=== PATIENT | female | born 1970 | race Caucasian/White ===

== ENCOUNTER 2021-06-18 21:42 | Observation (INO) | payer BC ==
[2021-06-18] MEDS ORDERED: MORPHINE SULFATE 2 MG INJ IV ONE (22:23)
[2021-06-18] MEDS ORDERED: Sodium Chloride 0.9% 1000 ML 1,000 ML IV STA (22:23)
[2021-06-18] MEDS ORDERED: Zofran 4 MG/2 ML VIAL IV ONE (22:23)
[2021-06-18] MEDS ORDERED: MORPHINE SULFATE 2 MG INJ ONE (22:29)
[2021-06-18] MEDS ORDERED: Sodium Chloride 0.9% 1000 ML 1,000 ML ONE (22:29)
[2021-06-18] MEDS ORDERED: Zofran 4 MG/2 ML VIAL ONE (22:29)
[2021-06-18 22:33] LABS: Basophil (Absolute #) 0.06 (0-0.4); Eosinophil % 0.6 % (0.00-5.0); Eosinophil (Absolute #) 0.07 (0-0.5); Hemoglobin 14.6 gm/dl (12.0-16.0); Lymphocyte (Absolute #) 4.16 (1.0-4.6); Lymphocytes % 35.6 % (24.0-44.0); Mean Cell Volume 102.1 fl (78-100); Mean Corpuscular Hemoglobin 33.9 pg (26-32); Mean Corpuscular Hgb Concent. 33.2 g/dl (32-36); Monocyte (Absolute #) 0.79 (0.0-1.3); Monocytes % 6.8 % (0.0-12.0); Neutrophil % 56.5 % (36.0-66.0); Platelet Count 363 K/mm3 (150-450); Red Blood Count 4.31 M/mm3 (4.1-5.4); Red Cell Distribution Width 12.1 % (11.5-14.0); White Blood Count 11.7 K/mm3 (4.0-10.5)
[2021-06-18 22:39] LABS: ALBUMIN 4.8 g/dL (3.5-5.0); ALKALINE PHOSPHATASE 84 U/L (38-126); ANION GAP 16.2 MEQ/L (5-15); BLOOD UREA NITROGEN 13 mg/dL (7-17); CHLORIDE 104 mmol/L (98-107); Calcium 10.2 mg/dL (8.4-10.2); Carbon Dioxide 24 mmol/L (22-30); Creatinine 1 0.73 mg/dL (0.52-1.04); EST GLOMERULAR FILTRATION RATE > 60.0 ML/MIN; Glucose 109 mg/dL (74-106); LIPASE 104 U/L (23-300); Potassium 3.7 mmol/L (3.5-5.1); SGOT/AST 28 U/L (14-36); SGPT/ALT 37 U/L (0-35); SODIUM 140 mmol/L (137-145); Total Protein 7.6 g/dL (6.3-8.2)
[2021-06-18 22:44] LABS: Appearance CLEAR (CLEAR); Bilirubin NEGATIVE (NEGATIVE); Dipstick done @ ? MAIN LAB; Glucose NEGATIVE (NEGATIVE); Ketones NEGATIVE (NEGATIVE); Nitrite NEGATIVE (NEGATIVE); Protein,Urine Dip NEGATIVE (Negative); RBC NEGATIVE Ery/ul (0-5); Specific Gravity <=1.005 (1.005-1.025); Urobilinogen 0.2 mg/dL (0-1)
--- NOTE | 2021-06-18 23:08 | ERPHSYRPT ---
- History of Present Illness Time Seen by Provider: 06/18/21 22:00 Historian: patient Exam Limitations: no limitations Patient Subjective Stated Complaint: rt sided abd pain Triage Nursing Assessment: pt c/o rt sided abd pain since around midnight and has just gotten worse throughout the day. Pt has right sided flank pain. Pt took a laxative this morning for relief and it has just made the pain worse. Abd soft with active bs x4 quad, tender on palpation. Physician History: Patient is a 51-year-old female presents to emergency department for evaluation and treatment of right upper quadrant pain. Pain started approximately midnight approximately 12 hours ago. Patient took a laxative but states that pain progre ssively became worse. Patient has a history of kidney stones but feels the symptoms are somewhat different. No trauma. No fever. No nausea vomiting or diaphoresis. Symptoms are moderate in intensity. Eating worsens symptoms. Pain improved with rest. Patient voices no other complaints or concerns at this time. Timing/Duration: today Activities at Onset: none Quality: aching Abdominal Pain Onset Location: RUQ Pain Radiation: no radiation Severity of Pain-Max: moderate Severity of Pain-Current: mild Modifying Factors: Improves With: eating Associated Symptoms: denies symptoms Previous symptoms: no prior history Allergies/Adverse Reactions: No Known Drug Allergies Allergy (Unverified 06/18/21 22:04) Home Medications: Atorvastatin Calcium 10 mg PO DAILY 06/18/21 [History] Cetirizine HCl [Zyrtec] 10 mg PO DAILY 06/18/21 [History] Fluticasone Propionate [Flonase Allergy Relief] 2 puffs IH DAILY 06/18/21 [History] Levothyroxine Sodium 75 Mcg [Synthroid 75 Mcg] 1 tab PO DAILY 06/18/21 [History] Montelukast Sodium 10 mg [Singulair 10 MG] 1 tab PO HS 06/18/21 [History] PANTOPRAZOLE 40 mg Tablet [Protonix 40MG Tablet] 1 tab PO DAILY 06/18/21 [History] Valsartan/Hydrochlorothiazide [Valsartan-Hctz 80-12.5 mg Tab] 1 tab PO DAILY 06/18/21 [History] Hx Tetanus, Diphtheria Vaccination/Date Given: Yes Hx Influenza Vaccination/Date Given: No Hx Pneumococcal Vaccination/Date Given: No Immunizations Up to Date: Yes Travel Risk - International Travel Have you traveled outside of the country in past 3 weeks: No - Coronavirus Screening Are you exhibiting any of the following symptoms?: No Close contact with a COVID-19 positive Pt in past 14-21 Days: No - Vaccine Status Have you recieved a Covid-19 vaccination: Yes Academic Department Chair: Pfizer - Vaccination Dates Date of 2cond Vaccination (if applicable): 09/14/20 - Review of Systems Constitutional: No Symptoms, No Fever, No Chills Eyes: No Symptoms Ears, Nose, & Throat: No Symptoms Respiratory: No Symptoms, No Cough, No Dyspnea Cardiac: No Symptoms, No Chest Pain, No Edema, No Syncope Abdominal/Gastrointestinal: No Symptoms, No Abdominal Pain, No Nausea, No Vomiting, No Diarrhea Genitourinary Symptoms: No Symptoms, No Dysuria Musculoskeletal: No Symptoms, No Back Pain, No Neck Pain Skin: No Symptoms, No Rash Neurological: No Symptoms, No Dizziness, No Focal Weakness, No Sensory Changes Psychological: No Symptoms Endocrine: No Symptoms Hematologic/Lymphatic: No Symptoms Immunological/Allergic: No Symptoms All Other Systems: Reviewed and Negative - Past Medical History Pertinent Past Medical History: Yes Neurological History: No Pertinent History ENT History: No Pertinent History Cardiac History: High Cholesterol, Hypertension, Other Respiratory History: Bronchitis Endocrine Medical History: Hypothyroidism Musculoskeletal History: No Pertinent History GI Medical History: GERD History: No Pertinent History Psycho-Social History: Anxiety, Depression Female Reproductive Disorders: No Pertinent History Other Medical History: SVT - Past Surgical History Past Surgical History: Yes Neuro Surgical History: No Pertinent History Cardiac: Cardiac Catheterization, Other Respiratory: No Pertinent History Gastrointestinal: No Pertinent History Genitourinary: No Pertinent History Musculoskeletal: No Pertinent History Female Surgical History: Dilation & Curettage, Section, Other Other Surgical History: breast reduction. spinal cord stimulator put in and removed. cardiac ablation for SVT. endometrial ablation - Social History Smoking Status: Current every day smoker How long have you smoked: 30 yrs Exposure to second hand smoke: Yes Drug Use: none Patient Lives Alone: No Significant Family History: heart disease - Nursing Vital Signs Nursing Vital Signs: Initial Vital Signs Temperature 98.8 F 06/18/21 21:53 Pulse Rate 87 06/18/21 21:53 Respiratory Rate 20 06/18/21 21:53 Blood Pressure 152/102 06/18/21 21:53 O2 Sat by Pulse Oximetry 100 06/18/21 21:53 Pain Scale Pain Intensity 5 - Physical Exam General Appearance: no apparent distress, alert Eye Exam: PERRL/EOMI, eyes nml inspection Ears, Nose, Throat Exam: normal ENT inspection, TMs normal, pharynx normal, moist mucous membranes Neck Exam: normal inspection, non-tender, supple, full range of motion Respiratory Exam: normal breath sounds, lungs clear, airway intact, No chest tenderness, No respiratory distress Cardiovascular Exam: regular rate/rhythm, normal heart sounds, normal peripheral pulses Gastrointestinal/Abdomen Exam: soft, normal bowel sounds, tenderness, other (Tenderness to palpation right upper quadrant.), No mass Pelvic Exam: not done Back Exam: normal inspection, normal range of motion, No CVA tenderness, No vertebral tenderness Extremity Exam: normal inspection, normal range of motion, pelvis stable Neurologic Exam: alert, oriented x 3, cooperative, normal mood/affect, nml cerebellar function, sensation nml, No motor deficits Skin Exam: normal color, warm, dry Lymphatic Exam: No adenopathy SpO2 Interpretation: normal SpO2: 98 O2 Delivery: Room Air - Course Nursing assessment & vital signs reviewed: Yes EKG Interpreted by Me: RATE (66), Sinus Rhythm, NORMAL AXIS, NORMAL INTERVALS (PVC complex observed on EKG. Short OR interval) - CT Exams Abdomen/Pelvis CT Interpretation: Tele-radiologist Report (Diverticulosis. No diverticulitis. No evidence of acute intra-abdominal or pelvic pathology.) Ordered Tests: Active Orders 24 hr Category Date Time Status EKG-ER Only STAT Care 06/18/21 22:23 Active IV Insertion STAT Care 06/18/21 22:23 Active ABDOMEN AND PELVIS W CONTRAST [CT] Stat Exams 06/18/21 22:24 Taken CBC W DIFF Stat Lab 06/18/21 22:25 Completed CMP Stat Lab 06/18/21 22:25 Completed LIPASE Stat Lab 06/18/21 22:25 Completed TROPONIN Q3H Lab 06/18/21 22:25 Completed TROPONIN Q3H Lab 06/19/21 01:27 Completed Transfer Order Routine Transfer 06/19/21 Ordered Medication Summary Discontinued Medications Generic Name Dose Route Start Last Admin Trade Name Freq PRN Reason Stop Dose Admin Hydromorphone HCl 0.5 mg 06/19/21 02:14 06/19/21 02:18 Hydromorphone 1 Mg/1ml Inj 1 Mg/Ml Syringe IV 06/19/21 02:15 0.5 mg STAT ONE Administration Hydromorphone HCl Confirm 06/19/21 02:17 Hydromorphone 1 Mg/1ml Inj 1 Mg/Ml Syringe Administered 06/19/21 02:18 Dose 1 mg .ROUTE .STK-MED ONE Sodium Chloride 1,000 mls @ 999 mls/hr 06/18/21 22:23 06/19/21 01:13 Sodium Chloride 0.9% 1000 Ml IV 06/18/21 23:23 Infused .Q1H1M STA Infusion Sodium Chloride Confirm 06/18/21 22:29 Sodium Chloride 0.9% 1000 Ml Administered 06/18/21 22:30 Dose 1,000 mls @ ud .ROUTE .STK-MED ONE Morphine Sulfate 2 mg 06/18/21 22:23 06/18/21 22:32 Morphine Sulfate 2 Mg/Ml Inj IV 06/18/21 22:24 2 mg STAT ONE Administration Morphine Sulfate Confirm 06/18/21 22:29 Morphine Sulfate 2 Mg/Ml Inj Administered 06/18/21 22:30 Dose 2 mg .ROUTE .STK-MED ONE Morphine Sulfate 4 mg 06/18/21 23:32 06/18/21 23:38 Morphine Sulfate 4 Mg/Ml Injection IV 06/18/21 23:33 4 mg STAT ONE Administration Morphine Sulfate Confirm 06/18/21 23:36 Morphine Sulfate 4 Mg/Ml Injection Administered 06/18/21 23:37 Dose 4 mg .ROUTE .STK-MED ONE Morphine Sulfate 4 mg 06/19/21 00:52 06/19/21 01:15 Morphine Sulfate 4 Mg/Ml Injection IV 06/19/21 00:53 4 mg STAT ONE Administration Morphine Sulfate Confirm 06/19/21 01:14 Morphine Sulfate 4 Mg/Ml Injection Administered 06/19/21 01:15 Dose 4 mg .ROUTE .STK-MED ONE Ondansetron HCl 4 mg 06/18/21 22:23 06/18/21 22:32 Ondansetron Hcl 4 Mg/2 Ml Vial IV 06/18/21 22:24 4 mg STAT ONE Administration Ondansetron HCl Confirm 06/18/21 22:29 Ondansetron Hcl 4 Mg/2 Ml Vial Administered 06/18/21 22:30 Dose 4 mg .ROUTE .STK-MED ONE Lab/Rad Data: Laboratory Result Diagrams 06/18/21 22:25 06/18/21 22:25 Laboratory Results 06/19/21 06/19/21 06/18/21 Range/Units 01:27 01:27 22:28 WBC (4.0-10.5) K/mm3 RBC (4.1-5.4) M/mm3 Hgb (12.0-16.0) gm/dl Hct (35-47) % MCV (78-100) fl MCH (26-32) pg MCHC (32-36) g/dl RDW (11.5-14.0) % Plt Count (150-450) K/mm3 MPV (7.5-11.0) fl Gran % (36.0-66.0) % Eos # (Auto) (0-0.5) Absolute Lymphs (auto) (1.0-4.6) Absolute Monos (auto) (0.0-1.3) Lymphocytes % (24.0-44.0) % Monocytes % (0.0-12.0) % Eosinophils % (0.00-5.0) % Basophils % (0.0-0.4) % Absolute Granulocytes (1.4-6.9) Basophils # (0-0.4) Sodium (137-145) mmol/L Potassium (3.5-5.1) mmol/L Chloride (98-107) mmol/L Carbon Dioxide (22-30) mmol/L Anion Gap (5-15) MEQ/L BUN (7-17) mg/dL Creatinine (0.52-1.04) mg/dL Estimated GFR ML/MIN Glucose (74-106) mg/dL Calcium (8.4-10.2) mg/dL Total Bilirubin (0.2-1.3) mg/dL AST (14-36) U/L ALT (0-35) U/L Alkaline Phosphatase (38-126) U/L Troponin I < 0.012 (0.000-0.034) ng/mL Serum Total Protein (6.3-8.2) g/dL Albumin (3.5-5.0) g/dL Lipase (23-300) U/L Urinalys Dipstick Clnc MAIN LAB Urine Color YELLOW (YELLOW) Urine Appearance CLEAR (CLEAR) Urine pH 6.0 (5-6) Ur Specific [place] <=1.005 (1.005-1.025) POC Urine Protein Conf NEGATIVE (Negative) Urine Ketones NEGATIVE (NEGATIVE) Urine Nitrite NEGATIVE (NEGATIVE) Urine Bilirubin NEGATIVE (NEGATIVE) Urine Urobilinogen 0.2 (0-1) mg/dL Urine Leukocytes NEGATIVE (NEGATIVE) Urine WBC (Auto) NONE (0-5) /HPF Urine RBC (Auto) NONE (0-2) /HPF U Epithel Cells (Auto) NONE (FEW) /HPF Urine Bacteria (Auto) NONE (NEGATIVE) /HPF Urine RBC NEGATIVE (0-5) Santiago/ul Ur Culture Indicated? NO Urine Glucose NEGATIVE (NEGATIVE) mg/dL Influenza Type A Ag NEGATIVE (NEGATIVE) Influenza Type B Ag NEGATIVE (NEGATIVE) RSV (PCR) NEGATIVE (Negative) SARS-CoV-2 (PCR) NEGATIVE (NEGATIVE) 06/18/21 06/18/21 06/18/21 Range/Units 22:25 22:25 22:25 WBC 11.7 H (4.0-10.5) K/mm3 RBC 4.31 (4.1-5.4) M/mm3 Hgb 14.6 (12.0-16.0) gm/dl Hct 44.0 (35-47) % MCV 102.1 H (78-100) fl MCH 33.9 H (26-32) pg MCHC 33.2 (32-36) g/dl RDW 12.1 (11.5-14.0) % Plt Count 363 (150-450) K/mm3 MPV 10.0 (7.5-11.0) fl Gran % 56.5 (36.0-66.0) % Eos # (Auto) 0.07 (0-0.5) Absolute Lymphs (auto) 4.16 (1.0-4.6) Absolute Monos (auto) 0.79 (0.0-1.3) Lymphocytes % 35.6 (24.0-44.0) % Monocytes % 6.8 (0.0-12.0) % Eosinophils % 0.6 (0.00-5.0) % Basophils % 0.5 (0.0-0.4) % Absolute Granulocytes 6.60 (1.4-6.9) Basophils # 0.06 (0-0.4) Sodium 140 (137-145) mmol/L Potassium 3.7 (3.5-5.1) mmol/L Chloride 104 (98-107) mmol/L Carbon Dioxide 24 (22-30) mmol/L Anion Gap 16.2 H (5-15) MEQ/L BUN 13 (7-17) mg/dL Creatinine 0.73 (0.52-1.04) mg/dL Estimated GFR > 60.0 ML/MIN Glucose 109 H (74-106) mg/dL Calcium 10.2 (8.4-10.2) mg/dL Total Bilirubin 0.50 (0.2-1.3) mg/dL AST 28 (14-36) U/L ALT 37 H (0-35) U/L Alkaline Phosphatase 84 (38-126) U/L Troponin I < 0.012 (0.000-0.034) ng/mL Serum Total Protein 7.6 (6.3-8.2) g/dL Albumin 4.8 (3.5-5.0) g/dL Lipase 104 (23-300) U/L Urinalys Dipstick Clnc Urine Color (YELLOW) Urine Appearance (CLEAR) Urine pH (5-6) Ur Specific [place] (1.005-1.025) POC Urine Protein Conf (Negative) Urine Ketones (NEGATIVE) Urine Nitrite (NEGATIVE) Urine Bilirubin (NEGATIVE) Urine Urobilinogen (0-1) mg/dL Urine Leukocytes (NEGATIVE) Urine WBC (Auto) (0-5) /HPF Urine RBC (Auto) (0-2) /HPF U Epithel Cells (Auto) (FEW) /HPF Urine Bacteria (Auto) (NEGATIVE) /HPF Urine RBC (0-5) Santiago/ul Ur Culture Indicated? Urine Glucose (NEGATIVE) mg/dL Influenza Type A Ag (NEGATIVE) Influenza Type B Ag (NEGATIVE) RSV (PCR) (Negative) SARS-CoV-2 (PCR) (NEGATIVE) - Progress Progress: improved Progress Note: Patient reassessed. She continues to have right upper quadrant pain in spite of multiple doses of morphine. Patient has a leukocytosis. CAT scan essentially nonremarkable. We are concerned with possible cholecystitis. Due to policy we cannot perform a right upper quadrant ultrasound after hours from our ED. Patient cannot be discharged home due to the level of pain she is experiencing. Case discussed with Dr. Jorgensen who accepts admission to observation. We will admit patient for pain control and right upper quadrant ultrasound in the morning. Plan of care discussed with patient. She agrees to admission [facility] for further evaluation and treatment. Covid test pending 06/19/21 01:16 Covid test negative. Admit orders entered. Patient will be admitted to Dr. Jorgensen service. Right upper quadrant ultrasound will be performed in the morning. Portions of this note were created with voice recognition technology. There may be grammatical, spelling, punctuation or sound alike errors 06/19/21 02:[address] Sergey Will see patient in: hospital (observation) Counseled pt/family regarding: lab results, diagnosis, rad results - Departure Departure Disposition: Home Clinical Impression: Leukocytosis, Right upper quadrant pain, Intractable abdominal pain Condition: Stable Critical Care Time: No Referrals: DOCTOR,NO FAMILY [Primary Care Provider] - Follow up/PCP as directed Additional Instructions: Discharge/Care Plan SHRUTICHLOÉ CALVO was seen on 06/19/21 in the Emergency Room. The patient was counseled regarding Diagnosis,Lab results, Imaging studies, need for follow up and when to return to the Emergency Room. Prescriptions given: Discharge Note I have spoken with the patient and/or caregivers. I have explained the patient's condition, diagnosis and treatment plan based on the information available to me at this time. I have answered the patient's and/or caregiver's questions and addressed any concerns. The patient and/or caregivers have as good understanding of the patient's diagnosis, condition and treatment plan as can be expected at this point. The vital signs have been stable. The patient's condition is stable and appropriate for discharge from the emergency department. The patient will pursue further outpatient evaluation with the primary care physician or other designated or consulting physician as outlined in the discharge instructions. The patient and/or caregivers are agreeable to this plan of care and follow-up instructions have been explained in detail. The patient and/or caregivers have received these instruction. The patient/and or caregivers are aware that any significant change in condition or worsening of symptoms should prompt an immediate return to this or the closest emergency department or call 911.
[2021-06-18] MEDS ORDERED: MORPHINE SULFATE 4 MG INJ IV ONE (23:32)
[2021-06-18] MEDS ORDERED: MORPHINE SULFATE 4 MG INJ ONE (23:36)
[2021-06-19] MEDS ORDERED: MORPHINE SULFATE 4 MG INJ IV ONE (00:52)
[2021-06-19] MEDS ORDERED: MORPHINE SULFATE 4 MG INJ ONE (01:14)
[2021-06-19 02:08] LABS: INFLUENZA A NEGATIVE (NEGATIVE); INFLUENZA B NEGATIVE (NEGATIVE); RESPIRATORY SYNCTIAL VIRUS NEGATIVE (Negative); SARS-CoV-2 Xpert Express NEGATIVE (NEGATIVE)
[2021-06-19] MEDS ORDERED: Hydromorphone 1 mg/ml Injection IV ONE (02:14)
[2021-06-19] MEDS ORDERED: Hydromorphone 1 mg/ml Injection ONE (02:17)
[2021-06-19] MEDS: Zofran 4 MG/2 ML VIAL IV PRN ×2 (03:47→17:22)
[2021-06-19] MEDS: Sodium Chloride 0.9% 1000 ML 1,000 ML IV SCH ×3 (04:34→23:54)
[2021-06-19] MEDS ORDERED: PIPERACILLIN/TAZOBACTAM IV ONE (05:54)
[2021-06-19] MEDS ORDERED: Sodium Chloride 100ML MINI-BAG PLUS 100 ML IV ONE (05:55)
[2021-06-19] MEDS: PIPERACILLIN/TAZOBACTAM 3.375 GM in Sodium Chloride 100ML MINI-BAG PLUS 100 ML IV SCH ×4 (06:07→23:54)
[2021-06-19 06:08] LABS: Absolute Neutrophil Ct (ANC) 5.19 (1.4-6.9); Basophil (Absolute #) 0.03 (0-0.4); Eosinophil % 0.5 % (0.00-5.0); Eosinophil (Absolute #) 0.04 (0-0.5); Hematocrit 38.9 % (35-47); Hemoglobin 12.5 gm/dl (12.0-16.0); Lymphocyte (Absolute #) 2.88 (1.0-4.6); Mean Cell Volume 104.6 fl (78-100); Mean Corpuscular Hemoglobin 33.6 pg (26-32); Mean Corpuscular Hgb Concent. 32.1 g/dl (32-36); Monocyte (Absolute #) 0.59 (0.0-1.3); Monocytes % 6.8 % (0.0-12.0); Neutrophil % 59.4 % (36.0-66.0); Platelet Count 316 K/mm3 (150-450); Red Blood Count 3.72 M/mm3 (4.1-5.4); Red Cell Distribution Width 12.3 % (11.5-14.0); White Blood Count 8.7 K/mm3 (4.0-10.5)
[2021-06-19] MEDS: Hydromorphone 1 mg/ml Injection IV PRN ×5 (06:22→23:59)
[2021-06-19] MEDS: BENADRYL 50 MG/ML IV PRN ×3 (08:49→21:48)
--- NOTE | 2021-06-19 09:21 | XRAY ---
Indication: Right abdomen/flank pain. Nausea. Elevated WBC. Multiple contiguous axial images obtained through the abdomen and pelvis using 80 cc Isovue 370 contrast. Comparison: None Lung bases demonstrates minimal dependent atelectasis. Heart not enlarged. Noncontrasted stomach and bowel loops appear nonobstructed. Normal appendix. Minimal descending and sigmoid diverticulosis without diverticulitis. Gallbladder mildly distended without gallstones or biliary distention. No free fluid/air. Remaining liver, gallbladder, pancreas, spleen, adrenal glands, kidneys, ureters, bladder, and uterus appear unremarkable. Mild scattered aortoiliac calcifications. No AAA or pathologic retroperitoneal lymphadenopathy. Osseous structures intact with mild levorotoscoliosis centered at L3 and 1 cm left femur head bone island. No ventral or inguinal hernias. Impression: 1. Mild distended gallbladder better evaluated with sonogram if clinically warranted. 2. Minimal colonic diverticulosis and chronic bony findings. 3. Remaining CT abdomen/pelvis with contrast exam is negative. Comment: Preliminary interpretation made by C. No critical discrepancy.
--- NOTE | 2021-06-19 09:46 | XRAY ---
Indication: Right upper quadrant pain. Nausea. Two-dimensional gallbladder sonogram performed. Comparison: None Gallbladder mildly distended without gallstones, wall thickening, or pericholecystic fluid. Common bile duct measures 5.5 mm. No intrahepatic biliary distention. Remaining visualized liver, pancreas, and right kidney are sonographically unremarkable. Right kidney measures 9.5 cm in length. Impression: Continued negative gallbladder sonogram.
[2021-06-19] MEDS ORDERED: NON-FORMULARY ITEM (Atorvastatin Calcium [Atorvastatin Calcium] 10 MG Tablet) PO SCH (10:00)
[2021-06-19] MEDS ORDERED: PROTONIX 40 MG IV IV SCH (10:00)
[2021-06-19] MEDS ORDERED: HYDROCHLOROTHIAZIDE PO SCH (10:00)
[2021-06-19] MEDS ORDERED: VALSARTAN PO SCH (10:00)
[2021-06-19] MEDS ORDERED: NON-FORMULARY ITEM (Fluticasone Propionate [Flonase Allergy Relief] 9.9 ML Spray.Susp) IH SCH (10:00)
[2021-06-19] MEDS ORDERED: NON-FORMULARY ITEM (Cetirizine Hcl [Zyrtec] 10 MG Tablet) PO SCH (10:00)
[2021-06-19] MEDS ORDERED: [UNRECOGNIZED DRUG - OTHER] PO SCH (10:00)
[2021-06-19] MEDS: Protonix 40MG Tablet PO SCH (10:17)
[2021-06-19] MEDS: Flonase NASAL NS SCH (10:21)
[2021-06-19] MEDS: SYNTHROID 75 MCG PO SCH (10:21)
[2021-06-19] MEDS: Zocor 10MG PO SCH (10:21)
[2021-06-19] MEDS: CLARITIN 10 MG PO SCH (10:21)
[2021-06-19] MEDS: hydroDIURIL 25 MG PO SCH (10:22)
[2021-06-19] MEDS: DIOVAN 80 MG PO SCH (10:23)
[2021-06-19 10:26] LABS: ALBUMIN 3.6 g/dL (3.5-5.0); ALKALINE PHOSPHATASE 55 U/L (38-126); ANION GAP 8.6 MEQ/L (5-15); BLOOD UREA NITROGEN 12 mg/dL (7-17); CHLORIDE 109 mmol/L (98-107); Calcium 8.7 mg/dL (8.4-10.2); Carbon Dioxide 26 mmol/L (22-30); Creatinine 1 0.65 mg/dL (0.52-1.04); EST GLOMERULAR FILTRATION RATE > 60.0 ML/MIN; Glucose 92 mg/dL (74-106); Potassium 3.7 mmol/L (3.5-5.1); SGOT/AST 24 U/L (14-36); SGPT/ALT 28 U/L (0-35); SODIUM 140 mmol/L (137-145); Total Protein 6.3 g/dL (6.3-8.2)
[2021-06-19] MEDS ORDERED: Nicoderm CQ 21 MG TOP SCH (11:15)
[2021-06-19] MEDS: Nicoderm CQ 21 MG TOP SCH (11:22)
[2021-06-19] MEDS: NEURONTIN 300 MG PO SCH (21:36)
[2021-06-19] MEDS: Zanaflex 4 MG PO SCH (21:36)
[2021-06-19] MEDS: Singulair 10 MG PO SCH (21:36)
[2021-06-20] MEDS: BENADRYL 50 MG/ML IV PRN ×4 (02:27→21:48)
[2021-06-20] MEDS: PIPERACILLIN/TAZOBACTAM 3.375 GM in Sodium Chloride 100ML MINI-BAG PLUS 100 ML IV SCH ×4 (05:55→23:40)
--- NOTE | 2021-06-20 12:46 | XRAY ---
Indication: Extreme right upper quadrant pain. Negative gallbladder sonogram. Comparison: None Patient received 5.4 mCi technetium 99 Choletec. Immediate anterior planar imaging was performed for 60 minutes. Normal hepatic activity on the first image. Normal biliary and gallbladder activity within 20 minutes. Normal biliary to bowel activity within 40 minutes. Patient then received 1.3 g IV CCK slowly. Patient complained of right upper quadrant pain, graded 6 out of 10. Ejection fraction calculated 10%, low. Impression: 1. HIDA scan portion of the exam is normal. 2. Low ejection fraction 10%. Rule out chronic cholecystitis.
[2021-06-20] MEDS: Hydromorphone 1 mg/ml Injection IV PRN ×2 (13:21→19:26)
[2021-06-20] MEDS ORDERED: Lactated Ringers 1,000 ML IV ONE ×2 (13:27→13:37)
[2021-06-20] MEDS ORDERED: Decadron 4 MG INJ ONE (13:32)
[2021-06-20] MEDS ORDERED: SUBLIMAZE 100 MCG/2 ML ONE ×2 (13:32→15:09)
[2021-06-20] MEDS ORDERED: Xylocaine-Mpf 2% 5 Ml Vial ONE (13:32)
[2021-06-20] MEDS ORDERED: Versed 2 MG/2 ML Injection ONE (13:32)
[2021-06-20] MEDS ORDERED: Zofran 4 MG/2 ML VIAL ONE ×2 (13:32→15:07)
[2021-06-20] MEDS ORDERED: DIPRIVAN 200 MG/20 ML IV ONE (13:32)
[2021-06-20] MEDS ORDERED: Zemuron 100 MG/10 ML ONE (13:32)
[2021-06-20] MEDS ORDERED: BRIDION 200MG/2ML IV ONE (13:32)
[2021-06-20] MEDS ORDERED: TORAdol 30 mg Injection ONE ×2 (13:32→14:12)
[2021-06-20] MEDS ORDERED: Sensorcaine 0.25% 10 ML ONE (13:37)
--- NOTE | 2021-06-20 13:55 | PCM.NOTE ---
Date and Time: 06/20/21 1352 Subjective Assessment: S: no acute issues overnight. similar pain. comes and goes in waves. crampy/tightness. can be severe. is getting narcotics. to [facility] didn't initially have sx but then had sx "when they flushed the saline". does endorse taking intermittent nsaid. thought she had an ulcer a few weeks ago due to pain and had a little blood in some regurgitation. O vss nad nonlabroed resps nd, soft, mild ttp ruq no r/g no gary. hida 10% ef a/p: 51yo female with ruq abd pain. ? gastritis/pud, HIDA 10% clearly abnormal. discussed with pt options of egd, cholecystectomy, nonop and she wants to proceed with egd cholecystectomy -egd cholecystectomy. OBJECTIVE DATA Vital Signs: Vital Signs - 24 hr Temp Pulse Resp BP Pulse Ox 06/20/21 13:34 97.8 F 67 20 135/65 100 06/20/21 12:00 97.8 F 67 20 135/65 100 06/20/21 08:00 97.7 F 56 L 18 96/54 99 06/20/21 07:29 95 06/20/21 04:40 97.7 F 56 L 18 98/55 99 06/20/21 00:00 97.7 F 54 L 20 102/59 99 06/19/21 20:00 98 F 53 L 22 126/78 98 06/19/21 18:55 96 06/19/21 16:00 97.8 F 53 L 16 111/59 98 Pain Assessment - Last Documented Pain Intensity 8 Pain Scale Used 0-10 Pain Scale Intake and Output: Intake & Output 06/18/21 06/19/21 06/20/21 06/21/21 11:59 11:59 11:59 11:59 Intake Total 0 2830 0 Balance 0 2830 0 Weight 66.678 kg 66.678 kg Radiology Exams: Radiology Procedures Category Date Time Status ABDOMEN AND PELVIS W CONTRAST [CT] Stat Exams 06/18/21 22:24 Completed GALLBLADDER [US] Routine Exams 06/19/21 09:00 Completed HEPATOBILIARY W/CCK [NUCMED] Routine Exams 06/20/21 10:33 Completed Multi-Disciplinary Progress Notes: Multi-Disciplinary Progress Notes 06/20/21 12:30 Case Management Note by Rosa Linda/Elvia PATIENT- SHE CONTINUES TO DENY ANY NEW NEEDS REGARDING DC. SHE PLANS TO RETURN HOME TO HER PRIOR LEVEL OF FUNCTIONING AT TIME OF DC, SHE REPORTS HER FAMILY WILL BE ABLE TO ASSIST IF NEEDED Initialized on 06/20/21 12:30 - END OF NOTE
--- NOTE | 2021-06-20 13:58 | PCM.CONS ---
History of Present Illness - Reason for Consult Chief Complaint: Intractable right upper quadrant pain Requesting Provider: KENDY JIMENES Consulting Provider: HELEN ROWLEY MD History of Present Illness: hx per chart review and d/w pt few weeks ago had some epigastric/ruq pain. thought she was having an ulcer. however worsened acute pain to ED. US CT negative. continued pain. to hida today. comes and goes in waves. crampy severe pain. "- History of Present Illness Time Seen by Provider: 06/18/21 22:00 Historian: patient Exam Limitations: no limitations Patient Subjective Stated Complaint: rt sided abd pain Triage Nursing Assessment: pt c/o rt sided abd pain since around midnight and has just gotten worse throughout the day. Pt has right sided flank pain. Pt took a laxative this morning for relief and it has just made the pain worse. Abd soft with active bs x4 quad, tender on palpation. Physician History: Patient is a 51-year-old female presents to emergency department for evaluation and treatment of right upper quadrant pain. Pain started approximately midnight approximately 12 hours ago. Patient took a laxative but states that pain progressively became worse. Patient has a history of kidney stones but feels the symptoms are somewhat different. No trauma. No fever. No nausea vomiting or diaphoresis. Symptoms are moderate in intensity. Eating worsens symptoms. Pain improved with rest. Patient voices no other complaints or concerns at this time. Timing/Duration: today Activities at Onset: none Quality: aching Abdominal Pain Onset Location: RUQ Pain Radiation: no radiation Severity of Pain-Max: moderate Severity of Pain-Current: mild Modifying Factors: Improves With: eating Associated Symptoms: denies symptoms Previous symptoms: no prior history Allergies/Adverse Reactions: No Known Drug Allergies Allergy (Unverified 06/18/21 22:04) Medications & Allergies Home Medications: Home Medication List Atorvastatin Calcium 10 mg PO DAILY 06/18/21 [History Confirmed 06/18/21] Cetirizine HCl [Zyrtec] 10 mg PO DAILY 06/18/21 [History Confirmed 06/18/21] Fluticasone Propionate [Flonase Allergy Relief] 2 puffs IH DAILY 06/18/21 [History Confirmed 06/18/21] Levothyroxine Sodium 75 Mcg [Synthroid 75 Mcg] 1 tab PO DAILY 06/18/21 [History Confirmed 06/18/21] Montelukast Sodium 10 mg [Singulair 10 MG] 1 tab PO HS 06/18/21 [History Confirmed 06/18/21] PANTOPRAZOLE 40 mg Tablet [Protonix 40MG Tablet] 1 tab PO DAILY 06/18/21 [History Confirmed 06/18/21] Valsartan/Hydrochlorothiazide [Valsartan-Hctz 80-12.5 mg Tab] 1 tab PO DAILY 06/18/21 [History Confirmed 06/18/21] Gabapentin 300 mg [Neurontin 300 mg] 300 mg PO QHS 06/19/21 [History Confirmed 06/19/21] Tizanidine HCl 4 mg [Zanaflex 4 MG] 4 mg PO QHS 06/19/21 [History Confirmed 06/19/21] Hydrocodone/Acetaminophen [Hydrocodone-Acetamin 5-325 mg] 1 tab PO Q6HPRN PRN 7 Days #20 tablet MDD 4 06/20/21 [Rx] Allergies/Adverse Reactions: Allergies Allergy/AdvReac Type Severity Reaction Status Date / Time No Known Drug Allergies Allergy Unverified 06/18/21 22:04 - Past Medical History Past Medical History: Yes Neurological History: No Pertinent History ENT History: No Pertinent History Cardiac History: High Cholesterol, Hypertension, Other Respiratory History: Bronchitis Endocrine Medical History: Hypothyroidism Musculoskelatal History: No Pertinent History GI Medical History: GERD History: No Pertinent History Pyscho-Social History: Anxiety, Depression Reproductive Disorders: No Pertinent History Comment: SVT - Female History Are you now?: No - Past Surgical History Past Surgical History: Yes Neuro Surgical History: No Pertinent History Cardiac History: Cardiac Catheterization, Other Respiratory Surgery: No Pertinent History GI Surgical History: No Pertinent History Genitourinary Surgical Hx: No Pertinent History Musculskeletal Surgical Hx: No Pertinent History Female Surgical History: Dilation & Curettage, Section, Other Other Surgical History: breast reduction. spinal cord stimulator put in and removed. cardiac ablation for SVT. endometrial ablation - Social History Smoking Status: Current every day smoker How long have you smoked: 30 years Exposure to second hand smoke: Yes Alcohol: Occasionally Drug Use: none Significant Family History: heart disease - Physical Exam Vital Signs: Vital Signs - 24 hr Temp Pulse Resp BP Pulse Ox 06/20/21 13:34 97.8 F 67 20 135/65 100 06/20/21 12:00 97.8 F 67 20 135/65 100 06/20/21 08:00 97.7 F 56 L 18 96/54 99 06/20/21 07:29 95 06/20/21 04:40 97.7 F 56 L 18 98/55 99 06/20/21 00:00 97.7 F 54 L 20 102/59 99 06/19/21 20:00 98 F 53 L 22 126/78 98 06/19/21 18:55 96 06/19/21 16:00 97.8 F 53 L 16 111/59 98 General Appearance: no apparent distress Neurologic Exam: alert, oriented x 3 Eye Exam: eyes nml inspection, No scleral icterus Neck Exam: normal inspection Respiratory Exam: No respiratory distress Cardiovascular Exam: regular rate/rhythm Gastrointestinal/Abdomen Exam: soft, tenderness, No mass, No guarding, No rebound (ttp ruq no r/g. no gary) Pelvic Exam: not done Rectal Exam: not done Skin Exam: normal color, warm, dry Results - Radiology Impressions Radiology Exams & Impressions: Radiology Procedures Category Date Time Status ABDOMEN AND PELVIS W CONTRAST [CT] Stat Exams 06/18/21 22:24 Completed GALLBLADDER [US] Routine Exams 06/19/21 09:00 Completed HEPATOBILIARY W/CCK [NUCMED] Routine Exams 06/20/21 10:33 Completed Assessment/Plan (1) Right upper quadrant pain Current Visit: Yes Status: Acute Assessment & Plan: RUQ pain. mild ttp on exam. CT US negative. labs ok. abnormal hida ef 10%. does take nsaids. did say she had a blood tinge in some regurigtation weeks ago. -egd cholecystectomy. Code(s): R10.11 - RIGHT UPPER QUADRANT PAIN
[2021-06-20] MEDS ORDERED: MEFOXIN 2 GM PREMIX** 2 GM/50 ML ML IV ONE (14:01)
[2021-06-20] MEDS ORDERED: Hydromorphone 1 mg/ml Injection ONE (15:10)
[2021-06-20] MEDS: CLARITIN 10 MG PO SCH ×2 (15:27→16:50)
[2021-06-20] MEDS: DIOVAN 80 MG PO SCH (15:27)
[2021-06-20] MEDS: hydroDIURIL 25 MG PO SCH (15:29)
[2021-06-20] MEDS: SYNTHROID 75 MCG PO SCH (15:29)
[2021-06-20] MEDS: Protonix 40MG Tablet PO SCH (15:29)
[2021-06-20] MEDS: Nicoderm CQ 21 MG TOP SCH ×2 (15:30→16:43)
[2021-06-20] MEDS: Zocor 10MG PO SCH (15:30)
--- NOTE | 2021-06-20 15:32 | OP ---
SURGERY DATE/TIME: 06/20/2021 4923 PREOPERATIVE DIAGNOSIS: Cholecystitis and right upper quadrant abdominal pain. POSTOPERATIVE DIAGNOSES: 1) Acute cholecystitis. 2) Normal EGD. PROCEDURES: 1) Laparoscopic cholecystectomy. 2) EGD. SURGEON: Rodney Hidalgo M.D. ANESTHESIA: General. ESTIMATED BLOOD LOSS: Minimal. CONDITION: Patient condition stable. COMPLICATIONS: None. SPECIMEN: Gallbladder. HISTORY: The patient is a 51-year-old female who presented to the emergency department with acute right upper quadrant abdominal pain. Ultrasound was negative. CT scan was negative. Labs are unremarkable. She had continued pain. HIDA scan obtained that showed ejection fraction of 10%. On exam, she has focal tenderness in the right upper quadrant. She does endorse that a few weeks prior she might have regurgitated some contents with blood with concern that she had an ulcer. She does take NSAID's intermittently. Discussion with patient the risks of infection, bleeding, injury to nearby structure, hernia, perforation, failure to resolve symptoms. Offered EGD and cholecystectomy and she wanted to proceed with both. FINDINGS: Acutely edematous, inflamed gallbladder, mildly distended. Critical view obtained. EGD is normal. DESCRIPTION OF PROCEDURE: The patient was brought to the operating room. General anesthesia induced. She is routinely positioned, prepped and draped. Time out performed. She received preoperative antibiotic. A Veress needle was inserted in left upper quadrant. Opening pressure was 4. Pneumoperitoneum established. A 5 mm Optiview trocar placed in left upper quadrant. A 5 mm infraumbilical trocar placed. Two additional 5 mm trocars placed in the right upper quadrant. The gallbladder is moderately distended, did not require decompression. The cystic duct and cystic artery were dissected out with a combination of L-hook cautery, [place] and blunt dissection. There were also some omental adhesions on the gallbladder taken down. The critical view was clearly obtained. The cystic duct taken with 5 mm metal clip press pipe inspector, three down. Cystic artery was taken with 5 mm metal clip press pipe inspector, three down. The cystic artery taken with 5 mm Hem-O-Henrique clip press pipe inspector, both divided. Gallbladder taken off the liver bed. Hole made in the gallbladder and suctioned out. There was no sunny stone. The gallbladder is then brought out through the 5 mm infraumbilical trocar site. No dilation was required. Trocar reinserted. Right upper quadrant re-inspected, irrigated and suctioned until clear. There was excellent hemostasis. Clips are in good position. The ports were removed under direct visualization except for the left upper quadrant port used for desufflation and then removed. Skin closed with 4-0 Vicryl suture. The wound had been irrigated out. Marcaine had been injected at all the port sites. 4-0 Vicryl used to close the skin. Steri-Strips and sterile dressings applied. All counts were correct. The patient tolerated the procedure well. The gastroscope was then inserted through the mouth and advanced to the third portion of the duodenum. The duodenum is normal. Stomach is normal. Retroflexion normal. Esophagus normal. This is a normal EGD. The patient tolerated this portion of the procedure well. She was extubated and taken to recovery in stable condition.
[2021-06-20] MEDS: Sodium Chloride 0.9% 1000 ML 1,000 ML IV SCH (15:56)
[2021-06-20] MEDS: Flonase NASAL NS SCH (16:41)
[2021-06-20] MEDS: NORCO 5/325 MG PO PRN ×2 (17:46→21:48)
[2021-06-20] MEDS: Singulair 10 MG PO SCH (21:41)
[2021-06-20] MEDS: NEURONTIN 300 MG PO SCH (21:41)
[2021-06-20] MEDS: Zanaflex 4 MG PO SCH (21:41)
[2021-06-20] MEDS ORDERED: Diflucan 100 MG PO SCH (22:00)
[2021-06-20] MEDS ORDERED: Protonix 40MG Tablet PO ONE (22:00)
[2021-06-21] MEDS: NORCO 5/325 MG PO PRN ×2 (02:07→07:26)
[2021-06-21] MEDS: BENADRYL 50 MG/ML IV PRN ×2 (02:10→07:38)
[2021-06-21] MEDS: Sodium Chloride 0.9% 1000 ML 1,000 ML IV SCH (02:52)
[2021-06-21 05:01] LABS: Hematocrit 35.7 % (35-47); Hemoglobin 11.7 gm/dl (12.0-16.0); Mean Cell Volume 103.8 fl (78-100); Mean Corpuscular Hgb Concent. 32.8 g/dl (32-36); Platelet Count 280 K/mm3 (150-450); Red Blood Count 3.44 M/mm3 (4.1-5.4); Red Cell Distribution Width 11.9 % (11.5-14.0); White Blood Count 9.7 K/mm3 (4.0-10.5)
[2021-06-21] MEDS: Hydromorphone 1 mg/ml Injection IV PRN ×2 (05:01→08:50)
[2021-06-21 05:35] LABS: ALBUMIN 3.4 g/dL (3.5-5.0); ALKALINE PHOSPHATASE 61 U/L (38-126); BLOOD UREA NITROGEN 10 mg/dL (7-17); CHLORIDE 110 mmol/L (98-107); Calcium 8.4 mg/dL (8.4-10.2); Carbon Dioxide 19 mmol/L (22-30); Creatinine 1 0.61 mg/dL (0.52-1.04); EST GLOMERULAR FILTRATION RATE > 60.0 ML/MIN; Glucose 179 mg/dL (74-106); Potassium 3.6 mmol/L (3.5-5.1); SGOT/AST 44 U/L (14-36); SGPT/ALT 37 U/L (0-35); SODIUM 137 mmol/L (137-145)
[2021-06-21] MEDS: PIPERACILLIN/TAZOBACTAM 3.375 GM in Sodium Chloride 100ML MINI-BAG PLUS 100 ML IV SCH (06:39)
[2021-06-21 07:22] VITALS: BP 130/63; PULSE 55; O2SAT 99
[2021-06-21] MEDS: DIOVAN 80 MG PO SCH (08:44)
[2021-06-21] MEDS: hydroDIURIL 25 MG PO SCH (08:45)
[2021-06-21] MEDS: CLARITIN 10 MG PO SCH (08:45)
[2021-06-21] MEDS: SYNTHROID 75 MCG PO SCH (08:46)
[2021-06-21] MEDS: Zocor 10MG PO SCH (08:46)
[2021-06-21] MEDS: Flonase NASAL NS SCH (08:47)
[2021-06-21] MEDS ORDERED: Protonix 40MG Tablet PO SCH (10:00)
[2021-06-21] MEDS ORDERED: Diflucan 100 MG PO SCH (22:00)
== END 2021-06-21 10:10 | disposition home or self-care (01) ==
LOC: ED 21:42 → MED SURG 06-19 02:42
PROVIDERS: ADMIT Family Medicine; ATTEND Family Medicine
DX: K81.0 Acute cholecystitis (principal); R10.11 Right upper quadrant pain; I10 Essential (primary) hypertension; E78.00 Pure hypercholesterolemia, unspecified; Z72.0 Tobacco use; Z79.899 Other long term (current) drug therapy; Z20.828 Contact with and (suspected) exposure to other viral communicable diseases
CPT/HCPCS: 0241U; 36000; 36415; 43235; 47562; 74177; 76705; 78227; 80053; 81015; 83690; 84484; 85025; 85027; 93005; 94762; 96360; 96374; 96375; 96376; 99285; A9537; G0378; J0694; J1100; J1170; J1200; J1885; J2250; J2270; J2405; J2704; J2805; J3010; A9270-GY

== ENCOUNTER 2021-12-14 16:34 | Emergency (ER) | payer OTHER ==
[2021-12-14] MEDS ORDERED: MORPHINE SULFATE 4 MG INJ IV ONE ×2 (16:46→17:30)
[2021-12-14] MEDS ORDERED: Sodium Chloride 0.9% 1000 ML 1,000 ML IV STA (16:46)
[2021-12-14] MEDS ORDERED: Zofran 4 MG/2 ML VIAL IV ONE (16:46)
[2021-12-14] MEDS ORDERED: TORAdol 30 mg Injection IV ONE (16:46)
--- NOTE | 2021-12-14 16:53 | ERPHSYRPT ---
- History of Present Illness Time Seen by Provider: 12/14/21 16:37 Historian: patient Exam Limitations: no limitations Physician History: 51 years old female with history of kidney stones, hypertension hyperlipidemia, hypothyroidism presented in the ER with chief complaint of sudden onset right back/right flank pain with radiation to the right lower quadrant/groin area, severe sharp shooting, aggravated with palpation/movement and unable to find a comfortable spot. Reports associated nausea but no vomiting. Denies any urinary complaints. Timing/Duration: today, constant, sudden, worse Quality: sharpness Abdominal Pain Onset Location: flank Pain Radiation: RLQ Severity of Pain-Max: severe Severity of Pain-Current: severe Modifying Factors: Worsens With: movement, palpation Associated Symptoms: back, nausea Previous symptoms: same symptoms as today Allergies/Adverse Reactions: No Known Drug Allergies Allergy (Unverified 06/18/21 22:04) Home Medications: Atorvastatin Calcium 10 mg PO DAILY 06/18/21 [History] Cetirizine HCl [Zyrtec] 10 mg PO DAILY 06/18/21 [History] Fluticasone Propionate [Flonase Allergy Relief] 2 puffs IH DAILY 06/18/21 [History] Levothyroxine Sodium 75 Mcg [Synthroid 75 Mcg] 1 tab PO DAILY 06/18/21 [History] Montelukast Sodium 10 mg [Singulair 10 MG] 1 tab PO HS 06/18/21 [History] PANTOPRAZOLE 40 mg Tablet [Protonix 40MG Tablet] 1 tab PO DAILY 06/18/21 [History] Valsartan/Hydrochlorothiazide [Valsartan-Hctz 80-12.5 mg Tab] 1 tab PO DAILY 06/18/21 [History] Gabapentin [Neurontin 300 mg] 300 mg PO QHS 06/19/21 [History] Tizanidine HCl 4 mg [Zanaflex 4 MG] 4 mg PO QHS 06/19/21 [History] Hx Tetanus, Diphtheria Vaccination/Date Given: Yes Hx Influenza Vaccination/Date Given: No Hx Pneumococcal Vaccination/Date Given: No Travel Risk - Vaccine Status Have you recieved a Covid-19 vaccination: Yes 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[employer] - Vaccination Dates Date of 2cond Vaccination (if applicable): 09/14/20 - Review of Systems Constitutional: No Symptoms Eyes: No Symptoms Ears, Nose, & Throat: No Symptoms Respiratory: No Symptoms Cardiac: No Symptoms Abdominal/Gastrointestinal: Abdominal Pain, Nausea Genitourinary Symptoms: No Symptoms Musculoskeletal: No Symptoms Skin: No Symptoms Neurological: No Symptoms Psychological: No Symptoms Endocrine: No Symptoms Hematologic/Lymphatic: No Symptoms Immunological/Allergic: No Symptoms - Past Medical History Pertinent Past Medical History: Yes Neurological History: No Pertinent History ENT History: No Pertinent History Cardiac History: High Cholesterol, Hypertension, Other Respiratory History: Bronchitis Endocrine Medical History: Hypothyroidism Musculoskeletal History: No Pertinent History GI Medical History: GERD History: No Pertinent History Psycho-Social History: Anxiety, Depression Female Reproductive Disorders: No Pertinent History Other Medical History: SVT - Past Surgical History Past Surgical History: Yes Neuro Surgical History: No Pertinent History Cardiac: Cardiac Catheterization, Other Respiratory: No Pertinent History Gastrointestinal: No Pertinent History Genitourinary: No Pertinent History Musculoskeletal: No Pertinent History Female Surgical History: Dilation & Curettage, Section, Other Other Surgical History: breast reduction. spinal cord stimulator put in and removed. cardiac ablation for SVT. endometrial ablation - Social History Smoking Status: Current every day smoker How long have you smoked: 30 years Exposure to second hand smoke: Yes Drug Use: none Patient Lives Alone: No Significant Family History: heart disease - Nursing Vital Signs Nursing Vital Signs: Initial Vital Signs Temperature 98.7 F 12/14/21 16:41 Pulse Rate 98 H 12/14/21 16:41 Respiratory Rate 20 12/14/21 16:41 Blood Pressure 155/85 12/14/21 16:41 O2 Sat by Pulse Oximetry 100 12/14/21 16:41 Pain Scale Pain Intensity [Right Lower 10 Back] Pain Intensity 3 - Physical Exam General Appearance: no apparent distress, alert Eye Exam: PERRL/EOMI Ears, Nose, Throat Exam: normal ENT inspection, pharynx normal Neck Exam: normal inspection, non-tender, supple, full range of motion Respiratory Exam: normal breath sounds, lungs clear Cardiovascular Exam: regular rate/rhythm, normal heart sounds Gastrointestinal/Abdomen Exam: soft, normal bowel sounds, tenderness (Right flank/right lower quadrant) Back Exam: normal inspection, normal range of motion, CVA tenderness (Right) Extremity Exam: normal inspection, normal range of motion Neurologic Exam: alert, oriented x 3, cooperative Skin Exam: normal color SpO2 Interpretation: normal SpO2: 97 O2 Delivery: Room Air - Course EKG Interpreted by Me: RATE (79), Sinus Rhythm, NORMAL AXIS, NORMAL INTERVALS, Other (PVCs) Ordered Tests: Active Orders 24 hr Category Date Time Status IV Insertion STAT Care 12/14/21 16:46 Active NPO (ED) STAT Care 12/14/21 16:46 Active ABDOMEN AND PELVIS W/0 CONTRAS [CT] Stat Exams 12/14/21 17:12 Taken CTA ABD/PEL W AND/OR W/O CONTR [CT] Stat Exams 12/14/21 18:28 Taken CTA CHEST W AND/OR WO [CT] Stat Exams 12/14/21 17:46 Taken CBC W DIFF Stat Lab 12/14/21 16:57 Completed CMP Stat Lab 12/14/21 16:57 Completed LIPASE Stat Lab 12/14/21 16:57 Completed TROPONIN Stat Lab 12/14/21 17:45 Completed TROPONIN Stat Lab 12/14/21 21:16 Completed UA W/RFX CULTURE Stat Lab 12/14/21 16:57 Completed Medication Summary Discontinued Medications Generic Name Dose Route Start Last Admin Trade Name Freq PRN Reason Stop Dose Admin Hydromorphone HCl Confirm 12/14/21 17:56 Hydromorphone 1 Mg/1ml Inj 1 Mg/Ml Syringe Administered 12/14/21 17:57 Dose 1 mg .ROUTE .STK-MED ONE Hydromorphone HCl 1 mg 12/14/21 18:08 12/14/21 18:20 Hydromorphone 1 Mg/1ml Inj 1 Mg/Ml Syringe IV 12/14/21 18:09 1 mg STAT ONE Administration Sodium Chloride 1,000 mls @ 999 mls/hr 12/14/21 16:46 12/14/21 18:06 Sodium Chloride 0.9% 1000 Ml IV 12/14/21 17:46 Infused .Q1H1M STA Infusion Sodium Chloride Confirm 12/14/21 16:58 Sodium Chloride 0.9% 1000 Ml Administered 12/14/21 16:59 Dose 1,000 mls @ ud .ROUTE .STK-MED ONE Ketorolac Tromethamine 30 mg 12/14/21 16:46 12/14/21 16:59 Ketorolac Tromethamine 30 Mg/Ml Inj IV 12/14/21 16:47 30 mg STAT ONE Administration Ketorolac Tromethamine Confirm 12/14/21 16:58 Ketorolac Tromethamine 30 Mg/Ml Inj Administered 12/14/21 16:59 Dose 30 mg .ROUTE .STK-MED ONE Morphine Sulfate 4 mg 12/14/21 16:46 12/14/21 16:59 Morphine Sulfate 4 Mg/Ml Injection IV 12/14/21 16:47 4 mg STAT ONE Administration Morphine Sulfate Confirm 12/14/21 16:58 Morphine Sulfate 4 Mg/Ml Injection Administered 12/14/21 16:59 Dose 4 mg .ROUTE .STK-MED ONE Morphine Sulfate Confirm 12/14/21 17:27 Morphine Sulfate 4 Mg/Ml Injection Administered 12/14/21 17:28 Dose 4 mg .ROUTE .STK-MED ONE Morphine Sulfate 4 mg 12/14/21 17:30 12/14/21 18:21 Morphine Sulfate 4 Mg/Ml Injection IV 12/14/21 17:31 4 mg STAT ONE Administration Ondansetron HCl 4 mg 12/14/21 16:46 12/14/21 16:59 Ondansetron Hcl 4 Mg/2 Ml Vial IV 12/14/21 16:47 4 mg STAT ONE Administration Ondansetron HCl Confirm 12/14/21 16:58 Ondansetron Hcl 4 Mg/2 Ml Vial Administered 12/14/21 16:59 Dose 4 mg .ROUTE .STK-MED ONE Pantoprazole Sodium Confirm 12/14/21 17:41 Pantoprazole 40 Mg Vial Administered 12/14/21 17:42 Dose 40 mg IV .STK-MED ONE Lab/Rad Data: Laboratory Result Diagrams 12/14/21 16:57 12/14/21 16:57 Laboratory Results 12/14/21 12/14/21 12/14/21 Range/Units 21:16 17:45 16:57 WBC (4.0-10.5) x10^3/uL RBC (4.1-5.4) x10^6/uL Hgb (12.0-16.0) g/dL Hct (35-47) % MCV (78-100) fL MCH (26-32) pg MCHC (32-36) g/dL RDW (11.5-14.0) % Plt Count (150-450) x10^3/uL MPV (7.5-11.0) fL Gran % (36.0-66.0) % Immature Gran % (Auto) (0.00-0.4) % Nucleat RBC Rel Count (0.00-0.1) % Eos # (Auto) (0-0.5) x10^3/uL Immature Gran # (Auto) (0.00-0.03) x10^3u/L Absolute Lymphs (auto) (1.0-4.6) x10^3/uL Absolute Monos (auto) (0.0-1.3) x10^3/uL Absolute Nucleated RBC (0.00-0.01) x10^3u/L Lymphocytes % (24.0-44.0) % Monocytes % (0.0-12.0) % Eosinophils % (0.00-5.0) % Basophils % (0.0-0.4) % Absolute Granulocytes (1.4-6.9) x10^3/uL Basophils # (0-0.4) x10^3/uL Sodium (137-145) mmol/L Potassium (3.5-5.1) mmol/L Chloride (98-107) mmol/L Carbon Dioxide (22-30) mmol/L Anion Gap (5-15) MEQ/L BUN (7-17) mg/dL Creatinine (0.52-1.04) mg/dL Estimated GFR ML/MIN Glucose (74-106) mg/dL Calcium (8.4-10.2) mg/dL Total Bilirubin (0.2-1.3) mg/dL AST (14-36) U/L ALT (0-35) U/L Alkaline Phosphatase (38-126) U/L Troponin I < 0.012 < 0.012 (0.000-0.034) ng/mL Serum Total Protein (6.3-8.2) g/dL Albumin (3.5-5.0) g/dL Lipase (23-300) U/L Urinalys Dipstick Clnc MAIN LAB Urine Color YELLOW (YELLOW) Urine Appearance CLEAR (CLEAR) Urine pH 7.0 (5-6) Ur Specific [place] 1.020 (1.005-1.025) POC Urine Protein Conf NEGATIVE (Negative) Urine Ketones NEGATIVE (NEGATIVE) Urine Nitrite NEGATIVE (NEGATIVE) Urine Bilirubin NEGATIVE (NEGATIVE) Urine Urobilinogen 0.2 (0-1) mg/dL Urine Leukocytes NEGATIVE (NEGATIVE) Urine WBC (Auto) 0-2 (0-5) /HPF Urine RBC (Auto) NONE (0-2) /HPF U Epithel Cells (Auto) RARE (FEW) /HPF Urine Bacteria (Auto) NONE SEEN (NEGATIVE) /HPF Urine RBC NEGATIVE (0-5) Santiago/ul Urine Mucus (Auto) SLIGHT (NEGATIVE) /HPF Ur Culture Indicated? NO Urine Glucose NEGATIVE (NEGATIVE) mg/dL 12/14/21 12/14/21 Range/Units 16:57 16:57 WBC 7.8 (4.0-10.5) x10^3/uL RBC 4.07 L (4.1-5.4) x10^6/uL Hgb 13.5 (12.0-16.0) g/dL Hct 39.9 (35-47) % MCV 98.0 (78-100) fL MCH 33.2 H (26-32) pg MCHC 33.8 (32-36) g/dL RDW 12.6 (11.5-14.0) % Plt Count 303 (150-450) x10^3/uL MPV 9.4 (7.5-11.0) fL Gran % 55.1 (36.0-66.0) % Immature Gran % (Auto) 0.3 (0.00-0.4) % Nucleat RBC Rel Count 0.0 (0.00-0.1) % Eos # (Auto) 0.37 (0-0.5) x10^3/uL Immature Gran # (Auto) 0.02 (0.00-0.03) x10^3u/L Absolute Lymphs (auto) 2.40 (1.0-4.6) x10^3/uL Absolute Monos (auto) 0.64 (0.0-1.3) x10^3/uL Absolute Nucleated RBC 0.00 (0.00-0.01) x10^3u/L Lymphocytes % 30.7 (24.0-44.0) % Monocytes % 8.2 (0.0-12.0) % Eosinophils % 4.7 (0.00-5.0) % Basophils % 1.0 (0.0-0.4) % Absolute Granulocytes 4.30 (1.4-6.9) x10^3/uL Basophils # 0.08 (0-0.4) x10^3/uL Sodium 139 (137-145) mmol/L Potassium 3.8 (3.5-5.1) mmol/L Chloride 107 (98-107) mmol/L Carbon Dioxide 22 (22-30) mmol/L Anion Gap 12.8 (5-15) MEQ/L BUN 14 (7-17) mg/dL Creatinine 0.81 (0.52-1.04) mg/dL Estimated GFR > 60.0 ML/MIN Glucose 142 H (74-106) mg/dL Calcium 9.2 (8.4-10.2) mg/dL Total Bilirubin 0.50 (0.2-1.3) mg/dL AST 36 (14-36) U/L ALT 32 (0-35) U/L Alkaline Phosphatase 104 (38-126) U/L Troponin I (0.000-0.034) ng/mL Serum Total Protein 7.2 (6.3-8.2) g/dL Albumin 4.5 (3.5-5.0) g/dL Lipase 87 (23-300) U/L Urinalys Dipstick Clnc Urine Color (YELLOW) Urine Appearance (CLEAR) Urine pH (5-6) Ur Specific [place] (1.005-1.025) POC Urine Protein Conf (Negative) Urine Ketones (NEGATIVE) Urine Nitrite (NEGATIVE) Urine Bilirubin (NEGATIVE) Urine Urobilinogen (0-1) mg/dL Urine Leukocytes (NEGATIVE) Urine WBC (Auto) (0-5) /HPF Urine RBC (Auto) (0-2) /HPF U Epithel Cells (Auto) (FEW) /HPF Urine Bacteria (Auto) (NEGATIVE) /HPF Urine RBC (0-5) Santiago/ul Urine Mucus (Auto) (NEGATIVE) /HPF Ur Culture Indicated? Urine Glucose (NEGATIVE) mg/dL - Progress Progress: improved, re-examined Progress Note: 12/14/21 20:39 51 years old is evaluated for right flank pain. Given fluids and symptomatic treatment with Toradol/morphine and acute abdomen work-up was done. Baseline work-up is unremarkable, no hematuria. CT abdomen pelvis without contrast is negative for stone or any other acute pathology. After receiving first dose of morphine patient started to have worsening of pain and more in the upper abdomen/lower chest. Patient described this as a severe shooting/crushing pain with some radiation to the back. She is given more pain medication including morphine and Dilaudid and I have done bedside ultrasound with no pulsatile mass. Obtain CTA chest abdomen pelvis which is essentially unremarkable for any acute findings. EKG is also obtained which showed sinus rhythm with no ST elevation and negative troponins x2. Patient is feeling better on reevaluation. Patient does report having history of back pain, this could be causing her symptoms. I have ruled out all the major emergencies and do not think patient needs any further work-up and is feeling better, stable for discharge with outpatient follow-up. Discussed signs symptoms of worsening needing return to ER which she seems understanding. Counseled pt/family regarding: lab results, diagnosis, rad results - Departure Departure Disposition: Home Clinical Impression: Flank pain, Intractable abdominal pain, Atypical chest pain Condition: Stable Critical Care Time: No Referrals: KENDY JIMENES MD [Primary Care Provider] - Follow up/PCP as directed (1-2 days for reevaluation) FARHAN MENDOZA [CONSULTING PHYSICIAN] - Follow up/PCP as directed (Call tomorrow for appointment for reevaluation) Instructions: Severe Abdominal Pain Additional Instructions: Take pain medications as needed. Follow-up with your primary care/cardiology f or reevaluation. Return to ER for worsening pain.
[2021-12-14] MEDS ORDERED: TORAdol 30 mg Injection ONE (16:58)
[2021-12-14] MEDS ORDERED: MORPHINE SULFATE 4 MG INJ ONE ×2 (16:58→17:27)
[2021-12-14] MEDS ORDERED: Zofran 4 MG/2 ML VIAL ONE (16:58)
[2021-12-14] MEDS ORDERED: Sodium Chloride 0.9% 1000 ML 1,000 ML ONE (16:58)
[2021-12-14 17:00] LABS: Basophil (Absolute #) 0.08 x10^3/uL (0-0.4); Eosinophil % 4.7 % (0.00-5.0); Eosinophil (Absolute #) 0.37 x10^3/uL (0-0.5); Hematocrit 39.9 % (35-47); Hemoglobin 13.5 g/dL (12.0-16.0); Lymphocytes % 30.7 % (24.0-44.0); Mean Corpuscular Hemoglobin 33.2 pg (26-32); Mean Corpuscular Hgb Concent. 33.8 g/dL (32-36); Mean Platelet Volume 9.4 fL (7.5-11.0); Monocyte (Absolute #) 0.64 x10^3/uL (0.0-1.3); Monocytes % 8.2 % (0.0-12.0); Neutrophil % 55.1 % (36.0-66.0); Platelet Count 303 x10^3/uL (150-450); Red Blood Count 4.07 x10^6/uL (4.1-5.4); Red Cell Distribution Width 12.6 % (11.5-14.0); White Blood Count 7.8 x10^3/uL (4.0-10.5)
[2021-12-14 17:04] LABS: Appearance CLEAR (CLEAR); Bilirubin NEGATIVE (NEGATIVE); Glucose NEGATIVE (NEGATIVE); Ketones NEGATIVE (NEGATIVE)
[2021-12-14 17:05] LABS: Dipstick done @ ? MAIN LAB; Nitrite NEGATIVE (NEGATIVE); Protein,Urine Dip NEGATIVE (Negative); RBC NEGATIVE Ery/ul (0-5); Urobilinogen 0.2 mg/dL (0-1)
[2021-12-14 17:07] LABS: Bacteria NONE SEEN /HPF (NEGATIVE); Epithelial Cells RARE /HPF (FEW); Mucus SLIGHT /HPF (NEGATIVE); Urine Cultured Indicated? NO; WBC 0-2 /HPF (0-5)
[2021-12-14 17:13] LABS: ALBUMIN 4.5 g/dL (3.5-5.0); ALKALINE PHOSPHATASE 104 U/L (38-126); ANION GAP 12.8 MEQ/L (5-15); BLOOD UREA NITROGEN 14 mg/dL (7-17); CHLORIDE 107 mmol/L (98-107); Calcium 9.2 mg/dL (8.4-10.2); Carbon Dioxide 22 mmol/L (22-30); Creatinine 1 0.81 mg/dL (0.52-1.04); EST GLOMERULAR FILTRATION RATE > 60.0 ML/MIN; Glucose 142 mg/dL (74-106); LIPASE 87 U/L (23-300); Potassium 3.8 mmol/L (3.5-5.1); SGOT/AST 36 U/L (14-36); SGPT/ALT 32 U/L (0-35); SODIUM 139 mmol/L (137-145); Total Protein 7.2 g/dL (6.3-8.2)
[2021-12-14] MEDS ORDERED: PROTONIX 40 MG IV IV ONE (17:41)
[2021-12-14] MEDS ORDERED: Hydromorphone 1 mg/ml Injection ONE (17:56)
[2021-12-14] MEDS ORDERED: Hydromorphone 1 mg/ml Injection IV ONE (18:08)
[2021-12-14 22:14] VITALS: BP 111/63; PULSE 80; O2SAT 98
--- NOTE | 2021-12-15 08:45 | XRAY ---
Indication: Right flank pain and nausea. History stones. Multiple contiguous axial images obtained through the abdomen and pelvis without contrast. Comparison: June 18, 2021 Lung bases demonstrates again demonstrates pulmonary emphysema. No infiltrate or effusion. Heart not enlarged. Noncontrasted stomach and bowel loops nonobstructed again with normal appendix and scattered colonic diverticulosis. Again cholecystectomy. No free fluid/air. Right upper kidney demonstrates punctate cortical calcification not seen on previous contrasted exam. Remaining liver, pancreas, spleen, adrenal glands, kidneys, ureters, bladder, and uterus appear unremarkable for noncontrast exam. Stable mild scattered aortoiliac calcifications without AAA. Osseous structures intact again with mild levoscoliosis and small benign left femur head bone island. Impression: 1. Indeterminant right renal punctate calcification, pulmonary emphysema, colonic diverticulosis, and chronic bony findings. 2. Remaining CT abdomen/pelvis with contrast exam is negative. Comment: Preliminary interpretation made by C. No critical discrepancy.
--- NOTE | 2021-12-15 08:56 | XRAY ---
Indication: Chest and abdomen pain. Aortic aneurysm. Conventional contrast enhanced CTA chest performed using 100 cc Isovue 370 contrast. Two-dimensional sagittal and coronal reformatted images obtained. Additional 3-dimensional reformatted images obtained using a separate workstation. Comparison: None Good opacification of the pulmonary arteries to include the lobar and segmental branches. No pulmonary embolus. Aorta is normal in course and caliber without aneurysm, dissection, or arteriosclerotic disease. Heart not enlarged. No pathologic mediastinal/hilar lymphadenopathy. Lungs inflated with mild diffuse pulmonary emphysema and 4 mm indeterminant left lower lobe subpleural noncalcified nodularity. Bony thorax intact. CTA abdomen/pelvis reported separately. Impression: Pulmonary emphysema and 4 mm indeterminant left lower lobe noncalcified nodularity. Otherwise normal CTA chest with contrast exam. Comment: Preliminary interpretation made by [facility]. No critical discrepancy.
--- NOTE | 2021-12-15 08:58 | XRAY ---
Indication: Chest and abdomen pain. Aortic aneurysm. Conventional contrast enhanced CTA abdomen/pelvis performed using 100 cc Isovue 370 contrast. Two-dimensional sagittal and coronal reformatted images obtained. Additional 3-dimensional reformatted images obtained using a separate workstation. Comparison: None. There is same-day CT abdomen/pelvis without contrast exam. CTA chest reported separately. Aorta is normal in course and caliber with mild distal aortoiliac calcifications. No aneurysm/AAA. Widely patent branching celiac, superior mesenteric, and inferior mesenteric arteries appear normal in CTA appearance. A single widely patent renal artery supplies each kidney. Noncontrasted stomach and bowel loops nonobstructed with again colonic diverticulosis. Again cholecystectomy. No free fluid/air. Stable right upper renal punctate cortical calcification. Remaining liver, pancreas, spleen, adrenal glands, kidneys, ureters, and bladder are unremarkable. No pathologic retroperitoneal lymphadenopathy. Impression: 1. Again mild aortoiliac calcifications. Otherwise negative CTA abdomen/pelvis with contrast exam. 2. Again indeterminate right renal punctate calcification and colonic diverticulosis. 3. No new/acute findings. Comment: Preliminary interpretation made by [facility]. No critical discrepancy.
== END 2021-12-14 22:14 | disposition home or self-care (01) ==
LOC: ED 16:34
DX: R10.9 Unspecified abdominal pain (principal); R07.89 Other chest pain; R11.0 Nausea; E78.5 Hyperlipidemia, unspecified; I10 Essential (primary) hypertension; Z72.0 Tobacco use; Z79.899 Other long term (current) drug therapy
CPT/HCPCS: 36000; 36415; 71275; 74174; 74176; 80053; 81015; 83690; 84484; 85025; 96360; 96374; 96375; 96376; 99284; J1170; J1885; J2270; J2405

== ENCOUNTER 2021-12-24 14:01 | Day surgery (SDC) | payer OTHER ==
[2021-12-24] MEDS ORDERED: Depo-Medrol 40 MG/ML IM ONE (14:02)
[2021-12-24] MEDS ORDERED: Marcaine Mpf 0.5% Vial 30 Ml IJ ONE (14:02)
[2021-12-24] MEDS ORDERED: Versed 2 MG/2 ML Injection ONE (14:19)
[2021-12-24] MEDS ORDERED: DIPRIVAN 200 MG/20 ML IV ONE (15:41)
[2021-12-24] MEDS ORDERED: Lactated Ringers 1,000 ML IV ONE (15:51)
--- NOTE | 2021-12-24 19:30 | XRAY ---
Indication: Right hip injection. Intraoperative fluoroscopy provided for 23 seconds. Single digital spot image submitted for interpretation demonstrates needle tip lateral to the right femur neck. Small amount of contrast injected for needle tip placement. Correlate with intraoperative findings/report.
--- NOTE | 2021-12-24 19:35 | XRAY ---
23 seconds of fluoroscopy was used in surgery for a right intra-articular hip injection.
== END 2021-12-24 16:08 | disposition home or self-care (01) ==
LOC: SDC-PAIN 14:01
PROVIDERS: ATTEND Psychiatry & Neurology Pain Medicine
DX: M16.11 Unilateral primary osteoarthritis, right hip (principal); Z79.899 Other long term (current) drug therapy
CPT/HCPCS: 20610; 73501; 76942; 77002; 81025; J1030; J2250; J2704; Q9966

== ENCOUNTER 2022-01-27 08:14 | Emergency (ER) | payer OTHER ==
--- NOTE | 2022-01-27 08:40 | ERPHSYRPT ---
- History of Present Illness Time Seen by Provider: 01/27/22 08:35 Source: patient Exam Limitations: no limitations Patient Subjective Stated Complaint: Pt woke up shaking, nauseaous and dizzy, tired and feeling like she was drugged, pt took a CBD gummy last night to sleep, has taken in the past but not this brand Triage Nursing Assessment: Pt drove self to the ER, vitals wnl, denies any new pain, lethargic, pulses normal, skin n/w/d, states that she has "cotton mouth", doesn't appear to be in any distress Physician History: Patient is a 51-year-old female who presents with a complaint of awakening this morning with weakness dizziness nausea. She denies any fever chills or sweats she denies any diarrhea or vomiting. She does complain of a dry mouth headache. She also took a CBD gummy of a type she had never taken before last night and wonders if that could be the cause. She is a chronic pain patient and denies any new pain. Timing/Duration: today Severity: moderate Modifying Factors: Improves With: rest Associated Symptoms: nausea, headaches, loss of appetite, malaise, weakness Allergies/Adverse Reactions: No Known Drug Allergies Allergy (Verified 01/27/22 08:29) Home Medications: Atorvastatin Calcium 10 mg PO DAILY 06/18/21 [History] Cetirizine HCl [Zyrtec] 10 mg PO DAILY 06/18/21 [History] Fluticasone Propionate [Flonase Allergy Relief] 2 puffs IH DAILY 06/18/21 [History] Levothyroxine Sodium 75 Mcg [Synthroid 75 Mcg] 1 tab PO DAILY 06/18/21 [History] Montelukast Sodium 10 mg [Singulair 10 MG] 1 tab PO HS 06/18/21 [History] PANTOPRAZOLE 40 mg Tablet [Protonix 40MG Tablet] 1 tab PO DAILY 06/18/21 [History] Valsartan/Hydrochlorothiazide [Valsartan-Hctz 80-12.5 mg Tab] 1 tab PO DAILY 06/18/21 [History] Gabapentin [Neurontin 300 mg] 300 mg PO QHS 06/19/21 [History] Tizanidine HCl 4 mg [Zanaflex 4 MG] 4 mg PO QHS 06/19/21 [History] Hydrocodone/Acetaminophen [Hydrocodone-Acetamin 5-325 mg] 1 tab PO BID MDD 4 01/27/22 [History] Hx Tetanus, Diphtheria Vaccination/Date Given: Yes Hx Influenza Vaccination/Date Given: No Hx Pneumococcal Vaccination/Date Given: No Travel Risk - International Travel Have you traveled outside of the country in past 3 weeks: No - Coronavirus Screening Are you exhibiting any of the following symptoms?: No Close contact with a COVID-19 positive Pt in past 14-21 Days: No - Vaccine Status Have you recieved a Covid-19 vaccination: Yes 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: [employer] - Vaccination Dates Date of 2cond Vaccination (if applicable): 09/14/20 - Review of Systems Constitutional: No Fever, No Chills Eyes: No Symptoms Ears, Nose, & Throat: No Symptoms Respiratory: No Cough, No Dyspnea Cardiac: No Chest Pain, No Edema, No Syncope Abdominal/Gastrointestinal: No Abdominal Pain, No Nausea, No Vomiting, No Diarrhea Genitourinary Symptoms: No Dysuria Musculoskeletal: No Back Pain, No Neck Pain Skin: No Rash Neurological: No Dizziness, No Focal Weakness, No Sensory Changes Psychological: No Symptoms Endocrine: No Symptoms All Other Systems: Reviewed and Negative - Past Medical History Pertinent Past Medical History: Yes Neurological History: No Pertinent History ENT History: No Pertinent History Cardiac History: High Cholesterol, Hypertension, Other Respiratory History: Bronchitis Endocrine Medical History: Hypothyroidism Musculoskeletal History: No Pertinent History GI Medical History: GERD History: No Pertinent History Psycho-Social History: Anxiety, Depression Female Reproductive Disorders: No Pertinent History Other Medical History: SVT - Past Surgical History Past Surgical History: Yes Neuro Surgical History: No Pertinent History Cardiac: Cardiac Catheterization, Other Respiratory: No Pertinent History Gastrointestinal: No Pertinent History Genitourinary: No Pertinent History Musculoskeletal: No Pertinent History Female Surgical History: Dilation & Curettage, Section, Other Other Surgical History: breast reduction. spinal cord stimulator put in and removed. cardiac ablation for SVT. endometrial ablation - Social History Smoking Status: Current every day smoker How long have you smoked: 30 years Exposure to second hand smoke: Yes Drug Use: none Patient Lives Alone: No Significant Family History: heart disease - Nursing Vital Signs Nursing Vital Signs: Initial Vital Signs Temperature 96.9 F 01/27/22 08:19 Pulse Rate 86 11/01/22 08:19 Blood Pressure 135/85 01/27/22 08:19 O2 Sat by Pulse Oximetry 95 01/27/22 08:19 Pain Scale Pain Intensity 8 - Physical Exam General Appearance: mild distress Eye Exam: PERRL/EOMI, eyes nml inspection Ears, Nose, Throat Exam: dry mucous membranes Neck Exam: normal inspection, non-tender, supple, full range of motion Respiratory Exam: normal breath sounds, lungs clear, No respiratory distress Cardiovascular Exam: regular rate/rhythm, normal heart sounds, normal peripheral pulses Gastrointestinal/Abdomen Exam: soft, normal bowel sounds, No tenderness, No mass Back Exam: normal inspection, normal range of motion, No CVA tenderness, No vertebral tenderness Extremity Exam: normal inspection, normal range of motion, pelvis stable Neurologic Exam: alert, oriented x 3, cooperative, normal mood/affect, nml cerebellar function, nml station & gait, sensation nml, No motor deficits Skin Exam: normal color, warm, dry, No rash SpO2 Interpretation: normal SpO2: 95 O2 Delivery: Room Air - Course Nursing assessment & vital signs reviewed: Yes - Radiology Exams Chest X-ray Interpretation: Negative - CT Exams Head CT Interpretation: Negative Ordered Tests: Active Orders 24 hr Category Date Time Status EKG-ER Only STAT Care 01/27/22 09:09 Active IV Insertion STAT Care 01/27/22 09:09 Active Orthostatic Vital Signs STAT Care 01/27/22 09:09 Active CHEST 1 VIEW (PORTABLE) Stat Exams 01/27/22 09:24 Completed HEAD WITHOUT CONTRAST [CT] Stat Exams 01/27/22 10:58 Completed CBC W DIFF Stat Lab 01/27/22 09:21 Completed CK (IN-HOUSE) [CK-Creatinine Phosphokinase] Stat Lab 01/27/22 09:21 Completed CMP Stat Lab 01/27/22 09:21 Completed Lactic Acid Stat Lab 01/27/22 09:21 Completed MAGNESIUM Stat Lab 01/27/22 09:21 Completed TROPONIN Q4H Lab 01/27/22 09:21 Completed TROPONIN Q4H Lab 01/27/22 13:15 Ordered TROPONIN Q4H Lab 01/27/22 17:15 Ordered UA W/RFX CULTURE Stat Lab 01/27/22 Completed Urine Triage Profile Stat Lab 01/27/22 09:37 Completed Medication Summary Discontinued Medications Generic Name Dose Route Start Last Admin Trade Name Yesika PRN Reason Stop Dose Admin Acetaminophen 975 mg 01/27/22 10:31 01/27/22 10:33 Acetaminophen 325 Mg Tablet PO 01/27/22 10:32 975 mg STAT STA Administration Acetaminophen Confirm 01/27/22 10:31 Acetaminophen 325 Mg Tablet Administered 01/27/22 10:32 Dose 975 mg .ROUTE .STK-MED ONE Diphenhydramine HCl 25 mg 01/27/22 11:39 Diphenhydramine Hcl 50 Mg/Ml Vial IV 01/27/22 11:40 STAT ONE Diphenhydramine HCl Confirm 01/27/22 11:39 Diphenhydramine Hcl 50 Mg/Ml Vial Administered 01/27/22 11:40 Dose 50 mg .ROUTE .STK-MED ONE Sodium Chloride 1,000 mls @ 999 mls/hr 01/27/22 09:09 01/27/22 10:38 Sodium Chloride 0.9% 1000 Ml IV 01/27/22 10:09 Infused .Q1H1M STA Infusion Sodium Chloride 1,000 mls @ 999 mls/hr 01/27/22 09:13 01/27/22 10:38 Sodium Chloride 0.9% 1000 Ml IV 01/27/22 10:13 Infused .Q1H1M STA Infusion Sodium Chloride Confirm 01/27/22 09:24 Sodium Chloride 0.9% 1000 Ml Administered 01/27/22 09:25 Dose 2,000 mls @ ud .ROUTE .STK-MED ONE Ketorolac Tromethamine 30 mg 01/27/22 11:39 Ketorolac Tromethamine 30 Mg/Ml Inj IV 01/27/22 11:40 STAT ONE Ketorolac Tromethamine Confirm 01/27/22 11:39 Ketorolac Tromethamine 30 Mg/Ml Inj Administered 01/27/22 11:40 Dose 30 mg .ROUTE .STK-MED ONE Metoclopramide HCl 10 mg 01/27/22 11:40 Metoclopramide Hcl 10 Mg/2 Ml Vial IV 01/27/22 11:41 STAT ONE Metoclopramide HCl Confirm 01/27/22 11:39 Metoclopramide Hcl 10 Mg/2 Ml Vial Administered 01/27/22 11:40 Dose 10 mg .ROUTE .STK-MED ONE Ondansetron HCl 4 mg 01/27/22 09:09 01/27/22 09:25 Ondansetron Hcl 4 Mg/2 Ml Vial IV 01/27/22 09:10 4 mg STAT ONE Administration Ondansetron HCl Confirm 01/27/22 09:23 Ondansetron Hcl 4 Mg/2 Ml Vial Administered 01/27/22 09:24 Dose 4 mg .ROUTE .STK-MED ONE Lab/Rad Data: Laboratory Result Diagrams 01/27/22 09:21 01/27/22 09:21 Laboratory Results 01/27/22 01/27/22 01/27/22 Range/Units Unknown 09:37 09:21 WBC (4.0-10.5) x10^3/uL RBC (4.1-5.4) x10^6/uL Hgb (12.0-16.0) g/dL Hct (35-47) % MCV (78-100) fL MCH (26-32) pg MCHC (32-36) g/dL RDW (11.5-14.0) % Plt Count (150-450) x10^3/uL MPV (7.5-11.0) fL Gran % (36.0-66.0) % Immature Gran % (Auto) (0.00-0.4) % Nucleat RBC Rel Count (0.00-0.1) % Eos # (Auto) (0-0.5) x10^3/uL Immature Gran # (Auto) (0.00-0.03) x10^3u/L Absolute Lymphs (auto) (1.0-4.6) x10^3/uL Absolute Monos (auto) (0.0-1.3) x10^3/uL Absolute Nucleated RBC (0.00-0.01) x10^3u/L Lymphocytes % (24.0-44.0) % Monocytes % (0.0-12.0) % Eosinophils % (0.00-5.0) % Basophils % (0.0-0.4) % Absolute Granulocytes (1.4-6.9) x10^3/uL Basophils # (0-0.4) x10^3/uL Sodium (137-145) mmol/L Potassium (3.5-5.1) mmol/L Chloride (98-107) mmol/L Carbon Dioxide (22-30) mmol/L Anion Gap (5-15) MEQ/L BUN (7-17) mg/dL Creatinine (0.52-1.04) mg/dL Estimated GFR ML/MIN Glucose (74-106) mg/dL Lactic Acid (0.4-2.0) Calcium (8.4-10.2) mg/dL Magnesium (1.6-2.3) mg/dL Total Bilirubin (0.2-1.3) mg/dL AST (14-36) U/L ALT (0-35) U/L Alkaline Phosphatase (38-126) U/L Creatine Kinase (30-135) U/L Troponin I < 0.012 (0.000-0.034) ng/mL Serum Total Protein (6.3-8.2) g/dL Albumin (3.5-5.0) g/dL Urinalys Dipstick Clnc MAIN LAB Urine Color YELLOW (YELLOW) Urine Appearance CLEAR (CLEAR) Urine pH 6.0 (5-6) Ur Specific [place] 1.025 (1.005-1.025) POC Urine Protein Conf NEGATIVE (Negative) Urine Ketones NEGATIVE (NEGATIVE) Urine Nitrite NEGATIVE (NEGATIVE) Urine Bilirubin NEGATIVE (NEGATIVE) Urine Urobilinogen 0.2 (0-1) mg/dL Urine Leukocytes NEGATIVE (NEGATIVE) Urine WBC (Auto) 0-2 (0-5) /HPF Urine RBC (Auto) 0-2 (0-2) /HPF U Epithel Cells (Auto) RARE (FEW) /HPF Urine Bacteria (Auto) FEW A (NEGATIVE) /HPF Urine RBC NEGATIVE (0-5) Santiago/ul Urine Mucus (Auto) SLIGHT A (NEGATIVE) /HPF Ur Culture Indicated? NO Urine Glucose NEGATIVE (NEGATIVE) mg/dL Urine Opiates Level POSITIVE (NEGATIVE) Ur Methadone NEGATIVE (NEGATIVE) Urine Barbiturates NEGATIVE (NEGATIVE) Ur Phencyclidine (PCP) NEGATIVE (NEGATIVE) Urine Amphetamine NEGATIVE (NEGATIVE) U Benzodiazepine Level NEGATIVE (NEGATIVE) Urine Cocaine NEGATIVE (NEGATIVE) Urine Marijuana (THC) POSITIVE (NEGATIVE) 01/27/22 01/27/22 01/27/22 Range/Units 09:21 09:21 09:21 WBC (4.0-10.5) x10^3/uL RBC (4.1-5.4) x10^6/uL Hgb (12.0-16.0) g/dL Hct (35-47) % MCV (78-100) fL MCH (26-32) pg MCHC (32-36) g/dL RDW (11.5-14.0) % Plt Count (150-450) x10^3/uL MPV (7.5-11.0) fL Gran % (36.0-66.0) % Immature Gran % (Auto) (0.00-0.4) % Nucleat RBC Rel Count (0.00-0.1) % Eos # (Auto) (0-0.5) x10^3/uL Immature Gran # (Auto) (0.00-0.03) x10^3u/L Absolute Lymphs (auto) (1.0-4.6) x10^3/uL Absolute Monos (auto) (0.0-1.3) x10^3/uL Absolute Nucleated RBC (0.00-0.01) x10^3u/L Lymphocytes % (24.0-44.0) % Monocytes % (0.0-12.0) % Eosinophils % (0.00-5.0) % Basophils % (0.0-0.4) % Absolute Granulocytes (1.4-6.9) x10^3/uL Basophils # (0-0.4) x10^3/uL Sodium 139 (137-145) mmol/L Potassium 3.8 (3.5-5.1) mmol/L Chloride 106 (98-107) mmol/L Carbon Dioxide 30 (22-30) mmol/L Anion Gap 7.3 (5-15) MEQ/L BUN 14 (7-17) mg/dL Creatinine 0.71 (0.52-1.04) mg/dL Estimated GFR > 60.0 ML/MIN Glucose 111 H (74-106) mg/dL Lactic Acid 1.1 (0.4-2.0) Calcium 8.7 (8.4-10.2) mg/dL Magnesium 1.8 (1.6-2.3) mg/dL Total Bilirubin 0.30 (0.2-1.3) mg/dL AST 30 (14-36) U/L ALT 41 H (0-35) U/L Alkaline Phosphatase 88 (38-126) U/L Creatine Kinase 64 (30-135) U/L Troponin I (0.000-0.034) ng/mL Serum Total Protein 6.3 (6.3-8.2) g/dL Albumin 3.8 (3.5-5.0) g/dL Urinalys Dipstick Clnc Urine Color (YELLOW) Urine Appearance (CLEAR) Urine pH (5-6) Ur Specific [place] (1.005-1.025) POC Urine Protein Conf (Negative) Urine Ketones (NEGATIVE) Urine Nitrite (NEGATIVE) Urine Bilirubin (NEGATIVE) Urine Urobilinogen (0-1) mg/dL Urine Leukocytes (NEGATIVE) Urine WBC (Auto) (0-5) /HPF Urine RBC (Auto) (0-2) /HPF U Epithel Cells (Auto) (FEW) /HPF Urine Bacteria (Auto) (NEGATIVE) /HPF Urine RBC (0-5) Santiago/ul Urine Mucus (Auto) (NEGATIVE) /HPF Ur Culture Indicated? Urine Glucose (NEGATIVE) mg/dL Urine Opiates Level (NEGATIVE) Ur Methadone (NEGATIVE) Urine Barbiturates (NEGATIVE) Ur Phencyclidine (PCP) (NEGATIVE) Urine Amphetamine (NEGATIVE) U Benzodiazepine Level (NEGATIVE) Urine Cocaine (NEGATIVE) Urine Marijuana (THC) (NEGATIVE) 01/27/22 Range/Units 09:21 WBC 7.1 (4.0-10.5) x10^3/uL RBC 3.67 L (4.1-5.4) x10^6/uL Hgb 12.0 (12.0-16.0) g/dL Hct 36.5 (35-47) % MCV 99.5 (78-100) fL MCH 32.7 H (26-32) pg MCHC 32.9 (32-36) g/dL RDW 12.5 (11.5-14.0) % Plt Count 282 (150-450) x10^3/uL MPV 9.4 (7.5-11.0) fL Gran % 45.4 (36.0-66.0) % Immature Gran % (Auto) 0.1 (0.00-0.4) % Nucleat RBC Rel Count 0.0 (0.00-0.1) % Eos # (Auto) 0.33 (0-0.5) x10^3/uL Immature Gran # (Auto) 0.01 (0.00-0.03) x10^3u/L Absolute Lymphs (auto) 2.87 (1.0-4.6) x10^3/uL Absolute Monos (auto) 0.59 (0.0-1.3) x10^3/uL Absolute Nucleated RBC 0.00 (0.00-0.01) x10^3u/L Lymphocytes % 40.3 (24.0-44.0) % Monocytes % 8.3 (0.0-12.0) % Eosinophils % 4.6 (0.00-5.0) % Basophils % 1.3 (0.0-0.4) % Absolute Granulocytes 3.24 (1.4-6.9) x10^3/uL Basophils # 0.09 (0-0.4) x10^3/uL Sodium (137-145) mmol/L Potassium (3.5-5.1) mmol/L Chloride (98-107) mmol/L Carbon Dioxide (22-30) mmol/L Anion Gap (5-15) MEQ/L BUN (7-17) mg/dL Creatinine (0.52-1.04) mg/dL Estimated GFR ML/MIN Glucose (74-106) mg/dL Lactic Acid (0.4-2.0) Calcium (8.4-10.2) mg/dL Magnesium (1.6-2.3) mg/dL Total Bilirubin (0.2-1.3) mg/dL AST (14-36) U/L ALT (0-35) U/L Alkaline Phosphatase (38-126) U/L Creatine Kinase (30-135) U/L Troponin I (0.000-0.034) ng/mL Serum Total Protein (6.3-8.2) g/dL Albumin (3.5-5.0) g/dL Urinalys Dipstick Clnc Urine Color (YELLOW) Urine Appearance (CLEAR) Urine pH (5-6) Ur Specific [place] (1.005-1.025) POC Urine Protein Conf (Negative) Urine Ketones (NEGATIVE) Urine Nitrite (NEGATIVE) Urine Bilirubin (NEGATIVE) Urine Urobilinogen (0-1) mg/dL Urine Leukocytes (NEGATIVE) Urine WBC (Auto) (0-5) /HPF Urine RBC (Auto) (0-2) /HPF U Epithel Cells (Auto) (FEW) /HPF Urine Bacteria (Auto) (NEGATIVE) /HPF Urine RBC (0-5) Santiago/ul Urine Mucus (Auto) (NEGATIVE) /HPF Ur Culture Indicated? Urine Glucose (NEGATIVE) mg/dL Urine Opiates Level (NEGATIVE) Ur Methadone (NEGATIVE) Urine Barbiturates (NEGATIVE) Ur Phencyclidine (PCP) (NEGATIVE) Urine Amphetamine (NEGATIVE) U Benzodiazepine Level (NEGATIVE) Urine Cocaine (NEGATIVE) Urine Marijuana (THC) (NEGATIVE) - Progress Progress: unchanged Progress Note: 01/27/22 11:41 Patient complaining of headache at the end of her work-up she will be given Benadryl Toradol and Reglan IV and be discharged. - Departure Departure Disposition: Home Clinical Impression: Headache, Dehydration Condition: Stable Critical Care Time: No Referrals: SUSIE GRAJEDA NP [Primary Care Provider] - Follow up/PCP as directed
[2022-01-27 09:21] LABS: Absolute Neutrophil Ct (ANC) 3.24 x10^3/uL (1.4-6.9); Basophil (Absolute #) 0.09 x10^3/uL (0-0.4); Eosinophil % 4.6 % (0.00-5.0); Eosinophil (Absolute #) 0.33 x10^3/uL (0-0.5); Hematocrit 36.5 % (35-47); Lymphocyte (Absolute #) 2.87 x10^3/uL (1.0-4.6); Lymphocytes % 40.3 % (24.0-44.0); Mean Cell Volume 99.5 fL (78-100); Mean Corpuscular Hemoglobin 32.7 pg (26-32); Mean Corpuscular Hgb Concent. 32.9 g/dL (32-36); Mean Platelet Volume 9.4 fL (7.5-11.0); Monocyte (Absolute #) 0.59 x10^3/uL (0.0-1.3); Monocytes % 8.3 % (0.0-12.0); Neutrophil % 45.4 % (36.0-66.0); Platelet Count 282 x10^3/uL (150-450); Red Blood Count 3.67 x10^6/uL (4.1-5.4); Red Cell Distribution Width 12.5 % (11.5-14.0); White Blood Count 7.1 x10^3/uL (4.0-10.5)
[2022-01-27] MEDS ORDERED: Zofran 4 MG/2 ML VIAL ONE (09:23)
[2022-01-27] MEDS ORDERED: Sodium Chloride 0.9% 1000 ML 2,000 ML ONE (09:24)
[2022-01-27] MEDS: Sodium Chloride 0.9% 1000 ML 1,000 ML IV STA ×2 (09:24)
[2022-01-27] MEDS: Zofran 4 MG/2 ML VIAL IV ONE (09:25)
--- NOTE | 2022-01-27 09:31 | XRAY ---
Indication: Headache, weakness, dizziness. Comparison: None Portable chest demonstrates normal heart and lungs with a few incidental tiny calcified granulomas. Bony thorax intact with minimal degenerative changes and minimal dextroscoliosis.
[2022-01-27 09:36] LABS: ALBUMIN 3.8 g/dL (3.5-5.0); ALKALINE PHOSPHATASE 88 U/L (38-126); ANION GAP 7.3 MEQ/L (5-15); BLOOD UREA NITROGEN 14 mg/dL (7-17); CHLORIDE 106 mmol/L (98-107); Calcium 8.7 mg/dL (8.4-10.2); Carbon Dioxide 30 mmol/L (22-30); Creatinine 1 0.71 mg/dL (0.52-1.04); EST GLOMERULAR FILTRATION RATE > 60.0 ML/MIN; Glucose 111 mg/dL (74-106); MAGNESIUM 1.8 mg/dL (1.6-2.3); Potassium 3.8 mmol/L (3.5-5.1); SGOT/AST 30 U/L (14-36); SGPT/ALT 41 U/L (0-35); SODIUM 139 mmol/L (137-145); Total Protein 6.3 g/dL (6.3-8.2)
[2022-01-27 09:46] LABS: Appearance CLEAR (CLEAR); Bilirubin NEGATIVE (NEGATIVE); Dipstick done @ ? MAIN LAB; Glucose NEGATIVE (NEGATIVE); Ketones NEGATIVE (NEGATIVE); Nitrite NEGATIVE (NEGATIVE); Protein,Urine Dip NEGATIVE (Negative); RBC NEGATIVE Ery/ul (0-5); Specific Gravity 1.025 (1.005-1.025); Urobilinogen 0.2 mg/dL (0-1)
[2022-01-27 09:51] LABS: Bacteria FEW /HPF (NEGATIVE); Epithelial Cells RARE /HPF (FEW); Mucus SLIGHT /HPF (NEGATIVE); RBC 0-2 /HPF (0-2); Urine Cultured Indicated? NO; WBC 0-2 /HPF (0-5)
[2022-01-27 09:57] LABS: Amphetamine,Urine NEGATIVE (NEGATIVE); Barbiturate,Urine NEGATIVE (NEGATIVE); Benzodiazepine,Urine NEGATIVE (NEGATIVE); Cocaine,Urine NEGATIVE (NEGATIVE); Methadone,Urine NEGATIVE (NEGATIVE); Opiate,Urine POSITIVE (NEGATIVE); PCP,Urine NEGATIVE (NEGATIVE); THC,Urine POSITIVE (NEGATIVE)
[2022-01-27] MEDS ORDERED: TYLENOL 325 MG ONE (10:31)
[2022-01-27] MEDS: TYLENOL 325 MG PO STA (10:33)
--- NOTE | 2022-01-27 11:12 | XRAY ---
Indication: Headache and dizziness. Multiple contiguous axial images obtained through the head without contrast. Comparison: None Normal appearing brain parenchyma, ventricles, and bony calvarium. Visualized paranasal sinuses and mastoid air cells are clear. Impression: Normal CT head without contrast exam.
[2022-01-27 11:13] VITALS: BP 128/81; PULSE 65
[2022-01-27] MEDS ORDERED: BENADRYL 50 MG/ML ONE (11:39)
[2022-01-27] MEDS ORDERED: TORAdol 30 mg Injection ONE (11:39)
[2022-01-27] MEDS ORDERED: Reglan 10 MG/2 ML ONE (11:39)
[2022-01-27] MEDS: TORAdol 30 mg Injection IV ONE (11:42)
[2022-01-27] MEDS: Reglan 10 MG/2 ML IV ONE (11:42)
[2022-01-27] MEDS: BENADRYL 50 MG/ML IV ONE (11:43)
[2022-01-27 11:44] VITALS: O2SAT 95
== END 2022-01-27 12:11 | disposition home or self-care (01) ==
LOC: ED 08:14
DX: R51.9 Headache, unspecified (principal); E86.0 Dehydration; R53.1 Weakness; R42 Dizziness and giddiness; R11.0 Nausea; E78.5 Hyperlipidemia, unspecified; I10 Essential (primary) hypertension; Z72.0 Tobacco use; Z79.891 Long term (current) use of opiate analgesic; Z79.899 Other long term (current) drug therapy
CPT/HCPCS: 36000; 36415; 70450; 71045; 80053; 80307; 81015; 82550; 83605; 83735; 84484; 85025; 93005; 96360; 96374; 96375; 99284; J1200; J1885; J2405; A9270-GY

== ENCOUNTER 2022-01-28 12:53 | Day surgery (SDC) | payer OTHER ==
[2022-01-28] MEDS ORDERED: BUPIVACAINE 0.5% VIAL IJ ONE (12:54)
[2022-01-28] MEDS ORDERED: Depo-Medrol 40 MG/ML IM ONE (12:54)
[2022-01-28] MEDS ORDERED: Versed 2 MG/2 ML Injection ONE (13:12)
[2022-01-28] MEDS ORDERED: DIPRIVAN 200 MG/20 ML IV ONE (13:55)
--- NOTE | 2022-01-28 14:59 | XRAY ---
Indication: Right SI joint injection. Intraoperative fluoroscopy provided for 11 seconds. 2 digital spot images submitted for interpretation demonstrates posterior needle tip projecting over the right SI joint. Correlate with intraoperative findings/report.
[2022-01-28] MEDS ORDERED: Lactated Ringers 1,000 ML IV ONE (15:03)
--- NOTE | 2022-01-28 15:13 | XRAY ---
11 seconds fluoroscopy time in surgery for injection of the right SI joint.
== END 2022-01-28 14:45 | disposition home or self-care (01) ==
LOC: SDC-PAIN 12:53
PROVIDERS: ATTEND Psychiatry & Neurology Pain Medicine
DX: M46.1 Sacroiliitis, not elsewhere classified (principal); Z79.899 Other long term (current) drug therapy
CPT/HCPCS: 01992; 27096; 72170; 77002; 81025; G0260; J1030; J2250; J2704

== ENCOUNTER 2022-03-12 12:26 | Observation (INO) | payer OTHER ==
[2022-03-12] MEDS ORDERED: Zofran 4 MG/2 ML VIAL IV ONE (12:50)
[2022-03-12] MEDS ORDERED: GI COCKTAIL 45 ML (Maalox/Lidocaine) PO ONE (12:50)
[2022-03-12] MEDS ORDERED: MORPHINE SULFATE 4 MG INJ IV ONE ×2 (12:50→14:32)
[2022-03-12] MEDS ORDERED: PROTONIX 40 MG IV IV ONE ×2 (12:50→13:02)
[2022-03-12] MEDS ORDERED: Zofran 4 MG/2 ML VIAL ONE (13:02)
[2022-03-12] MEDS ORDERED: MORPHINE SULFATE 4 MG INJ ONE ×2 (13:02→14:35)
[2022-03-12] MEDS ORDERED: MAALOX ES 30 ML UNIT DOSE ONE (13:03)
[2022-03-12] MEDS ORDERED: XYLOCAINE VISCOUS 2% 15 ML CUP ONE (13:03)
[2022-03-12 13:06] LABS: Absolute Neutrophil Ct (ANC) 3.55 x10^3/uL (1.4-6.9); Basophil (Absolute #) 0.05 x10^3/uL (0-0.4); Eosinophil (Absolute #) 0.07 x10^3/uL (0-0.5); Hemoglobin 12.5 g/dL (12.0-16.0); Lymphocyte (Absolute #) 2.59 x10^3/uL (1.0-4.6); Mean Cell Volume 98.4 fL (78-100); Mean Corpuscular Hemoglobin 32.4 pg (26-32); Mean Corpuscular Hgb Concent. 32.9 g/dL (32-36); Mean Platelet Volume 9.6 fL (7.5-11.0); Monocyte (Absolute #) 0.54 x10^3/uL (0.0-1.3); Monocytes % 7.9 % (0.0-12.0); Neutrophil % 52.3 % (36.0-66.0); Platelet Count 254 x10^3/uL (150-450); Red Blood Count 3.86 x10^6/uL (4.1-5.4); Red Cell Distribution Width 11.5 % (11.5-14.0); White Blood Count 6.8 x10^3/uL (4.0-10.5)
[2022-03-12 13:28] LABS: ALKALINE PHOSPHATASE 77 U/L (38-126); BLOOD UREA NITROGEN 12 mg/dL (7-17); CHLORIDE 106 mmol/L (98-107); Calcium 8.2 mg/dL (8.4-10.2); Carbon Dioxide 26 mmol/L (22-30); Creatinine 1 0.62 mg/dL (0.52-1.04); EST GLOMERULAR FILTRATION RATE > 60.0 ML/MIN; Glucose 81 mg/dL (74-106); SGOT/AST 81 U/L (14-36); SGPT/ALT 39 U/L (0-35); Total Protein 6.6 g/dL (6.3-8.2)
[2022-03-12 13:29] LABS: SODIUM 137 mmol/L (137-145)
[2022-03-12 13:30] LABS: Bacteria RARE /HPF (NEGATIVE); Epithelial Cells RARE /HPF (FEW)
[2022-03-12 13:32] LABS: Appearance CLEAR (CLEAR); Bilirubin NEGATIVE (NEGATIVE); Glucose NEGATIVE (NEGATIVE); Ketones NEGATIVE (NEGATIVE)
[2022-03-12 13:33] LABS: ANION GAP 7.8 MEQ/L (5-15); Potassium 2.8 mmol/L (3.5-5.1)
[2022-03-12 13:33] LABS: Dipstick done @ ? MAIN LAB; Nitrite NEGATIVE (NEGATIVE); Protein,Urine Dip NEGATIVE (Negative); RBC NEGATIVE Ery/ul (0-5); Specific Gravity <=1.005 (1.005-1.025); Urobilinogen 0.2 mg/dL (0-1)
--- NOTE | 2022-03-12 13:34 | ERPHSYRPT ---
- History of Present Illness Time Seen by Provider: 03/12/22 12:29 Patient Subjective Stated Complaint: Pt reports "all of a sudden I started having stomach pains, they come and go but when they are there they are really bad. I was at work so I didn't have anything to take. I have had this pain before and am scheduled in March to have a scope but it has been more frequent and this time it won't let up. I had my gallbladder removed approx 7 months ago." Triage Nursing Assessment: Patient lifted from ambulance cot to ED cot by EMS. Alert and oriented x3. No apparent respiratory distress. Patient reports epigastric pain that radiates to right upper quad of abdomen. No tenderness with palpitation. Pain is intermittent, described as sharp and tightening, and rated 10/10 by patient. Patient was sitting at work when the pain occured. Physician History: 52 years old female with history of mild pain, acid reflux presented in the ER with chief complaint of epigastric pain sudden onset almost an hour ago while she was working, moderate to severe sharp, radiating across upper abdomen with associated nausea but no vomiting. Patient reports having similar pains off and on for quite some time, usually it goes away on its own but today it was not improving. Patient received fentanyl by EMS and feeling some improvement in pain. No fever chills cough or chest pain reported. No difficulty breathing. Timing/Duration: hour(s) (1), constant, sudden, worse Activities at Onset: rest Quality: sharpness Pain Radiation: epigastric Severity of Pain-Max: severe Severity of Pain-Current: moderate Modifying Factors: Improves With: nothing Associated Symptoms: nausea Previous symptoms: same symptoms as today Allergies/Adverse Reactions: No Known Drug Allergies Allergy (Verified 01/27/22 08:29) Home Medications: Atorvastatin Calcium 10 mg PO DAILY 06/18/21 [History] Cetirizine HCl [Zyrtec] 10 mg PO DAILY 06/18/21 [History] Fluticasone Propionate [Flonase Allergy Relief] 2 puffs IH DAILY 06/18/21 [History] Levothyroxine Sodium 75 Mcg [Synthroid 75 Mcg] 1 tab PO DAILY 06/18/21 [History] Montelukast Sodium 10 mg [Singulair 10 MG] 1 tab PO HS 06/18/21 [History] PANTOPRAZOLE 40 mg Tablet [Protonix 40MG Tablet] 1 tab PO DAILY 06/18/21 [History] Valsartan/Hydrochlorothiazide [Valsartan-Hctz 80-12.5 mg Tab] 1 tab PO DAILY 06/18/21 [History] Gabapentin [Neurontin 300 mg] 300 mg PO QHS 06/19/21 [History] Tizanidine HCl 4 mg [Zanaflex 4 MG] 4 mg PO QHS 06/19/21 [History] Hydrocodone/Acetaminophen [Hydrocodone-Acetamin 5-325 mg] 1 tab PO BID MDD 4 01/27/22 [History] Hx Tetanus, Diphtheria Vaccination/Date Given: Yes Hx Influenza Vaccination/Date Given: No Hx Pneumococcal Vaccination/Date Given: No Travel Risk - International Travel Have you traveled outside of the country in past 3 weeks: No - Coronavirus Screening Are you exhibiting any of the following symptoms?: No Close contact with a COVID-19 positive Pt in past 14-21 Days: No - Vaccine Status Have you recieved a Covid-19 vaccination: Yes [employer]: [employer] - Vaccination Dates Date of 2cond Vaccination (if applicable): 09/14/2020 - Review of Systems Constitutional: No Symptoms Eyes: No Symptoms Ears, Nose, & Throat: No Symptoms Respiratory: No Symptoms Cardiac: No Symptoms Abdominal/Gastrointestinal: Abdominal Pain, Nausea Genitourinary Symptoms: No Symptoms Musculoskeletal: No Symptoms Skin: No Symptoms Neurological: No Symptoms Psychological: No Symptoms Endocrine: No Symptoms Hematologic/Lymphatic: No Symptoms Immunological/Allergic: No Symptoms - Past Medical History Pertinent Past Medical History: Yes Neurological History: No Pertinent History ENT History: No Pertinent History Cardiac History: High Cholesterol, Hypertension, Other Respiratory History: Bronchitis Endocrine Medical History: Hypothyroidism Musculoskeletal History: No Pertinent History GI Medical History: GERD History: No Pertinent History Psycho-Social History: Anxiety, Depression Female Reproductive Disorders: No Pertinent History Other Medical History: SVT - Past Surgical History Past Surgical History: Yes Neuro Surgical History: No Pertinent History Cardiac: Cardiac Catheterization, Other Respiratory: No Pertinent History Gastrointestinal: Cholecystectomy Genitourinary: No Pertinent History Musculoskeletal: No Pertinent History Female Surgical History: Dilation & Curettage, Section, Other Other Surgical History: breast reduction. spinal cord stimulator put in and removed. cardiac ablation for SVT. endometrial ablation - Social History Smoking Status: Current every day smoker How long have you smoked: 30 years Exposure to second hand smoke: Yes Drug Use: marijuana Patient Lives Alone: No Significant Family History: heart disease - Nursing Vital Signs Nursing Vital Signs: Initial Vital Signs Temperature 97.3 F 03/12/22 12:27 Pulse Rate 67 03/12/22 12:27 Respiratory Rate 18 03/12/22 12:27 Blood Pressure 138/89 03/12/22 12:27 O2 Sat by Pulse Oximetry 98 03/12/22 12:27 Pain Scale Pain Intensity 4 - Physical Exam General Appearance: no apparent distress, alert Eye Exam: PERRL/EOMI Ears, Nose, Throat Exam: normal ENT inspection, TMs normal, pharynx normal Neck Exam: normal inspection, non-tender, supple, full range of motion Respiratory Exam: normal breath sounds, lungs clear Cardiovascular Exam: regular rate/rhythm, normal heart sounds Gastrointestinal/Abdomen Exam: soft, normal bowel sounds, tenderness (Upper abdomen with some guarding), guarding Back Exam: normal inspection, normal range of motion Extremity Exam: normal inspection, normal range of motion Neurologic Exam: alert, oriented x 3, cooperative Skin Exam: normal color SpO2 Interpretation: normal SpO2: 98 O2 Delivery: Room Air Ordered Tests: Active Orders 24 hr Category Date Time Status Telemetry q4h Care 03/12/22 13:45 Active ABDOMEN AND PELVIS W/0 CONTRAS [CT] Stat Exams 03/12/22 12:50 Completed CBC W DIFF Stat Lab 03/12/22 13:05 Completed CMP Stat Lab 03/12/22 13:05 Completed LIPASE Stat Lab 03/12/22 13:05 Completed MAG [MAGNESIUM] Stat Lab 03/12/22 13:45 Completed TROPONIN Q4H Lab 03/12/22 13:05 Completed TROPONIN Q4H Lab 03/12/22 17:00 Ordered TROPONIN Q4H Lab 03/12/22 21:00 Ordered UA W/RFX CULTURE Stat Lab 03/12/22 13:02 Completed Medication Summary Generic Name Dose Route Start Last Admin Trade Name Freq PRN Reason Stop Dose Admin Potassium Chloride 20 meq in 100 mls @ 50 mls/hr 03/12/22 13:45 03/12/22 14:01 Potassium Chloride 20 Meq In Water 100ml IV 03/12/22 17:44 50 mls/hr Q2H LEANNE Administration Magnesium Sulfate/Dextrose 100 mls @ 100 mls/hr 03/12/22 13:45 03/12/22 13:51 Magnesium 1 Gm / 100 Ml D5w IV 03/12/22 15:44 100 mls/hr Q1H LEANNE Administration Discontinued Medications Generic Name Dose Route Start Last Admin Trade Name Everettq PRN Reason Stop Dose Admin Al Hydrox/Mg Hydrox/Simethicone Confirm 03/12/22 13:03 Mag Hydrox/Al Hydrox/Simeth 30 Ml Udcup Administered 03/12/22 13:04 Dose 30 ml .ROUTE .STK-MED ONE Lidocaine HCl Confirm 03/12/22 13:03 Lidocaine Hcl 2% Viscous 15 Ml Udcup Administered 03/12/22 13:04 Dose 15 ml .ROUTE .STK-MED ONE Magnesium Hydroxide 45 ml 03/12/22 12:50 03/12/22 13:06 Mag Hydrx/Alum Hyd/Simeth/Lido 45 Ml Bottle PO 03/12/22 12:51 45 ml STAT ONE Administration Morphine Sulfate 4 mg 03/12/22 12:50 03/12/22 13:06 Morphine Sulfate 4 Mg/Ml Injection IV 03/12/22 12:51 4 mg STAT ONE Administration Morphine Sulfate Confirm 03/12/22 13:02 Morphine Sulfate 4 Mg/Ml Injection Administered 03/12/22 13:03 Dose 4 mg .ROUTE .STK-MED ONE Ondansetron HCl 4 mg 03/12/22 12:50 03/12/22 13:05 Ondansetron Hcl 4 Mg/2 Ml Vial IV 03/12/22 12:51 4 mg STAT ONE Administration Ondansetron HCl Confirm 03/12/22 13:02 Ondansetron Hcl 4 Mg/2 Ml Vial Administered 03/12/22 13:03 Dose 4 mg .ROUTE .STK-MED ONE Pantoprazole Sodium 40 mg 03/12/22 12:50 03/12/22 13:06 Pantoprazole 40 Mg Vial IV 03/12/22 12:51 40 mg STAT ONE Administration Pantoprazole Sodium Confirm 03/12/22 13:02 Pantoprazole 40 Mg Vial Administered 03/12/22 13:03 Dose 40 mg IV .STK-MED ONE Potassium Chloride 40 meq 03/12/22 13:45 03/12/22 13:51 Potassium Chloride Tab 10 Meq Tab PO 03/12/22 13:46 40 meq STAT ONE Administration Potassium Chloride Confirm 03/12/22 13:50 Potassium Chloride Tab 10 Meq Tab Administered 03/12/22 13:51 Dose 40 meq PO .STK-MED ONE Lab/Rad Data: Laboratory Result Diagrams 03/12/22 13:05 03/12/22 13:05 Laboratory Results 03/12/22 03/12/22 03/12/22 Range/Units 13:45 13:05 13:05 WBC (4.0-10.5) x10^3/uL RBC (4.1-5.4) x10^6/uL Hgb (12.0-16.0) g/dL Hct (35-47) % MCV (78-100) fL MCH (26-32) pg MCHC (32-36) g/dL RDW (11.5-14.0) % Plt Count (150-450) x10^3/uL MPV (7.5-11.0) fL Gran % (36.0-66.0) % Immature Gran % (Auto) (0.00-0.4) % Nucleat RBC Rel Count (0.00-0.1) % Eos # (Auto) (0-0.5) x10^3/uL Immature Gran # (Auto) (0.00-0.03) x10^3u/L Absolute Lymphs (auto) (1.0-4.6) x10^3/uL Absolute Monos (auto) (0.0-1.3) x10^3/uL Absolute Nucleated RBC (0.00-0.01) x10^3u/L Lymphocytes % (24.0-44.0) % Monocytes % (0.0-12.0) % Eosinophils % (0.00-5.0) % Basophils % (0.0-0.4) % Absolute Granulocytes (1.4-6.9) x10^3/uL Basophils # (0-0.4) x10^3/uL Sodium 137 (137-145) mmol/L Potassium 2.8 L* (3.5-5.1) mmol/L Chloride 106 (98-107) mmol/L Carbon Dioxide 26 (22-30) mmol/L Anion Gap 7.8 (5-15) MEQ/L BUN 12 (7-17) mg/dL Creatinine 0.62 (0.52-1.04) mg/dL Estimated GFR > 60.0 ML/MIN Glucose 81 (74-106) mg/dL Calcium 8.2 L (8.4-10.2) mg/dL Magnesium 1.6 (1.6-2.3) mg/dL Total Bilirubin 0.40 (0.2-1.3) mg/dL AST 81 H (14-36) U/L ALT 39 H (0-35) U/L Alkaline Phosphatase 77 (38-126) U/L Troponin I < 0.012 (0.000-0.034) ng/mL Serum Total Protein 6.6 (6.3-8.2) g/dL Albumin 4.0 (3.5-5.0) g/dL Lipase 3906 H (23-300) U/L Urinalys Dipstick Clnc Urine Color (YELLOW) Urine Appearance (CLEAR) Urine pH (5-6) Ur Specific [place] (1.005-1.025) POC Urine Protein Conf (Negative) Urine Ketones (NEGATIVE) Urine Nitrite (NEGATIVE) Urine Bilirubin (NEGATIVE) Urine Urobilinogen (0-1) mg/dL Urine Leukocytes (NEGATIVE) Urine WBC (Auto) Urine RBC (Auto) U Epithel Cells (Auto) (FEW) /HPF Urine Bacteria (Auto) (NEGATIVE) /HPF Urine RBC (0-5) Santiago/ul Ur Culture Indicated? Urine Glucose (NEGATIVE) mg/dL 03/12/22 03/12/22 Range/Units 13:05 13:02 WBC 6.8 (4.0-10.5) x10^3/uL RBC 3.86 L (4.1-5.4) x10^6/uL Hgb 12.5 (12.0-16.0) g/dL Hct 38.0 (35-47) % MCV 98.4 (78-100) fL MCH 32.4 H (26-32) pg MCHC 32.9 (32-36) g/dL RDW 11.5 (11.5-14.0) % Plt Count 254 (150-450) x10^3/uL MPV 9.6 (7.5-11.0) fL Gran % 52.3 (36.0-66.0) % Immature Gran % (Auto) 0.1 (0.00-0.4) % Nucleat RBC Rel Count 0.0 (0.00-0.1) % Eos # (Auto) 0.07 (0-0.5) x10^3/uL Immature Gran # (Auto) 0.01 (0.00-0.03) x10^3u/L Absolute Lymphs (auto) 2.59 (1.0-4.6) x10^3/uL Absolute Monos (auto) 0.54 (0.0-1.3) x10^3/uL Absolute Nucleated RBC 0.00 (0.00-0.01) x10^3u/L Lymphocytes % 38.0 (24.0-44.0) % Monocytes % 7.9 (0.0-12.0) % Eosinophils % 1.0 (0.00-5.0) % Basophils % 0.7 (0.0-0.4) % Absolute Granulocytes 3.55 (1.4-6.9) x10^3/uL Basophils # 0.05 (0-0.4) x10^3/uL Sodium (137-145) mmol/L Potassium (3.5-5.1) mmol/L Chloride (98-107) mmol/L Carbon Dioxide (22-30) mmol/L Anion Gap (5-15) MEQ/L BUN (7-17) mg/dL Creatinine (0.52-1.04) mg/dL Estimated GFR ML/MIN Glucose (74-106) mg/dL Calcium (8.4-10.2) mg/dL Magnesium (1.6-2.3) mg/dL Total Bilirubin (0.2-1.3) mg/dL AST (14-36) U/L ALT (0-35) U/L Alkaline Phosphatase (38-126) U/L Troponin I (0.000-0.034) ng/mL Serum Total Protein (6.3-8.2) g/dL Albumin (3.5-5.0) g/dL Lipase (23-300) U/L Urinalys Dipstick Clnc MAIN LAB Urine Color YELLOW (YELLOW) Urine Appearance CLEAR (CLEAR) Urine pH 6.0 (5-6) Ur Specific [place] <=1.005 A (1.005-1.025) POC Urine Protein Conf NEGATIVE (Negative) Urine Ketones NEGATIVE (NEGATIVE) Urine Nitrite NEGATIVE (NEGATIVE) Urine Bilirubin NEGATIVE (NEGATIVE) Urine Urobilinogen 0.2 (0-1) mg/dL Urine Leukocytes NEGATIVE (NEGATIVE) Urine WBC (Auto) Not Reportable Urine RBC (Auto) Not Reportable U Epithel Cells (Auto) RARE (FEW) /HPF Urine Bacteria (Auto) RARE (NEGATIVE) /HPF Urine RBC NEGATIVE (0-5) Santiago/ul Ur Culture Indicated? NO Urine Glucose NEGATIVE (NEGATIVE) mg/dL - Progress Progress: improved, pain not gone completely Progress Note: 03/12/22 14:33 52 years old is evaluated for epigastric pain. EKG showed sinus rhythm with no acute ischemic changes. Given GI cocktail along with Protonix and morphine, on reevaluation feeling better. She is also given fluid bolus. Work-up showed normal white count, hypokalemia of 2.8 and is getting potassium and magnesium replacement. Does have lipase of [address] abdomen pelvis negative for acute pancreatitis, does have hiatal hernia. Discussed with Dr. Jorgensen and patient is being admitted for conservative management of pancreatitis. Plan discussed with patient who understand and agrees with it. Will see patient in: hospital (observation) Counseled pt/family regarding: lab results, diagnosis, need for follow-up, smoking cessation - Departure Departure Disposition: Observation Clinical Impression: Acute pancreatitis, Hypokalemia, GERD with esophagitis, Hiatal hernia Condition: Stable Critical Care Time: No Referrals: SUSIE GRAJEDA NP [Primary Care Provider] - Follow up/PCP as directed
[2022-03-12 13:35] LABS: Urine Cultured Indicated? NO
--- NOTE | 2022-03-12 13:38 | XRAY ---
Indication: Epigastric pain, nausea, diarrhea. Multiple contiguous axial images obtained through the abdomen and pelvis without contrast. Comparison: December 14, 2021 Lung bases again demonstrate pulmonary emphysema. Heart not enlarged. New small hiatal hernia with partial intrathoracic stomach. Noncontrasted stomach and bowel loops remain nonobstructed. Colon is now mildly fluid distended throughout with fluid leveling favoring clinically reported diarrhea. Again mild scattered colonic diverticulosis without diverticulitis. No free fluid/air. Right kidney demonstrates stable upper pole cortical punctate calcification and nonobstructing inferior punctate calculus. Again cholecystectomy. Remaining liver, pancreas, spleen, adrenal glands, kidneys, ureters, bladder, and uterus are unremarkable for noncontrast exam. Again mild aortoiliac calcifications without AAA. Osseous structures intact again with mild levoscoliosis and small benign left femur head bone island. Impression: 1. New diffuse colonic diarrhea. 2. New small hiatal hernia. 3. Again chronic findings including colonic diverticulosis, right renal punctate calcifications, pulmonary emphysema, and arteriosclerotic disease, and chronic bony findings.
[2022-03-12] MEDS ORDERED: Klor Con PO ONE ×2 (13:45→13:50)
[2022-03-12] MEDS ORDERED: Magnesium 1 Gm / 100 Ml D5W*** 100 ML IV ONE ×2 (13:50→14:35)
[2022-03-12] MEDS: Magnesium 1 Gm / 100 Ml D5W*** 100 ML IV SCH ×2 (13:51→14:36)
[2022-03-12 13:52] LABS: LIPASE 3906 U/L (23-300)
[2022-03-12] MEDS: POTASSIUM CHLORIDE 20 mEq IN WATER 100ML 20 MEQ/100 ML BAG IV SCH ×2 (14:01→16:57)
[2022-03-12 14:51] LABS: INFLUENZA A NEGATIVE (NEGATIVE); INFLUENZA B NEGATIVE (NEGATIVE); RESPIRATORY SYNCTIAL VIRUS NEGATIVE (Negative); SARS-CoV-2 Xpert Express NEGATIVE (NEGATIVE)
[2022-03-12] MEDS ORDERED: Zofran 4 MG/2 ML VIAL IV PRN (15:16)
[2022-03-12] MEDS ORDERED: MORPHINE SULFATE 4 MG INJ IV PRN (15:16)
[2022-03-12] MEDS ORDERED: SODIUM CHLORIDE 0.45% W/ 20 mEq KCL 0 ML IV ONE (15:27)
[2022-03-12] MEDS: MORPHINE SULFATE 4 MG INJ IV PRN ×4 (16:26→22:36)
[2022-03-12] MEDS: NEURONTIN PO SCH (20:37)
[2022-03-12] MEDS: Singulair 10 MG PO SCH (20:37)
[2022-03-12] MEDS: Zanaflex 4 MG PO SCH (20:37)
[2022-03-12] MEDS: Protonix 40MG Tablet PO SCH (20:38)
[2022-03-12] MEDS: REMERON 30 MG PO SCH (20:38)
[2022-03-12] MEDS: NICODERM CQ 14 MG TOP SCH (20:43)
[2022-03-12] MEDS: Sodium Chloride 0.9% W/ 20 mEq KCl/LITER 1,000 ML IV SCH (22:37)
[2022-03-13 04:53] LABS: Absolute Neutrophil Ct (ANC) 2.12 x10^3/uL (1.4-6.9); Basophil (Absolute #) 0.04 x10^3/uL (0-0.4); Eosinophil % 3.7 % (0.00-5.0); Eosinophil (Absolute #) 0.16 x10^3/uL (0-0.5); Hematocrit 36.3 % (35-47); Hemoglobin 11.9 g/dL (12.0-16.0); Lymphocyte (Absolute #) 1.59 x10^3/uL (1.0-4.6); Lymphocytes % 36.7 % (24.0-44.0); Mean Cell Volume 98.4 fL (78-100); Mean Corpuscular Hemoglobin 32.2 pg (26-32); Mean Corpuscular Hgb Concent. 32.8 g/dL (32-36); Mean Platelet Volume 9.7 fL (7.5-11.0); Monocyte (Absolute #) 0.41 x10^3/uL (0.0-1.3); Monocytes % 9.5 % (0.0-12.0); Platelet Count 244 x10^3/uL (150-450); Red Blood Count 3.69 x10^6/uL (4.1-5.4); White Blood Count 4.3 x10^3/uL (4.0-10.5)
[2022-03-13 05:23] LABS: ALBUMIN 3.3 g/dL (3.5-5.0); ALKALINE PHOSPHATASE 91 U/L (38-126); ANION GAP 4.9 MEQ/L (5-15); BLOOD UREA NITROGEN 9 mg/dL (7-17); CHLORIDE 114 mmol/L (98-107); Calcium 8.3 mg/dL (8.4-10.2); Carbon Dioxide 26 mmol/L (22-30); Creatinine 1 0.73 mg/dL (0.52-1.04); EST GLOMERULAR FILTRATION RATE > 60.0 ML/MIN; Glucose 85 mg/dL (74-106); Potassium 4.7 mmol/L (3.5-5.1); SGOT/AST 254 U/L (14-36); SGPT/ALT 228 U/L (0-35); SODIUM 140 mmol/L (137-145); Total Protein 5.8 g/dL (6.3-8.2)
[2022-03-13] MEDS: Sodium Chloride 0.9% W/ 20 mEq KCl/LITER 1,000 ML IV SCH ×3 (06:02→21:56)
[2022-03-13] MEDS: Zofran 4 MG/2 ML VIAL IV PRN ×2 (06:24→18:55)
[2022-03-13] MEDS: MORPHINE SULFATE 4 MG INJ IV PRN (06:24)
[2022-03-13] MEDS: TYLENOL EXTRA STRENGTH 500 MG PO PRN ×2 (09:49→16:16)
[2022-03-13] MEDS: Zocor 10MG PO SCH (09:50)
[2022-03-13] MEDS: CLARITIN 10 MG PO SCH (09:50)
[2022-03-13] MEDS: DIOVAN 80 MG PO SCH (09:50)
[2022-03-13] MEDS: Neurontin PO SCH (09:50)
[2022-03-13] MEDS: SYNTHROID 75 MCG PO SCH (09:50)
[2022-03-13] MEDS: hydroDIURIL 25 MG PO SCH (09:52)
[2022-03-13] MEDS: Flonase NASAL NS SCH (09:52)
[2022-03-13] MEDS: Protonix 40MG Tablet PO SCH ×2 (09:52→21:05)
[2022-03-13] MEDS ORDERED: NON-FORMULARY ITEM (Fluticasone Propionate [Flonase Allergy Relief] 9.9 ML Spray.Susp) IH SCH (10:00)
[2022-03-13] MEDS ORDERED: PROTONIX 40 MG IV IV SCH (10:00)
[2022-03-13] MEDS ORDERED: HYDROCHLOROTHIAZIDE PO SCH (10:00)
[2022-03-13] MEDS ORDERED: NON-FORMULARY ITEM (Atorvastatin Calcium [Atorvastatin Calcium] 10 MG Tablet) PO SCH (10:00)
[2022-03-13] MEDS ORDERED: [UNRECOGNIZED DRUG - OTHER] PO SCH (10:00)
[2022-03-13] MEDS ORDERED: NON-FORMULARY ITEM (Cetirizine Hcl [Zyrtec] 10 MG Tablet) PO SCH (10:00)
[2022-03-13] MEDS ORDERED: VALSARTAN PO SCH (10:00)
[2022-03-13] MEDS: NORCO 5/325 MG PO PRN (12:07)
[2022-03-13] MEDS: Hydromorphone 1 mg/ml Injection IV PRN (19:50)
[2022-03-13] MEDS: NICODERM CQ 14 MG TOP SCH (21:05)
[2022-03-13] MEDS: REMERON 30 MG PO SCH (21:05)
[2022-03-13] MEDS: NEURONTIN PO SCH (21:05)
[2022-03-13] MEDS: Zanaflex 4 MG PO SCH (21:06)
[2022-03-13] MEDS: Singulair 10 MG PO SCH (21:06)
[2022-03-14] MEDS: Sodium Chloride 0.9% W/ 20 mEq KCl/LITER 1,000 ML IV SCH ×2 (05:38→14:25)
[2022-03-14 06:21] LABS: Absolute Neutrophil Ct (ANC) 5.86 x10^3/uL (1.4-6.9); Basophil (Absolute #) 0.03 x10^3/uL (0-0.4); Eosinophil % 1.6 % (0.00-5.0); Eosinophil (Absolute #) 0.13 x10^3/uL (0-0.5); Hematocrit 39.1 % (35-47); Lymphocyte (Absolute #) 1.79 x10^3/uL (1.0-4.6); Lymphocytes % 21.8 % (24.0-44.0); Mean Corpuscular Hemoglobin 32.6 pg (26-32); Mean Corpuscular Hgb Concent. 33.2 g/dL (32-36); Monocytes % 4.9 % (0.0-12.0); Neutrophil % 71.2 % (36.0-66.0); Platelet Count 243 x10^3/uL (150-450); Red Blood Count 3.99 x10^6/uL (4.1-5.4); Red Cell Distribution Width 11.7 % (11.5-14.0); White Blood Count 8.2 x10^3/uL (4.0-10.5)
[2022-03-14] MEDS: NORCO 5/325 MG PO PRN (06:48)
[2022-03-14 07:00] LABS: ALBUMIN 3.2 g/dL (3.5-5.0); ALKALINE PHOSPHATASE 98 U/L (38-126); AMYLASE 53 U/L (30-110); ANION GAP 6.1 MEQ/L (5-15); BLOOD UREA NITROGEN 4 mg/dL (7-17); CHLORIDE 112 mmol/L (98-107); Calcium 8.4 mg/dL (8.4-10.2); Carbon Dioxide 24 mmol/L (22-30); Creatinine 1 0.65 mg/dL (0.52-1.04); EST GLOMERULAR FILTRATION RATE > 60.0 ML/MIN; Glucose 93 mg/dL (74-106); LIPASE 37 U/L (23-300); Potassium 4.3 mmol/L (3.5-5.1); SGOT/AST 91 U/L (14-36); SGPT/ALT 145 U/L (0-35); SODIUM 137 mmol/L (137-145); Total Protein 5.8 g/dL (6.3-8.2)
[2022-03-14] MEDS: DIOVAN 80 MG PO SCH (09:40)
[2022-03-14] MEDS: CLARITIN 10 MG PO SCH (09:40)
[2022-03-14] MEDS: SYNTHROID 75 MCG PO SCH (09:40)
[2022-03-14] MEDS: hydroDIURIL 25 MG PO SCH (09:40)
[2022-03-14] MEDS: Flonase NASAL NS SCH (09:41)
[2022-03-14] MEDS: Protonix 40MG Tablet PO SCH (09:42)
[2022-03-14] MEDS: Neurontin PO SCH (09:42)
[2022-03-14] MEDS: Zocor 10MG PO SCH (09:42)
[2022-03-14] MEDS: Hydromorphone 1 mg/ml Injection IV PRN ×2 (11:32→14:41)
[2022-03-14] MEDS ORDERED: Hydromorphone 1 mg/ml Injection IV PRN (16:15)
[2022-03-14] MEDS ORDERED: Mylicon 80MG PO PRN (16:16)
--- NOTE | 2022-03-14 16:22 | PCM.HP ---
History of Present Illness - Chief Complaint Chief Complaint: Acute pancreatitis History of Present Illness: is a 52 year old female patient who developed sudden onset upper abdominal pain and nausea. She is S/P cholecystectomy JULY 2021.Pain was severe and she called ambulance. ER eval revealed Lipase 3900 . elevated liver enzymes with normal bilirubin. . Medications & Allergies Home Medications: Home Medication List Atorvastatin Calcium 10 mg PO DAILY 06/18/21 [History Confirmed 03/12/22] Cetirizine HCl [Zyrtec] 10 mg PO DAILY 06/18/21 [History Confirmed 03/12/22] Fluticasone Propionate [Flonase Allergy Relief] 2 puffs IH DAILY 06/18/21 [History Confirmed 03/12/22] Levothyroxine Sodium 75 Mcg [Synthroid 75 Mcg] 75 mcg PO DAILY 06/18/21 [History Confirmed 03/12/22] Montelukast Sodium 10 mg [Singulair 10 MG] 10 mg PO HS 06/18/21 [History Confirmed 03/12/22] PANTOPRAZOLE 40 mg Tablet [Protonix 40MG Tablet] 1 tab PO BID 06/18/21 [History Confirmed 03/12/22] Valsartan/Hydrochlorothiazide [Valsartan-Hctz 80-12.5 mg Tab] 1 tab PO DAILY 06/18/21 [History Confirmed 03/12/22] Gabapentin [Neurontin 300 mg] 900 mg PO QHS 06/19/21 [History Confirmed 03/12/22] Tizanidine HCl 4 mg [Zanaflex 4 MG] 8 mg PO QHS 06/19/21 [History Confirmed 03/12/22] Hydrocodone/Acetaminophen [Hydrocodone-Acetamin 5-325 mg] 1 tab PO BIDPRN PRN MDD 4 01/27/22 [History Confirmed 03/12/22] Gabapentin [Neurontin ] 100 mg PO DAILY 03/12/22 [History Confirmed 03/12/22] Mirtazapine 30 mg [Remeron 30 mg] 30 mg PO HS 03/12/22 [History Confirmed 03/12/22] Allergies/Adverse Reactions: Allergies Allergy/AdvReac Type Severity Reaction Status Date / Time No Known Drug Allergies Allergy Verified 03/12/22 15:25 - Past Medical History Past Medical History: Yes Neurological History: No Pertinent History ENT History: No Pertinent History Cardiac History: High Cholesterol, Hypertension, Other Respiratory History: Bronchitis Endocrine Medical History: Hypothyroidism Musculoskelatal History: No Pertinent History GI Medical History: GERD History: No Pertinent History Pyscho-Social History: Anxiety, Depression Reproductive Disorders: No Pertinent History Comment: SVT - Female History Are you now?: No - Past Surgical History Past Surgical History: Yes Neuro Surgical History: No Pertinent History Cardiac History: Cardiac Catheterization, Other Respiratory Surgery: No Pertinent History GI Surgical History: Cholecystectomy Genitourinary Surgical Hx: No Pertinent History Musculskeletal Surgical Hx: No Pertinent History Female Surgical History: Dilation & Curettage, Section, Other Other Surgical History: breast reduction. spinal cord stimulator put in and removed. cardiac ablation for SVT. endometrial ablation - Social History Smoking Status: Current every day smoker How long have you smoked: 30 Exposure to second hand smoke: Yes Alcohol: Occasionally Drug Use: none Significant Family History: heart disease - Physical Exam Vital Signs: Vital Signs - 24 hr Temp Pulse Resp BP BP Pulse Ox 03/14/22 11:58 97.8 F 65 17 107/55 03/14/22 08:00 18 03/14/22 07:15 97.7 F 66 18 120/63 95 03/14/22 04:00 97.8 F 69 17 121/55 96 03/14/22 00:00 97.5 F 56 L 17 96/53 94 L 03/13/22 20:00 98.2 F 57 L 17 110/53 95 03/13/22 16:00 98.2 F 60 17 120/58 96 Results - Labs Lab/Micro Results: Lab Results-Last 24 Hours 03/14/22 03/14/22 Range/Units 06:07 06:07 WBC 8.2 (4.0-10.5) x10^3/uL RBC 3.99 L (4.1-5.4) x10^6/uL Hgb 13.0 (12.0-16.0) g/dL Hct 39.1 (35-47) % MCV 98.0 (78-100) fL MCH 32.6 H (26-32) pg MCHC 33.2 (32-36) g/dL RDW 11.7 (11.5-14.0) % Plt Count 243 (150-450) x10^3/uL MPV 10.0 (7.5-11.0) fL Gran % 71.2 H (36.0-66.0) % Immature Gran % (Auto) 0.1 (0.00-0.4) % Nucleat RBC Rel Count 0.0 (0.00-0.1) % Eos # (Auto) 0.13 (0-0.5) x10^3/uL Immature Gran # (Auto) 0.01 (0.00-0.03) x10^3u/L Absolute Lymphs (auto) 1.79 (1.0-4.6) x10^3/uL Absolute Monos (auto) 0.40 (0.0-1.3) x10^3/uL Absolute Nucleated RBC 0.00 (0.00-0.01) x10^3u/L Lymphocytes % 21.8 L (24.0-44.0) % Monocytes % 4.9 (0.0-12.0) % Eosinophils % 1.6 (0.00-5.0) % Basophils % 0.4 (0.0-0.4) % Absolute Granulocytes 5.86 (1.4-6.9) x10^3/uL Basophils # 0.03 (0-0.4) x10^3/uL Sodium 137 (137-145) mmol/L Potassium 4.3 (3.5-5.1) mmol/L Chloride 112 H (98-107) mmol/L Carbon Dioxide 24 (22-30) mmol/L Anion Gap 6.1 (5-15) MEQ/L BUN 4 L (7-17) mg/dL Creatinine 0.65 (0.52-1.04) mg/dL Estimated GFR > 60.0 ML/MIN Glucose 93 (74-106) mg/dL Calcium 8.4 (8.4-10.2) mg/dL Total Bilirubin 0.50 (0.2-1.3) mg/dL AST 91 H (14-36) U/L ALT 145 H (0-35) U/L Alkaline Phosphatase 98 (38-126) U/L Serum Total Protein 5.8 L (6.3-8.2) g/dL Albumin 3.2 L (3.5-5.0) g/dL Amylase 53 (30-110) U/L Lipase 37 (23-300) U/L
--- NOTE | 2022-03-14 16:27 | PCM.NOTE ---
Date and Time: 03/14/221622 Subjective Assessment: Patient Has improved ,kept down toast and cream of wheat this morning but no appetite for lunch just sipping on sprite. Abdominal pain is RUQ and epigastrium now. Lipase on admission was 3,000 and now in normal range. GB removed June 2021 Dr Dubois but states for low function,not stones(?).Does not drink ETOH . BM green . C/O aching "deep in my bones ".States PCP did TAYLOR that was negative but feels like there is a cause not yet uncovered. Family Hx Lupus. Has Hypothyroid - will check TSH and TPO . Will call results to patient since she may discharge this evening if able to eat supper. Objective Exam General Appearance: mild distress, anxiety Neurologic Exam: alert, oriented x 3, cooperative Skin Exam: warm, dry, pale Cardiovascular Exam: regular rate/rhythm Gastrointestinal/Abdomen Exam: soft, normal bowel sounds, tenderness ( epigastrum and RUQ), No guarding Extremity Exam: normal inspection (RUQ and epigastrium tenderness ,1+/4) OBJECTIVE DATA Vital Signs: Vital Signs - 24 hr Temp Pulse Resp BP BP Pulse Ox 03/14/22 11:58 97.8 F 65 17 107/55 03/14/22 08:00 18 03/14/22 07:15 97.7 F 66 18 120/63 95 03/14/22 04:00 97.8 F 69 17 121/55 96 03/14/22 00:00 97.5 F 56 L 17 96/53 94 L 03/13/22 20:00 98.2 F 57 L 17 110/53 95 Pain Assessment - Last Documented Pain Intensity 7 Pain Scale Used 0-10 Pain Scale Intake and Output: Intake & Output 03/12/22 03/13/22 03/14/22 03/15/22 11:59 11:59 11:59 11:59 Intake Total 380 3280 180 Balance 380 3280 180 Weight 69.7 kg 70.6 kg Lab Results: Lab Results-Last 24 Hours 03/14/22 03/14/22 Range/Units 06:07 06:07 WBC 8.2 (4.0-10.5) x10^3/uL RBC 3.99 L (4.1-5.4) x10^6/uL Hgb 13.0 (12.0-16.0) g/dL Hct 39.1 (35-47) % MCV 98.0 (78-100) fL MCH 32.6 H (26-32) pg MCHC 33.2 (32-36) g/dL RDW 11.7 (11.5-14.0) % Plt Count 243 (150-450) x10^3/uL MPV 10.0 (7.5-11.0) fL Gran % 71.2 H (36.0-66.0) % Immature Gran % (Auto) 0.1 (0.00-0.4) % Nucleat RBC Rel Count 0.0 (0.00-0.1) % Eos # (Auto) 0.13 (0-0.5) x10^3/uL Immature Gran # (Auto) 0.01 (0.00-0.03) x10^3u/L Absolute Lymphs (auto) 1.79 (1.0-4.6) x10^3/uL Absolute Monos (auto) 0.40 (0.0-1.3) x10^3/uL Absolute Nucleated RBC 0.00 (0.00-0.01) x10^3u/L Lymphocytes % 21.8 L (24.0-44.0) % Monocytes % 4.9 (0.0-12.0) % Eosinophils % 1.6 (0.00-5.0) % Basophils % 0.4 (0.0-0.4) % Absolute Granulocytes 5.86 (1.4-6.9) x10^3/uL Basophils # 0.03 (0-0.4) x10^3/uL Sodium 137 (137-145) mmol/L Potassium 4.3 (3.5-5.1) mmol/L Chloride 112 H (98-107) mmol/L Carbon Dioxide 24 (22-30) mmol/L Anion Gap 6.1 (5-15) MEQ/L BUN 4 L (7-17) mg/dL Creatinine 0.65 (0.52-1.04) mg/dL Estimated GFR > 60.0 ML/MIN Glucose 93 (74-106) mg/dL Calcium 8.4 (8.4-10.2) mg/dL Total Bilirubin 0.50 (0.2-1.3) mg/dL AST 91 H (14-36) U/L ALT 145 H (0-35) U/L Alkaline Phosphatase 98 (38-126) U/L Serum Total Protein 5.8 L (6.3-8.2) g/dL Albumin 3.2 L (3.5-5.0) g/dL Amylase 53 (30-110) U/L Lipase 37 (23-300) U/L Assessment/Plan (1) Acute pancreatitis Current Visit: Yes Status: Resolved Qualifiers: Pancreatitis type: unspecified pancreatitis type Assessment & Plan: Lipase now normal -see discussion in HPI re Hx Gb dz Discharge home with Gen Surgery to eval as outpatient. Code(s): K85.90 - ACUTE PANCREATITIS WITHOUT NECROSIS OR INFECTION, UNSP (2) Dehydration Current Visit: No Status: Resolved Code(s): E86.0 - DEHYDRATION (3) Hx of cholecystectomy Current Visit: Yes Status: Resolved Assessment & Plan: JUNE 2021,Dr Dubois Code(s): Z90.49 - ACQUIRED ABSENCE OF OTHER SPECIFIED PARTS OF DIGESTIVE TRACT (4) Hypothyroid Current Visit: Yes Status: Acute Assessment & Plan: pending labs Code(s): E03.9 - HYPOTHYROIDISM, UNSPECIFIED (5) Generalized pain Current Visit: Yes Status: Chronic Assessment & Plan: describes as deep bone pain Code(s): R52 - PAIN, UNSPECIFIED
[2022-03-14 17:07] VITALS: BP 101/58; PULSE 61; O2SAT 96
[2022-03-14] MEDS ORDERED: BENADRYL 25 MG CAPSULE PO ONE (17:51)
[2022-03-14] MEDS ORDERED: BENADRYL 25 MG CAPSULE ONE (17:54)
== END 2022-03-14 18:39 | disposition home or self-care (01) ==
LOC: ED 12:26 → MED SURG 15:15
PROVIDERS: ADMIT Family Medicine; ATTEND Family Medicine
DX: K85.90 Acute pancreatitis without necrosis or infection, unspecified (principal); E86.0 Dehydration; Z90.49 Acquired absence of other specified parts of digestive tract; E03.9 Hypothyroidism, unspecified; R52 Pain, unspecified; Z79.899 Other long term (current) drug therapy; Z20.828 Contact with and (suspected) exposure to other viral communicable diseases; Z82.69 Family history of other diseases of the musculoskeletal system and connective tissue; Z72.0 Tobacco use
CPT/HCPCS: 0241U; 36000; 36415; 74176; 80053; 81015; 82150; 82306; 82607; 83690; 83735; 84132; 84439; 84443; 84484; 85025; 86376; 93005; 96365; 96367; 96374; 96375; 96376; 99285; 93268; J1170; J2270; J2405; J3475; J3480; A9270-GY; G0378

== ENCOUNTER 2022-03-25 17:42 | Emergency (ER) | payer OTHER ==
[2022-03-25 19:43] LABS: Appearance CLEAR (CLEAR); Bilirubin NEGATIVE (NEGATIVE); Dipstick done @ ? MAIN LAB; Glucose NEGATIVE (NEGATIVE); Ketones NEGATIVE (NEGATIVE); Nitrite NEGATIVE (NEGATIVE); Ph 5.5 (5-6); Protein,Urine Dip NEGATIVE (Negative); RBC SMALL Ery/ul (0-5); Specific Gravity <=1.005 (1.005-1.025); Urobilinogen 0.2 mg/dL (0-1)
[2022-03-25] MEDS ORDERED: Sodium Chloride 0.9% 1000 ML 1,000 ML IV STA (19:49)
[2022-03-25] MEDS ORDERED: PROTONIX 40 MG IV IV ONE ×2 (19:49→19:56)
[2022-03-25] MEDS ORDERED: Hydromorphone 1 mg/ml Injection IV ONE ×2 (19:49→20:31)
[2022-03-25] MEDS ORDERED: Zofran 4 MG/2 ML VIAL IV ONE (19:49)
[2022-03-25 19:54] LABS: Bacteria RARE /HPF (NEGATIVE)
[2022-03-25] MEDS ORDERED: Sodium Chloride 0.9% 1000 ML 1,000 ML ONE (19:56)
[2022-03-25] MEDS ORDERED: Hydromorphone 1 mg/ml Injection ONE ×2 (19:56→20:37)
[2022-03-25] MEDS ORDERED: Zofran 4 MG/2 ML VIAL ONE (19:56)
[2022-03-25 20:13] LABS: Amphetamine,Urine NEGATIVE (NEGATIVE); Barbiturate,Urine NEGATIVE (NEGATIVE); Benzodiazepine,Urine NEGATIVE (NEGATIVE); Cocaine,Urine NEGATIVE (NEGATIVE); Methadone,Urine NEGATIVE (NEGATIVE); Opiate,Urine POSITIVE (NEGATIVE); PCP,Urine NEGATIVE (NEGATIVE); THC,Urine POSITIVE (NEGATIVE)
[2022-03-25 20:30] LABS: Urine Cultured Indicated? NO
[2022-03-25 20:40] LABS: Absolute Neutrophil Ct (ANC) 4.55 x10^3/uL (1.4-6.9); Basophil (Absolute #) 0.06 x10^3/uL (0-0.4); Eosinophil % 1.4 % (0.00-5.0); Eosinophil (Absolute #) 0.14 x10^3/uL (0-0.5); Hematocrit 38.6 % (35-47); Hemoglobin 12.9 g/dL (12.0-16.0); Lymphocyte (Absolute #) 4.51 x10^3/uL (1.0-4.6); Lymphocytes % 45.2 % (24.0-44.0); Mean Cell Volume 95.8 fL (78-100); Mean Corpuscular Hgb Concent. 33.4 g/dL (32-36); Mean Platelet Volume 10.2 fL (7.5-11.0); Monocyte (Absolute #) 0.69 x10^3/uL (0.0-1.3); Monocytes % 6.9 % (0.0-12.0); Neutrophil % 45.7 % (36.0-66.0); Platelet Count 320 x10^3/uL (150-450); Red Blood Count 4.03 x10^6/uL (4.1-5.4); Red Cell Distribution Width 11.7 % (11.5-14.0)
[2022-03-25 20:58] LABS: ALBUMIN 4.5 g/dL (3.5-5.0); ALKALINE PHOSPHATASE 91 U/L (38-126); AMYLASE 95 U/L (30-110); ANION GAP 10.4 MEQ/L (5-15); BLOOD UREA NITROGEN 10 mg/dL (7-17); CHLORIDE 102 mmol/L (98-107); Calcium 9.3 mg/dL (8.4-10.2); Carbon Dioxide 28 mmol/L (22-30); Creatinine 1 0.68 mg/dL (0.52-1.04); EST GLOMERULAR FILTRATION RATE > 60.0 ML/MIN; Glucose 94 mg/dL (74-106); LIPASE 141 U/L (23-300); Potassium 3.1 mmol/L (3.5-5.1); SGOT/AST 29 U/L (14-36); SGPT/ALT 26 U/L (0-35); SODIUM 138 mmol/L (137-145); Total Protein 7.3 g/dL (6.3-8.2)
[2022-03-25 21:54] VITALS: BP 122/58; PULSE 60; O2SAT 99
--- NOTE | 2022-03-25 22:11 | ERPHSYRPT ---
- History of Present Illness Time Seen by Provider: 03/25/22 19:25 Historian: patient Exam Limitations: no limitations Patient Subjective Stated Complaint: " I was admitted a couple days weeks ago for pancreatitis and I have started having pains again yesterday and got worse today. Pain is in my mid upper abdomen and goes into my back." Triage Nursing Assessment: Pt presents to ER with complaints of mid upper abdominal pains that radiate to right upper flank area. Rates pain 9/10 scale. Pt complains of nausea denies vomiting. Abdomen is tender upon exam. Bowel sounds present. Last BM yesterday. Pt is alert and oriented x 3. Skin is pink, warm, and dry. Respirations unlabored and lung sounds clear. Physician History: Patient is a 52-year-old white female apparently has chronic abdominal pain. Patient had a history of being admitted 2 weeks ago for pancreatitis and says her pain returned yesterday its in the epigastrium goes through the back she had her gallbladder [facility] in [facility] at [facility]. She denies any alcohol use she says she has had no fever chills or sweats she has been nauseated but has not vomited. She normally is followed at the [facility]. Timing/Duration: day(s) (2) Activities at Onset: none Quality: cramping, stabbing Abdominal Pain Onset Location: epigastric Pain Radiation: back Severity of Pain-Max: moderate Severity of Pain-Current: moderate Modifying Factors: Improves With: nothing Associated Symptoms: nausea, No diarrhea, No vomiting Previous symptoms: same symptoms as today Allergies/Adverse Reactions: No Known Drug Allergies Allergy (Verified 03/25/22 19:26) Home Medications: Atorvastatin Calcium 20 mg PO DAILY 06/18/21 [History] Cetirizine HCl [Zyrtec] 10 mg PO DAILY 06/18/21 [History] Fluticasone Propionate [Flonase Allergy Relief] 2 puffs IH DAILY 06/18/21 [History] Levothyroxine Sodium 75 Mcg [Synthroid 75 Mcg] 75 mcg PO DAILY 06/18/21 [History] Montelukast Sodium 10 mg [Singulair 10 MG] 10 mg PO HS 06/18/21 [History] PANTOPRAZOLE 40 mg Tablet [Protonix 40MG Tablet] 1 tab PO BID 06/18/21 [History] Valsartan/Hydrochlorothiazide [Valsartan-Hctz 80-12.5 mg Tab] 1 tab PO DAILY 06/18/21 [History] Gabapentin [Neurontin ] 900 mg PO QHS 06/19/21 [History] Tizanidine HCl 4 mg [Zanaflex 4 MG] 8 mg PO QHS 06/19/21 [History] Hydrocodone/Acetaminophen [Hydrocodone-Acetamin 5-325 mg] 1 tab PO BIDPRN PRN MDD 4 01/27/22 [History] Gabapentin [Neurontin ] 300 mg PO DAILY 03/12/22 [History] Mirtazapine 30 mg [Remeron 30 mg] 30 mg PO HS 03/12/22 [History] Hx Tetanus, Diphtheria Vaccination/Date Given: Yes Hx Influenza Vaccination/Date Given: No Hx Pneumococcal Vaccination/Date Given: No Travel Risk - International Travel Have you traveled outside of the country in past 3 weeks: No - Coronavirus Screening Are you exhibiting any of the following symptoms?: No Close contact with a COVID-19 positive Pt in past 14-21 Days: No - Vaccine Status Have you recieved a Covid-19 vaccination: Yes 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 - Vaccination Dates Date of 2cond Vaccination (if applicable): 09/14/2020 - Review of Systems Constitutional: No Fever, No Chills Eyes: No Symptoms Ears, Nose, & Throat: No Symptoms Respiratory: No Cough, No Dyspnea Cardiac: No Chest Pain, No Edema, No Syncope Abdominal/Gastrointestinal: Abdominal Pain, Nausea, No Vomiting, No Diarrhea Genitourinary Symptoms: No Dysuria Musculoskeletal: No Back Pain, No Neck Pain Skin: No Rash Neurological: No Dizziness, No Focal Weakness, No Sensory Changes Psychological: No Symptoms Endocrine: No Symptoms All Other Systems: Reviewed and Negative - Past Medical History Pertinent Past Medical History: Yes Neurological History: No Pertinent History ENT History: No Pertinent History Cardiac History: High Cholesterol, Hypertension, Other Respiratory History: Bronchitis Endocrine Medical History: Hypothyroidism Musculoskeletal History: No Pertinent History GI Medical History: GERD History: No Pertinent History Psycho-Social History: Anxiety, Depression Female Reproductive Disorders: No Pertinent History Other Medical History: SVT - Past Surgical History Past Surgical History: Yes Neuro Surgical History: No Pertinent History Cardiac: Cardiac Catheterization, Other Respiratory: No Pertinent History Gastrointestinal: Cholecystectomy Genitourinary: No Pertinent History Musculoskeletal: No Pertinent History Female Surgical History: Dilation & Curettage, Section, Other Other Surgical History: breast reduction. spinal cord stimulator put in and removed. cardiac ablation for SVT. endometrial ablation - Social History Smoking Status: Current every day smoker How long have you smoked: 30 years Exposure to second hand smoke: Yes Drug Use: none Patient Lives Alone: No Significant Family History: heart disease - Nursing Vital Signs Nursing Vital Signs: Initial Vital Signs Temperature 97.5 F 03/25/22 19:19 Pulse Rate 64 03/25/22 19:19 Respiratory Rate 18 03/25/22 19:19 Blood Pressure 135/75 03/25/22 19:19 O2 Sat by Pulse Oximetry 100 03/25/22 19:19 Pain Scale Pain Intensity 2 - Physical Exam General Appearance: mild distress, alert Eye Exam: PERRL/EOMI, eyes nml inspection Ears, Nose, Throat Exam: normal ENT inspection, pharynx normal, moist mucous membranes Neck Exam: normal inspection, non-tender, supple, full range of motion Respiratory Exam: normal breath sounds, lungs clear, No respiratory distress Cardiovascular Exam: regular rate/rhythm, normal heart sounds Gastrointestinal/Abdomen Exam: soft, tenderness (Epigastrium), No mass Back Exam: normal inspection, normal range of motion, No CVA tenderness, No vertebral tenderness Extremity Exam: normal inspection, normal range of motion, pelvis stable Neurologic Exam: alert, oriented x 3, cooperative, normal mood/affect, nml cerebellar function, sensation nml, No motor deficits Skin Exam: normal color, warm, dry SpO2: 99 - Course Nursing assessment & vital signs reviewed: Yes - CT Exams Abdomen/Pelvis CT Interpretation: Other (CT shows no acute findings compared to numerous other CT scans.) Ordered Tests: Active Orders 24 hr Category Date Time Status IV Insertion STAT Care 03/25/22 19:49 Active ABDOMEN AND PELVIS W/0 CONTRAS [CT] Stat Exams 03/25/22 19:49 Taken AMYLASE Stat Lab 03/25/22 20:30 Completed CBC W DIFF Stat Lab 03/25/22 20:30 Completed CMP Stat Lab 03/25/22 20:30 Completed LIPASE Stat Lab 03/25/22 20:30 Completed Lactic Acid Stat Lab 03/25/22 19:56 Completed UA W/RFX CULTURE Stat Lab 03/25/22 19:30 Completed Urine Triage Profile Stat Lab 03/25/22 19:55 Completed Medication Summary Discontinued Medications Generic Name Dose Route Start Last Admin Trade Name Yesika PRN Reason Stop Dose Admin Hydromorphone HCl 1 mg 03/25/22 19:49 03/25/22 20:00 Hydromorphone 1 Mg/1ml Inj 1 Mg/Ml Syringe IV 03/25/22 19:50 1 mg STAT ONE Administration Hydromorphone HCl Confirm 03/25/22 19:56 Hydromorphone 1 Mg/1ml Inj 1 Mg/Ml Syringe Administered 03/25/22 19:57 Dose 1 mg .ROUTE .STK-MED ONE Hydromorphone HCl 1 mg 03/25/22 20:31 03/25/22 20:38 Hydromorphone 1 Mg/1ml Inj 1 Mg/Ml Syringe IV 03/25/22 20:32 1 mg STAT ONE Administration Hydromorphone HCl Confirm 03/25/22 20:37 Hydromorphone 1 Mg/1ml Inj 1 Mg/Ml Syringe Administered 03/25/22 20:38 Dose 1 mg .ROUTE .STK-MED ONE Sodium Chloride 1,000 mls @ 999 mls/hr 03/25/22 19:49 03/25/22 21:01 Sodium Chloride 0.9% 1000 Ml IV 03/25/22 20:49 Infused .Q1H1M STA Infusion Sodium Chloride Confirm 03/25/22 19:56 Sodium Chloride 0.9% 1000 Ml Administered 03/25/22 19:57 Dose 1,000 mls @ ud .ROUTE .STK-MED ONE Ondansetron HCl 4 mg 03/25/22 19:49 03/25/22 20:00 Ondansetron Hcl 4 Mg/2 Ml Vial IV 03/25/22 19:50 4 mg STAT ONE Administration Ondansetron HCl Confirm 03/25/22 19:56 Ondansetron Hcl 4 Mg/2 Ml Vial Administered 03/25/22 19:57 Dose 4 mg .ROUTE .STK-MED ONE Pantoprazole Sodium 40 mg 03/25/22 19:49 03/25/22 20:00 Pantoprazole 40 Mg Vial IV 03/25/22 19:50 40 mg STAT ONE Administration Pantoprazole Sodium Confirm 03/25/22 19:56 Pantoprazole 40 Mg Vial Administered 03/25/22 19:57 Dose 40 mg IV .[facility]-MED ONE Lab/Rad Data: Laboratory Result Diagrams 03/25/22 20:30 03/25/22 20:30 Laboratory Results 03/25/22 03/25/22 03/25/22 Range/Units 20:30 20:30 19:56 WBC 10.0 (4.0-10.5) x10^3/uL RBC 4.03 L (4.1-5.4) x10^6/uL Hgb 12.9 (12.0-16.0) g/dL Hct 38.6 (35-47) % MCV 95.8 (78-100) fL MCH 32.0 (26-32) pg MCHC 33.4 (32-36) g/dL RDW 11.7 (11.5-14.0) % Plt Count 320 (150-450) x10^3/uL MPV 10.2 (7.5-11.0) fL Gran % 45.7 (36.0-66.0) % Immature Gran % (Auto) 0.2 (0.00-0.4) % Nucleat RBC Rel Count 0.0 (0.00-0.1) % Eos # (Auto) 0.14 (0-0.5) x10^3/uL Immature Gran # (Auto) 0.02 (0.00-0.03) x10^3u/L Absolute Lymphs (auto) 4.51 (1.0-4.6) x10^3/uL Absolute Monos (auto) 0.69 (0.0-1.3) x10^3/uL Absolute Nucleated RBC 0.00 (0.00-0.01) x10^3u/L Lymphocytes % 45.2 H (24.0-44.0) % Monocytes % 6.9 (0.0-12.0) % Eosinophils % 1.4 (0.00-5.0) % Basophils % 0.6 (0.0-0.4) % Absolute Granulocytes 4.55 (1.4-6.9) x10^3/uL Basophils # 0.06 (0-0.4) x10^3/uL Sodium 138 (137-145) mmol/L Potassium 3.1 L (3.5-5.1) mmol/L Chloride 102 (98-107) mmol/L Carbon Dioxide 28 (22-30) mmol/L Anion Gap 10.4 (5-15) MEQ/L BUN 10 (7-17) mg/dL Creatinine 0.68 (0.52-1.04) mg/dL Estimated GFR > 60.0 ML/MIN Glucose 94 (74-106) mg/dL Lactic Acid 0.7 (0.4-2.0) Calcium 9.3 (8.4-10.2) mg/dL Total Bilirubin 0.30 (0.2-1.3) mg/dL AST 29 (14-36) U/L ALT 26 (0-35) U/L Alkaline Phosphatase 91 (38-126) U/L Serum Total Protein 7.3 (6.3-8.2) g/dL Albumin 4.5 (3.5-5.0) g/dL Amylase 95 (30-110) U/L Lipase 141 (23-300) U/L Urinalys Dipstick Clnc Urine Color (YELLOW) Urine Appearance (CLEAR) Urine pH (5-6) Ur Specific [place] (1.005-1.025) POC Urine Protein Conf (Negative) Urine Ketones (NEGATIVE) Urine Nitrite (NEGATIVE) Urine Bilirubin (NEGATIVE) Urine Urobilinogen (0-1) mg/dL Urine Leukocytes (NEGATIVE) Urine WBC (Auto) (0-5) /HPF Urine RBC (Auto) (0-2) /HPF U Epithel Cells (Auto) (FEW) /HPF Urine Bacteria (Auto) (NEGATIVE) /HPF Urine RBC (0-5) Santiago/ul Ur Culture Indicated? Urine Glucose (NEGATIVE) mg/dL Urine Opiates Level (NEGATIVE) Ur Methadone (NEGATIVE) Urine Barbiturates (NEGATIVE) Ur Phencyclidine (PCP) (NEGATIVE) Urine Amphetamine (NEGATIVE) U Benzodiazepine Level (NEGATIVE) Urine Cocaine (NEGATIVE) Urine Marijuana (THC) (NEGATIVE) 03/25/22 03/25/22 Range/Units 19:55 19:30 WBC (4.0-10.5) x10^3/uL RBC (4.1-5.4) x10^6/uL Hgb (12.0-16.0) g/dL Hct (35-47) % MCV (78-100) fL MCH (26-32) pg MCHC (32-36) g/dL RDW (11.5-14.0) % Plt Count (150-450) x10^3/uL MPV (7.5-11.0) fL Gran % (36.0-66.0) % Immature Gran % (Auto) (0.00-0.4) % Nucleat RBC Rel Count (0.00-0.1) % Eos # (Auto) (0-0.5) x10^3/uL Immature Gran # (Auto) (0.00-0.03) x10^3u/L Absolute Lymphs (auto) (1.0-4.6) x10^3/uL Absolute Monos (auto) (0.0-1.3) x10^3/uL Absolute Nucleated RBC (0.00-0.01) x10^3u/L Lymphocytes % (24.0-44.0) % Monocytes % (0.0-12.0) % Eosinophils % (0.00-5.0) % Basophils % (0.0-0.4) % Absolute Granulocytes (1.4-6.9) x10^3/uL Basophils # (0-0.4) x10^3/uL Sodium (137-145) mmol/L Potassium (3.5-5.1) mmol/L Chloride (98-107) mmol/L Carbon Dioxide (22-30) mmol/L Anion Gap (5-15) MEQ/L BUN (7-17) mg/dL Creatinine (0.52-1.04) mg/dL Estimated GFR ML/MIN Glucose (74-106) mg/dL Lactic Acid (0.4-2.0) Calcium (8.4-10.2) mg/dL Total Bilirubin (0.2-1.3) mg/dL AST (14-36) U/L ALT (0-35) U/L Alkaline Phosphatase (38-126) U/L Serum Total Protein (6.3-8.2) g/dL Albumin (3.5-5.0) g/dL Amylase (30-110) U/L Lipase (23-300) U/L Urinalys Dipstick Clnc MAIN LAB Urine Color YELLOW (YELLOW) Urine Appearance CLEAR (CLEAR) Urine pH 5.5 (5-6) Ur Specific [place] <=1.005 A (1.005-1.025) POC Urine Protein Conf NEGATIVE (Negative) Urine Ketones NEGATIVE (NEGATIVE) Urine Nitrite NEGATIVE (NEGATIVE) Urine Bilirubin NEGATIVE (NEGATIVE) Urine Urobilinogen 0.2 (0-1) mg/dL Urine Leukocytes SMALL A (NEGATIVE) Urine WBC (Auto) 3-5 A (0-5) /HPF Urine RBC (Auto) NONE (0-2) /HPF U Epithel Cells (Auto) NONE (FEW) /HPF Urine Bacteria (Auto) RARE (NEGATIVE) /HPF Urine RBC SMALL A (0-5) Santiago/ul Ur Culture Indicated? NO Urine Glucose NEGATIVE (NEGATIVE) mg/dL Urine Opiates Level POSITIVE (NEGATIVE) Ur Methadone NEGATIVE (NEGATIVE) Urine Barbiturates NEGATIVE (NEGATIVE) Ur Phencyclidine (PCP) NEGATIVE (NEGATIVE) Urine Amphetamine NEGATIVE (NEGATIVE) U Benzodiazepine Level NEGATIVE (NEGATIVE) Urine Cocaine NEGATIVE (NEGATIVE) Urine Marijuana (THC) POSITIVE (NEGATIVE) - Progress Progress: unchanged Progress Note: 03/25/22 22:14 Discussed the fact that the work-up was essentially negative patient was upset that we cannot give her a definitive diagnosis it turns out she has appointments with gastroenterology for endoscopy in March 30. She also has narcotic pain medicine at home - Departure Departure Disposition: Home Clinical Impression: Intractable abdominal pain Condition: Stable Critical Care Time: No Referrals: SUSIE GRAJEDA NP [Primary Care Provider] - Follow up/PCP as directed Instructions: Severe Abdominal Pain
--- NOTE | 2022-03-26 08:45 | XRAY ---
Indication: Epigastric pain. Nausea. Multiple contiguous axial images obtained through the abdomen and pelvis without contrast. Comparison: March 12, 2022. Lung bases remain clear again with pulmonary emphysema. Heart not enlarged. Previous small hiatal hernia not seen presumed sliding-type. Noncontrasted stomach and bowel loops appear nonobstructed. There remains mild scattered colonic diverticulosis without diverticulitis. Again incidental nonobstructing right renal punctate calcification and previous cholecystectomy. No free fluid/air. Remaining liver, pancreas, spleen, adrenal glands, kidneys, ureters, bladder, and uterus are unremarkable for noncontrast exam. Again mild scattered aortoiliac calcifications without AAA. Osseous structures intact again with minimal levoscoliosis and small benign left femur head bone island. Impression: 1. Again pulmonary emphysema, small sliding hiatal hernia, nonobstructing right renal microcalcification, colonic diverticulosis, arteriosclerotic disease, and chronic bony findings. 2. Remaining CT abdomen/pelvis without contrast exam is negative.
== END 2022-03-25 22:12 | disposition home or self-care (01) ==
LOC: ED 17:42
DX: R10.13 Epigastric pain (principal); R11.0 Nausea; E78.5 Hyperlipidemia, unspecified; I10 Essential (primary) hypertension; Z79.891 Long term (current) use of opiate analgesic; Z79.899 Other long term (current) drug therapy; Z72.0 Tobacco use
CPT/HCPCS: 36000; 36415; 74176; 80053; 80307; 81015; 82150; 83605; 83690; 85025; 96374; 96375; 96376; 99284; J1170; J2405

== ENCOUNTER 2022-04-27 08:47 | Day surgery (SDC) | payer OTHER ==
--- NOTE | 2022-04-27 08:18 | HP ---
DATE OF SURGERY: 04/27/2022 HISTORY OF PRESENT ILLNESS: The patient is a 52-year-old female with nausea and pain comes and goes. A month ago had pancreatitis. A couple weeks after that had some nausea and reflux. Family history negative for colon or stomach cancer. Negative for inflammatory bowel disease. PAST MEDICAL HISTORY: Hypertension, gastroesophageal reflux disease, heartburn, hypothyroidism. History of hiatal hernia in the past. Hyperlipidemia, bronchitis, migraines in the past. Supraventricular tachycardia. PAST SURGICAL HISTORY: section. Cholecystectomy. Cardiac ablation in the past. Endometrial ablation. Breast augmentation. MEDICATIONS: Valsartan-hydrochlorothiazide, pantoprazole, gabapentin, Flonase, cetirizine, tizanidine, montelukast, levothyroxine, atorvastatin. ALLERGIES: NKDA. FAMILY HISTORY: Stroke, chronic obstructive pulmonary disease, heart disease. SOCIAL HISTORY: Smoker. No alcohol abuse. REVIEW OF SYSTEMS: Fourteen systems reviewed. No chest pain or palpitations. Other systems negative or noncontributory as above and per preadmission questionnaire. PHYSICAL EXAMINATION: BMI 27. GENERAL: No acute distress. HEENT: Sclerae nonicteric. NECK: No JVD. CHEST: Equal excursion, nonlabored breathing. CVS: Regular rate and rhythm. ABDOMEN: Soft, mild epigastric tenderness, mild abdominal tenderness. EXTREMITIES: No cyanosis or edema. NEURO: Alert, oriented, moving extremities symmetrically. PSYCH: Appropriate mood and affect. SKIN: Dry. IMPRESSION: Abdominal aches and pains, reflux, needs upper endoscopy as well as colonoscopy to rule out peptic ulcer disease, gastritis, esophagitis, colitis or inflammatory bowel disease. I feel she is a candidate. Risks and benefits explained in detail including but not limited to bleeding or infection, risk of bowel injury or perforation, risk of missed or nondiagnosis or incomplete exam possibly requiring barium swallow or barium enema, other studies or procedures. General risk of anesthesia or sedation, risk of bowel prep but not limited to, possibility of inability to diagnose the etiology of her symptoms possibly requiring other studies or referrals. She understands and agrees to planned procedure. She has been shown the risk sheet, will proceed with EGD and colonoscopy as an outpatient.
[2022-04-27] MEDS ORDERED: Lactated Ringers 1,000 ML IV ONE (09:13)
[2022-04-27 09:28] VITALS: O2SAT 97
[2022-04-27] MEDS ORDERED: Lactated Ringers 1,000 ML IV SCH (09:30)
[2022-04-27] MEDS ORDERED: Versed 2 MG/2 ML Injection ONE (10:06)
[2022-04-27] MEDS ORDERED: Versed 2 MG/2 ML Injection IV ONE (10:07)
[2022-04-27] MEDS ORDERED: Xylocaine-Mpf 2% 5 Ml Vial ONE (10:35)
[2022-04-27] MEDS ORDERED: DIPRIVAN 200 MG/20 ML IV ONE ×3 (10:35→11:13)
[2022-04-27 12:24] VITALS: BP 145/81; PULSE 59
--- NOTE | 2022-04-28 08:16 | OP ---
SURGERY DATE/TIME: 04/27/2022 1057 PREOPERATIVE DIAGNOSIS: Persistent generalized abdominal pain as well as some reflux, need for upper and lower endoscopy for further evaluation. POSTOPERATIVE DIAGNOSES: 1) Gastric erythema or gastritis. 2) Polyps ascending colon and rectum. 3) Fair bowel prep. 4) Fair to normal appearing ileum. PROCEDURES: 1) EGD with cold biopsy of small bowel to evaluate for celiac sprue. 2) Cold biopsy of antrum to evaluate for Helicobacter pylori. 3) Cold biopsy mid esophagus to evaluate for eosinophilic esophagitis. 4) Colonoscopy to terminal ileum. 5) Retrograde ileoscopy. 6) Random cold biopsies of ileum. 7) Random cold biopsy of colon to evaluate for microscopic ileitis or microscopic colitis. 8) Hot biopsy polypectomy small rectal polyp. 9) Hot snare polypectomy ascending colon polyp x2. SURGEON: Dr. Franklin Patiño. ANESTHESIA: MAC. ESTIMATED BLOOD LOSS: Minimal. INDICATIONS: As noted above. Risks and benefits explained in detail and not limited to and consent obtained. DESCRIPTION OF PROCEDURE AND FINDINGS: The patient is taken to the operating room. MAC anesthesia introduced. After official time out and no disagreement with planned procedure, bite block positioned. Video gastroscope easily passed down the esophagus to the patent pylorus to the third portion of the duodenum. Third, second and first portions of duodenum grossly unremarkable. No signs of any ulcers or masses. Cold biopsy taken to evaluate for celiac sprue or other etiology to account for her symptoms. Back in the stomach, she had some gastric erythema. Cold biopsy taken to evaluate for early gastritis versus normal variation and to evaluate for Helicobacter pylori. On retroflex, there are no signs of any large hiatal hernia. Scope straightened. Gastroesophageal junction about 40 cm. Z-line fairly crisp. Random cold biopsy done in the mid esophagus to evaluate for eosinophilic esophagitis and to rule out other causes of her symptoms. The scope is withdrawn. The patient tolerated this part of the procedure well. Attention is then turned to colonoscopy. Digital rectal exam did not reveal any rectal masses. Video colonoscope carefully passed up through the tortuous sigmoid, descending, transverse, ascending colon around to the cecum. At the terminal ileum retrograde ileoscopy performed and was grossly unremarkable. Given her symptom complaints again with the abdominal pain, cold biopsy taken to evaluate for microscopic ileitis. Good hemostasis noted. Scope then pulled back into the colon. Prep overall was fair. A little bit of liquidy semi-solid stool throughout the colon slightly limiting the exam for small lesions. ASA Class III. The scope is carefully withdrawn over the next 11 minutes suctioning and irrigating the liquidy stool out as well as possible. Some random cold biopsies taken in the colon to evaluate for microscopic colitis. There were two polyps ranging from 3 mm to approximately 4 mm removed with hot snare polypectomy in the ascending colon. These were removed and specimen retrieved. The scope is carefully pulled back to the rectum. Small early polyp versus hyperplastic lesion removed with hot biopsy forceps. Good hemostasis noted. No signs of any large polyps, masses or obstructing lesions. Again, random cold biopsies were then taken to rule out other cause for her symptoms. The scope is withdrawn. The patient tolerated the procedure well. Findings discussed with the family in the waiting area.
== END 2022-04-27 12:25 | disposition home or self-care (01) ==
LOC: SDC 08:47
PROVIDERS: ATTEND Surgery
DX: K63.5 Polyp of colon (principal); R10.84 Generalized abdominal pain; K21.9 Gastro-esophageal reflux disease without esophagitis; K29.70 Gastritis, unspecified, without bleeding; K62.1 Rectal polyp
CPT/HCPCS: 88305; J2250; J2704

== ENCOUNTER 2022-05-26 12:02 | Emergency (ER) | payer OTHER ==
--- NOTE | 2022-05-26 12:09 | ERPHSYRPT ---
- History of Present Illness Time Seen by Provider: 05/26/22 12:09 Historian: patient Exam Limitations: no limitations Physician History: This is a 52-year-old white female patient who has a history of chronic recurrent abdominal pain and chronic recurring pancreatitis and presents with right lower quadrant localized pain that she describes "like a hot poker". The pain began 2 days ago and this morning was excruciating. Patient has had a cholecystectomy in the past. She has had several C-sections in the past. She has a history of SVT status postcardiac ablation, hypothyroidism, hyperlipidemia and gastroesophageal reflux disease. Patient underwent an upper endoscopy and colonoscopy on 04/27/2022 and she was diagnosed with gastritis and had polyps in her colon and rectum which were removed. Biopsy report are pending per her report. Patient denies vomiting. She denies diarrhea. She has not had any bloody bowel movements. Patient sees pain management. Her last appointment was on 05/07/2022 and had spinal injections for her chronic back pain. Timing/Duration: day(s) (2) Abdominal Pain Onset Location: RLQ Pain Radiation: no radiation Severity of Pain-Max: moderate Severity of Pain-Current: moderate Modifying Factors: Improves With: nothing Associated Symptoms: denies symptoms Previous symptoms: no prior history, different symptoms, no recent treatment Allergies/Adverse Reactions: No Known Drug Allergies Allergy (Verified 05/26/22 12:26) Home Medications: Atorvastatin Calcium 20 mg PO DAILY 06/18/21 [History] Cetirizine HCl [Zyrtec] 10 mg PO DAILY 06/18/21 [History] Fluticasone Propionate [Flonase Allergy Relief] 2 puffs IH DAILY 06/18/21 [History] Levothyroxine Sodium 75 Mcg [Synthroid 75 Mcg] 75 mcg PO DAILY 06/18/21 [History] Montelukast Sodium 10 mg [Singulair 10 MG] 10 mg PO HS 06/18/21 [History] PANTOPRAZOLE 40 mg Tablet [Protonix 40MG Tablet] 1 tab PO BID 06/18/21 [History] Gabapentin [Neurontin ] 900 mg PO QHS 06/19/21 [History] Tizanidine HCl 4 mg [Zanaflex 4 MG] 8 mg PO QHS 06/19/21 [History] Hydrocodone/Acetaminophen [Hydrocodone-Acetamin 5-325 mg] 1 tab PO BIDPRN PRN MDD 4 01/27/22 [History] Gabapentin [Neurontin ] 300 mg PO DAILY 03/12/22 [History] Mirtazapine 30 mg [Remeron 30 mg] 30 mg PO HS 03/12/22 [History] Losartan/Hydrochlorothiazide [Losartan-Hctz 50-12.5 mg Tab] 1 each PO DAILY 04/01/22 [History] Sertraline HCl 50 mg [Zoloft 50 mg Tablet] 100 mg PO DAILY 04/01/22 [History] Tizanidine HCl 4 mg [Zanaflex 4 MG] 4 mg PO DAILY 04/27/22 [History] Hx Tetanus, Diphtheria Vaccination/Date Given: Yes Hx Influenza Vaccination/Date Given: No Hx Pneumococcal Vaccination/Date Given: No Travel Risk - International Travel Have you traveled outside of the country in past 3 weeks: No - Coronavirus Screening Are you exhibiting any of the following symptoms?: No Close contact with a COVID-19 positive Pt in past 14-21 Days: No - Vaccine Status Have you recieved a Covid-19 vaccination: Yes 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[employer] - Vaccination Dates Date of 2cond Vaccination (if applicable): 09/14/2020 - Review of Systems Constitutional: No Symptoms Eyes: No Symptoms Ears, Nose, & Throat: No Symptoms Respiratory: No Symptoms Cardiac: No Symptoms Abdominal/Gastrointestinal: Abdominal Pain (Localized right lower quadrant), No Nausea, No Vomiting, No Diarrhea, No Constipation Genitourinary Symptoms: No Symptoms Musculoskeletal: No Symptoms Skin: No Symptoms Neurological: No Symptoms Psychological: No Symptoms Endocrine: No Symptoms Hematologic/Lymphatic: No Symptoms Immunological/Allergic: No Symptoms All Other Systems: Reviewed and Negative - Past Medical History Pertinent Past Medical History: Yes Neurological History: No Pertinent History ENT History: No Pertinent History Cardiac History: High Cholesterol, Hypertension, Other Respiratory History: Bronchitis Endocrine Medical History: Hypothyroidism Musculoskeletal History: No Pertinent History GI Medical History: GERD, Pancreatitis History: Other Psycho-Social History: Anxiety, Depression Female Reproductive Disorders: No Pertinent History Other Medical History: SVT, multiple UTIs - Past Surgical History Past Surgical History: Yes Neuro Surgical History: No Pertinent History Cardiac: Cardiac Catheterization, Other Respiratory: No Pertinent History Gastrointestinal: Cholecystectomy Genitourinary: No Pertinent History Musculoskeletal: Other Female Surgical History: Dilation & Curettage, Section, Other Other Surgical History: breast reduction. spinal cord stimulator put in and removed. cardiac ablation for SVT. endometrial ablation. x3. 4 back surgeries - Social History Smoking Status: Current every day smoker How long have you smoked: 30 years Exposure to second hand smoke: Yes Drug Use: none Patient Lives Alone: No Significant Family History: heart disease - Nursing Vital Signs Nursing Vital Signs: Initial Vital Signs Temperature 98.8 F 05/26/22 12:28 Pulse Rate 69 05/26/22 12:28 Respiratory Rate 20 05/26/22 12:28 Blood Pressure 147/87 05/26/22 12:28 O2 Sat by Pulse Oximetry 98 05/26/22 12:28 Pain Scale Pain Intensity 8 - Physical Exam General Appearance: no apparent distress, alert, anxiety Eye Exam: PERRL/EOMI, eyes nml inspection Ears, Nose, Throat Exam: normal ENT inspection, moist mucous membranes Neck Exam: normal inspection, non-tender, supple, full range of motion Respiratory Exam: normal breath sounds, lungs clear, airway intact, No chest tenderness, No respiratory distress Cardiovascular Exam: regular rate/rhythm, normal heart sounds, normal peripheral pulses Gastrointestinal/Abdomen Exam: soft, normal bowel sounds, tenderness (Localized right lower quadrant to palpation), guarding (Localized right lower quadrant to palpation), No rebound Pelvic Exam: not done Rectal Exam: not done Back Exam: normal inspection, normal range of motion, No CVA tenderness, No vertebral tenderness Extremity Exam: normal inspection, normal range of motion, pelvis stable Neurologic Exam: alert, oriented x 3, cooperative, glazier structural glass II-XII nml as tested, normal mood/affect, nml cerebellar function, nml station & gait, sensation nml Skin Exam: normal color, warm, dry Lymphatic Exam: No adenopathy SpO2 Interpretation: normal O2 Delivery: Room Air - Course Nursing assessment & vital signs reviewed: Yes Ordered Tests: Active Orders 24 hr Category Date Time Status IV Insertion STAT Care 05/26/22 12:41 Active ABDOMEN AND PELVIS W/0 CONTRAS [CT] Stat Exams 05/26/22 12:41 Completed AMYLASE Stat Lab 05/26/22 13:25 Completed CBC W DIFF Stat Lab 05/26/22 13:25 Completed CMP Stat Lab 05/26/22 13:25 Completed LIPASE Stat Lab 05/26/22 13:25 Completed UA W/RFX UR CULTURE Stat Lab 05/26/22 12:43 Completed Medication Summary Discontinued Medications Generic Name Dose Route Start Last Admin Trade Name Freq PRN Reason Stop Dose Admin Hydromorphone HCl 1 mg 05/26/22 12:41 05/26/22 13:01 Hydromorphone 1 Mg/1ml Inj 1 Mg/Ml Syringe IV 05/26/22 12:42 1 mg STAT ONE Administration Hydromorphone HCl Confirm 05/26/22 13:01 Hydromorphone 1 Mg/1ml Inj 1 Mg/Ml Syringe Administered 05/26/22 13:02 Dose 1 mg .ROUTE .STK-MED ONE Sodium Chloride 1,000 mls @ 999 mls/hr 05/26/22 12:41 05/26/22 14:05 Sodium Chloride 0.9% 1000 Ml IV 05/26/22 13:41 Infused .Q1H1M STA Infusion Sodium Chloride Confirm 05/26/22 13:01 Sodium Chloride 0.9% 1000 Ml Administered 05/26/22 13:02 Dose 1,000 mls @ ud .ROUTE .STK-MED ONE Ondansetron HCl 4 mg 05/26/22 12:41 05/26/22 13:01 Ondansetron Hcl 4 Mg/2 Ml Vial IV 05/26/22 12:42 4 mg STAT ONE Administration Ondansetron HCl Confirm 05/26/22 13:00 Ondansetron Hcl 4 Mg/2 Ml Vial Administered 05/26/22 13:01 Dose 4 mg .ROUTE .STK-MED ONE Lab/Rad Data: Laboratory Result Diagrams 05/26/22 13:25 05/26/22 13:25 Laboratory Results 05/26/22 05/26/22 05/26/22 Range/Units 13:25 13:25 12:43 WBC 6.5 (4.0-10.5) x10^3/uL RBC 4.18 (4.1-5.4) x10^6/uL Hgb 13.5 (12.0-16.0) g/dL Hct 40.1 (35-47) % MCV 95.9 (78-100) fL MCH 32.3 H (26-32) pg MCHC 33.7 (32-36) g/dL RDW 11.9 (11.5-14.0) % Plt Count 285 (150-450) x10^3/uL MPV 9.8 (7.5-11.0) fL Gran % 41.7 (36.0-66.0) % Immature Gran % (Auto) 0.2 (0.00-0.4) % Nucleat RBC Rel Count 0.0 (0.00-0.1) % Eos # (Auto) 0.11 (0-0.5) x10^3/uL Immature Gran # (Auto) 0.01 (0.00-0.03) x10^3u/L Absolute Lymphs (auto) 3.19 (1.0-4.6) x10^3/uL Absolute Monos (auto) 0.43 (0.0-1.3) x10^3/uL Absolute Nucleated RBC 0.00 (0.00-0.01) x10^3u/L Lymphocytes % 48.9 H (24.0-44.0) % Monocytes % 6.6 (0.0-12.0) % Eosinophils % 1.7 (0.00-5.0) % Basophils % 0.9 (0.0-0.4) % Absolute Granulocytes 2.73 (1.4-6.9) x10^3/uL Basophils # 0.06 (0-0.4) x10^3/uL Sodium 143 (137-145) mmol/L Potassium 3.6 (3.5-5.1) mmol/L Chloride 106 (98-107) mmol/L Carbon Dioxide 30 (22-30) mmol/L Anion Gap 11.0 (5-15) MEQ/L BUN 9 (7-17) mg/dL Creatinine 0.69 (0.52-1.04) mg/dL Estimated GFR > 60.0 ML/MIN Glucose 95 (74-106) mg/dL Calcium 9.2 (8.4-10.2) mg/dL Total Bilirubin 0.50 (0.2-1.3) mg/dL AST 27 (14-36) U/L ALT 20 (0-35) U/L Alkaline Phosphatase 92 (38-126) U/L Serum Total Protein 7.0 (6.3-8.2) g/dL Albumin 4.1 (3.5-5.0) g/dL Amylase 74 (30-110) U/L Lipase 70 (23-300) U/L Urine Color Yellow (Yellow) Urine Appearance Clear (Clear) Urine pH 6.0 (4.6-8.0) Ur Specific [place] 1.020 (1.005-1.030) Urine Protein Negative (Negative) Urine Glucose (UA) Negative (Negative) mg/dL Urine Ketones Trace A (Negative) Urine Blood Negative (Negative) Urine Nitrite Negative (Negative) Urine Bilirubin Negative (Negative) Urine Urobilinogen 0.2 (0.2) mg/dL Ur Leukocyte Esterase Negative (Negative) U Hyaline Cast (Auto) NONE SEEN (0-2) /LPF Urine Microscopic RBC 3-5 (0-5) /HPF Urine Microscopic WBC 0-2 (0-5) /HPF Ur Epithelial Cells None Seen (None Seen) /HPF Urine Bacteria None Seen (None Seen) /HPF Urine Culture Reflexed NO (NO) - Progress Progress: improved, pain not gone completely, re-examined Progress Note: 05/26/22 14:15 CAT scan of the abdomen pelvis without contrast shows no acute intra-abdominal or intrapelvic abnormality. I spoke with Dr. Bryan, our radiologist, and he stated specifically to me that there is a normal appendix. The body of the report also shows no abdominal aortic aneurysm and no evidence of ureterolithiasis. 05/26/22 14:17 This patient has a medical issue that is of moderate complexity. She has a history of chronic recurrent abdominal pain. She also has a history of chronic recurrent pancreatitis. She does not have that today. There is no evidence of any acute intra-abdominal or intrapelvic pathology on CAT scan of the abdomen pelvis. The work-up performed was based on review of the patient's medication list, history of present illness and physical findings on examination. I reviewed the patient's laboratory results as well as the radiologist report/impression. Just prior to plan is for the patient to follow-up with her pain specialist and primary care provider for further evaluation management including management of any pain issues. Counseled pt/family regarding: lab results, diagnosis, need for follow-up, rad results Medical Desision Making - External Record(s) Reviewed Records reviewed as a part of evaluation & management: Inpatient - Discussion of managment Reviewed:: Test results Agreed on:: Treatment plan, need for follow-up - Diagnostic Testing Diagnostic test were ordered, analyzed, and reviewed by me: Yes Radiological Interpretation: Reviewed by me, Discussed w/ radiologist, Teleradiologist Report - Risk of complications Low Risk: Low risk of morbidity from additional dx testing or treatment - Departure Departure Disposition: Home Clinical Impression: Chronic abdominal pain Condition: Stable Critical Care Time: No Referrals: SUSIE GRAJEDA NP [Primary Care Provider] - Follow up/PCP as directed Additional Instructions: Take your medication as prescribed. Call your pain specialist today and your primary care provider today to make arrange for follow-up appointment for further management including management of your pain as an outpatient.
[2022-05-26] MEDS ORDERED: Sodium Chloride 0.9% 1000 ML 1,000 ML IV STA (12:41)
[2022-05-26] MEDS ORDERED: Hydromorphone 1 mg/ml Injection IV ONE ×2 (12:41→14:20)
[2022-05-26] MEDS ORDERED: Zofran 4 MG/2 ML VIAL IV ONE (12:41)
[2022-05-26] MEDS ORDERED: Zofran 4 MG/2 ML VIAL ONE (13:00)
[2022-05-26] MEDS ORDERED: Sodium Chloride 0.9% 1000 ML 1,000 ML ONE (13:01)
[2022-05-26] MEDS ORDERED: Hydromorphone 1 mg/ml Injection ONE ×2 (13:01→14:22)
[2022-05-26 13:29] LABS: Absolute Neutrophil Ct (ANC) 2.73 x10^3/uL (1.4-6.9); BASOPHIL % 0.9 % (0.0-0.4); Basophil (Absolute #) 0.06 x10^3/uL (0-0.4); Eosinophil % 1.7 % (0.00-5.0); Eosinophil (Absolute #) 0.11 x10^3/uL (0-0.5); Hematocrit 40.1 % (35-47); Hemoglobin 13.5 g/dL (12.0-16.0); IMMATURE GRAN # 0.01 x10^3u/L (0.00-0.03); IMMATURE GRAN % 0.2 % (0.00-0.4); Lymphocyte (Absolute #) 3.19 x10^3/uL (1.0-4.6); Lymphocytes % 48.9 % (24.0-44.0); Mean Cell Volume 95.9 fL (78-100); Mean Corpuscular Hemoglobin 32.3 pg (26-32); Mean Corpuscular Hgb Concent. 33.7 g/dL (32-36); Mean Platelet Volume 9.8 fL (7.5-11.0); Monocyte (Absolute #) 0.43 x10^3/uL (0.0-1.3); Monocytes % 6.6 % (0.0-12.0); Neutrophil % 41.7 % (36.0-66.0); Platelet Count 285 x10^3/uL (150-450); Red Blood Count 4.18 x10^6/uL (4.1-5.4); Red Cell Distribution Width 11.9 % (11.5-14.0); White Blood Count 6.5 x10^3/uL (4.0-10.5)
[2022-05-26 13:32] LABS: Appearance Clear (Clear); Bilirubin Negative (Negative); Blood Negative (Negative); Glucose, Urine Negative (Negative); Ketones Trace (Negative); Leukocyte Esterase Negative (Negative); Nitrite Negative (Negative); Protein,Urine Dip Negative (Negative); Urobilinogen 0.2 mg/dL (0.2)
[2022-05-26 13:41] LABS: Bacteria None Seen /HPF (None Seen); Epithelial Cells None Seen /HPF (None Seen); Hyaline Casts NONE SEEN /LPF (0-2); WBC 0-2 /HPF (0-5)
[2022-05-26 13:42] LABS: ADD URINE CULTURE? NO (NO)
[2022-05-26 13:48] LABS: ALBUMIN 4.1 g/dL (3.5-5.0); ALKALINE PHOSPHATASE 92 U/L (38-126); AMYLASE 74 U/L (30-110); BLOOD UREA NITROGEN 9 mg/dL (7-17); CHLORIDE 106 mmol/L (98-107); Calcium 9.2 mg/dL (8.4-10.2); Carbon Dioxide 30 mmol/L (22-30); Creatinine 1 0.69 mg/dL (0.52-1.04); EST GLOMERULAR FILTRATION RATE > 60.0 ML/MIN; Glucose 95 mg/dL (74-106); LIPASE 70 U/L (23-300); Potassium 3.6 mmol/L (3.5-5.1); SGOT/AST 27 U/L (14-36); SGPT/ALT 20 U/L (0-35); SODIUM 143 mmol/L (137-145)
--- NOTE | 2022-05-26 13:54 | XRAY ---
Indication: Abdomen pain and nausea. Multiple contiguous axial images obtained through the abdomen and pelvis without contrast. Comparison: March 12 and March 17, 2022. Lung bases again demonstrates pulmonary emphysema. Minimal bilateral dependent atelectasis. No infiltrate or effusion. Heart not enlarged. Noncontrasted stomach and bowel loops nonobstructed again with scattered colonic diverticulosis without diverticulitis. Again nonobstructing right renal punctate calcification and cholecystectomy. No free fluid/air. Remaining liver, pancreas, spleen, adrenal glands, kidneys, ureters, bladder, and uterus are unremarkable for noncontrast exam. Again mild scattered aortoiliac calcifications without AAA. Osseous structures intact again with minimal levoscoliosis and benign left femur head bone island. Impression: No change CT abdomen/pelvis without contrast exam. Again pulmonary emphysema, nonobstructing right renal micro-calcification, colonic diverticulosis, arteriosclerotic disease, and chronic bony findings. No new/acute findings.
[2022-05-26 14:45] VITALS: BP 133/70; PULSE 77; O2SAT 97
== END 2022-05-26 14:52 | disposition home or self-care (01) ==
LOC: ED 12:02
DX: G89.29 Other chronic pain (principal); R10.31 Right lower quadrant pain; E78.5 Hyperlipidemia, unspecified; I10 Essential (primary) hypertension; Z79.891 Long term (current) use of opiate analgesic; Z79.899 Other long term (current) drug therapy; Z72.0 Tobacco use
CPT/HCPCS: 36000; 36415; 74176; 80053; 81001; 82150; 83690; 85025; 96360; 96374; 96375; 99284; J1170; J2405

== ENCOUNTER 2022-06-03 09:48 | Day surgery (SDC) | payer OTHER ==
[2022-06-03] MEDS ORDERED: BUPIVACAINE 0.5% VIAL IJ ONE (09:49)
[2022-06-03] MEDS ORDERED: Depo-Medrol 40 MG/ML IM ONE (09:49)
[2022-06-03] MEDS ORDERED: DIPRIVAN 200 MG/20 ML IV ONE (11:51)
--- NOTE | 2022-06-03 12:46 | XRAY ---
Indication: Right SI joint and right hip injection. Intraoperative fluoroscopy provided for 28 seconds. 3 digital spot image obtained prone submitted for interpretation demonstrates posterior needle tip projecting over the right SI joint. Second needle tip lateral to the right femur neck with small amount of contrast injected for needle tip placement. Correlate with intraoperative findings/report.
--- NOTE | 2022-06-03 12:58 | XRAY ---
28 seconds of fluoroscopy was used in surgery for a right sacroiliac joint and right intra-articular hip injection.
[2022-06-03] MEDS ORDERED: Lactated Ringers 1,000 ML IV ONE (13:55)
== END 2022-06-03 12:20 | disposition home or self-care (01) ==
LOC: SDC-PAIN 09:48
PROVIDERS: ATTEND Psychiatry & Neurology Pain Medicine
DX: M16.11 Unilateral primary osteoarthritis, right hip (principal); M46.1 Sacroiliitis, not elsewhere classified; Z79.899 Other long term (current) drug therapy
CPT/HCPCS: 01992; 20610; 27096; 73501; 77002; 81025; G0260; J1030; J2704; Q9966

== ENCOUNTER 2022-10-09 11:05 | Emergency (ER) | payer OTHER ==
[2022-10-09] MEDS ORDERED: Hydromorphone 1 mg/ml Injection IV ONE ×2 (11:11→12:19)
[2022-10-09] MEDS ORDERED: Zofran 4 MG/2 ML VIAL IV ONE (11:11)
[2022-10-09] MEDS ORDERED: Zofran 4 MG/2 ML VIAL ONE (11:13)
[2022-10-09] MEDS ORDERED: Hydromorphone 1 mg/ml Injection ONE ×2 (11:13→12:26)
[2022-10-09 11:21] VITALS: O2SAT 99
[2022-10-09 11:43] LABS: Absolute Neutrophil Ct (ANC) 7.16 x10^3/uL (1.4-6.9); BASOPHIL % 0.6 % (0.0-0.4); Basophil (Absolute #) 0.06 x10^3/uL (0-0.4); Eosinophil % 0.2 % (0.00-5.0); Eosinophil (Absolute #) 0.02 x10^3/uL (0-0.5); Hematocrit 40.6 % (35-47); Hemoglobin 13.5 g/dL (12.0-16.0); IMMATURE GRAN # 0.05 x10^3u/L (0.00-0.03); IMMATURE GRAN % 0.5 % (0.00-0.4); Lymphocyte (Absolute #) 2.49 x10^3/uL (1.0-4.6); Mean Cell Volume 98.3 fL (78-100); Mean Corpuscular Hemoglobin 32.7 pg (26-32); Mean Corpuscular Hgb Concent. 33.3 g/dL (32-36); Mean Platelet Volume 9.9 fL (7.5-11.0); Monocytes % 5.8 % (0.0-12.0); Neutrophil % 68.9 % (36.0-66.0); Platelet Count 351 x10^3/uL (150-450); Red Blood Count 4.13 x10^6/uL (4.1-5.4); Red Cell Distribution Width 12.2 % (11.5-14.0); White Blood Count 10.4 x10^3/uL (4.0-10.5)
[2022-10-09 11:54] LABS: Bacteria None Seen /HPF (None Seen); Bilirubin Negative (Negative); Blood Negative (Negative); Epithelial Cells Rare /HPF (None Seen); Glucose, Urine Negative (Negative); Hyaline Casts NONE SEEN /LPF (0-2); Ketones Negative (Negative); Leukocyte Esterase Trace (Negative); Nitrite Negative (Negative); Protein,Urine Dip Negative (Negative); RBC 0-2 /HPF (0-5); Specific Gravity <=1.005 (1.005-1.030); Urobilinogen 0.2 mg/dL (0.2); WBC 0-2 /HPF (0-5)
[2022-10-09 11:55] LABS: ADD URINE CULTURE? NO (NO); Appearance Clear (Clear)
[2022-10-09 11:55] LABS: ALBUMIN 4.7 g/dL (3.5-5.0); ALKALINE PHOSPHATASE 108 U/L (38-126); AMYLASE 86 U/L (30-110); ANION GAP 13.5 MEQ/L (5-15); BLOOD UREA NITROGEN 11 mg/dL (7-17); CHLORIDE 104 mmol/L (98-107); Calcium 9.4 mg/dL (8.4-10.2); Carbon Dioxide 27 mmol/L (22-30); Creatinine 1 0.73 mg/dL (0.52-1.04); EST GLOMERULAR FILTRATION RATE > 60.0 ML/MIN; Glucose 92 mg/dL (74-106); LIPASE 92 U/L (23-300); Potassium 3.2 mmol/L (3.5-5.1); SGOT/AST 25 U/L (14-36); SGPT/ALT 20 U/L (0-35); SODIUM 142 mmol/L (137-145); Total Protein 8.4 g/dL (6.3-8.2)
[2022-10-09 12:06] LABS: Amphetamine,Urine NEGATIVE (NEGATIVE); Barbiturate,Urine NEGATIVE (NEGATIVE); Benzodiazepine,Urine NEGATIVE (NEGATIVE); Cocaine,Urine NEGATIVE (NEGATIVE); Methadone,Urine NEGATIVE (NEGATIVE); Opiate,Urine NEGATIVE (NEGATIVE); PCP,Urine NEGATIVE (NEGATIVE); THC,Urine POSITIVE (NEGATIVE)
[2022-10-09 12:09] VITALS: BP 123/71; PULSE 71
--- NOTE | 2022-10-09 12:49 | XRAY ---
Indication: Right lower quadrant pain. Nausea and loose stools. Multiple contiguous axial images obtained through the abdomen and pelvis without contrast. Comparison: February 23, 2023 Lung bases again demonstrate pulmonary emphysema without infiltrate or effusion pain heart is not enlarged. New moderate size hiatal hernia with partial intrathoracic stomach. Noncontrasted stomach and bowel loops are nonobstructed. Continued normal appendix. Again scattered colonic diverticulosis greatest sigmoid. Stable nonobstructing right renal punctate calculus and cholecystectomy clips. No free fluid/air. Remaining liver, pancreas, spleen, adrenal glands, kidneys, ureters, bladder, and uterus are unremarkable for noncontrast exam. Again mild aortoiliac calcifications without AAA. Osseous structures intact again with minimal levoscoliosis and benign left femur head bone island. Impression: New moderate hiatal hernia. Again chronic findings including pulmonary emphysema, nonobstructing right renal micro-calculus, colonic diverticulosis, arteriosclerotic disease, and chronic bony findings. No acute findings on this noncontrast exam.
[2022-10-09] MEDS ORDERED: Sodium Chloride 0.9% 1000 ML 1,000 ML ONE (13:41)
[2022-10-09] MEDS: Sodium Chloride 0.9% 1000 ML 1,000 ML IV STA ×2 (13:43→13:56)
--- NOTE | 2022-10-09 14:35 | XRAY ---
Indication: Right lower quadrant pain. Two-dimensional transvaginal pelvic sonogram performed. Comparison: None Uterus anteverted measuring 5.7 x 2.1 x 3.7 cm. 2 mm cervical nabothian cyst. Endometrial stripe measures 2.2 mm. No endometrial cavity mass or fluid collection. Right ovary measures 1.6 x 0.9 x 2.3 cm and the left measures 1.8 x 1.7 x 2.1 cm. Normal perfusion bilaterally. No suspicious adnexal mass or free fluid. Impression: Tiny nabothian cyst. Remaining transvaginal pelvic sonogram is negative.
--- NOTE | 2022-10-09 14:46 | ERPHSYRPT ---
- History of Present Illness Time Seen by Provider: 10/09/22 11:10 Historian: patient, family Exam Limitations: no limitations Patient Subjective Stated Complaint: C/O right sided abdominal pain that started approx 30 mintues prior to coming to the ER; sudden and severe Triage Nursing Assessment: Patient is alert and oriented. Patient SOB related to pain; patient displaying s/s of pain. KVNG PAZ. Physician History: Patient is a 52-year-old white female who started 2 days ago with a slight ache in the right lower quadrant right flank area then approximately an hour prior to arrival the pain became much more severe and started coming in waves. She says she got dizzy with the pain she was nauseated did not vomit she has noted no change in urination no fever chills but some sweats. Timing/Duration: day(s) (3) Activities at Onset: none Quality: stabbing Abdominal Pain Onset Location: RLQ Pain Radiation: flank Severity of Pain-Max: severe Severity of Pain-Current: mild Associated Symptoms: diaphoresis Previous symptoms: no prior history Allergies/Adverse Reactions: No Known Drug Allergies Allergy (Verified 10/09/22 11:07) Home Medications: Atorvastatin Calcium 20 mg PO DAILY 06/18/21 [History] Cetirizine HCl [Zyrtec] 10 mg PO DAILY 06/18/21 [History] Fluticasone Propionate [Flonase Allergy Relief] 2 puffs IH DAILY 06/18/21 [History] Levothyroxine Sodium 75 Mcg [Synthroid 75 Mcg] 75 mcg PO DAILY 06/18/21 [History] Montelukast Sodium 10 mg [Singulair 10 MG] 10 mg PO HS 06/18/21 [History] PANTOPRAZOLE 40 mg Tablet [Protonix 40MG Tablet] 1 tab PO BID 06/18/21 [History] Gabapentin [Neurontin ] 900 mg PO QHS 06/19/21 [History] Tizanidine HCl 4 mg [Zanaflex 4 MG] 8 mg PO QHS 06/19/21 [History] Hydrocodone/Acetaminophen [Hydrocodone-Acetamin 5-325 mg] 1 tab PO BIDPRN PRN MDD 4 01/27/22 [History] Gabapentin [Neurontin ] 300 mg PO DAILY 03/12/22 [History] Mirtazapine 30 mg [Remeron 30 mg] 30 mg PO HS 03/12/22 [History] Losartan/Hydrochlorothiazide [Losartan-Hctz 50-12.5 mg Tab] 1 each PO DAILY 04/01/22 [History] Sertraline HCl 50 mg [Zoloft 50 mg Tablet] 100 mg PO DAILY 04/01/22 [History] Tizanidine HCl 4 mg [Zanaflex 4 MG] 4 mg PO DAILY 04/27/22 [History] Hx Tetanus, Diphtheria Vaccination/Date Given: Yes Hx Influenza Vaccination/Date Given: No Hx Pneumococcal Vaccination/Date Given: No Immunizations Up to Date: Yes Travel Risk - International Travel Have you traveled outside of the country in past 3 weeks: No - Coronavirus Screening Are you exhibiting any of the following symptoms?: No Close contact with a COVID-19 positive Pt in past 14-21 Days: No - Vaccine Status Have you recieved a Covid-19 vaccination: Yes Doffer: [employer] - Vaccination Dates Date of 2cond Vaccination (if applicable): 09/14/2020 - Review of Systems Constitutional: No Fever, No Chills Eyes: No Symptoms Ears, Nose, & Throat: No Symptoms Respiratory: No Cough, No Dyspnea Cardiac: No Chest Pain, No Edema, No Syncope Abdominal/Gastrointestinal: No Abdominal Pain, No Nausea, No Vomiting, No Diarrhea Genitourinary Symptoms: No Dysuria Musculoskeletal: No Back Pain, No Neck Pain Skin: No Rash Neurological: No Dizziness, No Focal Weakness, No Sensory Changes Psychological: No Symptoms Endocrine: No Symptoms All Other Systems: Reviewed and Negative - Past Medical History Pertinent Past Medical History: Yes Neurological History: No Pertinent History ENT History: No Pertinent History Cardiac History: High Cholesterol, Hypertension, Other Respiratory History: Bronchitis Endocrine Medical History: Hypothyroidism Musculoskeletal History: No Pertinent History GI Medical History: GERD, Pancreatitis History: Other Psycho-Social History: Anxiety, Depression Female Reproductive Disorders: No Pertinent History Other Medical History: SVT, multiple UTIs - Past Surgical History Past Surgical History: Yes Neuro Surgical History: No Pertinent History Cardiac: Cardiac Catheterization, Other Respiratory: No Pertinent History Gastrointestinal: Cholecystectomy Genitourinary: No Pertinent History Musculoskeletal: Other Female Surgical History: Dilation & Curettage, Section, Other Other Surgical History: breast reduction, spinal cord stimulator put in and removed, cardiac ablation for SVT, endometrial ablation, 4 back surgeries - Social History Smoking Status: Former smoker How long have you smoked: 30 years Exposure to second hand smoke: Yes Drug Use: other Patient Lives Alone: No Significant Family History: heart disease - Nursing Vital Signs Nursing Vital Signs: Initial Vital Signs Pulse Rate 90 10/09/22 11:01 Respiratory Rate 19 10/09/22 11:01 Blood Pressure 160/113 10/09/22 11:01 O2 Sat by Pulse Oximetry 99 10/09/22 11:01 Pain Scale Pain Intensity 10 - Physical Exam General Appearance: mild distress, alert Eye Exam: PERRL/EOMI, eyes nml inspection Ears, Nose, Throat Exam: normal ENT inspection, pharynx normal, moist mucous membranes Neck Exam: normal inspection, non-tender, supple, full range of motion Respiratory Exam: normal breath sounds, lungs clear, No respiratory distress Cardiovascular Exam: regular rate/rhythm, normal heart sounds Gastrointestinal/Abdomen Exam: soft, No tenderness, No mass Back Exam: normal inspection, normal range of motion, No CVA tenderness, No vertebral tenderness Extremity Exam: normal inspection, normal range of motion, pelvis stable Neurologic Exam: alert, oriented x 3, cooperative, normal mood/affect, nml cerebellar function, sensation nml, No motor deficits Skin Exam: normal color, warm, dry SpO2 Interpretation: normal SpO2: 99 O2 Delivery: Room Air - Course Nursing assessment & vital signs reviewed: Yes - CT Exams Abdomen/Pelvis CT Interpretation: Tele-radiologist Report - Radiology Ultrasound Exam Pelvis Ultrasound: tele radiology report, negative Ordered Tests: Active Orders 24 hr Category Date Time Status IV Insertion STAT Care 10/09/22 11:12 Active ABDOMEN AND PELVIS W/0 CONTRAS [CT] Stat Exams 10/09/22 11:10 Completed PELVIS TRANS VAGINAL [US] Stat Exams 10/09/22 13:09 Completed AMYLASE Stat Lab 10/09/22 11:00 Completed CBC W DIFF Stat Lab 10/09/22 11:00 Completed CMP Stat Lab 10/09/22 11:00 Completed LIPASE Stat Lab 10/09/22 11:00 Completed Lactic Acid Stat Lab 10/09/22 11:26 Completed Lactic Acid Stat Lab 10/09/22 13:29 Received UA W/RFX UR CULTURE Stat Lab 10/09/22 11:19 Completed Urine Triage Profile Stat Lab 10/09/22 11:19 Completed Medication Summary Discontinued Medications Generic Name Dose Route Start Last Admin Trade Name Yesika PRN Reason Stop Dose Admin Hydromorphone HCl 1 mg 10/09/22 11:11 10/09/22 11:14 Hydromorphone 1 Mg/1ml Inj IV 10/09/22 11:12 1 mg STAT ONE Administration Hydromorphone HCl Confirm 10/09/22 11:13 Hydromorphone 1 Mg/1ml Inj Administered 10/09/22 11:14 Dose 1 mg .ROUTE .STK-MED ONE Hydromorphone HCl 1 mg 10/09/22 12:19 10/09/22 12:27 Hydromorphone 1 Mg/1ml Inj IV 10/09/22 12:20 1 mg STAT ONE Administration Hydromorphone HCl Confirm 10/09/22 12:26 Hydromorphone 1 Mg/1ml Inj Administered 10/09/22 12:27 Dose 1 mg .ROUTE .STK-MED ONE Sodium Chloride 1,000 mls @ 999 mls/hr 10/09/22 13:36 10/09/22 13:56 Sodium Chloride 0.9% 1000 Ml IV 10/09/22 14:36 999 mls/hr .Q1H1M STA Administration Sodium Chloride Confirm 10/09/22 13:41 Sodium Chloride 0.9% 1000 Ml Administered 10/09/22 13:42 Dose 1,000 mls @ ud .ROUTE .STK-MED ONE Ondansetron HCl 4 mg 10/09/22 11:11 10/09/22 11:14 Ondansetron Hcl 4 Mg/2 Ml Vial IV 10/09/22 11:12 4 mg STAT ONE Administration Ondansetron HCl Confirm 10/09/22 11:13 Ondansetron Hcl 4 Mg/2 Ml Vial Administered 10/09/22 11:14 Dose 4 mg .ROUTE .STK-MED ONE Lab/Rad Data: Laboratory Result Diagrams 10/09/22 11:00 10/09/22 11:00 Laboratory Results 10/09/22 10/09/22 10/09/22 Range/Units 11:26 11:19 11:19 WBC (4.0-10.5) x10^3/uL RBC (4.1-5.4) x10^6/uL Hgb (12.0-16.0) g/dL Hct (35-47) % MCV (78-100) fL MCH (26-32) pg MCHC (32-36) g/dL RDW (11.5-14.0) % Plt Count (150-450) x10^3/uL MPV (7.5-11.0) fL Gran % (36.0-66.0) % Immature Gran % (Auto) (0.00-0.4) % Nucleat RBC Rel Count (0.00-0.1) % Eos # (Auto) (0-0.5) x10^3/uL Immature Gran # (Auto) (0.00-0.03) x10^3u/L Absolute Lymphs (auto) (1.0-4.6) x10^3/uL Absolute Monos (auto) (0.0-1.3) x10^3/uL Absolute Nucleated RBC (0.00-0.01) x10^3u/L Lymphocytes % (24.0-44.0) % Monocytes % (0.0-12.0) % Eosinophils % (0.00-5.0) % Basophils % (0.0-0.4) % Absolute Granulocytes (1.4-6.9) x10^3/uL Basophils # (0-0.4) x10^3/uL Sodium (137-145) mmol/L Potassium (3.5-5.1) mmol/L Chloride (98-107) mmol/L Carbon Dioxide (22-30) mmol/L Anion Gap (5-15) MEQ/L BUN (7-17) mg/dL Creatinine (0.52-1.04) mg/dL Estimated GFR ML/MIN Glucose (74-106) mg/dL Lactic Acid 2.2 H (0.4-2.0) Calcium (8.4-10.2) mg/dL Total Bilirubin (0.2-1.3) mg/dL AST (14-36) U/L ALT (0-35) U/L Alkaline Phosphatase (38-126) U/L Serum Total Protein (6.3-8.2) g/dL Albumin (3.5-5.0) g/dL Amylase (30-110) U/L Lipase (23-300) U/L Urine Color Yellow (Yellow) Urine Appearance Clear (Clear) Urine pH 7.0 (4.6-8.0) Ur Specific [place] <=1.005 (1.005-1.030) Urine Protein Negative (Negative) Urine Glucose (UA) Negative (Negative) mg/dL Urine Ketones Negative (Negative) Urine Blood Negative (Negative) Urine Nitrite Negative (Negative) Urine Bilirubin Negative (Negative) Urine Urobilinogen 0.2 (0.2) mg/dL Ur Leukocyte Esterase Trace A (Negative) U Hyaline Cast (Auto) NONE SEEN (0-2) /LPF Urine Microscopic RBC 0-2 (0-5) /HPF Urine Microscopic WBC 0-2 (0-5) /HPF Ur Epithelial Cells Rare (None Seen) /HPF Urine Bacteria None Seen (None Seen) /HPF Urine Culture Reflexed NO (NO) Urine Opiates Level NEGATIVE (NEGATIVE) Ur Methadone NEGATIVE (NEGATIVE) Urine Barbiturates NEGATIVE (NEGATIVE) Ur Phencyclidine (PCP) NEGATIVE (NEGATIVE) Urine Amphetamine NEGATIVE (NEGATIVE) U Benzodiazepine Level NEGATIVE (NEGATIVE) Urine Cocaine NEGATIVE (NEGATIVE) Urine Marijuana (THC) POSITIVE (NEGATIVE) 10/09/22 10/09/22 Range/Units 11:00 11:00 WBC 10.4 (4.0-10.5) x10^3/uL RBC 4.13 (4.1-5.4) x10^6/uL Hgb 13.5 (12.0-16.0) g/dL Hct 40.6 (35-47) % MCV 98.3 (78-100) fL MCH 32.7 H (26-32) pg MCHC 33.3 (32-36) g/dL RDW 12.2 (11.5-14.0) % Plt Count 351 (150-450) x10^3/uL MPV 9.9 (7.5-11.0) fL Gran % 68.9 H (36.0-66.0) % Immature Gran % (Auto) 0.5 H (0.00-0.4) % Nucleat RBC Rel Count 0.0 (0.00-0.1) % Eos # (Auto) 0.02 (0-0.5) x10^3/uL Immature Gran # (Auto) 0.05 H (0.00-0.03) x10^3u/L Absolute Lymphs (auto) 2.49 (1.0-4.6) x10^3/uL Absolute Monos (auto) 0.60 (0.0-1.3) x10^3/uL Absolute Nucleated RBC 0.00 (0.00-0.01) x10^3u/L Lymphocytes % 24.0 (24.0-44.0) % Monocytes % 5.8 (0.0-12.0) % Eosinophils % 0.2 (0.00-5.0) % Basophils % 0.6 (0.0-0.4) % Absolute Granulocytes 7.16 H (1.4-6.9) x10^3/uL Basophils # 0.06 (0-0.4) x10^3/uL Sodium 142 (137-145) mmol/L Potassium 3.2 L (3.5-5.1) mmol/L Chloride 104 (98-107) mmol/L Carbon Dioxide 27 (22-30) mmol/L Anion Gap 13.5 (5-15) MEQ/L BUN 11 (7-17) mg/dL Creatinine 0.73 (0.52-1.04) mg/dL Estimated GFR > 60.0 ML/MIN Glucose 92 (74-106) mg/dL Lactic Acid (0.4-2.0) Calcium 9.4 (8.4-10.2) mg/dL Total Bilirubin 0.40 (0.2-1.3) mg/dL AST 25 (14-36) U/L ALT 20 (0-35) U/L Alkaline Phosphatase 108 (38-126) U/L Serum Total Protein 8.4 H (6.3-8.2) g/dL Albumin 4.7 (3.5-5.0) g/dL Amylase 86 (30-110) U/L Lipase 92 (23-300) U/L Urine Color (Yellow) Urine Appearance (Clear) Urine pH (4.6-8.0) Ur Specific [place] (1.005-1.030) Urine Protein (Negative) Urine Glucose (UA) (Negative) mg/dL Urine Ketones (Negative) Urine Blood (Negative) Urine Nitrite (Negative) Urine Bilirubin (Negative) Urine Urobilinogen (0.2) mg/dL Ur Leukocyte Esterase (Negative) U Hyaline Cast (Auto) (0-2) /LPF Urine Microscopic RBC (0-5) /HPF Urine Microscopic WBC (0-5) /HPF Ur Epithelial Cells (None Seen) /HPF Urine Bacteria (None Seen) /HPF Urine Culture Reflexed (NO) Urine Opiates Level (NEGATIVE) Ur Methadone (NEGATIVE) Urine Barbiturates (NEGATIVE) Ur Phencyclidine (PCP) (NEGATIVE) Urine Amphetamine (NEGATIVE) U Benzodiazepine Level (NEGATIVE) Urine Cocaine (NEGATIVE) Urine Marijuana (THC) (NEGATIVE) - Progress Progress: improved Medical Desision Making - Independent Historian Additional History obtained from: Mother - Diagnostic Testing Diagnostic test were ordered, analyzed, and reviewed by me: Yes Radiological Interpretation: Reviewed by me - Risk of complications Low Risk: Low risk of morbidity from additional dx testing or treatment - Departure Departure Disposition: Home Clinical Impression: Chronic abdominal pain Condition: Stable Critical Care Time: No Referrals: SUSIE GRAJEDA NP [Primary Care Provider] - Follow up/PCP as directed Instructions: Abdominal pain Prescriptions: Hydrocodone/Acetaminophen [Hydrocodone-Acetamin 5-325 mg] 1 tab PO Q6HPRN PRN 3 Days #12 tablet MDD 4 PRN Reason: Pain
== END 2022-10-09 14:57 | disposition home or self-care (01) ==
LOC: ED 11:05
DX: G89.29 Other chronic pain (principal); R10.31 Right lower quadrant pain; R42 Dizziness and giddiness; R11.0 Nausea; E78.5 Hyperlipidemia, unspecified; I10 Essential (primary) hypertension; Z79.891 Long term (current) use of opiate analgesic; Z79.899 Other long term (current) drug therapy
CPT/HCPCS: 36000; 36415; 74176; 76830; 80053; 80307; 81001; 82150; 83605; 83690; 85025; 96374; 96375; 96376; 99284; J1170; J2405

== ENCOUNTER 2022-10-21 13:43 | Day surgery (SDC) | payer OTHER ==
[2022-10-21] MEDS ORDERED: BUPIVACAINE 0.5% VIAL IJ ONE (13:44)
[2022-10-21] MEDS ORDERED: Depo-Medrol 40 MG/ML IM ONE (13:44)
[2022-10-21 14:31] LABS: HCG URINE TEST NEGATIVE (NEGATIVE)
[2022-10-21] MEDS ORDERED: Versed 2 MG/2 ML Injection ONE (15:13)
[2022-10-21] MEDS ORDERED: DIPRIVAN 200 MG/20 ML IV ONE (16:10)
--- NOTE | 2022-10-21 17:05 | XRAY ---
Indication: Right SI joint, right hip, right greater trochanter bursa injections. Intraoperative fluoroscopy provided for 1 minute 1 second. 4 digital spot images obtained prone submitted for interpretation demonstrates needle tip projecting over the right SI joint. Second and third needle tip lateral to right greater trochanter and right femur neck with small amount of contrast injected for both needle tip placement. Correlate with intraoperative findings/report.
[2022-10-21] MEDS ORDERED: Lactated Ringers 1,000 ML IV ONE (17:41)
--- NOTE | 2022-10-22 08:48 | XRAY ---
One minute and 1 seconds of fluoroscopy was used in surgery for a right intra-articular hip, right greater trochanteric bursa, and right sacroiliac joint injection.
== END 2022-10-21 16:42 | disposition home or self-care (01) ==
LOC: SDC-PAIN 13:43
PROVIDERS: ATTEND Psychiatry & Neurology Pain Medicine
DX: M16.11 Unilateral primary osteoarthritis, right hip (principal); M70.61 Trochanteric bursitis, right hip; M46.1 Sacroiliitis, not elsewhere classified; Z79.899 Other long term (current) drug therapy
CPT/HCPCS: 01992; 20610; 27096; 73502; 77002; 81025; G0260; J1030; J2250; J2704

== ENCOUNTER 2022-11-30 14:13 | Observation (INO) | payer OTHER ==
[2022-11-30] MEDS ORDERED: TORAdol 30 mg Injection IV ONE (15:01)
--- NOTE | 2022-11-30 15:03 | ERPHSYRPT ---
- History of Present Illness Historian: patient Exam Limitations: no limitations Patient Subjective Stated Complaint: Right lower abdominal pain Triage Nursing Assessment: Patient ambulated back to ED and transferred self to bed. Patient A+O X3. Patient's skin pink, warm and dry. Patient complains of right lower abdominal pain intermittent pain 9/10 for 2 days with N/V and diarrhea. Abdomen soft and round with BS X 4. Physician History: 52 nyo Wf w R sided abdominal pain x 2 days. Pain is 8/10,burning-aching, and nothing makes better or worse. She has had similar pain in the past due to pancreatitis. Pt has had nausea/diarrhea wo vomiting /hematochezia/melena/dysuria/hematuria/fever/cough/coryza/chest pain. She has had a jerardo in the past. Timing/Duration: other (2 days) Activities at Onset: rest Quality: aching, burning Abdominal Pain Onset Location: other (R sided) Pain Radiation: no radiation Severity of Pain-Max: severe Severity of Pain-Current: severe Modifying Factors: Improves With: nothing Associated Symptoms: diarrhea, nausea Previous symptoms: same symptoms as today Allergies/Adverse Reactions: No Known Drug Allergies Allergy (Verified 11/30/22 14:21) Home Medications: Atorvastatin Calcium 20 mg PO DAILY 06/18/21 [History] Cetirizine HCl [Zyrtec] 10 mg PO DAILY 06/18/21 [History] Fluticasone Propionate [Flonase Allergy Relief] 2 puffs IH DAILY 06/18/21 [History] Levothyroxine Sodium 75 Mcg [Synthroid 75 Mcg] 75 mcg PO DAILY 06/18/21 [History] Montelukast Sodium 10 mg [Singulair 10 MG] 10 mg PO HS 06/18/21 [History] PANTOPRAZOLE 40 mg Tablet [Protonix 40MG Tablet] 1 tab PO BID 06/18/21 [History] Gabapentin [Neurontin ] 900 mg PO QHS 06/19/21 [History] Tizanidine HCl 4 mg [Zanaflex 4 MG] 8 mg PO QHS 06/19/21 [History] Gabapentin [Neurontin ] 300 mg PO DAILY 03/12/22 [History] Mirtazapine 30 mg [Remeron 30 mg] 30 mg PO HS 03/12/22 [History] Losartan/Hydrochlorothiazide [Losartan-Hctz 50-12.5 mg Tab] 1 each PO DAILY 04/01/22 [History] Sertraline HCl 50 mg [Zoloft 50 mg Tablet] 100 mg PO DAILY 04/01/22 [History] Tizanidine HCl 4 mg [Zanaflex 4 MG] 4 mg PO DAILY 04/27/22 [History] Hx Tetanus, Diphtheria Vaccination/Date Given: Yes Hx Influenza Vaccination/Date Given: No Hx Pneumococcal Vaccination/Date Given: No Immunizations Up to Date: Yes Travel Risk - International Travel Have you traveled outside of the country in past 3 weeks: No - Coronavirus Screening Are you exhibiting any of the following symptoms?: No Close contact with a COVID-19 positive Pt in past 14-21 Days: No - Vaccine Status Have you recieved a Covid-19 vaccination: Yes 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: [employer] - Vaccination Dates Date of 2cond Vaccination (if applicable): 09/14/2020 - Review of Systems Constitutional: No Symptoms, Malaise Eyes: No Symptoms Ears, Nose, & Throat: No Symptoms Respiratory: No Symptoms Cardiac: No Symptoms Abdominal/Gastrointestinal: No Symptoms, Abdominal Pain, Nausea, Diarrhea, No Vomiting Genitourinary Symptoms: No Symptoms Musculoskeletal: No Symptoms Skin: No Symptoms Neurological: No Symptoms Psychological: No Symptoms Endocrine: No Symptoms Hematologic/Lymphatic: No Symptoms Immunological/Allergic: No Symptoms - Past Medical History Pertinent Past Medical History: Yes Neurological History: No Pertinent History ENT History: No Pertinent History Cardiac History: High Cholesterol, Hypertension, Other Respiratory History: Bronchitis Endocrine Medical History: Hypothyroidism Musculoskeletal History: No Pertinent History GI Medical History: GERD, Pancreatitis History: Other Psycho-Social History: Anxiety, Depression Female Reproductive Disorders: No Pertinent History Other Medical History: SVT, multiple UTIs - Past Surgical History Past Surgical History: Yes Neuro Surgical History: No Pertinent History Cardiac: Cardiac Catheterization, Other Respiratory: No Pertinent History Gastrointestinal: Cholecystectomy Genitourinary: No Pertinent History Musculoskeletal: Other Female Surgical History: Dilation & Curettage, Section, Other Other Surgical History: breast reduction, spinal cord stimulator put in and removed, cardiac ablation for SVT, endometrial ablation, 4 back surgeries - Social History Smoking Status: Former smoker How long have you smoked: 30 years Exposure to second hand smoke: Yes Drug Use: other Patient Lives Alone: No Significant Family History: heart disease - Nursing Vital Signs Nursing Vital Signs: Initial Vital Signs Temperature 98.5 F 11/30/22 14:22 Pulse Rate 78 11/30/22 14:22 Respiratory Rate 18 11/30/22 14:22 Blood Pressure 158/90 11/30/22 14:22 O2 Sat by Pulse Oximetry 99 11/30/22 14:22 Pain Scale Pain Intensity 3 Hypertensive - Physical Exam General Appearance: no apparent distress Eye Exam: PERRL/EOMI, eyes nml inspection Ears, Nose, Throat Exam: normal ENT inspection, TMs normal, pharynx normal, moist mucous membranes Neck Exam: normal inspection, non-tender, supple, full range of motion, No meningismus, No mass, No Brudzinski, No Kernig's Respiratory Exam: normal breath sounds, lungs clear, airway intact Cardiovascular Exam: regular rate/rhythm, normal heart sounds, normal peripheral pulses, capillary refill <2 sec, No murmur Gastrointestinal/Abdomen Exam: soft, normal bowel sounds, tenderness (R middle quadrant moderate TTP wo guarding or rebound), No distention Back Exam: normal inspection, normal range of motion, No CVA tenderness, No vertebral tenderness Extremity Exam: normal inspection, normal range of motion Neurologic Exam: alert, oriented x 3, cooperative, zigzag appliquer II-XII nml as tested, normal mood/affect, nml cerebellar function, nml station & gait, sensation nml, No motor deficits, No sensory deficit Skin Exam: normal color, warm, dry, No rash Lymphatic Exam: No adenopathy SpO2 Interpretation: normal SpO2: 99 O2 Delivery: Room Air - Course Nursing assessment & vital signs reviewed: Yes - CT Exams Abdomen/Pelvis CT Interpretation: Tele-radiologist Report (Isolated loop of bowel w air/fluid level/Rec CT ab-pelvis w contrast) Ordered Tests: Active Orders 24 hr Category Date Time Status Bedrest with BRP/BSC ROUTINE Activity 11/30/22 20:28 Active Call Admit Doctor for Orders ON ADMISSION Care 11/30/22 20:26 Active Code Status Order ROUTINE Care 11/30/22 20:[address] in Observation ROUTINE Care 11/30/22 20:26 Active NPO Diet 11/30/22 20:27 Active ABDOMEN AND PELVIS W/0 CONTRAS [CT] Stat Exams 11/30/22 16:00 Completed AMYLASE Stat Lab 11/30/22 14:30 Completed CBC W DIFF Stat Lab 11/30/22 14:30 Completed CMP Stat Lab 11/30/22 14:30 Completed CULTURE,URINE Stat Lab 11/30/22 14:34 Received LIPASE Stat Lab 11/30/22 14:30 Completed Lactic Acid Stat Lab 11/30/22 15:10 Completed POCT GLUCOSE Stat Lab 11/30/22 18:05 Completed TROPONIN Q4H Lab 11/30/22 14:30 Completed TROPONIN Q4H Lab 11/30/22 18:55 Completed TROPONIN Q4H Lab 11/30/22 23:00 Ordered UA W/RFX UR CULTURE Stat Lab 11/30/22 14:34 Completed Transfer Order Routine Transfer 11/30/22 Ordered Medication Summary Generic Name Dose Route Start Last Admin Trade Name Freq PRN Reason Stop Dose Admin Dextrose/Sodium Chloride 1,000 mls @ 100 mls/hr 11/30/22 16:45 11/30/22 16:44 Dextrose 5% -0.45 Nacl 1000 Ml IV 12/30/22 16:44 100 mls/hr .Q10H LEANNE Administration Discontinued Medications Generic Name Dose Route Start Last Admin Trade Name Freq PRN Reason Stop Dose Admin Fentanyl Citrate 25 mcg 11/30/22 16:37 11/30/22 16:43 Fentanyl Citrate 100 Mcg/2 Ml* Vial IV 11/30/22 16:38 25 mcg STAT ONE Administration Fentanyl Citrate Confirm 11/30/22 16:41 Fentanyl Citrate 100 Mcg/2 Ml* Vial Administered 11/30/22 16:42 Dose 100 mcg .ROUTE .STK-MED ONE Fentanyl Citrate 50 mcg 11/30/22 19:01 11/30/22 19:20 Fentanyl Citrate 100 Mcg/2 Ml* Vial IV 11/30/22 19:02 50 mcg STAT ONE Administration Fentanyl Citrate Confirm 11/30/22 19:18 Fentanyl Citrate 100 Mcg/2 Ml* Vial Administered 11/30/22 19:19 Dose 100 mcg .ROUTE .STK-MED ONE Ketorolac Tromethamine 15 mg 11/30/22 15:01 11/30/22 15:14 Ketorolac Tromethamine 30 Mg/Ml Inj IV 11/30/22 15:02 15 mg STAT ONE Administration Ketorolac Tromethamine Confirm 11/30/22 15:13 Ketorolac Tromethamine 30 Mg/Ml Inj Administered 11/30/22 15:14 Dose 30 mg .ROUTE .STK-MED ONE Ondansetron HCl 4 mg 11/30/22 16:38 11/30/22 16:43 Ondansetron Hcl 4 Mg/2 Ml Vial IV 11/30/22 16:39 4 mg STAT ONE Administration Ondansetron HCl Confirm 11/30/22 16:40 Ondansetron Hcl 4 Mg/2 Ml Vial Administered 11/30/22 16:41 Dose 4 mg .ROUTE .STK-MED ONE Lab/Rad Data: Laboratory Result Diagrams 11/30/22 14:30 11/30/22 14:30 Laboratory Results 11/30/22 11/30/22 11/30/22 Range/Units 18:55 18:05 15:10 WBC (4.0-10.5) x10^3/uL RBC (4.1-5.4) x10^6/uL Hgb (12.0-16.0) g/dL Hct (35-47) % MCV (78-100) fL MCH (26-32) pg MCHC (32-36) g/dL RDW (11.5-14.0) % Plt Count (150-450) x10^3/uL MPV (7.5-11.0) fL Gran % (36.0-66.0) % Immature Gran % (Auto) (0.00-0.4) % Nucleat RBC Rel Count (0.00-0.1) % Eos # (Auto) (0-0.5) x10^3/uL Immature Gran # (Auto) (0.00-0.03) x10^3u/L Absolute Lymphs (auto) (1.0-4.6) x10^3/uL Absolute Monos (auto) (0.0-1.3) x10^3/uL Absolute Nucleated RBC (0.00-0.01) x10^3u/L Lymphocytes % (24.0-44.0) % Monocytes % (0.0-12.0) % Eosinophils % (0.00-5.0) % Basophils % (0.0-0.4) % Absolute Granulocytes (1.4-6.9) x10^3/uL Basophils # (0-0.4) x10^3/uL Sodium (137-145) mmol/L Potassium (3.5-5.1) mmol/L Chloride (98-107) mmol/L Carbon Dioxide (22-30) mmol/L Anion Gap (5-15) MEQ/L BUN (7-17) mg/dL Creatinine (0.52-1.04) mg/dL Estimated GFR ML/MIN Glucose (74-106) mg/dL POC Glucometer 100 (74 to 106) mg/dL Lactic Acid 1.1 (0.4-2.0) Calcium (8.4-10.2) mg/dL Total Bilirubin (0.2-1.3) mg/dL AST (14-36) U/L ALT (0-35) U/L Alkaline Phosphatase (38-126) U/L Troponin I < 0.012 (0.000-0.034) ng/mL Serum Total Protein (6.3-8.2) g/dL Albumin (3.5-5.0) g/dL Amylase (30-110) U/L Lipase (23-300) U/L Urine Color (Yellow) Urine Appearance (Clear) Urine pH (4.6-8.0) Ur Specific [place] (1.005-1.030) Urine Protein (Negative) Urine Glucose (UA) (Negative) mg/dL Urine Ketones (Negative) Urine Blood (Negative) Urine Nitrite (Negative) Urine Bilirubin (Negative) Urine Urobilinogen (0.2) mg/dL Ur Leukocyte Esterase (Negative) U Hyaline Cast (Auto) (0-2) /LPF Urine Microscopic RBC (0-5) /HPF Urine Microscopic WBC (0-5) /HPF Ur Epithelial Cells (None Seen) /HPF Urine Bacteria (None Seen) /HPF Urine Culture Reflexed (NO) Influenza Type A Ag (NEGATIVE) Influenza Type B Ag (NEGATIVE) RSV (PCR) (NEGATIVE) SARS-CoV-2 (PCR) (NEGATIVE) 11/30/22 11/30/22 11/30/22 Range/Units 15:00 14:34 14:30 WBC (4.0-10.5) x10^3/uL RBC (4.1-5.4) x10^6/uL Hgb (12.0-16.0) g/dL Hct (35-47) % MCV (78-100) fL MCH (26-32) pg MCHC (32-36) g/dL RDW (11.5-14.0) % Plt Count (150-450) x10^3/uL MPV (7.5-11.0) fL Gran % (36.0-66.0) % Immature Gran % (Auto) (0.00-0.4) % Nucleat RBC Rel Count (0.00-0.1) % Eos # (Auto) (0-0.5) x10^3/uL Immature Gran # (Auto) (0.00-0.03) x10^3u/L Absolute Lymphs (auto) (1.0-4.6) x10^3/uL Absolute Monos (auto) (0.0-1.3) x10^3/uL Absolute Nucleated RBC (0.00-0.01) x10^3u/L Lymphocytes % (24.0-44.0) % Monocytes % (0.0-12.0) % Eosinophils % (0.00-5.0) % Basophils % (0.0-0.4) % Absolute Granulocytes (1.4-6.9) x10^3/uL Basophils # (0-0.4) x10^3/uL Sodium 142 (137-145) mmol/L Potassium 3.5 (3.5-5.1) mmol/L Chloride 110 H (98-107) mmol/L Carbon Dioxide 25 (22-30) mmol/L Anion Gap 10.5 (5-15) MEQ/L BUN 8 (7-17) mg/dL Creatinine 0.76 (0.52-1.04) mg/dL Estimated GFR > 60.0 ML/MIN Glucose 66 L (74-106) mg/dL POC Glucometer (74 to 106) mg/dL Lactic Acid (0.4-2.0) Calcium 8.9 (8.4-10.2) mg/dL Total Bilirubin 0.30 (0.2-1.3) mg/dL AST 25 (14-36) U/L ALT 18 (0-35) U/L Alkaline Phosphatase 95 (38-126) U/L Troponin I < 0.012 (0.000-0.034) ng/mL Serum Total Protein 6.9 (6.3-8.2) g/dL Albumin 4.1 (3.5-5.0) g/dL Amylase 95 (30-110) U/L Lipase 43 (23-300) U/L Urine Color Yellow (Yellow) Urine Appearance Cloudy A (Clear) Urine pH 7.0 (4.6-8.0) Ur Specific [place] 1.010 (1.005-1.030) Urine Protein Negative (Negative) Urine Glucose (UA) Negative (Negative) mg/dL Urine Ketones Negative (Negative) Urine Blood Negative (Negative) Urine Nitrite Negative (Negative) Urine Bilirubin Negative (Negative) Urine Urobilinogen 0.2 (0.2) mg/dL Ur Leukocyte Esterase Trace A (Negative) U Hyaline Cast (Auto) NONE SEEN (0-2) /LPF Urine Microscopic RBC 0-2 (0-5) /HPF Urine Microscopic WBC 3-5 (0-5) /HPF Ur Epithelial Cells Many A (None Seen) /HPF Urine Bacteria Rare A (None Seen) /HPF Urine Culture Reflexed YES (NO) Influenza Type A Ag NEGATIVE (NEGATIVE) Influenza Type B Ag NEGATIVE (NEGATIVE) RSV (PCR) NEGATIVE (NEGATIVE) SARS-CoV-2 (PCR) NEGATIVE (NEGATIVE) 11/30/22 Range/Units 14:30 WBC 7.9 (4.0-10.5) x10^3/uL RBC 4.19 (4.1-5.4) x10^6/uL Hgb 13.7 (12.0-16.0) g/dL Hct 41.3 (35-47) % MCV 98.6 (78-100) fL MCH 32.7 H (26-32) pg MCHC 33.2 (32-36) g/dL RDW 12.1 (11.5-14.0) % Plt Count 348 (150-450) x10^3/uL MPV 9.7 (7.5-11.0) fL Gran % 42.4 (36.0-66.0) % Immature Gran % (Auto) 0.1 (0.00-0.4) % Nucleat RBC Rel Count 0.0 (0.00-0.1) % Eos # (Auto) 0.15 (0-0.5) x10^3/uL Immature Gran # (Auto) 0.01 (0.00-0.03) x10^3u/L Absolute Lymphs (auto) 3.82 (1.0-4.6) x10^3/uL Absolute Monos (auto) 0.50 (0.0-1.3) x10^3/uL Absolute Nucleated RBC 0.00 (0.00-0.01) x10^3u/L Lymphocytes % 48.4 H (24.0-44.0) % Monocytes % 6.3 (0.0-12.0) % Eosinophils % 1.9 (0.00-5.0) % Basophils % 0.9 (0.0-0.4) % Absolute Granulocytes 3.35 (1.4-6.9) x10^3/uL Basophils # 0.07 (0-0.4) x10^3/uL Sodium (137-145) mmol/L Potassium (3.5-5.1) mmol/L Chloride (98-107) mmol/L Carbon Dioxide (22-30) mmol/L Anion Gap (5-15) MEQ/L BUN (7-17) mg/dL Creatinine (0.52-1.04) mg/dL Estimated GFR ML/MIN Glucose (74-106) mg/dL POC Glucometer (74 to 106) mg/dL Lactic Acid (0.4-2.0) Calcium (8.4-10.2) mg/dL Total Bilirubin (0.2-1.3) mg/dL AST (14-36) U/L ALT (0-35) U/L Alkaline Phosphatase (38-126) U/L Troponin I (0.000-0.034) ng/mL Serum Total Protein (6.3-8.2) g/dL Albumin (3.5-5.0) g/dL Amylase (30-110) U/L Lipase (23-300) U/L Urine Color (Yellow) Urine Appearance (Clear) Urine pH (4.6-8.0) Ur Specific [place] (1.005-1.030) Urine Protein (Negative) Urine Glucose (UA) (Negative) mg/dL Urine Ketones (Negative) Urine Blood (Negative) Urine Nitrite (Negative) Urine Bilirubin (Negative) Urine Urobilinogen (0.2) mg/dL Ur Leukocyte Esterase (Negative) U Hyaline Cast (Auto) (0-2) /LPF Urine Microscopic RBC (0-5) /HPF Urine Microscopic WBC (0-5) /HPF Ur Epithelial Cells (None Seen) /HPF Urine Bacteria (None Seen) /HPF Urine Culture Reflexed (NO) Influenza Type A Ag (NEGATIVE) Influenza Type B Ag (NEGATIVE) RSV (PCR) (NEGATIVE) SARS-CoV-2 (PCR) (NEGATIVE) - Progress Progress Note: 11/30/22 20:45 Nursing note and vital signs reviewed No food or housing insecurities noted 11/30/22 20:46 Toradol 15mg IV w mild improvement in pain Fentanyl 25mcg IV/4mg IV Zofran w improvement in pain Fentanyl 50mcg IV/4mg IV Zofran w continued improvement in pain All lab results reviewed and shared w pt Ct results reviewed and shared w pt Obs per Dr. Garcia to r/o SBO Pt is a full code Counseled pt/family regarding: lab results, diagnosis, rad results Medical Desision Making - Discussion of managment Care discussed with:: hospitalist Reviewed:: Test results, Need for additional workup Agreed on:: Treatment plan, place in obs Will see patient: in hospital - Diagnostic Testing Radiological Interpretation: Reviewed by me, Teleradiologist Report - Risk of complications The pt has a high risk of morbidity or mortality based on: Decision regarding hospitilization or escalation of hosp level of care - Departure Departure Disposition: Observation Clinical Impression: Abdominal pain Condition: Stable Critical Care Time: No Referrals: SUSIE GRAJEDA NP [Primary Care Provider] - Follow up/PCP as directed Instructions: Severe Abdominal Pain, Adult (DC)
[2022-11-30 15:06] LABS: Absolute Neutrophil Ct (ANC) 3.35 x10^3/uL (1.4-6.9); BASOPHIL % 0.9 % (0.0-0.4); Basophil (Absolute #) 0.07 x10^3/uL (0-0.4); Eosinophil % 1.9 % (0.00-5.0); Eosinophil (Absolute #) 0.15 x10^3/uL (0-0.5); Hematocrit 41.3 % (35-47); Hemoglobin 13.7 g/dL (12.0-16.0); IMMATURE GRAN # 0.01 x10^3u/L (0.00-0.03); IMMATURE GRAN % 0.1 % (0.00-0.4); Lymphocyte (Absolute #) 3.82 x10^3/uL (1.0-4.6); Lymphocytes % 48.4 % (24.0-44.0); Mean Cell Volume 98.6 fL (78-100); Mean Corpuscular Hemoglobin 32.7 pg (26-32); Mean Corpuscular Hgb Concent. 33.2 g/dL (32-36); Mean Platelet Volume 9.7 fL (7.5-11.0); Monocytes % 6.3 % (0.0-12.0); Neutrophil % 42.4 % (36.0-66.0); Platelet Count 348 x10^3/uL (150-450); Red Blood Count 4.19 x10^6/uL (4.1-5.4); Red Cell Distribution Width 12.1 % (11.5-14.0); White Blood Count 7.9 x10^3/uL (4.0-10.5)
[2022-11-30] MEDS ORDERED: TORAdol 30 mg Injection ONE (15:13)
[2022-11-30 15:18] LABS: Appearance Cloudy (Clear); Bacteria Rare /HPF (None Seen); Bilirubin Negative (Negative); Blood Negative (Negative); Epithelial Cells Many /HPF (None Seen); Glucose, Urine Negative (Negative); Hyaline Casts NONE SEEN /LPF (0-2); Ketones Negative (Negative); Leukocyte Esterase Trace (Negative); Nitrite Negative (Negative); Protein,Urine Dip Negative (Negative); RBC 0-2 /HPF (0-5); Urobilinogen 0.2 mg/dL (0.2)
[2022-11-30 15:20] LABS: ADD URINE CULTURE? YES (NO)
[2022-11-30 15:24] LABS: ALBUMIN 4.1 g/dL (3.5-5.0); ALKALINE PHOSPHATASE 95 U/L (38-126); AMYLASE 95 U/L (30-110); ANION GAP 10.5 MEQ/L (5-15); BLOOD UREA NITROGEN 8 mg/dL (7-17); CHLORIDE 110 mmol/L (98-107); Calcium 8.9 mg/dL (8.4-10.2); Carbon Dioxide 25 mmol/L (22-30); Creatinine 1 0.76 mg/dL (0.52-1.04); EST GLOMERULAR FILTRATION RATE > 60.0 ML/MIN; Glucose 66 mg/dL (74-106); LIPASE 43 U/L (23-300); Potassium 3.5 mmol/L (3.5-5.1); SGOT/AST 25 U/L (14-36); SGPT/ALT 18 U/L (0-35); SODIUM 142 mmol/L (137-145); TROPONIN < 0.012 ng/mL (0.000-0.034); Total Protein 6.9 g/dL (6.3-8.2)
[2022-11-30 15:48] LABS: INFLUENZA A NEGATIVE (NEGATIVE); INFLUENZA B NEGATIVE (NEGATIVE); RESPIRATORY SYNCTIAL VIRUS NEGATIVE (NEGATIVE); SARS-CoV-2 Xpert Express NEGATIVE (NEGATIVE)
[2022-11-30] MEDS ORDERED: SUBLIMAZE 100 MCG/2 ML IV ONE ×2 (16:37→19:01)
[2022-11-30] MEDS ORDERED: Zofran 4 MG/2 ML VIAL IV ONE (16:38)
[2022-11-30] MEDS ORDERED: Zofran 4 MG/2 ML VIAL ONE (16:40)
[2022-11-30] MEDS ORDERED: SUBLIMAZE 100 MCG/2 ML ONE ×2 (16:41→19:18)
[2022-11-30] MEDS: Dextrose 5% -0.45 NaCl 1000 ML 1,000 ML IV SCH (16:44)
--- NOTE | 2022-11-30 19:40 | XRAY ---
CLINICAL HISTORY:Abdominal pain COMPARISON:None. TECHNIQUE:A CT scan of the abdomen and pelvis was performed without IV contrast. No oral contrast. Coronal and sagittal reconstructive images were also obtained. FINDINGS: Basal thoracic cuts: Left basal subpleural lines, atelectatic bands, and pleural thickening likely sequel of the previous infection. Otherwise, clear lung bases. Small to moderate hiatal hernia noted. Liver and biliary tree: Normal-sized liver. No liver lesion is seen. GB is surgically removed. Spleen: Unremarkable. Adrenal glands: Unremarkable. Pancreas: Unremarkable. Kidneys and ureters: of preserved size and shape. There is a tiny non-obstructive calculus measuring 1.5 mm in the right lower pole. Right renal upper pole parenchymal calcified nodule is seen measuring 2.4 mm. No cysts or hydronephrosis were detected. Stomach and bowel: No abnormality detected apart from descending and rectosigmoid colonic diverticulosis. No diverticulitis is seen. There is an air-distended non-dilated mid-abdominal bowel loop, with an air-fluid level (S2 Im60, S601 Im46). Further evaluation is advised. Retroperitoneum: Unremarkable. Lymph nodes: No evidence of lymphadenopathy. Skeletal system: No suspicious bony lesion detected. Degenerative changes are seen in the spine. Bladder: No definite focal lesion detected. The uterus and both adnexa are normal on non non-contrast basis. IMPRESSION: 1. Mid-abdominal air distended bowel loop, with air-fluid level (S2 Im60, S601 Im46). Further evaluation with contrast-enhanced CT is advised. 2. Descending and rectosigmoid colonic diverticulosis with no evident diverticulitis. 3. Right renal non-obstructive calculus and calcified nodule in the upper pole. Electronically Signed by: Sonny Nathan MD. (11/30/2022 18:40:21 [employer])
--- NOTE | 2022-11-30 21:16 | PCM.HP ---
History of Present Illness - Chief Complaint Chief Complaint: abdominal pain History of Present Illness: is a 52 year old female who presents with acute abdominal pain for the past 3 days. The pain in the mid abdomen, without diarrhea, fevers, chills, vomiting. Associated symptoms include nausea. No other sick contacts. CT without contrast of the abdomen in the ED did not identify a acute process, though noted some air-fluid levels that is difficult to discern without a c ontrasted study, which now has been ordered. - Review of Systems Constitutional: No Fever, No Chills Eyes: No Symptoms Ears, Nose, & Throat: No Symptoms Respiratory: No Cough, No Short Of Breath Cardiac: No Chest Pain, No Edema, No Syncope Abdominal/Gastrointestinal: No Abdominal Pain, No Nausea, No Vomiting, No Diarrhea Genitourinary Symptoms: No Dysuria Musculoskeletal: No Back Pain, No Neck Pain Skin: No Rash Neurological: No Dizziness, No Focal Weakness, No Sensory Changes Psychological: No Symptoms Endocrine: No Symptoms Hematologic/Lymphatic: No Symptoms Immunological/Allergic: No Symptoms Medications & Allergies Home Medications: Home Medication List Atorvastatin Calcium 40 mg PO HS 06/18/21 [History Confirmed 11/30/22] Cetirizine HCl [Zyrtec] 10 mg PO DAILY 06/18/21 [History Confirmed 11/30/22] Fluticasone Propionate [Flonase Allergy Relief] 2 puffs IH DAILY 06/18/21 [History Confirmed 11/30/22] Levothyroxine Sodium 75 Mcg [Synthroid 75 Mcg] 75 mcg PO DAILY 06/18/21 [History Confirmed 11/30/22] Montelukast Sodium 10 mg [Singulair 10 MG] 10 mg PO HS 06/18/21 [History Confirmed 11/30/22] PANTOPRAZOLE 40 mg Tablet [Protonix 40MG Tablet] 40 mg PO BID 06/18/21 [History Confirmed 11/30/22] Gabapentin [Neurontin ] 900 mg PO QHS 06/19/21 [History Confirmed 11/30/22] Tizanidine HCl 4 mg [Zanaflex 4 MG] 8 mg PO QHS 06/19/21 [History Confirmed 11/30/22] Gabapentin [Neurontin ] 300 mg PO DAILY 03/12/22 [History Confirmed 11/30/22] Mirtazapine 30 mg [Remeron 30 mg] 45 mg PO HS 03/12/22 [History Confirmed 11/30/22] Losartan/Hydrochlorothiazide [Losartan-Hctz 50-12.5 mg Tab] 1 each PO DAILY 04/01/22 [History Confirmed 11/30/22] Sertraline HCl 50 mg [Zoloft 50 mg Tablet] 100 mg PO DAILY 04/01/22 [History Confirmed 11/30/22] Tizanidine HCl 4 mg [Zanaflex 4 MG] 4 mg PO DAILY 04/27/22 [History Confirmed 11/30/22] Allergies/Adverse Reactions: Allergies Allergy/AdvReac Type Severity Reaction Status Date / Time No Known Drug Allergies Allergy Verified 11/30/22 14:21 - Past Medical History Past Medical History: Yes Neurological History: No Pertinent History ENT History: No Pertinent History Cardiac History: High Cholesterol, Hypertension, Other Respiratory History: Bronchitis Endocrine Medical History: Hypothyroidism Musculoskelatal History: No Pertinent History GI Medical History: GERD, Pancreatitis History: Other Pyscho-Social History: Anxiety, Depression Reproductive Disorders: No Pertinent History Comment: SVT, multiple UTIs - Past Surgical History Past Surgical History: Yes Neuro Surgical History: No Pertinent History Cardiac History: Cardiac Catheterization, Other Respiratory Surgery: No Pertinent History GI Surgical History: Cholecystectomy Genitourinary Surgical Hx: No Pertinent History Musculskeletal Surgical Hx: Other Female Surgical History: Dilation & Curettage, Section, Other Other Surgical History: breast reduction, spinal cord stimulator put in and removed, cardiac ablation for SVT, endometrial ablation, 4 back surgeries - Social History Smoking Status: Former smoker How long have you smoked: 30 years Exposure to second hand smoke: Yes Alcohol: None Drug Use: other Significant Family History: heart disease - Physical Exam Vital Signs: Vital Signs - 24 hr Temp Pulse Resp BP BP Pulse Ox 11/30/22 20:49 99 11/30/22 20:01 52 L 9 L 162/93 96 11/30/22 19:30 51 L 13 139/74 96 11/30/22 19:00 60 17 139/88 95 11/30/22 18:30 58 L 15 138/82 98 11/30/22 18:00 61 14 130/96 99 11/30/22 17:31 56 L 17 134/76 98 11/30/22 17:00 159/91 11/30/22 16:30 62 23 148/84 99 11/30/22 16:01 57 L 17 134/68 11/30/22 15:32 56 L 15 135/75 96 11/30/22 15:01 63 23 125/80 96 11/30/22 14:31 59 L 18 108/66 97 11/30/22 14:22 98.5 F 78 18 158/90 99 General Appearance: no apparent distress, alert Neurologic Exam: alert, oriented x 3, cooperative, normal mood/affect, nml cerebellar function, nml station & gait, sensation nml, No motor deficits Eye Exam: PERRL/EOMI, eyes nml inspection Ears, Nose, Throat Exam: normal ENT inspection, TMs normal, pharynx normal, moist mucous membranes Neck Exam: normal inspection, non-tender, supple, full range of motion Respiratory Exam: normal breath sounds, lungs clear, No respiratory distress Cardiovascular Exam: regular rate/rhythm, normal heart sounds, normal peripheral pulses Gastrointestinal/Abdomen Exam: soft, normal bowel sounds, No tenderness, No mass Back Exam: normal inspection, normal range of motion, No CVA tenderness, No vertebral tenderness Extremity Exam: normal inspection, normal range of motion, pelvis stable Skin Exam: normal color, warm, dry, No rash Lymphatic Exam: No adenopathy Results - Labs Lab/Micro Results: Lab Results-Last 24 Hours 11/30/22 11/30/22 11/30/22 Range/Units 14:30 14:30 14:34 WBC 7.9 (4.0-10.5) x10^3/uL RBC 4.19 (4.1-5.4) x10^6/uL Hgb 13.7 (12.0-16.0) g/dL Hct 41.3 (35-47) % MCV 98.6 (78-100) fL MCH 32.7 H (26-32) pg MCHC 33.2 (32-36) g/dL RDW 12.1 (11.5-14.0) % Plt Count 348 (150-450) x10^3/uL MPV 9.7 (7.5-11.0) fL Gran % 42.4 (36.0-66.0) % Immature Gran % (Auto) 0.1 (0.00-0.4) % Nucleat RBC Rel Count 0.0 (0.00-0.1) % Eos # (Auto) 0.15 (0-0.5) x10^3/uL Immature Gran # (Auto) 0.01 (0.00-0.03) x10^3u/L Absolute Lymphs (auto) 3.82 (1.0-4.6) x10^3/uL Absolute Monos (auto) 0.50 (0.0-1.3) x10^3/uL Absolute Nucleated RBC 0.00 (0.00-0.01) x10^3u/L Lymphocytes % 48.4 H (24.0-44.0) % Monocytes % 6.3 (0.0-12.0) % Eosinophils % 1.9 (0.00-5.0) % Basophils % 0.9 (0.0-0.4) % Absolute Granulocytes 3.35 (1.4-6.9) x10^3/uL Basophils # 0.07 (0-0.4) x10^3/uL Sodium 142 (137-145) mmol/L Potassium 3.5 (3.5-5.1) mmol/L Chloride 110 H (98-107) mmol/L Carbon Dioxide 25 (22-30) mmol/L Anion Gap 10.5 (5-15) MEQ/L BUN 8 (7-17) mg/dL Creatinine 0.76 (0.52-1.04) mg/dL Estimated GFR > 60.0 ML/MIN Glucose 66 L (74-106) mg/dL POC Glucometer (74 to 106) mg/dL Lactic Acid (0.4-2.0) Calcium 8.9 (8.4-10.2) mg/dL Total Bilirubin 0.30 (0.2-1.3) mg/dL AST 25 (14-36) U/L ALT 18 (0-35) U/L Alkaline Phosphatase 95 (38-126) U/L Troponin I < 0.012 (0.000-0.034) ng/mL Serum Total Protein 6.9 (6.3-8.2) g/dL Albumin 4.1 (3.5-5.0) g/dL Amylase 95 (30-110) U/L Lipase 43 (23-300) U/L Urine Color Yellow (Yellow) Urine Appearance Cloudy A (Clear) Urine pH 7.0 (4.6-8.0) Ur Specific [place] 1.010 (1.005-1.030) Urine Protein Negative (Negative) Urine Glucose (UA) Negative (Negative) mg/dL Urine Ketones Negative (Negative) Urine Blood Negative (Negative) Urine Nitrite Negative (Negative) Urine Bilirubin Negative (Negative) Urine Urobilinogen 0.2 (0.2) mg/dL Ur Leukocyte Esterase Trace A (Negative) U Hyaline Cast (Auto) NONE SEEN (0-2) /LPF Urine Microscopic RBC 0-2 (0-5) /HPF Urine Microscopic WBC 3-5 (0-5) /HPF Ur Epithelial Cells Many A (None Seen) /HPF Urine Bacteria Rare A (None Seen) /HPF Urine Culture Reflexed YES (NO) Influenza Type A Ag (NEGATIVE) Influenza Type B Ag (NEGATIVE) RSV (PCR) (NEGATIVE) SARS-CoV-2 (PCR) (NEGATIVE) 11/30/22 11/30/22 11/30/22 Range/Units 15:00 15:10 18:05 WBC (4.0-10.5) x10^3/uL RBC (4.1-5.4) x10^6/uL Hgb (12.0-16.0) g/dL Hct (35-47) % MCV (78-100) fL MCH (26-32) pg MCHC (32-36) g/dL RDW (11.5-14.0) % Plt Count (150-450) x10^3/uL MPV (7.5-11.0) fL Gran % (36.0-66.0) % Immature Gran % (Auto) (0.00-0.4) % Nucleat RBC Rel Count (0.00-0.1) % Eos # (Auto) (0-0.5) x10^3/uL Immature Gran # (Auto) (0.00-0.03) x10^3u/L Absolute Lymphs (auto) (1.0-4.6) x10^3/uL Absolute Monos (auto) (0.0-1.3) x10^3/uL Absolute Nucleated RBC (0.00-0.01) x10^3u/L Lymphocytes % (24.0-44.0) % Monocytes % (0.0-12.0) % Eosinophils % (0.00-5.0) % Basophils % (0.0-0.4) % Absolute Granulocytes (1.4-6.9) x10^3/uL Basophils # (0-0.4) x10^3/uL Sodium (137-145) mmol/L Potassium (3.5-5.1) mmol/L Chloride (98-107) mmol/L Carbon Dioxide (22-30) mmol/L Anion Gap (5-15) MEQ/L BUN (7-17) mg/dL Creatinine (0.52-1.04) mg/dL Estimated GFR ML/MIN Glucose (74-106) mg/dL POC Glucometer 100 (74 to 106) mg/dL Lactic Acid 1.1 (0.4-2.0) Calcium (8.4-10.2) mg/dL Total Bilirubin (0.2-1.3) mg/dL AST (14-36) U/L ALT (0-35) U/L Alkaline Phosphatase (38-126) U/L Troponin I (0.000-0.034) ng/mL Serum Total Protein (6.3-8.2) g/dL Albumin (3.5-5.0) g/dL Amylase (30-110) U/L Lipase (23-300) U/L Urine Color (Yellow) Urine Appearance (Clear) Urine pH (4.6-8.0) Ur Specific [place] (1.005-1.030) Urine Protein (Negative) Urine Glucose (UA) (Negative) mg/dL Urine Ketones (Negative) Urine Blood (Negative) Urine Nitrite (Negative) Urine Bilirubin (Negative) Urine Urobilinogen (0.2) mg/dL Ur Leukocyte Esterase (Negative) U Hyaline Cast (Auto) (0-2) /LPF Urine Microscopic RBC (0-5) /HPF Urine Microscopic WBC (0-5) /HPF Ur Epithelial Cells (None Seen) /HPF Urine Bacteria (None Seen) /HPF Urine Culture Reflexed (NO) Influenza Type A Ag NEGATIVE (NEGATIVE) Influenza Type B Ag NEGATIVE (NEGATIVE) RSV (PCR) NEGATIVE (NEGATIVE) SARS-CoV-2 (PCR) NEGATIVE (NEGATIVE) 11/30/22 Range/Units 18:55 WBC (4.0-10.5) x10^3/uL RBC (4.1-5.4) x10^6/uL Hgb (12.0-16.0) g/dL Hct (35-47) % MCV (78-100) fL MCH (26-32) pg MCHC (32-36) g/dL RDW (11.5-14.0) % Plt Count (150-450) x10^3/uL MPV (7.5-11.0) fL Gran % (36.0-66.0) % Immature Gran % (Auto) (0.00-0.4) % Nucleat RBC Rel Count (0.00-0.1) % Eos # (Auto) (0-0.5) x10^3/uL Immature Gran # (Auto) (0.00-0.03) x10^3u/L Absolute Lymphs (auto) (1.0-4.6) x10^3/uL Absolute Monos (auto) (0.0-1.3) x10^3/uL Absolute Nucleated RBC (0.00-0.01) x10^3u/L Lymphocytes % (24.0-44.0) % Monocytes % (0.0-12.0) % Eosinophils % (0.00-5.0) % Basophils % (0.0-0.4) % Absolute Granulocytes (1.4-6.9) x10^3/uL Basophils # (0-0.4) x10^3/uL Sodium (137-145) mmol/L Potassium (3.5-5.1) mmol/L Chloride (98-107) mmol/L Carbon Dioxide (22-30) mmol/L Anion Gap (5-15) MEQ/L BUN (7-17) mg/dL Creatinine (0.52-1.04) mg/dL Estimated GFR ML/MIN Glucose (74-106) mg/dL POC Glucometer (74 to 106) mg/dL Lactic Acid (0.4-2.0) Calcium (8.4-10.2) mg/dL Total Bilirubin (0.2-1.3) mg/dL AST (14-36) U/L ALT (0-35) U/L Alkaline Phosphatase (38-126) U/L Troponin I < 0.012 (0.000-0.034) ng/mL Serum Total Protein (6.3-8.2) g/dL Albumin (3.5-5.0) g/dL Amylase (30-110) U/L Lipase (23-300) U/L Urine Color (Yellow) Urine Appearance (Clear) Urine pH (4.6-8.0) Ur Specific [place] (1.005-1.030) Urine Protein (Negative) Urine Glucose (UA) (Negative) mg/dL Urine Ketones (Negative) Urine Blood (Negative) Urine Nitrite (Negative) Urine Bilirubin (Negative) Urine Urobilinogen (0.2) mg/dL Ur Leukocyte Esterase (Negative) U Hyaline Cast (Auto) (0-2) /LPF Urine Microscopic RBC (0-5) /HPF Urine Microscopic WBC (0-5) /HPF Ur Epithelial Cells (None Seen) /HPF Urine Bacteria (None Seen) /HPF Urine Culture Reflexed (NO) Influenza Type A Ag (NEGATIVE) Influenza Type B Ag (NEGATIVE) RSV (PCR) (NEGATIVE) SARS-CoV-2 (PCR) (NEGATIVE) Accuchecks Date 11/30/22 Time 18:05 - Radiology Impressions Radiology Exams & Impressions: Radiology Procedures Category Date Time Status ABDOMEN AND PELVIS W/0 CONTRAS [CT] Stat Exams 11/30/22 16:00 Completed ABDOMEN WITH CONTRAST [CT] Urgent Exams 11/30/22 21:06 Ordered Assessment/Plan (1) Abdominal pain Current Visit: Yes Status: Acute Assessment & Plan: 1. NPO tonight 2. IVF 3. CT with contrast of the abdomen 4. Pain meds with 1 mg of dilaudid IV q4hr PRN - warned patient of the risk of worsening ileus with use of opiates. Code(s): R10.9 - UNSPECIFIED ABDOMINAL PAIN Telemedicine Encounter - Telemedicine Encounter Telemedicine Encounter: The entirety of this encounter was performed via Telemedicine"
[2022-11-30 21:30] VITALS: RESP 16
[2022-11-30] MEDS: Hydromorphone 1 mg/ml Injection IV PRN (21:33)
[2022-11-30] MEDS ORDERED: Nicoderm CQ 21 MG TOP SCH (22:00)
[2022-11-30] MEDS: Zofran 4 MG/2 ML VIAL IV PRN (23:00)
--- NOTE | 2022-11-30 23:21 | XRAY ---
CLINICAL HISTORY:abdominal pain, concern for SBO COMPARISON:11/30/2022. TECHNIQUE:A CT scan of the abdomen and pelvis was performed without IV contrast. No oral contrast. Coronal and sagittal reconstructive images were also obtained. Total CTDI: 16.3 mGy & DLP: 630.76 mGy-cm. FINDINGS: Basal thoracic cuts: Minimal bilateral pleural effusion noted. Left basal subpleural lines and atelectatic bands were noted. Small to moderate hiatal hernia noted. Liver and biliary tree: Normal-sized liver. No liver lesion is seen. GB is surgically removed. Spleen: Unremarkable. Adrenal glands: Unremarkable. Pancreas: Unremarkable. Kidneys and ureters: of preserved size and shape. There is a tiny non-obstructive calculus measuring 1.5 mm in the right lower pole. Right renal upper pole parenchymal calcified nodule is seen measuring 2.4 mm. No cysts or hydronephrosis were detected. Stomach and bowel: No abnormality detected apart from descending and rectosigmoid colonic diverticulosis. No diverticulitis is seen. There is an air-distended non-dilated mid-abdominal bowel loop, with air-fluid level, which is suggested to be a cecum in the midline. Retroperitoneum: Unremarkable. Lymph nodes: No evidence of lymphadenopathy. Skeletal system: No suspicious bony lesion detected. Degenerative changes are seen in the spine. Sclerotic area/bone island in left femur. Bladder: No definite focal lesion detected. The uterus and both adnexa are normal on a non-contrast basis. IMPRESSION: 1. The nondilated mid-abdominal bowel loop with air-fluid level is again noted in the current study and is suggested to be cecum as a variant. No evidence of acute bowel obstruction. 2. Persistent minimal bilateral pleural effusion. 3. Descending and rectosigmoid colonic diverticulosis with no evident diverticulitis. 4. Right renal non-obstructive calculus and calcified nodule in the upper pole. Electronically Signed by: Sonny Nathan MD. (11/30/2022 22:20:08 [employer] CHANGES RECORDS CLERK)
[2022-12-01] MEDS: Hydromorphone 1 mg/ml Injection IV PRN (01:36)
[2022-12-01] MEDS ORDERED: BENADRYL 25 MG CAPSULE PO ONE (02:00)
[2022-12-01] MEDS: Dextrose 5% -0.45 NaCl 1000 ML 1,000 ML IV SCH (03:15)
[2022-12-01] MEDS: Zofran 4 MG/2 ML VIAL IV PRN (07:48)
--- NOTE | 2022-12-01 08:01 | PCM.NOTE ---
Date and Time: 12/01/22 0757 Subjective Assessment: Ms. Perez is a 52 year old female with pmhx of HLD, HTN, hypothyroidism, GERD, pancreatitis, SVT s/p cardiac ablation, anxiety/depression, and recurrent UTI's who presented to ER 11/30/22 with c/o right sided abdominal pain with associated nausea and diarrhea. Patient reported similar symptoms in the past with pancreatitis. CT imaging with contrast of the abdomen showed nondilated mid-abdominal bowel loop with air-fluid level with cecum suggested as a variant. No evidence of acute bowel obstruction.Persistent minimal bilateral pleural effusion.Descending and rectosigmoid colonic diverticulosis with no evident diverticulitis.Right renal non-obstructive calculus and calcified nodule in the upper pole. Labs unremarkable. Sugey/lipase wnl. OBJECTIVE DATA Vital Signs: Vital Signs - 24 hr Temp Pulse Resp BP BP BP Pulse Ox 12/01/22 04:00 96.9 F 48 L 16 146/63 94 L 11/30/22 23:51 98.0 F 48 L 16 168/79 98 11/30/22 21:10 97.6 F 50 L 16 163/78 99 11/30/22 20:49 99 11/30/22 20:01 52 L 9 L 162/93 96 11/30/22 19:30 51 L 13 139/74 96 11/30/22 19:00 60 17 139/88 95 11/30/22 18:30 58 L 15 138/82 98 11/30/22 18:00 61 14 130/96 99 11/30/22 17:31 56 L 17 134/76 98 11/30/22 17:00 159/91 11/30/22 16:30 62 23 148/84 99 11/30/22 16:01 57 L 17 134/68 11/30/22 15:32 56 L 15 135/75 96 11/30/22 15:01 63 23 125/80 96 11/30/22 14:31 59 L 18 108/66 97 11/30/22 14:22 98.5 F 78 18 158/90 99 Pain Assessment - Last Documented Pain Intensity 3 Pain Scale Used 0-10 Pain Scale Intake and Output: Intake & Output 11/28/22 11/29/22 11/30/22 12/01/22 11:59 11:59 11:59 11:59 Intake Total 912 Output Total 300 Balance 612 Weight 74.6 kg Lab Results: Lab Results-Last 24 Hours 11/30/22 11/30/22 11/30/22 Range/Units 14:30 14:30 14:34 WBC 7.9 (4.0-10.5) x10^3/uL RBC 4.19 (4.1-5.4) x10^6/uL Hgb 13.7 (12.0-16.0) g/dL Hct 41.3 (35-47) % MCV 98.6 (78-100) fL MCH 32.7 H (26-32) pg MCHC 33.2 (32-36) g/dL RDW 12.1 (11.5-14.0) % Plt Count 348 (150-450) x10^3/uL MPV 9.7 (7.5-11.0) fL Gran % 42.4 (36.0-66.0) % Immature Gran % (Auto) 0.1 (0.00-0.4) % Nucleat RBC Rel Count 0.0 (0.00-0.1) % Eos # (Auto) 0.15 (0-0.5) x10^3/uL Immature Gran # (Auto) 0.01 (0.00-0.03) x10^3u/L Absolute Lymphs (auto) 3.82 (1.0-4.6) x10^3/uL Absolute Monos (auto) 0.50 (0.0-1.3) x10^3/uL Absolute Nucleated RBC 0.00 (0.00-0.01) x10^3u/L Lymphocytes % 48.4 H (24.0-44.0) % Monocytes % 6.3 (0.0-12.0) % Eosinophils % 1.9 (0.00-5.0) % Basophils % 0.9 (0.0-0.4) % Absolute Granulocytes 3.35 (1.4-6.9) x10^3/uL Basophils # 0.07 (0-0.4) x10^3/uL Sodium 142 (137-145) mmol/L Potassium 3.5 (3.5-5.1) mmol/L Chloride 110 H (98-107) mmol/L Carbon Dioxide 25 (22-30) mmol/L Anion Gap 10.5 (5-15) MEQ/L BUN 8 (7-17) mg/dL Creatinine 0.76 (0.52-1.04) mg/dL Estimated GFR > 60.0 ML/MIN Glucose 66 L (74-106) mg/dL POC Glucometer (74 to 106) mg/dL Lactic Acid (0.4-2.0) Calcium 8.9 (8.4-10.2) mg/dL Total Bilirubin 0.30 (0.2-1.3) mg/dL AST 25 (14-36) U/L ALT 18 (0-35) U/L Alkaline Phosphatase 95 (38-126) U/L Troponin I < 0.012 (0.000-0.034) ng/mL Serum Total Protein 6.9 (6.3-8.2) g/dL Albumin 4.1 (3.5-5.0) g/dL Amylase 95 (30-110) U/L Lipase 43 (23-300) U/L Urine Color Yellow (Yellow) Urine Appearance Cloudy A (Clear) Urine pH 7.0 (4.6-8.0) Ur Specific [place] 1.010 (1.005-1.030) Urine Protein Negative (Negative) Urine Glucose (UA) Negative (Negative) mg/dL Urine Ketones Negative (Negative) Urine Blood Negative (Negative) Urine Nitrite Negative (Negative) Urine Bilirubin Negative (Negative) Urine Urobilinogen 0.2 (0.2) mg/dL Ur Leukocyte Esterase Trace A (Negative) U Hyaline Cast (Auto) NONE SEEN (0-2) /LPF Urine Microscopic RBC 0-2 (0-5) /HPF Urine Microscopic WBC 3-5 (0-5) /HPF Ur Epithelial Cells Many A (None Seen) /HPF Urine Bacteria Rare A (None Seen) /HPF Urine Culture Reflexed YES (NO) Influenza Type A Ag (NEGATIVE) Influenza Type B Ag (NEGATIVE) RSV (PCR) (NEGATIVE) SARS-CoV-2 (PCR) (NEGATIVE) 11/30/22 11/30/22 11/30/22 Range/Units 15:00 15:10 18:05 WBC (4.0-10.5) x10^3/uL RBC (4.1-5.4) x10^6/uL Hgb (12.0-16.0) g/dL Hct (35-47) % MCV (78-100) fL MCH (26-32) pg MCHC (32-36) g/dL RDW (11.5-14.0) % Plt Count (150-450) x10^3/uL MPV (7.5-11.0) fL Gran % (36.0-66.0) % Immature Gran % (Auto) (0.00-0.4) % Nucleat RBC Rel Count (0.00-0.1) % Eos # (Auto) (0-0.5) x10^3/uL Immature Gran # (Auto) (0.00-0.03) x10^3u/L Absolute Lymphs (auto) (1.0-4.6) x10^3/uL Absolute Monos (auto) (0.0-1.3) x10^3/uL Absolute Nucleated RBC (0.00-0.01) x10^3u/L Lymphocytes % (24.0-44.0) % Monocytes % (0.0-12.0) % Eosinophils % (0.00-5.0) % Basophils % (0.0-0.4) % Absolute Granulocytes (1.4-6.9) x10^3/uL Basophils # (0-0.4) x10^3/uL Sodium (137-145) mmol/L Potassium (3.5-5.1) mmol/L Chloride (98-107) mmol/L Carbon Dioxide (22-30) mmol/L Anion Gap (5-15) MEQ/L BUN (7-17) mg/dL Creatinine (0.52-1.04) mg/dL Estimated GFR ML/MIN Glucose (74-106) mg/dL POC Glucometer 100 (74 to 106) mg/dL Lactic Acid 1.1 (0.4-2.0) Calcium (8.4-10.2) mg/dL Total Bilirubin (0.2-1.3) mg/dL AST (14-36) U/L ALT (0-35) U/L Alkaline Phosphatase (38-126) U/L Troponin I (0.000-0.034) ng/mL Serum Total Protein (6.3-8.2) g/dL Albumin (3.5-5.0) g/dL Amylase (30-110) U/L Lipase (23-300) U/L Urine Color (Yellow) Urine Appearance (Clear) Urine pH (4.6-8.0) Ur Specific [place] (1.005-1.030) Urine Protein (Negative) Urine Glucose (UA) (Negative) mg/dL Urine Ketones (Negative) Urine Blood (Negative) Urine Nitrite (Negative) Urine Bilirubin (Negative) Urine Urobilinogen (0.2) mg/dL Ur Leukocyte Esterase (Negative) U Hyaline Cast (Auto) (0-2) /LPF Urine Microscopic RBC (0-5) /HPF Urine Microscopic WBC (0-5) /HPF Ur Epithelial Cells (None Seen) /HPF Urine Bacteria (None Seen) /HPF Urine Culture Reflexed (NO) Influenza Type A Ag NEGATIVE (NEGATIVE) Influenza Type B Ag NEGATIVE (NEGATIVE) RSV (PCR) NEGATIVE (NEGATIVE) SARS-CoV-2 (PCR) NEGATIVE (NEGATIVE) 11/30/22 12/01/22 Range/Units 18:55 00:00 WBC (4.0-10.5) x10^3/uL RBC (4.1-5.4) x10^6/uL Hgb (12.0-16.0) g/dL Hct (35-47) % MCV (78-100) fL MCH (26-32) pg MCHC (32-36) g/dL RDW (11.5-14.0) % Plt Count (150-450) x10^3/uL MPV (7.5-11.0) fL Gran % (36.0-66.0) % Immature Gran % (Auto) (0.00-0.4) % Nucleat RBC Rel Count (0.00-0.1) % Eos # (Auto) (0-0.5) x10^3/uL Immature Gran # (Auto) (0.00-0.03) x10^3u/L Absolute Lymphs (auto) (1.0-4.6) x10^3/uL Absolute Monos (auto) (0.0-1.3) x10^3/uL Absolute Nucleated RBC (0.00-0.01) x10^3u/L Lymphocytes % (24.0-44.0) % Monocytes % (0.0-12.0) % Eosinophils % (0.00-5.0) % Basophils % (0.0-0.4) % Absolute Granulocytes (1.4-6.9) x10^3/uL Basophils # (0-0.4) x10^3/uL Sodium (137-145) mmol/L Potassium (3.5-5.1) mmol/L Chloride (98-107) mmol/L Carbon Dioxide (22-30) mmol/L Anion Gap (5-15) MEQ/L BUN (7-17) mg/dL Creatinine (0.52-1.04) mg/dL Estimated GFR ML/MIN Glucose (74-106) mg/dL POC Glucometer (74 to 106) mg/dL Lactic Acid (0.4-2.0) Calcium (8.4-10.2) mg/dL Total Bilirubin (0.2-1.3) mg/dL AST (14-36) U/L ALT (0-35) U/L Alkaline Phosphatase (38-126) U/L Troponin I < 0.012 < 0.012 (0.000-0.034) ng/mL Serum Total Protein (6.3-8.2) g/dL Albumin (3.5-5.0) g/dL Amylase (30-110) U/L Lipase (23-300) U/L Urine Color (Yellow) Urine Appearance (Clear) Urine pH (4.6-8.0) Ur Specific [place] (1.005-1.030) Urine Protein (Negative) Urine Glucose (UA) (Negative) mg/dL Urine Ketones (Negative) Urine Blood (Negative) Urine Nitrite (Negative) Urine Bilirubin (Negative) Urine Urobilinogen (0.2) mg/dL Ur Leukocyte Esterase (Negative) U Hyaline Cast (Auto) (0-2) /LPF Urine Microscopic RBC (0-5) /HPF Urine Microscopic WBC (0-5) /HPF Ur Epithelial Cells (None Seen) /HPF Urine Bacteria (None Seen) /HPF Urine Culture Reflexed (NO) Influenza Type A Ag (NEGATIVE) Influenza Type B Ag (NEGATIVE) RSV (PCR) (NEGATIVE) SARS-CoV-2 (PCR) (NEGATIVE) Radiology Exams: Radiology Procedures Category Date Time Status ABDOMEN AND PELVIS W/0 CONTRAS [CT] Stat Exams 09/04/23 16:00 Completed ABDOMEN WITH CONTRAST [CT] Urgent Exams 11/30/22 21:06 Completed Assessment/Plan (1) Abdominal pain Current Visit: Yes Status: Acute Assessment & Plan: CT imaging reviewed: 1. The nondilated mid-abdominal bowel loop with air-fluid level is again noted in the current study and is suggested to be cecum as a variant. No evidence of acute bowel obstruction. 2. Persistent minimal bilateral pleural effusion. 3. Descending and rectosigmoid colonic diverticulosis with no evident diverticulitis. 4. Right renal non-obstructive calculus and calcified nodule in the upper pole. -pain control -anti-emetics Code(s): R10.9 - UNSPECIFIED ABDOMINAL PAIN (2) Anxiety and depression Current Visit: Yes Status: Chronic Assessment & Plan: -Continue home med zoloft Code(s): F41.9 - ANXIETY DISORDER, UNSPECIFIED; F32.A - DEPRESSION, UNSPECIFIED (3) Hypertension Current Visit: Yes Status: Chronic Assessment & Plan: -Continue losartan hctz Code(s): I10 - ESSENTIAL (PRIMARY) HYPERTENSION (4) Hyperlipidemia Current Visit: Yes Status: Chronic Assessment & Plan: -noted, continue home meds atorvastatin Code(s): E78.5 - HYPERLIPIDEMIA, UNSPECIFIED (5) Hypothyroidism Current Visit: Yes Status: Chronic Assessment & Plan: -Continue home meds levothyroxine Code(s): E03.9 - HYPOTHYROIDISM, UNSPECIFIED (6) GERD with esophagitis Current Visit: No Status: Chronic Assessment & Plan: -Continue home meds pantoprazole Code(s): K21.00 - GASTRO-ESOPHAGEAL REFLUX DIS WITH ESOPHAGITIS, WITHOUT BLEED
[2022-12-01 08:58] LABS: ALBUMIN 3.8 g/dL (3.5-5.0); ALKALINE PHOSPHATASE 84 U/L (38-126); ANION GAP 9.1 MEQ/L (5-15); BLOOD UREA NITROGEN 7 mg/dL (7-17); CHLORIDE 107 mmol/L (98-107); Calcium 8.4 mg/dL (8.4-10.2); Carbon Dioxide 26 mmol/L (22-30); Creatinine 1 0.81 mg/dL (0.52-1.04); EST GLOMERULAR FILTRATION RATE > 60.0 ML/MIN; Glucose 87 mg/dL (74-106); Potassium 3.5 mmol/L (3.5-5.1); SGOT/AST 28 U/L (14-36); SGPT/ALT 20 U/L (0-35); SODIUM 139 mmol/L (137-145); Total Protein 6.4 g/dL (6.3-8.2)
[2022-12-01 09:02] LABS: Absolute Neutrophil Ct (ANC) 2.35 x10^3/uL (1.4-6.9); BASOPHIL % 1.1 % (0.0-0.4); Basophil (Absolute #) 0.06 x10^3/uL (0-0.4); Eosinophil % 2.8 % (0.00-5.0); Eosinophil (Absolute #) 0.15 x10^3/uL (0-0.5); Hematocrit 39.7 % (35-47); Hemoglobin 12.9 g/dL (12.0-16.0); IMMATURE GRAN # 0.01 x10^3u/L (0.00-0.03); IMMATURE GRAN % 0.2 % (0.00-0.4); Lymphocyte (Absolute #) 2.49 x10^3/uL (1.0-4.6); Lymphocytes % 45.8 % (24.0-44.0); Mean Cell Volume 100.8 fL (78-100); Mean Corpuscular Hemoglobin 32.7 pg (26-32); Mean Corpuscular Hgb Concent. 32.5 g/dL (32-36); Mean Platelet Volume 9.6 fL (7.5-11.0); Monocyte (Absolute #) 0.38 x10^3/uL (0.0-1.3); Neutrophil % 43.1 % (36.0-66.0); Platelet Count 291 x10^3/uL (150-450); Red Blood Count 3.94 x10^6/uL (4.1-5.4); Red Cell Distribution Width 12.1 % (11.5-14.0); White Blood Count 5.4 x10^3/uL (4.0-10.5)
[2022-12-01 11:43] VITALS: BP 139/72; PULSE 51; TEMP 97.9; O2SAT 97
--- NOTE | 2022-12-01 12:32 | PCM.DS ---
Discharge Summary Date of Admission: 11/30/22 20:45 Date of Discharge: 12/01/22 Admitting Physician: EMILY TANG MD Primary Care Provider: SUSIE GRAJEDA NP Allergies Allergies No Known Drug Allergies Allergy (Verified 11/30/22 14:21) Hospital Summary - Hospital Course Hospital Course: Ms. Perez is a 52 year old female with pmhx of HLD, HTN, hypothyroidism, GERD, pancreatitis, SVT s/p cardiac ablation, anxiety/depression, and recurrent UTI's who presented to ER 11/30/22 with c/o right sided abdominal pain with associated nausea and diarrhea. Patient reported similar symptoms in the past with pancreatitis. CT imaging with contrast of the abdomen showed nondilated mid-abdominal bowel loop with air-fluid level with cecum suggested as a variant. No evidence of acute bowel obstruction.Persistent minimal bilateral pleural effusion.Descending and rectosigmoid colonic diverticulosis with no evident diverticulitis.Right renal non-obstructive calculus and calcified nodule in the upper pole. Labs unremarkable. Sugey/lipase wnl. Urine culture with no growth to date. No overnight events noted, patient no longer with abdominal pain, nausea, or vomiting. Patient wishing to discharge. Will send home on zofran prn. Advised close follow up with PCP. Patient states she has appt with GI for her chronic bowel issues. Due to no growth on urine culture and clinical presentation will d/c abx. -Latest Assessment and Plan: (1) Abdominal pain Current Visit: Yes Status: Acute Assessment & Plan: CT imaging reviewed: 1. The nondilated mid-abdominal bowel loop with air-fluid level is again noted in the current study and is suggested to be cecum as a variant. No evidence of acute bowel obstruction. 2. Persistent minimal bilateral pleural effusion. 3. Descending and rectosigmoid colonic diverticulosis with no evident diverticulitis. 4. Right renal non-obstructive calculus and calcified nodule in the upper pole. -pain control -anti-emetics Code(s): R10.9 - UNSPECIFIED ABDOMINAL PAIN (2) Anxiety and depression Current Visit: Yes Status: Chronic Assessment & Plan: -Continue home med zoloft Code(s): F41.9 - ANXIETY DISORDER, UNSPECIFIED; F32.A - DEPRESSION, UNSPECIFIED (3) Hypertension Current Visit: Yes Status: Chronic Assessment & Plan: -Continue losartan hctz Code(s): I10 - ESSENTIAL (PRIMARY) HYPERTENSION (4) Hyperlipidemia Current Visit: Yes Status: Chronic Assessment & Plan: -noted, continue home meds atorvastatin Code(s): E78.5 - HYPERLIPIDEMIA, UNSPECIFIED (5) Hypothyroidism Current Visit: Yes Status: Chronic Assessment & Plan: -Continue home meds levothyroxine Code(s): E03.9 - HYPOTHYROIDISM, UNSPECIFIED (6) GERD with esophagitis Current Visit: No Status: Chronic Assessment & Plan: -Continue home meds pantoprazole Code(s): K21.00 - GASTRO-ESOPHAGEAL REFLUX DIS WITH ESOPHAGITIS, WITHOUT BLEED -New Diagnoses: Abdominal pain -New Medications: Zofran -Medications Discontinued: none -Follow up: PCP/GI as sched -Results pending: Final urine culture -Outpatient testing to order: I spent 45 minutes [id number] with the patient on the day of discharge pe rforming discharge exam, discussing hospital stay and discharge instructions with patient & caregivers, preparation of discharge records, prescriptions & referral forms and addressing any questions/concerns the patient had as documented above. - Vitals & Intake/Output Vital Signs: Vital Signs Temperature 97.9 F 12/01/22 11:42 Pulse Rate 51 L 12/01/22 11:42 Respiratory Rate 16 12/01/22 11:42 Blood Pressure 139/72 12/01/22 11:42 O2 Sat by Pulse Oximetry 97 12/01/22 11:42 Intake & Output: Intake & Output 11/29/22 11/30/22 12/01/22 12/02/22 11:59 11:59 11:59 11:59 Intake Total 912 Output Total 300 Balance 612 Weight 74.6 kg - Lab Result Diagrams: 12/01/22 08:30 12/01/22 08:30 Lab Results-Last 24 Hrs: Lab Results-Last 24 Hours 11/30/22 11/30/22 11/30/22 Range/Units 14:30 14:30 14:34 WBC 7.9 (4.0-10.5) x10^3/uL RBC 4.19 (4.1-5.4) x10^6/uL Hgb 13.7 (12.0-16.0) g/dL Hct 41.3 (35-47) % MCV 98.6 (78-100) fL MCH 32.7 H (26-32) pg MCHC 33.2 (32-36) g/dL RDW 12.1 (11.5-14.0) % Plt Count 348 (150-450) x10^3/uL MPV 9.7 (7.5-11.0) fL Gran % 42.4 (36.0-66.0) % Immature Gran % (Auto) 0.1 (0.00-0.4) % Nucleat RBC Rel Count 0.0 (0.00-0.1) % Eos # (Auto) 0.15 (0-0.5) x10^3/uL Immature Gran # (Auto) 0.01 (0.00-0.03) x10^3u/L Absolute Lymphs (auto) 3.82 (1.0-4.6) x10^3/uL Absolute Monos (auto) 0.50 (0.0-1.3) x10^3/uL Absolute Nucleated RBC 0.00 (0.00-0.01) x10^3u/L Lymphocytes % 48.4 H (24.0-44.0) % Monocytes % 6.3 (0.0-12.0) % Eosinophils % 1.9 (0.00-5.0) % Basophils % 0.9 (0.0-0.4) % Absolute Granulocytes 3.35 (1.4-6.9) x10^3/uL Basophils # 0.07 (0-0.4) x10^3/uL Sodium 142 (137-145) mmol/L Potassium 3.5 (3.5-5.1) mmol/L Chloride 110 H (98-107) mmol/L Carbon Dioxide 25 (22-30) mmol/L Anion Gap 10.5 (5-15) MEQ/L BUN 8 (7-17) mg/dL Creatinine 0.76 (0.52-1.04) mg/dL Estimated GFR > 60.0 ML/MIN Glucose 66 L (74-106) mg/dL POC Glucometer (74 to 106) mg/dL Lactic Acid (0.4-2.0) Calcium 8.9 (8.4-10.2) mg/dL Magnesium (1.6-2.3) mg/dL Total Bilirubin 0.30 (0.2-1.3) mg/dL AST 25 (14-36) U/L ALT 18 (0-35) U/L Alkaline Phosphatase 95 (38-126) U/L Troponin I < 0.012 (0.000-0.034) ng/mL Serum Total Protein 6.9 (6.3-8.2) g/dL Albumin 4.1 (3.5-5.0) g/dL Amylase 95 (30-110) U/L Lipase 43 (23-300) U/L Urine Color Yellow (Yellow) Urine Appearance Cloudy A (Clear) Urine pH 7.0 (4.6-8.0) Ur Specific [place] 1.010 (1.005-1.030) Urine Protein Negative (Negative) Urine Glucose (UA) Negative (Negative) mg/dL Urine Ketones Negative (Negative) Urine Blood Negative (Negative) Urine Nitrite Negative (Negative) Urine Bilirubin Negative (Negative) Urine Urobilinogen 0.2 (0.2) mg/dL Ur Leukocyte Esterase Trace A (Negative) U Hyaline Cast (Auto) NONE SEEN (0-2) /LPF Urine Microscopic RBC 0-2 (0-5) /HPF Urine Microscopic WBC 3-5 (0-5) /HPF Ur Epithelial Cells Many A (None Seen) /HPF Urine Bacteria Rare A (None Seen) /HPF Urine Culture Reflexed YES (NO) Influenza Type A Ag (NEGATIVE) Influenza Type B Ag (NEGATIVE) RSV (PCR) (NEGATIVE) SARS-CoV-2 (PCR) (NEGATIVE) 11/30/22 11/30/22 11/30/22 Range/Units 15:00 15:10 18:05 WBC (4.0-10.5) x10^3/uL RBC (4.1-5.4) x10^6/uL Hgb (12.0-16.0) g/dL Hct (35-47) % MCV (78-100) fL MCH (26-32) pg MCHC (32-36) g/dL RDW (11.5-14.0) % Plt Count (150-450) x10^3/uL MPV (7.5-11.0) fL Gran % (36.0-66.0) % Immature Gran % (Auto) (0.00-0.4) % Nucleat RBC Rel Count (0.00-0.1) % Eos # (Auto) (0-0.5) x10^3/uL Immature Gran # (Auto) (0.00-0.03) x10^3u/L Absolute Lymphs (auto) (1.0-4.6) x10^3/uL Absolute Monos (auto) (0.0-1.3) x10^3/uL Absolute Nucleated RBC (0.00-0.01) x10^3u/L Lymphocytes % (24.0-44.0) % Monocytes % (0.0-12.0) % Eosinophils % (0.00-5.0) % Basophils % (0.0-0.4) % Absolute Granulocytes (1.4-6.9) x10^3/uL Basophils # (0-0.4) x10^3/uL Sodium (137-145) mmol/L Potassium (3.5-5.1) mmol/L Chloride (98-107) mmol/L Carbon Dioxide (22-30) mmol/L Anion Gap (5-15) MEQ/L BUN (7-17) mg/dL Creatinine (0.52-1.04) mg/dL Estimated GFR ML/MIN Glucose (74-106) mg/dL POC Glucometer 100 (74 to 106) mg/dL Lactic Acid 1.1 (0.4-2.0) Calcium (8.4-10.2) mg/dL Magnesium (1.6-2.3) mg/dL Total Bilirubin (0.2-1.3) mg/dL AST (14-36) U/L ALT (0-35) U/L Alkaline Phosphatase (38-126) U/L Troponin I (0.000-0.034) ng/mL Serum Total Protein (6.3-8.2) g/dL Albumin (3.5-5.0) g/dL Amylase (30-110) U/L Lipase (23-300) U/L Urine Color (Yellow) Urine Appearance (Clear) Urine pH (4.6-8.0) Ur Specific [place] (1.005-1.030) Urine Protein (Negative) Urine Glucose (UA) (Negative) mg/dL Urine Ketones (Negative) Urine Blood (Negative) Urine Nitrite (Negative) Urine Bilirubin (Negative) Urine Urobilinogen (0.2) mg/dL Ur Leukocyte Esterase (Negative) U Hyaline Cast (Auto) (0-2) /LPF Urine Microscopic RBC (0-5) /HPF Urine Microscopic WBC (0-5) /HPF Ur Epithelial Cells (None Seen) /HPF Urine Bacteria (None Seen) /HPF Urine Culture Reflexed (NO) Influenza Type A Ag NEGATIVE (NEGATIVE) Influenza Type B Ag NEGATIVE (NEGATIVE) RSV (PCR) NEGATIVE (NEGATIVE) SARS-CoV-2 (PCR) NEGATIVE (NEGATIVE) 11/30/22 12/01/22 12/01/22 Range/Units 18:55 00:00 08:30 WBC (4.0-10.5) x10^3/uL RBC (4.1-5.4) x10^6/uL Hgb (12.0-16.0) g/dL Hct (35-47) % MCV (78-100) fL MCH (26-32) pg MCHC (32-36) g/dL RDW (11.5-14.0) % Plt Count (150-450) x10^3/uL MPV (7.5-11.0) fL Gran % (36.0-66.0) % Immature Gran % (Auto) (0.00-0.4) % Nucleat RBC Rel Count (0.00-0.1) % Eos # (Auto) (0-0.5) x10^3/uL Immature Gran # (Auto) (0.00-0.03) x10^3u/L Absolute Lymphs (auto) (1.0-4.6) x10^3/uL Absolute Monos (auto) (0.0-1.3) x10^3/uL Absolute Nucleated RBC (0.00-0.01) x10^3u/L Lymphocytes % (24.0-44.0) % Monocytes % (0.0-12.0) % Eosinophils % (0.00-5.0) % Basophils % (0.0-0.4) % Absolute Granulocytes (1.4-6.9) x10^3/uL Basophils # (0-0.4) x10^3/uL Sodium (137-145) mmol/L Potassium (3.5-5.1) mmol/L Chloride (98-107) mmol/L Carbon Dioxide (22-30) mmol/L Anion Gap (5-15) MEQ/L BUN (7-17) mg/dL Creatinine (0.52-1.04) mg/dL Estimated GFR ML/MIN Glucose (74-106) mg/dL POC Glucometer (74 to 106) mg/dL Lactic Acid (0.4-2.0) Calcium (8.4-10.2) mg/dL Magnesium 2.1 (1.6-2.3) mg/dL Total Bilirubin (0.2-1.3) mg/dL AST (14-36) U/L ALT (0-35) U/L Alkaline Phosphatase (38-126) U/L Troponin I < 0.012 < 0.012 (0.000-0.034) ng/mL Serum Total Protein (6.3-8.2) g/dL Albumin (3.5-5.0) g/dL Amylase (30-110) U/L Lipase (23-300) U/L Urine Color (Yellow) Urine Appearance (Clear) Urine pH (4.6-8.0) Ur Specific [place] (1.005-1.030) Urine Protein (Negative) Urine Glucose (UA) (Negative) mg/dL Urine Ketones (Negative) Urine Blood (Negative) Urine Nitrite (Negative) Urine Bilirubin (Negative) Urine Urobilinogen (0.2) mg/dL Ur Leukocyte Esterase (Negative) U Hyaline Cast (Auto) (0-2) /LPF Urine Microscopic RBC (0-5) /HPF Urine Microscopic WBC (0-5) /HPF Ur Epithelial Cells (None Seen) /HPF Urine Bacteria (None Seen) /HPF Urine Culture Reflexed (NO) Influenza Type A Ag (NEGATIVE) Influenza Type B Ag (NEGATIVE) RSV (PCR) (NEGATIVE) SARS-CoV-2 (PCR) (NEGATIVE) 12/01/22 12/01/22 Range/Units 08:30 08:30 WBC 5.4 (4.0-10.5) x10^3/uL RBC 3.94 L (4.1-5.4) x10^6/uL Hgb 12.9 (12.0-16.0) g/dL Hct 39.7 (35-47) % MCV 100.8 H (78-100) fL MCH 32.7 H (26-32) pg MCHC 32.5 (32-36) g/dL RDW 12.1 (11.5-14.0) % Plt Count 291 (150-450) x10^3/uL MPV 9.6 (7.5-11.0) fL Gran % 43.1 (36.0-66.0) % Immature Gran % (Auto) 0.2 (0.00-0.4) % Nucleat RBC Rel Count 0.0 (0.00-0.1) % Eos # (Auto) 0.15 (0-0.5) x10^3/uL Immature Gran # (Auto) 0.01 (0.00-0.03) x10^3u/L Absolute Lymphs (auto) 2.49 (1.0-4.6) x10^3/uL Absolute Monos (auto) 0.38 (0.0-1.3) x10^3/uL Absolute Nucleated RBC 0.00 (0.00-0.01) x10^3u/L Lymphocytes % 45.8 H (24.0-44.0) % Monocytes % 7.0 (0.0-12.0) % Eosinophils % 2.8 (0.00-5.0) % Basophils % 1.1 (0.0-0.4) % Absolute Granulocytes 2.35 (1.4-6.9) x10^3/uL Basophils # 0.06 (0-0.4) x10^3/uL Sodium 139 (137-145) mmol/L Potassium 3.5 (3.5-5.1) mmol/L Chloride 107 (98-107) mmol/L Carbon Dioxide 26 (22-30) mmol/L Anion Gap 9.1 (5-15) MEQ/L BUN 7 (7-17) mg/dL Creatinine 0.81 (0.52-1.04) mg/dL Estimated GFR > 60.0 ML/MIN Glucose 87 (74-106) mg/dL POC Glucometer (74 to 106) mg/dL Lactic Acid (0.4-2.0) Calcium 8.4 (8.4-10.2) mg/dL Magnesium (1.6-2.3) mg/dL Total Bilirubin 0.50 (0.2-1.3) mg/dL AST 28 (14-36) U/L ALT 20 (0-35) U/L Alkaline Phosphatase 84 (38-126) U/L Troponin I (0.000-0.034) ng/mL Serum Total Protein 6.4 (6.3-8.2) g/dL Albumin 3.8 (3.5-5.0) g/dL Amylase (30-110) U/L Lipase (23-300) U/L Urine Color (Yellow) Urine Appearance (Clear) Urine pH (4.6-8.0) Ur Specific [place] (1.005-1.030) Urine Protein (Negative) Urine Glucose (UA) (Negative) mg/dL Urine Ketones (Negative) Urine Blood (Negative) Urine Nitrite (Negative) Urine Bilirubin (Negative) Urine Urobilinogen (0.2) mg/dL Ur Leukocyte Esterase (Negative) U Hyaline Cast (Auto) (0-2) /LPF Urine Microscopic RBC (0-5) /HPF Urine Microscopic WBC (0-5) /HPF Ur Epithelial Cells (None Seen) /HPF Urine Bacteria (None Seen) /HPF Urine Culture Reflexed (NO) Influenza Type A Ag (NEGATIVE) Influenza Type B Ag (NEGATIVE) RSV (PCR) (NEGATIVE) SARS-CoV-2 (PCR) (NEGATIVE) Micro Results-Entire Visit: Microbiology 11/30/22 14:34 Urine Culture - Preliminary Clean Catch Midstream NO GROWTH TO DATE Accuchecks Date 11/30/22 Time 18:05 - Radiology Exams Ordered Rad Exams-Entire Visit: Radiology Procedures Category Date Time Status ABDOMEN AND PELVIS W/0 CONTRAS [CT] Stat Exams 11/30/22 16:00 Completed ABDOMEN WITH CONTRAST [CT] Urgent Exams 11/30/22 21:06 Completed Discharge Exam General Appearance: no apparent distress Neurologic Exam: alert, oriented x 3, cooperative Eye Exam: PERRL Ears, Nose, Throat Exam: normal ENT inspection Neck Exam: normal inspection Respiratory Exam: normal breath sounds, lungs clear Cardiovascular Exam: regular rate/rhythm, normal heart sounds Gastrointestinal/Abdomen Exam: soft, normal bowel sounds Pelvic Exam: deferred Rectal Exam: deferred Back Exam: normal inspection Extremity Exam: normal inspection Skin Exam: normal color Final Diagnosis/Problem List - Final Discharge Diagnosis/Problem (1) Abdominal pain Current Visit: Yes Status: Resolved Code(s): R10.9 - UNSPECIFIED ABDOMINAL PAIN (2) Anxiety and depression Current Visit: Yes Status: Chronic Code(s): F41.9 - ANXIETY DISORDER, UNSPECIFIED; F32.A - DEPRESSION, UNSPECIFIED (3) Hypertension Current Visit: Yes Status: Chronic Code(s): I10 - ESSENTIAL (PRIMARY) HYPERTENSION (4) Hyperlipidemia Current Visit: Yes Status: Chronic Code(s): E78.5 - HYPERLIPIDEMIA, UNSPECIFIED (5) Hypothyroidism Current Visit: Yes Status: Chronic Code(s): E03.9 - HYPOTHYROIDISM, UNSPECIFIED (6) GERD with esophagitis Current Visit: No Status: Chronic Code(s): K21.00 - GASTRO-ESOPHAGEAL REFLUX DIS WITH ESOPHAGITIS, WITHOUT BLEED - Discharge Disposition: Home, Self-Care Condition: Stable Prescriptions: New Ondansetron ODT 4 MG [Zofran Odt 4 mg] 4 mg PO Q6H PRN PRN #10 tablet PRN Reason: Nausea Continue PANTOPRAZOLE 40 mg Tablet [Protonix 40MG Tablet] 40 mg PO BID Montelukast Sodium 10 mg [Singulair 10 MG] 10 mg PO HS Levothyroxine Sodium 75 Mcg [Synthroid 75 Mcg] 75 mcg PO DAILY Fluticasone Propionate [Flonase Allergy Relief] 2 puffs IH DAILY Cetirizine HCl [Zyrtec] 10 mg PO DAILY Atorvastatin Calcium 40 mg PO HS Gabapentin [Neurontin ] 900 mg PO QHS Tizanidine HCl 4 mg [Zanaflex 4 MG] 8 mg PO QHS Gabapentin [Neurontin ] 300 mg PO DAILY Mirtazapine 30 mg [Remeron 30 mg] 45 mg PO HS Sertraline HCl 50 mg [Zoloft 50 mg Tablet] 100 mg PO DAILY Losartan/Hydrochlorothiazide [Losartan-Hctz 50-12.5 mg Tab] 1 each PO DAILY Tizanidine HCl 4 mg [Zanaflex 4 MG] 4 mg PO DAILY Instructions: Severe Abdominal Pain, Adult (DC) Follow up with: SUSIE GRAJEDA NP [Primary Care Provider] -
== END 2022-12-01 13:58 | disposition home or self-care (01) ==
LOC: ED 14:13 → MED SURG 20:45
PROVIDERS: ADMIT Student in an Organized Health Care Education/Training Program; ATTEND Student in an Organized Health Care Education/Training Program
DX: R10.9 Unspecified abdominal pain (principal); E78.5 Hyperlipidemia, unspecified; I10 Essential (primary) hypertension; E03.9 Hypothyroidism, unspecified; F41.9 Anxiety disorder, unspecified; K21.00 Gastro-esophageal reflux disease with esophagitis, without bleeding; Z79.899 Other long term (current) drug therapy; Z20.828 Contact with and (suspected) exposure to other viral communicable diseases
CPT/HCPCS: 0241U; 36415; 74160; 74176; 80053; 81001; 82150; 82947; 83605; 83690; 83735; 84484; 85025; 87086; 96374; 96375; 99285; G0378; J1170; J1885; J2405; J3010; Q3014; A9270-GY

== ENCOUNTER 2022-12-01 15:41 | Emergency (ER) | payer OTHER ==
[2022-12-01 15:52] VITALS: TEMP 97.8
[2022-12-01 16:41] LABS: Absolute Neutrophil Ct (ANC) 2.82 x10^3/uL (1.4-6.9); Basophil (Absolute #) 0.05 x10^3/uL (0-0.4); Eosinophil % 1.8 % (0.00-5.0); Eosinophil (Absolute #) 0.09 x10^3/uL (0-0.5); Hematocrit 38.6 % (35-47); Hemoglobin 12.6 g/dL (12.0-16.0); IMMATURE GRAN # 0.01 x10^3u/L (0.00-0.03); IMMATURE GRAN % 0.2 % (0.00-0.4); Lymphocytes % 35.6 % (24.0-44.0); Mean Cell Volume 99.7 fL (78-100); Mean Corpuscular Hemoglobin 32.6 pg (26-32); Mean Corpuscular Hgb Concent. 32.6 g/dL (32-36); Mean Platelet Volume 9.5 fL (7.5-11.0); Monocyte (Absolute #) 0.29 x10^3/uL (0.0-1.3); Monocytes % 5.7 % (0.0-12.0); Neutrophil % 55.7 % (36.0-66.0); Platelet Count 300 x10^3/uL (150-450); Red Blood Count 3.87 x10^6/uL (4.1-5.4); Red Cell Distribution Width 12.2 % (11.5-14.0); White Blood Count 5.1 x10^3/uL (4.0-10.5)
[2022-12-01 16:51] LABS: ACETAMINOPHEN < 10 ug/ml (10-30); ALBUMIN 3.7 g/dL (3.5-5.0); ALKALINE PHOSPHATASE 86 U/L (38-126); ANION GAP 10.2 MEQ/L (5-15); BLOOD UREA NITROGEN 6 mg/dL (7-17); CHLORIDE 108 mmol/L (98-107); Calcium 8.4 mg/dL (8.4-10.2); Carbon Dioxide 25 mmol/L (22-30); Creatinine 1 0.79 mg/dL (0.52-1.04); EST GLOMERULAR FILTRATION RATE > 60.0 ML/MIN; ETHYL ALCOHOL < 10 mg/dL (0-10); Glucose 104 mg/dL (74-106); Potassium 3.6 mmol/L (3.5-5.1); SALICYLATE < 1.0 mg/dL (2-20); SGOT/AST 27 U/L (14-36); SGPT/ALT 19 U/L (0-35); SODIUM 139 mmol/L (137-145); Total Protein 6.2 g/dL (6.3-8.2)
[2022-12-01] MEDS ORDERED: Sodium Chloride 0.9% 1000 ML 1,000 ML ONE ×2 (17:35→20:04)
[2022-12-01 17:41] LABS: Appearance Clear (Clear); Bacteria None Seen /HPF (None Seen); Bilirubin Negative (Negative); Blood Negative (Negative); Epithelial Cells Rare /HPF (None Seen); Glucose, Urine Negative (Negative); Hyaline Casts NONE SEEN /LPF (0-2); Ketones Negative (Negative); Leukocyte Esterase Negative (Negative); Nitrite Negative (Negative); Ph 7.5 (4.6-8.0); Protein,Urine Dip Negative (Negative); RBC 0-2 /HPF (0-5); Specific Gravity 1.015 (1.005-1.030); WBC 0-2 /HPF (0-5)
[2022-12-01 17:45] LABS: ADD URINE CULTURE? NO (NO)
--- NOTE | 2022-12-01 17:56 | ERPHSYRPT ---
- History of Present Illness Time Seen by Provider: 12/01/22 15:50 Source: patient Exam Limitations: no limitations Patient Subjective Stated Complaint: Pt spent the night at [facility] due to stomach issues and got out today and took a shot of Delta 9 THC and then got scared and narcaned herself and then called an ambulance due to her anxiety Triage Nursing Assessment: Pt brought to the ER by EMS, vitals wnl, denies pain, pt keeps stating to not let her , states that she takes the Delta shot nightly to help her sleep, pulses normal, skin n/w/d, no difficulty breathing, doesn't appear to be in any distress Physician History: Patient is a 52-year-old female presents to our ED via EMS for evaluation of anxiety patient was discharged in our hospital today. Patient states she wanted to get some rest so she took delta 9 synthetic THC. Patient states this has helped her sleep in the past. However instead it made her very anxious. Patient became very concerned and self administered Narcan. Patient arrived feeling very anxious. Patient denies pain. Symptoms are mild to moderate in intensity. No worsening or improving factors otherwise. No chest pain no shortness of breath no nausea vomiting or diaphoresis. Patient voices no other complaints or concerns at this time. Portions of this note were created with voice recognition technology. There may be grammatical, spelling, punctuation or sound alike errors Timing/Duration: today Severity: moderate Modifying Factors: Improves With: nothing Associated Symptoms: denies symptoms Allergies/Adverse Reactions: No Known Drug Allergies Allergy (Verified 12/01/22 15:52) Home Medications: Atorvastatin Calcium 40 mg PO HS 06/18/21 [History] Cetirizine HCl [Zyrtec] 10 mg PO DAILY 06/18/21 [History] Fluticasone Propionate [Flonase Allergy Relief] 2 puffs IH DAILY 06/18/21 [History] Levothyroxine Sodium 75 Mcg [Synthroid 75 Mcg] 75 mcg PO DAILY 06/18/21 [History] Montelukast Sodium 10 mg [Singulair 10 MG] 10 mg PO HS 06/18/21 [History] PANTOPRAZOLE 40 mg Tablet [Protonix 40MG Tablet] 40 mg PO BID 06/18/21 [History] Gabapentin [Neurontin ] 900 mg PO QHS 06/19/21 [History] Tizanidine HCl 4 mg [Zanaflex 4 MG] 8 mg PO QHS 06/19/21 [History] Gabapentin [Neurontin ] 300 mg PO DAILY 03/12/22 [History] Mirtazapine 30 mg [Remeron 30 mg] 45 mg PO HS 03/12/22 [History] Losartan/Hydrochlorothiazide [Losartan-Hctz 50-12.5 mg Tab] 1 each PO DAILY 04/01/22 [History] Sertraline HCl 50 mg [Zoloft 50 mg Tablet] 100 mg PO DAILY 04/01/22 [History] Tizanidine HCl 4 mg [Zanaflex 4 MG] 4 mg PO DAILY 04/27/22 [History] Hx Tetanus, Diphtheria Vaccination/Date Given: Yes Hx Influenza Vaccination/Date Given: No Hx Pneumococcal Vaccination/Date Given: No Travel Risk - International Travel Have you traveled outside of the country in past 3 weeks: No - Coronavirus Screening Are you exhibiting any of the following symptoms?: No Close contact with a COVID-19 positive Pt in past 14-21 Days: No - Vaccine Status Have you recieved a Covid-19 vaccination: Yes 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: [employer] - Vaccination Dates Date of 2cond Vaccination (if applicable): UNKNOWN - Review of Systems Constitutional: No Symptoms, No Fever, No Chills Eyes: No Symptoms Ears, Nose, & Throat: No Symptoms Respiratory: No Symptoms, No Cough, No Dyspnea Cardiac: No Symptoms, No Chest Pain, No Edema, No Syncope Abdominal/Gastrointestinal: No Symptoms, No Abdominal Pain, No Nausea, No Vomiting, No Diarrhea Genitourinary Symptoms: No Symptoms, No Dysuria Musculoskeletal: No Symptoms, No Back Pain, No Neck Pain Skin: No Symptoms, No Rash Neurological: No Symptoms, No Dizziness, No Focal Weakness, No Sensory Changes Psychological: No Symptoms Endocrine: No Symptoms Hematologic/Lymphatic: No Symptoms Immunological/Allergic: No Symptoms All Other Systems: Reviewed and Negative - Past Medical History Pertinent Past Medical History: Yes Neurological History: No Pertinent History ENT History: No Pertinent History Cardiac History: High Cholesterol, Hypertension, Other Respiratory History: Bronchitis Endocrine Medical History: Hypothyroidism Musculoskeletal History: No Pertinent History GI Medical History: GERD, Pancreatitis History: Other Psycho-Social History: Anxiety, Depression Female Reproductive Disorders: No Pertinent History Other Medical History: SVT, multiple UTIs - Past Surgical History Past Surgical History: Yes Neuro Surgical History: No Pertinent History Cardiac: Cardiac Catheterization, Other Respiratory: No Pertinent History Gastrointestinal: Cholecystectomy Genitourinary: No Pertinent History Musculoskeletal: Other Female Surgical History: Dilation & Curettage, Section, Other Other Surgical History: breast reduction, spinal cord stimulator put in and removed, cardiac ablation for SVT, endometrial ablation, 4 back surgeries - Social History Smoking Status: Former smoker How long have you smoked: 30 years Exposure to second hand smoke: Yes Drug Use: other Patient Lives Alone: No Significant Family History: heart disease - Nursing Vital Signs Nursing Vital Signs: Initial Vital Signs Temperature 97.8 F 12/01/22 15:42 Pulse Rate 79 12/01/22 15:42 Blood Pressure 138/89 12/01/22 15:42 O2 Sat by Pulse Oximetry 97 12/01/22 15:42 Pain Scale Pain Intensity 0 - Physical Exam General Appearance: no apparent distress, alert, anxiety, other (Patient appears very anxious) Eye Exam: PERRL/EOMI, eyes nml inspection Ears, Nose, Throat Exam: normal ENT inspection, TMs normal, pharynx normal, moist mucous membranes Neck Exam: normal inspection, non-tender, supple, full range of motion Respiratory Exam: normal breath sounds, lungs clear, No respiratory distress Cardiovascular Exam: regular rate/rhythm, normal heart sounds, normal peripheral pulses Gastrointestinal/Abdomen Exam: soft, normal bowel sounds, No tenderness, No mass Back Exam: normal inspection, normal range of motion, No CVA tenderness, No vertebral tenderness Extremity Exam: normal inspection, normal range of motion, pelvis stable Neurologic Exam: alert, oriented x 3, cooperative, normal mood/affect, nml cerebellar function, nml station & gait, sensation nml, No motor deficits Skin Exam: normal color, warm, dry, No rash Lymphatic Exam: No adenopathy SpO2 Interpretation: normal SpO2: 97 O2 Delivery: Room Air - Course Nursing assessment & vital signs reviewed: Yes Ordered Tests: Active Orders 24 hr Category Date Time Status Cnc Machine 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 STAT Care 12/01/22 15:49 Active ACETAMINOPHEN Stat Lab 12/01/22 16:28 Completed CBC W DIFF Stat Lab 12/01/22 16:28 Completed CMP Stat Lab 12/01/22 16:28 Completed ETHYL ALCOHOL Stat Lab 12/01/22 16:28 Completed SALICYLATE Stat Lab 12/01/22 16:28 Completed UA W/RFX UR CULTURE Stat Lab 12/01/22 16:52 Completed Urine Triage Profile Stat Lab 12/01/22 16:52 Completed Medication Summary Discontinued Medications Generic Name Dose Route Start Last Admin Trade Name Yesika PRN Reason Stop Dose Admin Sodium Chloride Confirm 12/01/22 17:35 Sodium Chloride 0.9% 1000 Ml Administered 12/01/22 17:36 Dose 1,000 mls @ ud .ROUTE .STK-MED ONE Sodium Chloride 1,000 mls @ 999 mls/hr 12/01/22 18:49 12/01/22 18:00 Sodium Chloride 0.9% 1000 Ml IV 12/01/22 19:49 999 mls/hr .Q1H1M STA Administration Sodium Chloride 1,000 mls @ 999 mls/hr 12/01/22 19:58 12/01/22 20:10 Sodium Chloride 0.9% 1000 Ml IV 12/01/22 20:58 999 mls/hr .Q1H1M STA Administration Sodium Chloride Confirm 12/01/22 20:04 Sodium Chloride 0.9% 1000 Ml Administered 12/01/22 20:05 Dose 1,000 mls @ ud .ROUTE .STK-MED ONE Lab/Rad Data: Laboratory Result Diagrams 12/01/22 16:28 12/01/22 16:28 Laboratory Results 12/01/22 12/01/22 12/01/22 Range/Units 16:52 16:52 16:28 WBC (4.0-10.5) x10^3/uL RBC (4.1-5.4) x10^6/uL Hgb (12.0-16.0) g/dL Hct (35-47) % MCV (78-100) fL MCH (26-32) pg MCHC (32-36) g/dL RDW (11.5-14.0) % Plt Count (150-450) x10^3/uL MPV (7.5-11.0) fL Gran % (36.0-66.0) % Immature Gran % (Auto) (0.00-0.4) % Nucleat RBC Rel Count (0.00-0.1) % Eos # (Auto) (0-0.5) x10^3/uL Immature Gran # (Auto) (0.00-0.03) x10^3u/L Absolute Lymphs (auto) (1.0-4.6) x10^3/uL Absolute Monos (auto) (0.0-1.3) x10^3/uL Absolute Nucleated RBC (0.00-0.01) x10^3u/L Lymphocytes % (24.0-44.0) % Monocytes % (0.0-12.0) % Eosinophils % (0.00-5.0) % Basophils % (0.0-0.4) % Absolute Granulocytes (1.4-6.9) x10^3/uL Basophils # (0-0.4) x10^3/uL Sodium 139 (137-145) mmol/L Potassium 3.6 (3.5-5.1) mmol/L Chloride 108 H (98-107) mmol/L Carbon Dioxide 25 (22-30) mmol/L Anion Gap 10.2 (5-15) MEQ/L BUN 6 L (7-17) mg/dL Creatinine 0.79 (0.52-1.04) mg/dL Estimated GFR > 60.0 ML/MIN Glucose 104 (74-106) mg/dL Calcium 8.4 (8.4-10.2) mg/dL Total Bilirubin 0.50 (0.2-1.3) mg/dL AST 27 (14-36) U/L ALT 19 (0-35) U/L Alkaline Phosphatase 86 (38-126) U/L Serum Total Protein 6.2 L (6.3-8.2) g/dL Albumin 3.7 (3.5-5.0) g/dL Urine Color Yellow (Yellow) Urine Appearance Clear (Clear) Urine pH 7.5 (4.6-8.0) Ur Specific [place] 1.015 (1.005-1.030) Urine Protein Negative (Negative) Urine Glucose (UA) Negative (Negative) mg/dL Urine Ketones Negative (Negative) Urine Blood Negative (Negative) Urine Nitrite Negative (Negative) Urine Bilirubin Negative (Negative) Urine Urobilinogen 1.0 A (0.2) mg/dL Ur Leukocyte Esterase Negative (Negative) U Hyaline Cast (Auto) NONE SEEN (0-2) /LPF Urine Microscopic RBC 0-2 (0-5) /HPF Urine Microscopic WBC 0-2 (0-5) /HPF Ur Epithelial Cells Rare (None Seen) /HPF Urine Bacteria None Seen (None Seen) /HPF Urine Culture Reflexed NO (NO) Salicylates < 1.0 L (2-20) mg/dL Urine Opiates Level NEGATIVE (NEGATIVE) Ur Methadone NEGATIVE (NEGATIVE) Acetaminophen < 10 L (10-30) ug/ml Urine Barbiturates NEGATIVE (NEGATIVE) Ur Phencyclidine (PCP) NEGATIVE (NEGATIVE) Urine Amphetamine NEGATIVE (NEGATIVE) U Benzodiazepine Level NEGATIVE (NEGATIVE) Urine Cocaine NEGATIVE (NEGATIVE) Urine Marijuana (THC) POSITIVE (NEGATIVE) Ethyl Alcohol < 10 (0-10) mg/dL 12/01/22 Range/Units 16:28 WBC 5.1 (4.0-10.5) x10^3/uL RBC 3.87 L (4.1-5.4) x10^6/uL Hgb 12.6 (12.0-16.0) g/dL Hct 38.6 (35-47) % MCV 99.7 (78-100) fL MCH 32.6 H (26-32) pg MCHC 32.6 (32-36) g/dL RDW 12.2 (11.5-14.0) % Plt Count 300 (150-450) x10^3/uL MPV 9.5 (7.5-11.0) fL Gran % 55.7 (36.0-66.0) % Immature Gran % (Auto) 0.2 (0.00-0.4) % Nucleat RBC Rel Count 0.0 (0.00-0.1) % Eos # (Auto) 0.09 (0-0.5) x10^3/uL Immature Gran # (Auto) 0.01 (0.00-0.03) x10^3u/L Absolute Lymphs (auto) 1.80 (1.0-4.6) x10^3/uL Absolute Monos (auto) 0.29 (0.0-1.3) x10^3/uL Absolute Nucleated RBC 0.00 (0.00-0.01) x10^3u/L Lymphocytes % 35.6 (24.0-44.0) % Monocytes % 5.7 (0.0-12.0) % Eosinophils % 1.8 (0.00-5.0) % Basophils % 1.0 (0.0-0.4) % Absolute Granulocytes 2.82 (1.4-6.9) x10^3/uL Basophils # 0.05 (0-0.4) x10^3/uL Sodium (137-145) mmol/L Potassium (3.5-5.1) mmol/L Chloride (98-107) mmol/L Carbon Dioxide (22-30) mmol/L Anion Gap (5-15) MEQ/L BUN (7-17) mg/dL Creatinine (0.52-1.04) mg/dL Estimated GFR ML/MIN Glucose (74-106) mg/dL Calcium (8.4-10.2) mg/dL Total Bilirubin (0.2-1.3) mg/dL AST (14-36) U/L ALT (0-35) U/L Alkaline Phosphatase (38-126) U/L Serum Total Protein (6.3-8.2) g/dL Albumin (3.5-5.0) g/dL Urine Color (Yellow) Urine Appearance (Clear) Urine pH (4.6-8.0) Ur Specific [place] (1.005-1.030) Urine Protein (Negative) Urine Glucose (UA) (Negative) mg/dL Urine Ketones (Negative) Urine Blood (Negative) Urine Nitrite (Negative) Urine Bilirubin (Negative) Urine Urobilinogen (0.2) mg/dL Ur Leukocyte Esterase (Negative) U Hyaline Cast (Auto) (0-2) /LPF Urine Microscopic RBC (0-5) /HPF Urine Microscopic WBC (0-5) /HPF Ur Epithelial Cells (None Seen) /HPF Urine Bacteria (None Seen) /HPF Urine Culture Reflexed (NO) Salicylates (2-20) mg/dL Urine Opiates Level (NEGATIVE) Ur Methadone (NEGATIVE) Acetaminophen (10-30) ug/ml Urine Barbiturates (NEGATIVE) Ur Phencyclidine (PCP) (NEGATIVE) Urine Amphetamine (NEGATIVE) U Benzodiazepine Level (NEGATIVE) Urine Cocaine (NEGATIVE) Urine Marijuana (THC) (NEGATIVE) Ethyl Alcohol (0-10) mg/dL - Progress Progress: improved Progress Note: Patient is a 52-year-old female presents to our ED via EMS for feeling anxious after taking synthetic marijuana. We contacted poison control. We were advised to monitor patient for approximately 6 hours. Patient we were also advised to obtain toxicology labs. Work-up essentially unremarkable. Patient observed. Patient not feeling well. Patient asymptomatic. There is a period of time while patient's blood pressure was running low. Patient received 2 L normal saline. Patient currently symptomatic. Patient requesting discharge. Vital stable. Blood pressure back to her norm. Patient voices no other complaints or concerns at this time. Portions of this note were created with voice recognition technology. There may be grammatical, spelling, punctuation or sound alike errors Complexity of problems addressed is moderate acute complicated Complexity of data reviewed and analyzed is extensive test ordered test reviewed. Clinical correlation made between the findings and history and physical examination. Management discussed with poison control. We will do to their recommendations. Patient monitored and worked up according to poison control recommendations Risk of complication and a risk morbidity/mortality patient management is moderate. Test ordered. Test reviewed. EMS served as the primary historian. Patient will be discharged home. Plan of care established for shared decision making. No social determinants of health present to impede follow-up. Vital stable. Portions of this note were created with voice recognition technology. 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 The patient was counseled regarding Diagnosis,Lab results, Imaging studies, need for follow up and when to return to the Emergency Room. Prescriptions given: Discharge Note I have spoken with the patient and/or caregivers. I have explained the patient's condition, diagnosis and treatment plan based on the information available to me at this time. I have answered the patient's and/or caregiver's questions and addressed any concerns. The patient and/or caregivers have as good understanding of the patient's diagnosis, condition and treatment plan as can be expected at this point. The vital signs have been stable. The patient's condition is stable and appropriate for discharge from the emergency department. The patient will pursue further outpatient evaluation with the primary care physician or other designated or consulting physician as outlined in the discharge instructions. The patient and/or caregivers are agreeable to this plan of care and follow-up instructions have been explained in detail. The patient and/or caregivers have received these instruction. The patient/and or caregivers are aware that any significant change in condition or worsening of symptoms should prompt an immediate return to this or the closest emergency department or call 911.
[2022-12-01 18:00] LABS: Amphetamine,Urine NEGATIVE (NEGATIVE); Barbiturate,Urine NEGATIVE (NEGATIVE); Benzodiazepine,Urine NEGATIVE (NEGATIVE); Cocaine,Urine NEGATIVE (NEGATIVE); Methadone,Urine NEGATIVE (NEGATIVE); Opiate,Urine NEGATIVE (NEGATIVE); PCP,Urine NEGATIVE (NEGATIVE); THC,Urine POSITIVE (NEGATIVE)
[2022-12-01] MEDS ORDERED: Sodium Chloride 0.9% 1000 ML 1,000 ML IV STA ×2 (18:49→19:58)
[2022-12-01 23:34] VITALS: BP 133/37; PULSE 61; RESP 16; O2SAT 97
== END 2022-12-01 23:46 | disposition home or self-care (01) ==
LOC: ED 15:41
DX: F12.980 Cannabis use, unspecified with anxiety disorder (principal); E78.5 Hyperlipidemia, unspecified; I10 Essential (primary) hypertension; Z79.899 Other long term (current) drug therapy
CPT/HCPCS: 36415; 80053; 80143; 80179; 80307; 81001; 82077; 85025; 93041; 96360; 96361; 99284

== ENCOUNTER 2023-03-25 11:32 | Emergency (ER) | payer OTHER ==
--- NOTE | 2023-03-25 11:36 | ERPHSYRPT ---
- History of Present Illness Time Seen by Provider: 03/25/23 11:35 Historian: patient, family Exam Limitations: no limitations Physician History: This is a 53-year-old white female patient who presents with right-sided abdominal pain. She has a history of recurrent pancreatitis and has had several visits to our emergency department secondary to chronic recurrent right-sided abdominal pain. [facility] She does see a local pain specialist, Dr. Ball. Patient is a former smoker. Patient has endoscopic proven gastritis. She had an endoscopy performed March 2022. She has had a cholecystectomy. Her appendix is still in place. Patient's pain states that is stabbing and crampy type pain in the right lower quadrant primarily. Patient took Tylenol at 6 AM and ibuprofen at 8 AM this morning. Neither 1 has helped relieve her of her pain. She is nauseated but has not had any vomiting or diarrhea. She has not had fever or cough. Patient has a history of gastroesophageal reflux disease, COPD, bronc hitis, hypertension, hypothyroidism, hyperlipidemia, anxiety and depression. She also has a history of recurrent UTIs. She has had a cardiac ablation for supraventricular tachycardia. She has a history of chronic low back pain. Timing/Duration: yesterday, worse Quality: cramping, sharpness Abdominal Pain Onset Location: RLQ Pain Radiation: no radiation Severity of Pain-Max: moderate Severity of Pain-Current: moderate Modifying Factors: Improves With: nothing Associated Symptoms: nausea, No chest pain, No headache, No shortness of breath, No vomiting Previous symptoms: same symptoms as today, no recent treatment Allergies/Adverse Reactions: No Known Drug Allergies Allergy (Verified 12/01/22 15:52) Home Medications: Atorvastatin Calcium 40 mg PO HS 06/18/21 [History] Cetirizine HCl [Zyrtec] 10 mg PO DAILY 06/18/21 [History] Fluticasone Propionate [Flonase Allergy Relief] 2 puffs IH DAILY 06/18/21 [Hist ory] Levothyroxine Sodium 75 Mcg [Synthroid 75 Mcg] 75 mcg PO DAILY 06/18/21 [History] Montelukast Sodium 10 mg [Singulair 10 MG] 10 mg PO HS 06/18/21 [History] PANTOPRAZOLE 40 mg Tablet [Protonix 40MG Tablet] 40 mg PO BID 06/18/21 [History] Gabapentin [Neurontin ] 900 mg PO QHS 06/19/21 [History] Tizanidine HCl 4 mg [Zanaflex 4 MG] 8 mg PO QHS 06/19/21 [History] Gabapentin [Neurontin ] 300 mg PO DAILY 03/12/22 [History] Mirtazapine 30 mg [Remeron 30 mg] 45 mg PO HS 03/12/22 [History] Losartan/Hydrochlorothiazide [Losartan-Hctz 50-12.5 mg Tab] 1 each PO DAILY 04/01/22 [History] Sertraline HCl 50 mg [Zoloft 50 mg Tablet] 100 mg PO DAILY 04/01/22 [Hi story] Tizanidine HCl 4 mg [Zanaflex 4 MG] 4 mg PO DAILY 04/27/22 [History] Hx Tetanus, Diphtheria Vaccination/Date Given: Yes Hx Influenza Vaccination/Date Given: No Hx Pneumococcal Vaccination/Date Given: No Travel Risk - International Travel Have you traveled outside of the country in past 3 weeks: No - Coronavirus Screening Are you exhibiting any of the following symptoms?: No Close contact with a COVID-19 positive Pt in past 14-21 Days: No - Vaccine Status Have you recieved a Covid-19 vaccination: Yes [employer]: [employer] - Vaccination Dates Date of 2cond Vaccination (if applicable): UNKNOWN - Review of Systems Constitutional: No Symptoms Eyes: No Symptoms Ears, Nose, & Throat: No Symptoms Respiratory: No Symptoms Cardiac: No Symptoms Abdominal/Gastrointestinal: Abdominal Pain (Right side. Primarily right lower quadrant), Nausea, Appetite Changes, No Vomiting, No Diarrhea, No Constipation Genitourinary Symptoms: No Symptoms Musculoskeletal: No Symptoms Skin: No Symptoms Neurological: No Symptoms Psychological: No Symptoms Endocrine: No Symptoms Hematologic/Lymphatic: No Symptoms Immunological/Allergic: No Symptoms All Other Systems: Reviewed and Negative - Past Medical History Pertinent Past Medical History: Yes Neurological History: No Pertinent History ENT History: No Pertinent History Cardiac History: High Cholesterol, Hypertension, Other Respiratory History: Bronchitis Endocrine Medical History: Hypothyroidism Musculoskeletal History: No Pertinent History GI Medical History: GERD, Pancreatitis History: Other Psycho-Social History: Anxiety, Depression Female Reproductive Disorders: No Pertinent History Other Medical History: SVT, multiple UTIs - Past Surgical History Past Surgical History: Yes Neuro Surgical History: No Pertinent History Cardiac: Cardiac Catheterization, Other Respiratory: No Pertinent History Gastrointestinal: Cholecystectomy Genitourinary: No Pertinent History Musculoskeletal: Other Female Surgical History: Dilation & Curettage, Section, Other Other Surgical History: breast reduction, spinal cord stimulator put in and removed, cardiac ablation for SVT, endometrial ablation, 4 back surgeries - Social History Smoking Status: Former smoker How long have you smoked: 30 years Exposure to second hand smoke: Yes Drug Use: other Patient Lives Alone: No Significant Family History: heart disease - Nursing Vital Signs Nursing Vital Signs: Initial Vital Signs Temperature 96.9 F 03/25/23 11:45 Pulse Rate 103 H 03/25/23 11:45 Respiratory Rate 22 03/25/23 11:45 Blood Pressure 125/91 03/25/23 11:45 O2 Sat by Pulse Oximetry 98 03/25/23 11:45 Pain Scale Pain Intensity 7 - Physical Exam General Appearance: no apparent distress, alert, anxiety Eye Exam: PERRL/EOMI, eyes nml inspection Ears, Nose, Throat Exam: normal ENT inspection, moist mucous membranes Neck Exam: normal inspection, non-tender, supple, full range of motion Respiratory Exam: normal breath sounds, lungs clear, airway intact, No chest tenderness, No respiratory distress Cardiovascular Exam: regular rate/rhythm, normal heart sounds, normal peripheral pulses Gastrointestinal/Abdomen Exam: soft, normal bowel sounds, tenderness (Right lower quadrant to palpation), guarding, No rebound (Right lower quadrant to palpation) Pelvic Exam: not done Rectal Exam: not done Back Exam: normal inspection, normal range of motion, No CVA tenderness, No vertebral tenderness Extremity Exam: normal inspection, normal range of motion, pelvis stable Neurologic Exam: alert, oriented x 3, cooperative, latent print examiner II-XII nml as tested, normal mood/affect, nml cerebellar function, nml station & gait, sensation nml Skin Exam: normal color, warm, dry Lymphatic Exam: No adenopathy SpO2 Interpretation: normal O2 Delivery: Room Air - Course Nursing assessment & vital signs reviewed: Yes Ordered Tests: Active Orders 24 hr Category Date Time Status IV Insertion STAT Care 03/25/23 12:10 Active ABDOMEN AND PELVIS W/0 CONTRAS [CT] Stat Exams 03/25/23 12:10 Completed AMYLASE Stat Lab 03/25/23 12:26 Completed CBC W DIFF Stat Lab 03/25/23 12:26 Completed CMP Stat Lab 03/25/23 12:26 Completed LIPASE Stat Lab 03/25/23 12:26 Completed Medication Summary Generic Name Dose Route Start Last Admin Trade Name Freq PRN Reason Stop Dose Admin Sodium Chloride 1,000 mls @ 999 mls/hr 03/25/23 12:10 03/25/23 12:29 Sodium Chloride 0.9% 1000 Ml IV 03/25/23 13:10 999 mls/hr .Q1H1M STA Administration Discontinued Medications Generic Name Dose Route Start Last Admin Trade Name Freq PRN Reason Stop Dose Admin Famotidine 20 mg 03/25/23 12:10 03/25/23 12:30 Famotidine 20 Mg/1 Vial IV 03/25/23 12:11 20 mg STAT ONE Administration Famotidine Confirm 03/25/23 12:17 Famotidine 20 Mg/1 Vial Administered 03/25/23 12:18 Dose 20 mg IV .STK-MED ONE Hydromorphone HCl 1 mg 03/25/23 12:10 03/25/23 12:29 Hydromorphone 1 Mg/1ml Inj IV 03/25/23 12:11 1 mg STAT ONE Administration Hydromorphone HCl Confirm 03/25/23 12:17 Hydromorphone 1 Mg/1ml Inj Administered 03/25/23 12:18 Dose 1 mg .ROUTE .STK-MED ONE Sodium Chloride Confirm 03/25/23 12:18 Sodium Chloride 0.9% 1000 Ml Administered 03/25/23 12:19 Dose 1,000 mls @ ud .ROUTE .STK-MED ONE Ondansetron HCl 4 mg 03/25/23 12:10 03/25/23 12:29 Ondansetron Hcl 4 Mg/2 Ml Vial IV 03/25/23 12:11 4 mg STAT ONE Administration Ondansetron HCl Confirm 03/25/23 12:17 Ondansetron Hcl 4 Mg/2 Ml Vial Administered 03/25/23 12:18 Dose 4 mg .ROUTE .STK-MED ONE Potassium Chloride 20 meq 03/25/23 12:44 Potassium Chloride Tab 10 Meq Tab PO 03/25/23 12:45 STAT ONE Lab/Rad Data: Laboratory Result Diagrams 03/25/23 12:26 03/25/23 12:26 Laboratory Results 03/25/23 03/25/23 03/25/23 Range/Units 12:26 12: 12:02 WBC 7.5 (4.0-10.5) x10^3/uL RBC 4.49 (4.1-5.4) x10^6/uL Hgb 14.3 (12.0-16.0) g/dL Hct 42.2 (35-47) % MCV 94.0 (78-100) fL MCH 31.8 (26-32) pg MCHC 33.9 (32-36) g/dL RDW 12.4 (11.5-14.0) % Plt Count 367 (150-450) x10^3/uL MPV 10.0 (7.5-11.0) fL Gran % 51.6 (36.0-66.0) % Immature Gran % (Auto) 0.3 (0.00-0.4) % Nucleat RBC Rel Count 0.0 (0.00-0.1) % Eos # (Auto) 0.05 (0-0.5) x10^3/uL Immature Gran # (Auto) 0.02 (0.00-0.03) x10^3u/L Absolute Lymphs (auto) 2.89 (1.0-4.6) x10^3/uL Absolute Monos (auto) 0.57 (0.0-1.3) x10^3/uL Absolute Nucleated RBC 0.00 (0.00-0.01) x10^3u/L Lymphocytes % 38.7 (24.0-44.0) % Monocytes % 7.6 (0.0-12.0) % Eosinophils % 0.7 (0.00-5.0) % Basophils % 1.1 (0.0-0.4) % Absolute Granulocytes 3.85 (1.4-6.9) x10^3/uL Basophils # 0.08 (0-0.4) x10^3/uL Sodium 139 (137-145) mmol/L Potassium 3.1 L (3.5-5.1) mmol/L Chloride 108 H (98-107) mmol/L Carbon Dioxide 19 L (22-30) mmol/L Anion Gap 15.2 H (5-15) MEQ/L BUN 9 (7-17) mg/dL Creatinine 0.84 (0.52-1.04) mg/dL Estimated GFR 82.0 ML/MIN Glucose 107 H (74-106) mg/dL Calcium 9.6 (8.4-10.2) mg/dL Total Bilirubin 0.50 (0.2-1.3) mg/dL AST 26 (14-36) U/L ALT 19 (0-35) U/L Alkaline Phosphatase 105 (38-126) U/L Serum Total Protein 7.8 (6.3-8.2) g/dL Albumin 4.6 (3.5-5.0) g/dL Amylase 80 (30-110) U/L Lipase 68 (23-300) U/L Urine Color YELLOW (YELLOW) Urine Appearance CLEAR (CLEAR) Urine pH 6.0 (5-6) Ur Specific [place] 1.025 (1.005-1.025) POC Urine Protein Conf NEGATIVE (Negative) Urine Ketones NEGATIVE (NEGATIVE) Urine Nitrite NEGATIVE (NEGATIVE) Urine Bilirubin NEGATIVE (NEGATIVE) Urine Urobilinogen 0.2 (0-1) mg/dL Urine Leukocytes NEGATIVE (NEGATIVE) U Hyaline Cast (Auto) NONE SEEN (0-2) /LPF Urine RBC NEGATIVE (0-5) Santiago/ul Urine Microscopic RBC 0-2 (0-5) /HPF Urine Microscopic WBC 0-2 (0-5) /HPF Ur Epithelial Cells Moderate A (None Seen) /HPF Urine Bacteria None Seen (None Seen) /HPF Urine Culture Reflexed NO (NO) Urine Glucose NEGATIVE (NEGATIVE) mg/dL - Progress Progress: improved, re-examined Progress Note: 03/25/23 12:21 This patient's medical issue is 1 of moderate complexity. Level complex in the workup performed is based on review the patient's past medical history, review the patient's medication list, review of the patient's drug allergy list, hi story present illness and physical findings on examination. Workup in this patient includes placement of an intravenous line, infusion 1 L normal saline solution, infusion of Dilaudid 1 mg intravenously, and fusion of 4 mg intravenous Zofran, CBC, CMP, amylase, lipase, urinalysis and CT scan of the abdomen pelvis without contrast. 03/25/23 12:46 I interpreted the patient's laboratory data results. Patient's potassium is low at 3.1. We will provide the patient with oral potassium chloride tablet of 20 mEq here in the emergency department. I will write for and remotely send a prescription for potassium for the patient to take over the next couple of days. Patient will follow-up with her primary care provider for this issue. CT scan of the abdomen pelvis without contrast was interpreted by the radiologist and I reviewed the impression. The impression shows chronic findings which include partial intrathoracic stomach, pulmonary emphysema, duodenal diverticulum, chronic diverticulosis. There is no new or acute findings present. This was discussed with the patient. Counseled pt/family regarding: lab results, diagnosis, need for follow-up, rad results Medical Desision Making - Independent Historian Additional History obtained from: Family - Diagnostic Testing Diagnostic test were ordered, analyzed, and reviewed by me: Yes Radiological Interpretation: Reviewed by me, Teleradiologist Report - Risk of complications Minimal Risk: Minimal risk of morbidity - Departure Departure Disposition: Home Clinical Impression: Chronic abdominal pain, Hypokalemia, Duodenal diverticulum, Diverticulosis Condition: Stable Critical Care Time: No Referrals: [facility],'[facility] [Primary Care Provider] - Follow up/PCP as directed Additional Instructions: Drink plenty of clear liquids before advancing your diet. Avoid fatty greasy spicy foods. Take the potassium prescription as prescribed. Call your primary care provider and your pain specialist today, 03/25/2023, to make arranges for further evaluation management including following up on your potassium level and outpatient, chronic pain control issues. Prescriptions: Potassium Chloride Tab* [Klor Con] 10 meq PO BID #4 tab
[2023-03-25 11:56] VITALS: TEMP 96.9
[2023-03-25] MEDS ORDERED: Pepcid 20 MG VIAL IV ONE ×2 (12:10→12:17)
[2023-03-25] MEDS ORDERED: Zofran 4 MG/2 ML VIAL IV ONE (12:10)
[2023-03-25] MEDS ORDERED: Sodium Chloride 0.9% 1000 ML 1,000 ML IV STA (12:10)
[2023-03-25] MEDS ORDERED: Hydromorphone 1 mg/ml Injection IV ONE (12:10)
[2023-03-25] MEDS ORDERED: Zofran 4 MG/2 ML VIAL ONE (12:17)
[2023-03-25] MEDS ORDERED: Hydromorphone 1 mg/ml Injection ONE (12:17)
[2023-03-25] MEDS ORDERED: Sodium Chloride 0.9% 1000 ML 1,000 ML ONE (12:18)
[2023-03-25 12:28] LABS: Absolute Neutrophil Ct (ANC) 3.85 x10^3/uL (1.4-6.9); BASOPHIL % 1.1 % (0.0-0.4); Basophil (Absolute #) 0.08 x10^3/uL (0-0.4); Eosinophil % 0.7 % (0.00-5.0); Eosinophil (Absolute #) 0.05 x10^3/uL (0-0.5); Hematocrit 42.2 % (35-47); Hemoglobin 14.3 g/dL (12.0-16.0); IMMATURE GRAN # 0.02 x10^3u/L (0.00-0.03); IMMATURE GRAN % 0.3 % (0.00-0.4); Lymphocyte (Absolute #) 2.89 x10^3/uL (1.0-4.6); Lymphocytes % 38.7 % (24.0-44.0); Mean Corpuscular Hemoglobin 31.8 pg (26-32); Mean Corpuscular Hgb Concent. 33.9 g/dL (32-36); Monocyte (Absolute #) 0.57 x10^3/uL (0.0-1.3); Monocytes % 7.6 % (0.0-12.0); Neutrophil % 51.6 % (36.0-66.0); Platelet Count 367 x10^3/uL (150-450); Red Blood Count 4.49 x10^6/uL (4.1-5.4); Red Cell Distribution Width 12.4 % (11.5-14.0); White Blood Count 7.5 x10^3/uL (4.0-10.5)
[2023-03-25 12:31] LABS: ADD URINE CULTURE? NO (NO); Appearance CLEAR (CLEAR); Bacteria None Seen /HPF (None Seen); Bilirubin NEGATIVE (NEGATIVE); Epithelial Cells Moderate /HPF (None Seen); Glucose NEGATIVE (NEGATIVE); Hyaline Casts NONE SEEN /LPF (0-2); Ketones NEGATIVE (NEGATIVE); Nitrite NEGATIVE (NEGATIVE); Protein,Urine Dip NEGATIVE (Negative); RBC 0-2 /HPF (0-5); RBC NEGATIVE Ery/ul (0-5); Specific Gravity 1.025 (1.005-1.025); Urobilinogen 0.2 mg/dL (0-1); WBC 0-2 /HPF (0-5)
[2023-03-25 12:39] LABS: ALBUMIN 4.6 g/dL (3.5-5.0); ANION GAP 15.2 MEQ/L (5-15); BILIRUBIN,TOTAL 0.5 mg/dL (0.2-1.3); Calcium 9.6 mg/dL (8.4-10.2); Creatinine 1 0.84 mg/dL (0.52-1.04); Potassium 3.1 mmol/L (3.5-5.1); Total Protein 7.8 g/dL (6.3-8.2)
--- NOTE | 2023-03-25 12:39 | XRAY ---
Indication: Right lower quadrant pain. History pancreatitis. Multiple contiguous axial images obtained through the abdomen and pelvis without contrast. Comparison: November 30, 2022 Lung bases again demonstrates pulmonary emphysema without infiltrate or effusion. Heart not enlarged. Stable moderate-sized hiatal hernia with partial intrathoracic stomach. Noncontrasted stomach and bowel loops are nonobstructed again with normal appearing appendix. Stable small descending duodenal diverticulum. There remains mild scattered colonic diverticulosis without diverticulitis, nonobstructing right renal punctate calculus, and cholecystectomy. No free fluid/air. Remaining liver, pancreas, spleen, adrenal glands, kidneys, ureters, bladder, and uterus are unremarkable for noncontrast exam. Stable mild aortoiliac calcifications without AAA. Osseous structures intact again with minimal levoscoliosis and benign left femur head bone island. Impression: Again chronic findings including pulmonary emphysema, hiatal hernia with partial intrathoracic stomach, duodenal diverticulum, nonobstructing right renal punctate calculus, colonic diverticulosis, arteriosclerotic disease, and chronic bony findings. No new/acute findings on this noncontrast exam.
[2023-03-25] MEDS ORDERED: Klor Con PO ONE ×3 (12:44→13:01)
[2023-03-25 12:51] VITALS: O2SAT 97
[2023-03-25 14:02] VITALS: BP 122/96; PULSE 70; RESP 18
== END 2023-03-25 14:25 | disposition home or self-care (01) ==
LOC: ED 11:32
DX: G89.29 Other chronic pain (principal); R10.9 Unspecified abdominal pain; E87.6 Hypokalemia; K57.10 Diverticulosis of small intestine without perforation or abscess without bleeding; R07.9 Chest pain, unspecified; R11.0 Nausea; I10 Essential (primary) hypertension; E78.5 Hyperlipidemia, unspecified; Z79.899 Other long term (current) drug therapy
CPT/HCPCS: 36415; 74176; 80053; 81015; 82150; 83690; 84484; 85025; 96360; 96374; 96375; 99284; J1170; J2405; A9270-GY

== ENCOUNTER 2023-05-05 17:29 | Observation (INO) | payer OTHER ==
[2023-05-05] MEDS ORDERED: TORAdol 30 mg Injection ONE (18:52)
[2023-05-05] MEDS ORDERED: Zofran 4 MG/2 ML VIAL ONE (18:52)
[2023-05-05] MEDS: TORAdol 30 mg Injection IM ONE (18:54)
[2023-05-05] MEDS: Zofran 4 MG/2 ML VIAL IV ONE (18:54)
[2023-05-05 18:56] LABS: Absolute Neutrophil Ct (ANC) 4.07 x10^3/uL (1.4-6.9); BASOPHIL % 0.9 % (0.0-0.4); Basophil (Absolute #) 0.08 x10^3/uL (0-0.4); Eosinophil % 2.2 % (0.00-5.0); Eosinophil (Absolute #) 0.19 x10^3/uL (0-0.5); Hematocrit 38.6 % (35-47); Hemoglobin 12.9 g/dL (12.0-16.0); IMMATURE GRAN # 0.01 x10^3u/L (0.00-0.03); IMMATURE GRAN % 0.1 % (0.00-0.4); Lymphocyte (Absolute #) 3.87 x10^3/uL (1.0-4.6); Lymphocytes % 43.8 % (24.0-44.0); Mean Corpuscular Hemoglobin 32.7 pg (26-32); Mean Corpuscular Hgb Concent. 33.4 g/dL (32-36); Monocyte (Absolute #) 0.61 x10^3/uL (0.0-1.3); Monocytes % 6.9 % (0.0-12.0); Neutrophil % 46.1 % (36.0-66.0); Platelet Count 314 x10^3/uL (150-450); Red Blood Count 3.94 x10^6/uL (4.1-5.4); Red Cell Distribution Width 12.7 % (11.5-14.0); White Blood Count 8.8 x10^3/uL (4.0-10.5)
[2023-05-05 19:01] LABS: ALBUMIN 4.5 g/dL (3.5-5.0); BILIRUBIN,TOTAL 0.5 mg/dL (0.2-1.3); Calcium 9.3 mg/dL (8.4-10.2); Creatinine 1 0.7 mg/dL (0.52-1.04); EST GLOMERULAR FILTRATION RATE 102.1 ML/MIN; Total Protein 7.4 g/dL (6.3-8.2)
[2023-05-05 19:02] LABS: Appearance Clear (Clear); Bacteria None Seen /HPF (None Seen); Bilirubin Negative (Negative); Blood Negative (Negative); Epithelial Cells None Seen /HPF (None Seen); Glucose, Urine Negative (Negative); Hyaline Casts NONE SEEN /LPF (0-2); Ketones Negative (Negative); Leukocyte Esterase Negative (Negative); Nitrite Negative (Negative); Protein,Urine Dip Negative (Negative); RBC 0-2 /HPF (0-5); Urobilinogen 0.2 mg/dL (0.2); WBC 0-2 /HPF (0-5)
[2023-05-05 19:03] LABS: Potassium 3.4 mmol/L (3.5-5.1)
[2023-05-05 19:05] LABS: ADD URINE CULTURE? NO (NO); ANION GAP 7.4 MEQ/L (5-15)
--- NOTE | 2023-05-05 19:25 | ERPHSYRPT ---
- History of Present Illness Time Seen by Provider: 05/05/23 19:10 Source: patient Exam Limitations: no limitations Patient Subjective Stated Complaint: pt here for right side pain, consant and sharp, she also has a rash to that area , denies new meds or soaps Triage Nursing Assessment: pt alert, walked in, resp easy, restless, skin w.d.p, has fine red rash to abd, moves all ext well Physician History: Patient is a 53-year-old female presents to the emergency department for evaluation of right lower quadrant and flank pain that started yesterday. Pain has been constant. Pain associated with a rash. No trauma no fever. Patient has a history of ureterolithiasis. Current symptoms are similar. Symptoms are moderate in intensity. No specific worsening or improving factors. No associated nausea vomiting or diarrhea. No chest pain or shortness of breath. Patient voices no other complaints or concerns at this time. Portions of this note were created with voice recognition technology. There may be grammatical, spelling, punctuation or sound alike errors Timing/Duration: yesterday Severity: moderate Modifying Factors: Improves With: nothing Associated Symptoms: denies symptoms Allergies/Adverse Reactions: No Known Drug Allergies Allergy (Verified 05/05/23 18:43) Home Medications: Atorvastatin Calcium 40 mg PO HS 06/18/21 [History] Cetirizine HCl [Zyrtec] 10 mg PO DAILY 06/18/21 [History] Fluticasone Propionate [Flonase Allergy Relief] 2 puffs IH DAILY 06/18/21 [History] Levothyroxine Sodium 75 Mcg [Synthroid 75 Mcg] 75 mcg PO DAILY 06/18/21 [History] Montelukast Sodium 10 mg [Singulair 10 MG] 10 mg PO HS 06/18/21 [History] PANTOPRAZOLE 40 mg Tablet [Protonix 40MG Tablet] 40 mg PO QAM 06/18/21 [History] Gabapentin [Neurontin ] 900 mg PO QHS 06/19/21 [History] Tizanidine HCl 4 mg [Zanaflex 4 MG] 8 mg PO BID 06/19/21 [History] Gabapentin [Neurontin ] 300 mg PO BID 03/12/22 [History] Mirtazapine 30 mg [Remeron 30 mg] 45 mg PO HS 03/12/22 [History] Losartan/Hydrochlorothiazide [Losartan-Hctz 50-12.5 mg Tab] 1 each PO DAILY 04/01/22 [History] Sertraline HCl 50 mg [Zoloft 50 mg Tablet] 100 mg PO DAILY 04/01/22 [History] Hx Tetanus, Diphtheria Vaccination/Date Given: Yes Hx Influenza Vaccination/Date Given: No Hx Pneumococcal Vaccination/Date Given: No Immunizations Up to Date: Yes Travel Risk - International Travel Have you traveled outside of the country in past 3 weeks: No - Coronavirus Screening Are you exhibiting any of the following symptoms?: No Close contact with a COVID-19 positive Pt in past 14-21 Days: No - Vaccine Status Have you recieved a Covid-19 vaccination: Yes 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[employer] - Vaccination Dates Date of 2cond Vaccination (if applicable): UNKNOWN - Review of Systems Constitutional: No Symptoms, No Fever, No Chills Eyes: No Symptoms Ears, Nose, & Throat: No Symptoms Respiratory: No Symptoms, No Cough, No Dyspnea Cardiac: No Symptoms, No Chest Pain, No Edema, No Syncope Abdominal/Gastrointestinal: No Symptoms, No Abdominal Pain, No Nausea, No Vomiting, No Diarrhea Genitourinary Symptoms: No Symptoms, No Dysuria Musculoskeletal: No Symptoms, No Back Pain, No Neck Pain Skin: No Symptoms, No Rash Neurological: No Symptoms, No Dizziness, No Focal Weakness, No Sensory Changes Psychological: No Symptoms Endocrine: No Symptoms Hematologic/Lymphatic: No Symptoms Immunological/Allergic: No Symptoms All Other Systems: Reviewed and Negative - Past Medical History Pertinent Past Medical History: Yes Neurological History: No Pertinent History ENT History: No Pertinent History Cardiac History: High Cholesterol, Hypertension, Other Respiratory History: Bronchitis Endocrine Medical History: Hypothyroidism Musculoskeletal History: No Pertinent History GI Medical History: GERD, Pancreatitis History: Other Psycho-Social History: Anxiety, Depression Female Reproductive Disorders: No Pertinent History Other Medical History: SVT, multiple UTIs - Past Surgical History Past Surgical History: Yes Neuro Surgical History: No Pertinent History Cardiac: Cardiac Catheterization, Other Respiratory: No Pertinent History Gastrointestinal: Cholecystectomy Genitourinary: No Pertinent History Musculoskeletal: Other Female Surgical History: Dilation & Curettage, Section, Other Other Surgical History: breast reduction, spinal cord stimulator put in and removed, cardiac ablation for SVT, endometrial ablation, 4 back surgeries - Social History Smoking Status: Former smoker How long have you smoked: 30 years Exposure to second hand smoke: Yes Drug Use: other Patient Lives Alone: No Significant Family History: heart disease - Nursing Vital Signs Nursing Vital Signs: Initial Vital Signs Temperature 97.0 F 05/05/23 18:30 Pulse Rate 61 05/05/23 18:30 Respiratory Rate 18 05/05/23 18:30 Blood Pressure 171/83 05/05/23 18:30 O2 Sat by Pulse Oximetry 98 05/05/23 18:30 Pain Scale Pain Intensity 4 - Physical Exam General Appearance: no apparent distress, alert Eye Exam: PERRL/EOMI, eyes nml inspection Ears, Nose, Throat Exam: normal ENT inspection, TMs normal, pharynx normal, mois t mucous membranes Neck Exam: normal inspection, non-tender, supple, full range of motion Respiratory Exam: normal breath sounds, lungs clear, No respiratory distress Cardiovascular Exam: regular rate/rhythm, normal heart sounds, normal peripheral pulses Gastrointestinal/Abdomen Exam: soft, normal bowel sounds, tenderness, other (Tenderness to palpation right lower quadrant into the right flank), No mass Back Exam: normal inspection, normal range of motion, No CVA tenderness, No vertebral tenderness Extremity Exam: normal inspection, normal range of motion, pelvis stable Neurologic Exam: alert, oriented x 3, cooperative, normal mood/affect, nml cerebellar function, nml station & gait, sensation nml, No motor deficits Skin Exam: normal color, warm, dry, No rash Lymphatic Exam: No adenopathy SpO2 Interpretation: normal SpO2: 98 O2 Delivery: Room Air - Course Nursing assessment & vital signs reviewed: Yes - CT Exams Abdomen/Pelvis CT Interpretation: Tele-radiologist Report (Compared to 03/25/2023 new small appendicolith without appendicitis stable hiatal hernia with partial intrathoracic stomach diverticulosis and nonobstructing right renal punctate stone. No new acute findings) Ordered Tests: Active Orders 24 hr Category Date Time Status [employer] STAT Care 05/05/23 19:13 Active IV Insertion STAT Care 05/05/23 19:13 Active Pulse Oximetry (ED) STAT Care 05/05/23 19:13 Active Consult Surgery ROUTINE Cons 05/05/23 21:26 Completed ABDOMEN AND PELVIS W/0 CONTRAS [CT] Stat Exams 05/05/23 19:15 Taken CBC W DIFF Stat Lab 05/05/23 18:40 Completed CMP Stat Lab 05/05/23 18:40 Completed TROPONIN Q4H Lab 05/05/23 18:40 Completed TROPONIN Q4H Lab 05/05/23 23:15 Ordered TROPONIN Q4H Lab 05/06/23 03:15 Ordered UA W/RFX UR CULTURE Stat Lab 05/05/23 18:40 Completed Transfer Order Routine Transfer 05/05/23 Ordered Medication Summary Discontinued Medications Generic Name Dose Route Start Last Admin Trade Name Everettq PRN Reason Stop Dose Admin Diphenhydramine HCl 25 mg 05/05/23 21:03 05/05/23 21:19 Diphenhydramine Hcl 50 Mg/Ml Vial IV 05/05/23 21:04 25 mg STAT ONE Administration Diphenhydramine HCl Confirm 05/05/23 21:16 Diphenhydramine Hcl 50 Mg/Ml Vial Administered 05/05/23 21:17 Dose 50 mg .ROUTE .STK-MED ONE Sodium Chloride 1,000 mls @ 999 mls/hr 05/05/23 19:13 05/05/23 19:41 Sodium Chloride 0.9% 1000 Ml IV 05/05/23 20:13 999 mls/hr .Q1H1M STA Administration Sodium Chloride Confirm 05/05/23 19:40 Sodium Chloride 0.9% 1000 Ml Administered 05/05/23 19:41 Dose 1,000 mls @ ud .ROUTE .STK-MED ONE Ketorolac Tromethamine 30 mg 05/05/23 18:48 05/05/23 18:54 Ketorolac Tromethamine 30 Mg/Ml Inj IM 05/05/23 18:49 30 mg STAT ONE Administration Ketorolac Tromethamine Confirm 05/05/23 18:52 Ketorolac Tromethamine 30 Mg/Ml Inj Administered 05/05/23 18:53 Dose 30 mg .ROUTE .STK-MED ONE Morphine Sulfate 4 mg 05/05/23 19:14 05/05/23 19:43 Morphine Sulfate 4 Mg/Ml Injection IV 05/05/23 19:15 4 mg STAT ONE Administration Morphine Sulfate Confirm 05/05/23 19:40 Morphine Sulfate 4 Mg/Ml Injection Administered 05/05/23 19:41 Dose 4 mg .ROUTE .STK-MED ONE Morphine Sulfate 4 mg 05/05/23 20:33 05/05/23 20:39 Morphine Sulfate 4 Mg/Ml Injection IV 05/05/23 20:34 4 mg STAT ONE Administration Morphine Sulfate Confirm 05/05/23 20:37 Morphine Sulfate 4 Mg/Ml Injection Administered 05/05/23 20:38 Dose 4 mg .ROUTE .STK-MED ONE Ondansetron HCl 4 mg 05/05/23 18:48 05/05/23 18:54 Ondansetron Hcl 4 Mg/2 Ml Vial IV 05/05/23 18:49 4 mg STAT ONE Administration Ondansetron HCl Confirm 05/05/23 18:52 Ondansetron Hcl 4 Mg/2 Ml Vial Administered 05/05/23 18:53 Dose 4 mg .ROUTE .STK-MED ONE Lab/Rad Data: Laboratory Result Diagrams 05/05/23 18:40 05/05/23 18:40 Laboratory Results 05/05/23 05/05/23 05/05/23 Range/Units 18:40 18:40 18:40 WBC (4.0-10.5) x10^3/uL RBC (4.1-5.4) x10^6/uL Hgb (12.0-16.0) g/dL Hct (35-47) % MCV (78-100) fL MCH (26-32) pg MCHC (32-36) g/dL RDW (11.5-14.0) % Plt Count (150-450) x10^3/uL MPV (7.5-11.0) fL Gran % (36.0-66.0) % Immature Gran % (Auto) (0.00-0.4) % Nucleat RBC Rel Count (0.00-0.1) % Eos # (Auto) (0-0.5) x10^3/uL Immature Gran # (Auto) (0.00-0.03) x10^3u/L Absolute Lymphs (auto) (1.0-4.6) x10^3/uL Absolute Monos (auto) (0.0-1.3) x10^3/uL Absolute Nucleated RBC (0.00-0.01) x10^3u/L Lymphocytes % (24.0-44.0) % Monocytes % (0.0-12.0) % Eosinophils % (0.00-5.0) % Basophils % (0.0-0.4) % Absolute Granulocytes (1.4-6.9) x10^3/uL Basophils # (0-0.4) x10^3/uL Sodium 138 (137-145) mmol/L Potassium 3.4 L (3.5-5.1) mmol/L Chloride 108 H (98-107) mmol/L Carbon Dioxide 26 (22-30) mmol/L Anion Gap 7.4 (5-15) MEQ/L BUN 11 (7-17) mg/dL Creatinine 0.70 (0.52-1.04) mg/dL Estimated GFR 102.1 ML/MIN Glucose 97 (74-106) mg/dL Calcium 9.3 (8.4-10.2) mg/dL Total Bilirubin 0.50 (0.2-1.3) mg/dL AST 32 (14-36) U/L ALT 23 (0-35) U/L Alkaline Phosphatase 105 (38-126) U/L Troponin I < 0.012 (0.000-0.034) ng/mL Serum Total Protein 7.4 (6.3-8.2) g/dL Albumin 4.5 (3.5-5.0) g/dL Urine Color Yellow (Yellow) Urine Appearance Clear (Clear) Urine pH 7.0 (4.6-8.0) Ur Specific [place] 1.010 (1.005-1.030) Urine Protein Negative (Negative) Urine Glucose (UA) Negative (Negative) mg/dL Urine Ketones Negative (Negative) Urine Blood Negative (Negative) Urine Nitrite Negative (Negative) Urine Bilirubin Negative (Negative) Urine Urobilinogen 0.2 (0.2) mg/dL Ur Leukocyte Esterase Negative (Negative) U Hyaline Cast (Auto) NONE SEEN (0-2) /LPF Urine Microscopic RBC 0-2 (0-5) /HPF Urine Microscopic WBC 0-2 (0-5) /HPF Ur Epithelial Cells None Seen (None Seen) /HPF Urine Bacteria None Seen (None Seen) /HPF Urine Culture Reflexed NO (NO) 05/05/23 Range/Units 18:40 WBC 8.8 (4.0-10.5) x10^3/uL RBC 3.94 L (4.1-5.4) x10^6/uL Hgb 12.9 (12.0-16.0) g/dL Hct 38.6 (35-47) % MCV 98.0 (78-100) fL MCH 32.7 H (26-32) pg MCHC 33.4 (32-36) g/dL RDW 12.7 (11.5-14.0) % Plt Count 314 (150-450) x10^3/uL MPV 10.0 (7.5-11.0) fL Gran % 46.1 (36.0-66.0) % Immature Gran % (Auto) 0.1 (0.00-0.4) % Nucleat RBC Rel Count 0.0 (0.00-0.1) % Eos # (Auto) 0.19 (0-0.5) x10^3/uL Immature Gran # (Auto) 0.01 (0.00-0.03) x10^3u/L Absolute Lymphs (auto) 3.87 (1.0-4.6) x10^3/uL Absolute Monos (auto) 0.61 (0.0-1.3) x10^3/uL Absolute Nucleated RBC 0.00 (0.00-0.01) x10^3u/L Lymphocytes % 43.8 (24.0-44.0) % Monocytes % 6.9 (0.0-12.0) % Eosinophils % 2.2 (0.00-5.0) % Basophils % 0.9 (0.0-0.4) % Absolute Granulocytes 4.07 (1.4-6.9) x10^3/uL Basophils # 0.08 (0-0.4) x10^3/uL Sodium (137-145) mmol/L Potassium (3.5-5.1) mmol/L Chloride (98-107) mmol/L Carbon Dioxide (22-30) mmol/L Anion Gap (5-15) MEQ/L BUN (7-17) mg/dL Creatinine (0.52-1.04) mg/dL Estimated GFR ML/MIN Glucose (74-106) mg/dL Calcium (8.4-10.2) mg/dL Total Bilirubin (0.2-1.3) mg/dL AST (14-36) U/L ALT (0-35) U/L Alkaline Phosphatase (38-126) U/L Troponin I (0.000-0.034) ng/mL Serum Total Protein (6.3-8.2) g/dL Albumin (3.5-5.0) g/dL Urine Color (Yellow) Urine Appearance (Clear) Urine pH (4.6-8.0) Ur Specific [place] (1.005-1.030) Urine Protein (Negative) Urine Glucose (UA) (Negative) mg/dL Urine Ketones (Negative) Urine Blood (Negative) Urine Nitrite (Negative) Urine Bilirubin (Negative) Urine Urobilinogen (0.2) mg/dL Ur Leukocyte Esterase (Negative) U Hyaline Cast (Auto) (0-2) /LPF Urine Microscopic RBC (0-5) /HPF Urine Microscopic WBC (0-5) /HPF Ur Epithelial Cells (None Seen) /HPF Urine Bacteria (None Seen) /HPF Urine Culture Reflexed (NO) - Progress Progress: improved Progress Note: Case discussed with Dr. Alcocer at 910pm who agrees with plan to admit for observation. 05/05/23 21:16 53-year-old female presents to our ED with a 1 day history of progressive right lower quadrant pain. Physical exam reveals tenderness to the right lower quadrant. Laboratory workup essentially nonremarkable. CT shows a new appendicolith at the location of patient's pain. We are concerned that this may be an early presentation or possible evolving appendicitis. Patient will be admitted for further observation and pain control. Management discussed with Dr. Yane Garcia hospitalist who accepts admission at 9:40 PM. Plan of care d iscussed with patient. She agrees to admission to [facility] for further evaluation and treatment. Portions of this note were created with voice recognition technology. There may be grammatical, spelling, punctuation or sound alike errors Complexity of problem addressed is moderate acute complicated No critical care time Complexity of data reviewed and analyzed is extensive. Test ordered test reviewed. Results analyzed and correlated clinically with history and physical examination. Management discussed with general surgeon who agrees with admission for observation. Management also discussed with hospitalist Dr. Garcia who accepts admission to observation. Risk of complication and or risk of morbidity/mortality of patient management is high. Patient requires hospitalization for further evaluation and treatment. Vital stable. Time spent to admit patient is approximately 20 minutes. Plan of care established for shared decision making. No social determinants of health present impede follow-up. Portions of this note were created with voice recognition technology. There may be grammatical, spelling, punctuation or sound alike errors 05/05/23 21:44 Discussed with DrMone: Radha Will see patient in: hospital (observation) Counseled pt/family regarding: lab results, diagnosis, rad results - Departure Departure Disposition: Observation Clinical Impression: Right lower quadrant pain, Appendicolith, Hiatal hernia, Nephrolithiasis, Pruritus Condition: Stable Critical Care Time: No Referrals: [facility]OSPITAL,'S [Primary Care Provider] - Follow up/PCP as directed
[2023-05-05] MEDS ORDERED: Sodium Chloride 0.9% 1000 ML 1,000 ML ONE (19:40)
[2023-05-05] MEDS ORDERED: MORPHINE SULFATE 4 MG INJ ONE ×2 (19:40→20:37)
[2023-05-05] MEDS: Sodium Chloride 0.9% 1000 ML 1,000 ML IV STA (19:41)
[2023-05-05] MEDS: MORPHINE SULFATE 4 MG INJ IV ONE ×2 (19:43→20:39)
[2023-05-05] MEDS ORDERED: BENADRYL 50 MG/ML ONE (21:16)
[2023-05-05] MEDS: BENADRYL 50 MG/ML IV ONE (21:19)
--- NOTE | 2023-05-05 22:05 | PCM.HP ---
History of Present Illness - Chief Complaint Chief Complaint: Abdominal pain History of Present Illness: is a 53 year old female who presents with acute 1 day of progressive right lower quadrant pain, with tenderness there as well. Associated with nausea, no vomiting, no fevers. CT shows a new appendicolith at the location of patient's pain. General surgery was concerned for possible early evolving appendicitis and recommended monitoring overnight. - Review of Systems Abdominal/Gastrointestinal: Abdominal Pain Medications & Allergies Home Medications: Home Medication List Atorvastatin Calcium 40 mg PO HS 06/18/21 [History Confirmed 05/05/23] Cetirizine HCl [Zyrtec] 10 mg PO DAILY 06/18/21 [History Confirmed 05/05/23] Fluticasone Propionate [Flonase Allergy Relief] 2 puffs IH DAILY 06/18/21 [History Confirmed 05/05/23] Levothyroxine Sodium 75 Mcg [Synthroid 75 Mcg] 75 mcg PO DAILY 06/18/21 [History Confirmed 05/05/23] Montelukast Sodium 10 mg [Singulair 10 MG] 10 mg PO HS 06/18/21 [History Confirmed 05/05/23] PANTOPRAZOLE 40 mg Tablet [Protonix 40MG Tablet] 40 mg PO QAM 06/18/21 [History Confirmed 05/05/23] Gabapentin [Neurontin ] 900 mg PO QHS 06/19/21 [History Confirmed 05/05/23] Tizanidine HCl 4 mg [Zanaflex 4 MG] 8 mg PO BID 06/19/21 [History Confirmed 05/05/23] Gabapentin [Neurontin ] 300 mg PO BID 03/12/22 [History Confirmed 05/05/23] Mirtazapine 30 mg [Remeron 30 mg] 45 mg PO HS 03/12/22 [History Confirmed 05/05/23] Losartan/Hydrochlorothiazide [Losartan-Hctz 50-12.5 mg Tab] 1 each PO DAILY 04/01/22 [History Confirmed 05/05/23] Sertraline HCl 50 mg [Zoloft 50 mg Tablet] 100 mg PO DAILY 04/01/22 [History Confirmed 05/05/23] Ondansetron ODT 4 MG [Zofran Odt 4 mg] 4 mg PO Q6H PRN PRN #10 tablet 12/01/22 [Rx Confirmed 05/05/23] Potassium Chloride Tab* [Klor Con] 10 meq PO BID #4 tab 03/25/23 [Rx Confirmed 05/05/23] Allergies/Adverse Reactions: Allergies Allergy/AdvReac Type Severity Reaction Status Date / Time No Known Drug Allergies Allergy Verified 05/05/23 18:43 - Past Medical History Past Medical History: Yes Neurological History: No Pertinent History ENT History: No Pertinent History Cardiac History: High Cholesterol, Hypertension, Other Respiratory History: Bronchitis Endocrine Medical History: Hypothyroidism Musculoskelatal History: No Pertinent History GI Medical History: GERD, Pancreatitis History: Other Pyscho-Social History: Anxiety, Depression Reproductive Disorders: No Pertinent History Comment: SVT, multiple UTIs - Past Surgical History Past Surgical History: Yes Neuro Surgical History: No Pertinent History Cardiac History: Cardiac Catheterization, Other Respiratory Surgery: No Pertinent History GI Surgical History: Cholecystectomy Genitourinary Surgical Hx: No Pertinent History Musculskeletal Surgical Hx: Other Female Surgical History: Dilation & Curettage, Section, Other Other Surgical History: breast reduction, spinal cord stimulator put in and removed, cardiac ablation for SVT, endometrial ablation, 4 back surgeries - Social History Smoking Status: Former smoker How long have you smoked: 30 years Exposure to second hand smoke: Yes Alcohol: Rarely Drug Use: other Significant Family History: heart disease - Physical Exam Vital Signs: Vital Signs - 24 hr Temp Pulse Resp BP BP Pulse Ox 05/05/23 21:47 98 05/05/23 21:00 61 17 167/107 99 05/05/23 20:31 64 20 172/97 98 05/05/23 20:21 72 18 162/84 95 05/05/23 19:32 98 05/05/23 19:31 65 14 169/95 98 05/05/23 19:20 18 150/104 97 05/05/23 18:30 97.0 F 61 18 171/83 98 General Appearance: no apparent distress, alert Neurologic Exam: alert, oriented x 3, cooperative, normal mood/affect, nml cerebellar function, nml station & gait, sensation nml, No motor deficits Eye Exam: PERRL/EOMI, eyes nml inspection Ears, Nose, Throat Exam: normal ENT inspection, TMs normal, pharynx normal, moist mucous membranes Neck Exam: normal inspection, non-tender, supple, full range of motion Respiratory Exam: normal breath sounds, lungs clear, No respiratory distress Cardiovascular Exam: regular rate/rhythm, normal heart sounds, normal peripheral pulses Gastrointestinal/Abdomen Exam: soft, normal bowel sounds, tenderness, No mass Back Exam: normal inspection, normal range of motion, No CVA tenderness, No vertebral tenderness Extremity Exam: normal inspection, normal range of motion, pelvis stable Skin Exam: normal color, warm, dry, No rash Lymphatic Exam: No adenopathy Results - Labs Lab/Micro Results: Lab Results-Last 24 Hours 05/05/23 05/05/23 05/05/23 Range/Units 18:40 18:40 18:40 WBC 8.8 (4.0-10.5) x10^3/uL RBC 3.94 L (4.1-5.4) x10^6/uL Hgb 12.9 (12.0-16.0) g/dL Hct 38.6 (35-47) % MCV 98.0 (78-100) fL MCH 32.7 H (26-32) pg MCHC 33.4 (32-36) g/dL RDW 12.7 (11.5-14.0) % Plt Count 314 (150-450) x10^3/uL MPV 10.0 (7.5-11.0) fL Gran % 46.1 (36.0-66.0) % Immature Gran % (Auto) 0.1 (0.00-0.4) % Nucleat RBC Rel Count 0.0 (0.00-0.1) % Eos # (Auto) 0.19 (0-0.5) x10^3/uL Immature Gran # (Auto) 0.01 (0.00-0.03) x10^3u/L Absolute Lymphs (auto) 3.87 (1.0-4.6) x10^3/uL Absolute Monos (auto) 0.61 (0.0-1.3) x10^3/uL Absolute Nucleated RBC 0.00 (0.00-0.01) x10^3u/L Lymphocytes % 43.8 (24.0-44.0) % Monocytes % 6.9 (0.0-12.0) % Eosinophils % 2.2 (0.00-5.0) % Basophils % 0.9 (0.0-0.4) % Absolute Granulocytes 4.07 (1.4-6.9) x10^3/uL Basophils # 0.08 (0-0.4) x10^3/uL Sodium 138 (137-145) mmol/L Potassium 3.4 L (3.5-5.1) mmol/L Chloride 108 H (98-107) mmol/L Carbon Dioxide 26 (22-30) mmol/L Anion Gap 7.4 (5-15) MEQ/L BUN 11 (7-17) mg/dL Creatinine 0.70 (0.52-1.04) mg/dL Estimated GFR 102.1 ML/MIN Glucose 97 (74-106) mg/dL Calcium 9.3 (8.4-10.2) mg/dL Total Bilirubin 0.50 (0.2-1.3) mg/dL AST 32 (14-36) U/L ALT 23 (0-35) U/L Alkaline Phosphatase 105 (38-126) U/L Troponin I (0.000-0.034) ng/mL Serum Total Protein 7.4 (6.3-8.2) g/dL Albumin 4.5 (3.5-5.0) g/dL Urine Color Yellow (Yellow) Urine Appearance Clear (Clear) Urine pH 7.0 (4.6-8.0) Ur Specific [place] 1.010 (1.005-1.030) Urine Protein Negative (Negative) Urine Glucose (UA) Negative (Negative) mg/dL Urine Ketones Negative (Negative) Urine Blood Negative (Negative) Urine Nitrite Negative (Negative) Urine Bilirubin Negative (Negative) Urine Urobilinogen 0.2 (0.2) mg/dL Ur Leukocyte Esterase Negative (Negative) U Hyaline Cast (Auto) NONE SEEN (0-2) /LPF Urine Microscopic RBC 0-2 (0-5) /HPF Urine Microscopic WBC 0-2 (0-5) /HPF Ur Epithelial Cells None Seen (None Seen) /HPF Urine Bacteria None Seen (None Seen) /HPF Urine Culture Reflexed NO (NO) 05/05/23 Range/Units 18:40 WBC (4.0-10.5) x10^3/uL RBC (4.1-5.4) x10^6/uL Hgb (12.0-16.0) g/dL Hct (35-47) % MCV (78-100) fL MCH (26-32) pg MCHC (32-36) g/dL RDW (11.5-14.0) % Plt Count (150-450) x10^3/uL MPV (7.5-11.0) fL Gran % (36.0-66.0) % Immature Gran % (Auto) (0.00-0.4) % Nucleat RBC Rel Count (0.00-0.1) % Eos # (Auto) (0-0.5) x10^3/uL Immature Gran # (Auto) (0.00-0.03) x10^3u/L Absolute Lymphs (auto) (1.0-4.6) x10^3/uL Absolute Monos (auto) (0.0-1.3) x10^3/uL Absolute Nucleated RBC (0.00-0.01) x10^3u/L Lymphocytes % (24.0-44.0) % Monocytes % (0.0-12.0) % Eosinophils % (0.00-5.0) % Basophils % (0.0-0.4) % Absolute Granulocytes (1.4-6.9) x10^3/uL Basophils # (0-0.4) x10^3/uL Sodium (137-145) mmol/L Potassium (3.5-5.1) mmol/L Chloride (98-107) mmol/L Carbon Dioxide (22-30) mmol/L Anion Gap (5-15) MEQ/L BUN (7-17) mg/dL Creatinine (0.52-1.04) mg/dL Estimated GFR ML/MIN Glucose (74-106) mg/dL Calcium (8.4-10.2) mg/dL Total Bilirubin (0.2-1.3) mg/dL AST (14-36) U/L ALT (0-35) U/L Alkaline Phosphatase (38-126) U/L Troponin I < 0.012 (0.000-0.034) ng/mL Serum Total Protein (6.3-8.2) g/dL Albumin (3.5-5.0) g/dL Urine Color (Yellow) Urine Appearance (Clear) Urine pH (4.6-8.0) Ur Specific [place] (1.005-1.030) Urine Protein (Negative) Urine Glucose (UA) (Negative) mg/dL Urine Ketones (Negative) Urine Blood (Negative) Urine Nitrite (Negative) Urine Bilirubin (Negative) Urine Urobilinogen (0.2) mg/dL Ur Leukocyte Esterase (Negative) U Hyaline Cast (Auto) (0-2) /LPF Urine Microscopic RBC (0-5) /HPF Urine Microscopic WBC (0-5) /HPF Ur Epithelial Cells (None Seen) /HPF Urine Bacteria (None Seen) /HPF Urine Culture Reflexed (NO) - Radiology Impressions Radiology Exams & Impressions: Radiology Procedures Category Date Time Status ABDOMEN AND PELVIS W/0 CONTRAS [CT] Stat Exams 05/05/23 19:15 Taken Assessment/Plan (1) Appendicolith Current Visit: Yes Status: Acute Assessment & Plan: 1.Pain control 2. NPO for overnight 3. Zosyn Code(s): K38.9 - DISEASE OF APPENDIX, UNSPECIFIED Telemedicine Encounter - Telemedicine Encounter Telemedicine Encounter: The entirety of this encounter was performed via Telemedicine"
[2023-05-05] MEDS ORDERED: Ketamine HCl 50 MG/ML ONE (22:30)
[2023-05-05] MEDS: Ketamine HCl 50 MG/ML IV ONE (22:32)
[2023-05-05] MEDS ORDERED: PIPERACILLIN/TAZOBACTAM IV ONE (22:35)
[2023-05-05] MEDS ORDERED: Sodium Chloride 100ML MINI-BAG PLUS 100 ML IV ONE (22:36)
[2023-05-05] MEDS: PIPERACILLIN/TAZOBACTAM 3.375 GM in Sodium Chloride 100ML MINI-BAG PLUS 100 ML IV SCH (22:40)
[2023-05-06] MEDS: Ativan 2 MG/1 ML VIAL IV PRN (01:05)
[2023-05-06] MEDS: Hydromorphone 1 mg/ml Injection IV PRN ×2 (01:06→17:20)
[2023-05-06] MEDS: Sodium Chloride 0.9% 1000 ML 1,000 ML IV SCH (02:07)
[2023-05-06] MEDS: BENADRYL 50 MG/ML IV PRN (03:46)
[2023-05-06] MEDS ORDERED: PIPERACILLIN/TAZOBACTAM IV ONE (05:16)
[2023-05-06] MEDS ORDERED: Sodium Chloride 100ML MINI-BAG PLUS 100 ML IV ONE (05:16)
[2023-05-06] MEDS: PIPERACILLIN/TAZOBACTAM 3.375 GM in Sodium Chloride 100ML MINI-BAG PLUS 100 ML IV SCH (05:28)
--- NOTE | 2023-05-06 05:42 | PCM.NOTE ---
Date and Time: 05/06/23 0537 Subjective Assessment: is a 53 year old female with pmhx of HLD, HTN, hypothyroid, GERD, and pancreatitis presented 05/05/23 with acute 1 day of progressive right lower quadrant pain, with tenderness there as well. Associated with nausea, no vomiting, no fevers. CT shows a new appendicolith at the location of patient's pain. General surgery consulted and recommended monitoring overnight. 05/06: Met with patient bedside. No overnight events noted. Endorses continued RUQ pain 5/10 on numerical pain scale and some nausea (no vomiting). Discussed CT findings of appendicolith, surgery recommending overnight observation and will evaluate patient today. Patient started on Zosyn. <RAMA SANDERS - Last Filed: 05/06/23 12:47> Date and Time: 05/06/232017 <LOTUS CASPER - Last Filed: 05/06/23 20:19> - Review of Systems Constitutional: No Symptoms Eyes: No Symptoms Ears, Nose, & Throat: No Symptoms Respiratory: No Symptoms Cardiac: No Symptoms Abdominal/Gastrointestinal: Abdominal Pain, Nausea Genitourinary Symptoms: No Symptoms Musculoskeletal: No Symptoms Skin: No Symptoms Neurological: No Symptoms Psychological: No Symptoms Endocrine: No Symptoms Hematologic/Lymphatic: No Symptoms Immunological/Allergic: No Symptoms <RAMA SANDERS - Last Filed: 05/06/23 12:47> Objective Exam General Appearance: no apparent distress Neurologic Exam: alert, oriented x 3, cooperative Skin Exam: normal color Eye Exam: PERRL Ears, Nose, Throat Exam: normal ENT inspection Neck Exam: normal inspection Respiratory Exam: normal breath sounds, lungs clear Cardiovascular Exam: regular rate/rhythm, normal heart sounds Gastrointestinal/Abdomen Exam: soft, normal bowel sounds, tenderness (TTP to RUQ/RLQ) Extremity Exam: normal inspection Back Exam: normal inspection Pelvic Exam: deferred Rectal Exam: deferred <RAMA SANDERS - Last Filed: 05/06/23 12:47> OBJECTIVE DATA Vital Signs: Vital Signs - 24 hr Temp Pulse Resp BP BP Pulse Ox 05/06/23 04:55 93 L 05/06/23 04:00 98.3 F 60 16 134/72 92 L 05/05/23 23:40 97.8 F 66 18 173/82 96 05/05/23 23:16 90 L 05/05/23 22:36 86 18 174/95 100 05/05/23 22:00 74 19 163/86 100 05/05/23 21:47 98 05/05/23 21:00 61 17 167/107 99 05/05/23 20:31 64 20 172/97 98 05/05/23 20:21 72 18 162/84 95 05/05/23 19:32 98 05/05/23 19:31 65 14 169/95 98 05/05/23 19:20 18 150/104 97 05/05/23 18:30 97.0 F 61 18 171/83 98 Pain Assessment - Last Documented Pain Intensity 8 Pain Scale Used 0-10 Pain Scale Intake and Output: Intake & Output 05/03/23 05/04/23 05/05/23 05/06/23 11:59 11:59 11:59 11:59 Weight 74.843 kg Lab Results: Lab Results-Last 24 Hours 05/05/23 05/05/23 05/05/23 Range/Units 18:40 18:40 18:40 WBC 8.8 (4.0-10.5) x10^3/uL RBC 3.94 L (4.1-5.4) x10^6/uL Hgb 12.9 (12.0-16.0) g/dL Hct 38.6 (35-47) % MCV 98.0 (78-100) fL MCH 32.7 H (26-32) pg MCHC 33.4 (32-36) g/dL RDW 12.7 (11.5-14.0) % Plt Count 314 (150-450) x10^3/uL MPV 10.0 (7.5-11.0) fL Gran % 46.1 (36.0-66.0) % Immature Gran % (Auto) 0.1 (0.00-0.4) % Nucleat RBC Rel Count 0.0 (0.00-0.1) % Eos # (Auto) 0.19 (0-0.5) x10^3/uL Immature Gran # (Auto) 0.01 (0.00-0.03) x10^3u/L Absolute Lymphs (auto) 3.87 (1.0-4.6) x10^3/uL Absolute Monos (auto) 0.61 (0.0-1.3) x10^3/uL Absolute Nucleated RBC 0.00 (0.00-0.01) x10^3u/L Lymphocytes % 43.8 (24.0-44.0) % Monocytes % 6.9 (0.0-12.0) % Eosinophils % 2.2 (0.00-5.0) % Basophils % 0.9 (0.0-0.4) % Absolute Granulocytes 4.07 (1.4-6.9) x10^3/uL Basophils # 0.08 (0-0.4) x10^3/uL Sodium 138 (137-145) mmol/L Potassium 3.4 L (3.5-5.1) mmol/L Chloride 108 H (98-107) mmol/L Carbon Dioxide 26 (22-30) mmol/L Anion Gap 7.4 (5-15) MEQ/L BUN 11 (7-17) mg/dL Creatinine 0.70 (0.52-1.04) mg/dL Estimated GFR 102.1 ML/MIN Glucose 97 (74-106) mg/dL Calcium 9.3 (8.4-10.2) mg/dL Total Bilirubin 0.50 (0.2-1.3) mg/dL AST 32 (14-36) U/L ALT 23 (0-35) U/L Alkaline Phosphatase 105 (38-126) U/L Troponin I (0.000-0.034) ng/mL Serum Total Protein 7.4 (6.3-8.2) g/dL Albumin 4.5 (3.5-5.0) g/dL Urine Color Yellow (Yellow) Urine Appearance Clear (Clear) Urine pH 7.0 (4.6-8.0) Ur Specific Mays 1.010 (1.005-1.030) Urine Protein Negative (Negative) Urine Glucose (UA) Negative (Negative) mg/dL Urine Ketones Negative (Negative) Urine Blood Negative (Negative) Urine Nitrite Negative (Negative) Urine Bilirubin Negative (Negative) Urine Urobilinogen 0.2 (0.2) mg/dL Ur Leukocyte Esterase Negative (Negative) U Hyaline Cast (Auto) NONE SEEN (0-2) /LPF Urine Microscopic RBC 0-2 (0-5) /HPF Urine Microscopic WBC 0-2 (0-5) /HPF Ur Epithelial Cells None Seen (None Seen) /HPF Urine Bacteria None Seen (None Seen) /HPF Urine Culture Reflexed NO (NO) 05/05/23 05/05/23 05/06/23 Range/Units 18:40 23:44 03:17 WBC (4.0-10.5) x10^3/uL RBC (4.1-5.4) x10^6/uL Hgb (12.0-16.0) g/dL Hct (35-47) % MCV (78-100) fL MCH (26-32) pg MCHC (32-36) g/dL RDW (11.5-14.0) % Plt Count (150-450) x10^3/uL MPV (7.5-11.0) fL Gran % (36.0-66.0) % Immature Gran % (Auto) (0.00-0.4) % Nucleat RBC Rel Count (0.00-0.1) % Eos # (Auto) (0-0.5) x10^3/uL Immature Gran # (Auto) (0.00-0.03) x10^3u/L Absolute Lymphs (auto) (1.0-4.6) x10^3/uL Absolute Monos (auto) (0.0-1.3) x10^3/uL Absolute Nucleated RBC (0.00-0.01) x10^3u/L Lymphocytes % (24.0-44.0) % Monocytes % (0.0-12.0) % Eosinophils % (0.00-5.0) % Basophils % (0.0-0.4) % Absolute Granulocytes (1.4-6.9) x10^3/uL Basophils # (0-0.4) x10^3/uL Sodium (137-145) mmol/L Potassium (3.5-5.1) mmol/L Chloride (98-107) mmol/L Carbon Dioxide (22-30) mmol/L Anion Gap (5-15) MEQ/L BUN (7-17) mg/dL Creatinine (0.52-1.04) mg/dL Estimated GFR ML/MIN Glucose (74-106) mg/dL Calcium (8.4-10.2) mg/dL Total Bilirubin (0.2-1.3) mg/dL AST (14-36) U/L ALT (0-35) U/L Alkaline Phosphatase (38-126) U/L Troponin I < 0.012 < 0.012 < 0.012 (0.000-0.034) ng/mL Serum Total Protein (6.3-8.2) g/dL Albumin (3.5-5.0) g/dL Urine Color (Yellow) Urine Appearance (Clear) Urine pH (4.6-8.0) Ur Specific Mays (1.005-1.030) Urine Protein (Negative) Urine Glucose (UA) (Negative) mg/dL Urine Ketones (Negative) Urine Blood (Negative) Urine Nitrite (Negative) Urine Bilirubin (Negative) Urine Urobilinogen (0.2) mg/dL Ur Leukocyte Esterase (Negative) U Hyaline Cast (Auto) (0-2) /LPF Urine Microscopic RBC (0-5) /HPF Urine Microscopic WBC (0-5) /HPF Ur Epithelial Cells (None Seen) /HPF Urine Bacteria (None Seen) /HPF Urine Culture Reflexed (NO) Radiology Exams: Radiology Procedures Category Date Time Status ABDOMEN AND PELVIS W/0 CONTRAS [CT] Stat Exams 05/05/23 19:15 Taken <RAMA SANDERS - Last Filed: 05/06/23 12:47> Vital Signs: Vital Signs - 24 hr Temp Pulse Resp BP BP Pulse Ox 05/06/23 17:09 98.2 F 77 16 134/66 95 05/06/23 16:00 98.2 F 77 16 134/66 95 05/06/23 11:12 98.7 F 65 16 152/65 95 05/06/23 07:08 92 L 05/06/23 06:24 96.6 F 57 L 16 126/65 94 L 05/06/23 04:55 93 L 05/06/23 04:00 98.3 F 60 16 134/72 92 L 05/05/23 23:40 97.8 F 66 18 173/82 96 05/05/23 23:16 90 L 05/05/23 22:36 86 18 174/95 100 05/05/23 22:00 74 19 163/86 100 05/05/23 21:47 98 05/05/23 21:00 61 17 167/107 99 05/05/23 20:31 64 20 172/97 98 05/05/23 20:21 72 18 162/84 95 Pain Assessment - Last Documented Pain Intensity 4 Pain Scale Used 0-10 Pain Scale Intake and Output: Intake & Output 05/04/23 05/05/23 05/06/23 05/07/23 11:59 11:59 11:59 11:59 Intake Total 0 1425 Output Total 200 700 Balance -200 725 Weight 74.843 kg 74.843 kg Lab Results: Lab Results-Last 24 Hours 05/05/23 05/06/23 05/06/23 Range/Units 23:44 03:17 06:27 WBC (4.0-10.5) x10^3/uL RBC (4.1-5.4) x10^6/uL Hgb (12.0-16.0) g/dL Hct (35-47) % MCV (78-100) fL MCH (26-32) pg MCHC (32-36) g/dL RDW (11.5-14.0) % Plt Count (150-450) x10^3/uL MPV (7.5-11.0) fL Gran % (36.0-66.0) % Immature Gran % (Auto) (0.00-0.4) % Nucleat RBC Rel Count (0.00-0.1) % Eos # (Auto) (0-0.5) x10^3/uL Immature Gran # (Auto) (0.00-0.03) x10^3u/L Absolute Lymphs (auto) (1.0-4.6) x10^3/uL Absolute Monos (auto) (0.0-1.3) x10^3/uL Absolute Nucleated RBC (0.00-0.01) x10^3u/L Lymphocytes % (24.0-44.0) % Monocytes % (0.0-12.0) % Eosinophils % (0.00-5.0) % Basophils % (0.0-0.4) % Absolute Granulocytes (1.4-6.9) x10^3/uL Basophils # (0-0.4) x10^3/uL Sodium 141 (137-145) mmol/L Potassium 3.2 L (3.5-5.1) mmol/L Chloride 110 H (98-107) mmol/L Carbon Dioxide 28 (22-30) mmol/L Anion Gap 6.2 (5-15) MEQ/L BUN 11 (7-17) mg/dL Creatinine 0.78 (0.52-1.04) mg/dL Estimated GFR 89.6 ML/MIN Glucose 80 (74-106) mg/dL Calcium 8.3 L (8.4-10.2) mg/dL Magnesium (1.6-2.3) mg/dL Total Bilirubin 0.80 (0.2-1.3) mg/dL AST 308 H (14-36) U/L ALT 145 H (0-35) U/L Alkaline Phosphatase 90 (38-126) U/L Troponin I < 0.012 < 0.012 (0.000-0.034) ng/mL Serum Total Protein 6.0 L (6.3-8.2) g/dL Albumin 3.5 (3.5-5.0) g/dL Amylase (30-110) U/L Lipase (23-300) U/L 05/06/23 05/06/23 05/06/23 Range/Units 06:27 06:27 08:20 WBC 6.1 (4.0-10.5) x10^3/uL RBC 3.62 L (4.1-5.4) x10^6/uL Hgb 11.9 L (12.0-16.0) g/dL Hct 36.5 (35-47) % MCV 100.8 H (78-100) fL MCH 32.9 H (26-32) pg MCHC 32.6 (32-36) g/dL RDW 13.2 (11.5-14.0) % Plt Count 268 (150-450) x10^3/uL MPV 9.8 (7.5-11.0) fL Gran % 58.0 (36.0-66.0) % Immature Gran % (Auto) 0.2 (0.00-0.4) % Nucleat RBC Rel Count 0.0 (0.00-0.1) % Eos # (Auto) 0.13 (0-0.5) x10^3/uL Immature Gran # (Auto) 0.01 (0.00-0.03) x10^3u/L Absolute Lymphs (auto) 1.94 (1.0-4.6) x10^3/uL Absolute Monos (auto) 0.46 (0.0-1.3) x10^3/uL Absolute Nucleated RBC 0.00 (0.00-0.01) x10^3u/L Lymphocytes % 31.7 (24.0-44.0) % Monocytes % 7.5 (0.0-12.0) % Eosinophils % 2.1 (0.00-5.0) % Basophils % 0.5 (0.0-0.4) % Absolute Granulocytes 3.55 (1.4-6.9) x10^3/uL Basophils # 0.03 (0-0.4) x10^3/uL Sodium (137-145) mmol/L Potassium 3.7 (3.5-5.1) mmol/L Chloride (98-107) mmol/L Carbon Dioxide (22-30) mmol/L Anion Gap (5-15) MEQ/L BUN (7-17) mg/dL Creatinine (0.52-1.04) mg/dL Estimated GFR ML/MIN Glucose (74-106) mg/dL Calcium (8.4-10.2) mg/dL Magnesium 2.1 (1.6-2.3) mg/dL Total Bilirubin (0.2-1.3) mg/dL AST (14-36) U/L ALT (0-35) U/L Alkaline Phosphatase (38-126) U/L Troponin I (0.000-0.034) ng/mL Serum Total Protein (6.3-8.2) g/dL Albumin (3.5-5.0) g/dL Amylase 63 (30-110) U/L Lipase 38 (23-300) U/L 05/06/23 05/06/23 05/06/23 Range/Units 11:00 12:10 13:55 WBC (4.0-10.5) x10^3/uL RBC (4.1-5.4) x10^6/uL Hgb (12.0-16.0) g/dL Hct (35-47) % MCV (78-100) fL MCH (26-32) pg MCHC (32-36) g/dL RDW (11.5-14.0) % Plt Count (150-450) x10^3/uL MPV (7.5-11.0) fL Gran % (36.0-66.0) % Immature Gran % (Auto) (0.00-0.4) % Nucleat RBC Rel Count (0.00-0.1) % Eos # (Auto) (0-0.5) x10^3/uL Immature Gran # (Auto) (0.00-0.03) x10^3u/L Absolute Lymphs (auto) (1.0-4.6) x10^3/uL Absolute Monos (auto) (0.0-1.3) x10^3/uL Absolute Nucleated RBC (0.00-0.01) x10^3u/L Lymphocytes % (24.0-44.0) % Monocytes % (0.0-12.0) % Eosinophils % (0.00-5.0) % Basophils % (0.0-0.4) % Absolute Granulocytes (1.4-6.9) x10^3/uL Basophils # (0-0.4) x10^3/uL Sodium (137-145) mmol/L Potassium 4.1 4.2 4.2 (3.5-5.1) mmol/L Chloride (98-107) mmol/L Carbon Dioxide (22-30) mmol/L Anion Gap (5-15) MEQ/L BUN (7-17) mg/dL Creatinine (0.52-1.04) mg/dL Estimated GFR ML/MIN Glucose (74-106) mg/dL Calcium (8.4-10.2) mg/dL Magnesium (1.6-2.3) mg/dL Total Bilirubin (0.2-1.3) mg/dL AST (14-36) U/L ALT (0-35) U/L Alkaline Phosphatase (38-126) U/L Troponin I (0.000-0.034) ng/mL Serum Total Protein (6.3-8.2) g/dL Albumin (3.5-5.0) g/dL Amylase (30-110) U/L Lipase (23-300) U/L 05/06/23 Range/Units 16:00 WBC (4.0-10.5) x10^3/uL RBC (4.1-5.4) x10^6/uL Hgb (12.0-16.0) g/dL Hct (35-47) % MCV (78-100) fL MCH (26-32) pg MCHC (32-36) g/dL RDW (11.5-14.0) % Plt Count (150-450) x10^3/uL MPV (7.5-11.0) fL Gran % (36.0-66.0) % Immature Gran % (Auto) (0.00-0.4) % Nucleat RBC Rel Count (0.00-0.1) % Eos # (Auto) (0-0.5) x10^3/uL Immature Gran # (Auto) (0.00-0.03) x10^3u/L Absolute Lymphs (auto) (1.0-4.6) x10^3/uL Absolute Monos (auto) (0.0-1.3) x10^3/uL Absolute Nucleated RBC (0.00-0.01) x10^3u/L Lymphocytes % (24.0-44.0) % Monocytes % (0.0-12.0) % Eosinophils % (0.00-5.0) % Basophils % (0.0-0.4) % Absolute Granulocytes (1.4-6.9) x10^3/uL Basophils # (0-0.4) x10^3/uL Sodium (137-145) mmol/L Potassium 4.7 (3.5-5.1) mmol/L Chloride (98-107) mmol/L Carbon Dioxide (22-30) mmol/L Anion Gap (5-15) MEQ/L BUN (7-17) mg/dL Creatinine (0.52-1.04) mg/dL Estimated GFR ML/MIN Glucose (74-106) mg/dL Calcium (8.4-10.2) mg/dL Magnesium (1.6-2.3) mg/dL Total Bilirubin (0.2-1.3) mg/dL AST (14-36) U/L ALT (0-35) U/L Alkaline Phosphatase (38-126) U/L Troponin I (0.000-0.034) ng/mL Serum Total Protein (6.3-8.2) g/dL Albumin (3.5-5.0) g/dL Amylase (30-110) U/L Lipase (23-300) U/L Radiology Exams: Radiology Procedures Category Date Time Status ABDOMEN AND PELVIS W/0 CONTRAS [CT] Stat Exams 05/05/23 19:15 Completed <LOTUS CASPER - Last Filed: 05/06/23 20:19> Assessment/Plan (1) Appendicolith Current Visit: Yes Status: Acute Assessment & Plan: -Surgery consulted, appreciate recs -Pain control/anti-emetics -Zosyn Code(s): K38.9 - DISEASE OF APPENDIX, UNSPECIFIED (2) Hyperlipidemia Current Visit: No Status: Chronic Assessment & Plan: -Continue meds when able to resume diet Code(s): E78.5 - HYPERLIPIDEMIA, UNSPECIFIED (3) Hypertension Current Visit: No Status: Chronic Assessment & Plan: -continue meds when able to resume diet Code(s): I10 - ESSENTIAL (PRIMARY) HYPERTENSION (4) Hypothyroidism Current Visit: No Status: Chronic Assessment & Plan: -Continue home meds when able to resume diet Code(s): E03.9 - HYPOTHYROIDISM, UNSPECIFIED (5) Hypokalemia Current Visit: Yes Status: Acute Assessment & Plan: -Labs reviewed with potassium at 3.2, will replenish per protocol Code(s): E87.6 - HYPOKALEMIA (6) Nausea & vomiting Current Visit: Yes Status: Acute Assessment & Plan: -magdalena/lipase wnl, appendicolith noted on CT, pancreas with normal findings -Anti-emetics -IVF -ADAT Code(s): R11.2 - NAUSEA WITH VOMITING, UNSPECIFIED <RAMA SANDERS - Last Filed: 05/06/23 12:47> LILLIE Encounter - LILLIE Encounter Attestation LILLIE Encounter Attestation: "IhavepersonallyseenandexCHLOÉ Ham andhavediscussed pertinent aspects of their care with Rama Alvarez agree with the history, physical exam (any modifications based on my personal exam will be noted below), assessment, and plan as outlined in original note. Please see immediately below for my summary of findings and additional assessment and plan along with any meaningful corrections/explanations to the Subjective/Objective portions of the LILLIE note will be noted." My portion of the encounter took place via telemedicine. -Patient still with abdominal pain this morning. There is plan for appendectomy per surgery <LOTUS CASPER - Last Filed: 05/06/23 20:19>
[2023-05-06 06:28] LABS: Absolute Neutrophil Ct (ANC) 3.55 x10^3/uL (1.4-6.9); BASOPHIL % 0.5 % (0.0-0.4); Basophil (Absolute #) 0.03 x10^3/uL (0-0.4); Eosinophil % 2.1 % (0.00-5.0); Eosinophil (Absolute #) 0.13 x10^3/uL (0-0.5); Hematocrit 36.5 % (35-47); Hemoglobin 11.9 g/dL (12.0-16.0); IMMATURE GRAN # 0.01 x10^3u/L (0.00-0.03); IMMATURE GRAN % 0.2 % (0.00-0.4); Lymphocyte (Absolute #) 1.94 x10^3/uL (1.0-4.6); Lymphocytes % 31.7 % (24.0-44.0); Mean Cell Volume 100.8 fL (78-100); Mean Corpuscular Hemoglobin 32.9 pg (26-32); Mean Corpuscular Hgb Concent. 32.6 g/dL (32-36); Mean Platelet Volume 9.8 fL (7.5-11.0); Monocyte (Absolute #) 0.46 x10^3/uL (0.0-1.3); Monocytes % 7.5 % (0.0-12.0); Platelet Count 268 x10^3/uL (150-450); Red Blood Count 3.62 x10^6/uL (4.1-5.4); Red Cell Distribution Width 13.2 % (11.5-14.0); White Blood Count 6.1 x10^3/uL (4.0-10.5)
[2023-05-06 06:42] LABS: ALBUMIN 3.5 g/dL (3.5-5.0); BILIRUBIN,TOTAL 0.8 mg/dL (0.2-1.3); Calcium 8.3 mg/dL (8.4-10.2); Creatinine 1 0.78 mg/dL (0.52-1.04); EST GLOMERULAR FILTRATION RATE 89.6 ML/MIN
[2023-05-06 06:44] LABS: Potassium 3.2 mmol/L (3.5-5.1)
[2023-05-06 06:49] LABS: ANION GAP 6.2 MEQ/L (5-15)
--- NOTE | 2023-05-06 08:38 | XRAY ---
Indication: Right-sided pain. Rash. Nausea. Multiple contiguous axial images obtained through the abdomen and pelvis without contrast. Comparison: March 25, 2023 Lung bases clear. Heart not enlarged. Stable moderate-sized hiatal hernia with partial intrathoracic stomach. Noncontrasted stomach and bowel loops appear nonobstructed. Stable small descending duodenal diverticulum. Appendix demonstrates new small appendicolith without appendicitis. Again scattered colonic diverticulosis without diverticulitis, nonobstructing right renal punctate calculus, and cholecystectomy. No free fluid/air. Remaining liver, pancreas, spleen, adrenal glands, kidneys, ureters, bladder, and uterus are unremarkable for noncontrast exam. Stable mild scattered aortoiliac calcifications without AAA. Osseous structures intact again with minimal degenerative changes throughout spine, minimal levoscoliosis, and benign left femur head bone island. Impression: 1. New appendicolith without appendicitis. 2. Chronic findings including hiatal hernia with partial intrathoracic stomach, duodenal diverticulum, nonobstructing right renal micro-calculus, colonic diverticulosis, arteriosclerotic disease, and chronic bony findings.
[2023-05-06] MEDS: Klor Con PO SCH (08:40)
[2023-05-06 08:56] LABS: Potassium 3.7 mmol/L (3.5-5.1)
[2023-05-06] MEDS: Zofran 4 MG/2 ML VIAL IV PRN (11:04)
[2023-05-06] MEDS ORDERED: Hydromorphone 1 mg/ml Injection ONE ×2 (15:55→20:22)
[2023-05-06] MEDS: Hydromorphone 1 mg/ml Injection IV ONE (15:57)
[2023-05-06] MEDS: Lactated Ringers 1,000 ML IV SCH (17:20)
[2023-05-06] MEDS: MEFOXIN 2 GM PREMIX** 2 GM/50 ML ML IV SCH (17:20)
[2023-05-06] MEDS ORDERED: OFIRMEV 100 ML IV ONE (18:19)
[2023-05-06] MEDS ORDERED: DIPRIVAN 200 MG/20 ML IV ONE ×2 (18:24→20:02)
[2023-05-06] MEDS ORDERED: BRIDION 200MG/2ML IV ONE (18:25)
[2023-05-06] MEDS ORDERED: Versed 2 MG/2 ML Injection ONE (18:25)
[2023-05-06] MEDS ORDERED: SUBLIMAZE 100 MCG/2 ML ONE (18:25)
[2023-05-06] MEDS ORDERED: Decadron 4 MG INJ ONE (18:25)
[2023-05-06] MEDS ORDERED: Zofran 4 MG/2 ML VIAL ONE ×2 (18:25→20:21)
[2023-05-06] MEDS ORDERED: Sensorcaine 0.25% 10 ML ONE (18:27)
[2023-05-06] MEDS ORDERED: Ephedrine Sulfate 50 MG/ML ONE (19:41)
[2023-05-06] MEDS ORDERED: TORAdol 30 mg Injection ONE (19:56)
[2023-05-06 23:53] VITALS: RESP 16
[2023-05-07] MEDS: Lactated Ringers 1,000 ML IV SCH (00:05)
[2023-05-07] MEDS ORDERED: NORCO 5/325 MG ONE (01:53)
[2023-05-07] MEDS: NORCO 5/325 MG PO PRN ×2 (01:55→12:57)
[2023-05-07 04:25] LABS: Absolute Neutrophil Ct (ANC) 6.11 x10^3/uL (1.4-6.9); BASOPHIL % 0.1 % (0.0-0.4); Basophil (Absolute #) 0.01 x10^3/uL (0-0.4); Eosinophil (Absolute #) 0 x10^3/uL (0-0.5); Hematocrit 38.5 % (35-47); Hemoglobin 12.2 g/dL (12.0-16.0); IMMATURE GRAN # 0.02 x10^3u/L (0.00-0.03); IMMATURE GRAN % 0.3 % (0.00-0.4); Lymphocytes % 11.4 % (24.0-44.0); Mean Cell Volume 102.1 fL (78-100); Mean Corpuscular Hemoglobin 32.4 pg (26-32); Mean Corpuscular Hgb Concent. 31.7 g/dL (32-36); Mean Platelet Volume 9.7 fL (7.5-11.0); Monocyte (Absolute #) 0.05 x10^3/uL (0.0-1.3); Monocytes % 0.7 % (0.0-12.0); Neutrophil % 87.5 % (36.0-66.0); Platelet Count 286 x10^3/uL (150-450); Red Blood Count 3.77 x10^6/uL (4.1-5.4); Red Cell Distribution Width 12.7 % (11.5-14.0)
[2023-05-07 04:42] LABS: ALBUMIN 3.8 g/dL (3.5-5.0); ANION GAP 13.4 MEQ/L (5-15); BILIRUBIN,TOTAL 0.7 mg/dL (0.2-1.3); Calcium 8.9 mg/dL (8.4-10.2); Creatinine 1 0.7 mg/dL (0.52-1.04); EST GLOMERULAR FILTRATION RATE 102.1 ML/MIN; Potassium 4.9 mmol/L (3.5-5.1); Total Protein 6.5 g/dL (6.3-8.2)
--- NOTE | 2023-05-07 05:44 | PCM.DS ---
Discharge Summary Date of Admission: 05/05/23 23:11 Date of Discharge: 05/07/23 Admitting Physician: EMILY TANG MD Consults: Consults on Case 05/05/23 21:26 Consult Surgery ROUTINE Primary Care Provider: [facility] <RAMA SANDERS - Last Filed: 05/07/23 14:56> Date of Admission: 05/05/23 23:11 Admitting Physician: EMILY TANG MD Consults: Consults on Case 05/05/23 21:26 Consult Surgery ROUTINE Primary Care Provider: [facility] <LOTUS CASPER - Last Filed: 05/07/23 23:24> Allergies <RAMA SANDERS - Last Filed: 05/07/23 14:56> <[facility] CENTERLOTUS Shirley - Last Filed: 05/07/23 23:24> Allergies No Known Drug Allergies Allergy (Verified 05/05/23 18:43) Hospital Summary - Hospital Course Hospital Course: is a 53 year old female with pmhx of HLD, HTN, hypothyroid, GERD, and pancreatitis presented 05/05/23 with acute 1 day of progressive right lower quadrant pain, with tenderness there as well. Associated with nausea, no vomiting, no fevers. CT shows a new appendicolith at the location of patient's pain. General surgery consulted with lap appendectomy performed. Advised follow up with surgery/pcp on discharge as directed. Discharge Note New Diagnosis: Appendicitis New Medications: Follow Up: PCP/Surgery Latest Assessment & Plan (1) Appendicolith Current Visit: Yes Status: Acute Assessment & Plan: -Surgery consulted, appreciate recs -Pain control/anti-emetics -Zosyn Code(s): K38.9 - DISEASE OF APPENDIX, UNSPECIFIED (2) Hyperlipidemia Current Visit: No Status: Chronic Assessment & Plan: -Continue meds when able to resume diet Code(s): E78.5 - HYPERLIPIDEMIA, UNSPECIFIED (3) Hypertension Current Visit: No Status: Chronic Assessment & Plan: -continue meds when able to resume diet Code(s): I10 - ESSENTIAL (PRIMARY) HYPERTENSION (4) Hypothyroidism Current Visit: No Status: Chronic Assessment & Plan: -Continue home meds when able to resume diet Code(s): E03.9 - HYPOTHYROIDISM, UNSPECIFIED (5) Hypokalemia Current Visit: Yes Status: Acute Assessment & Plan: -Labs reviewed with potassium at 3.2, will replenish per protocol Code(s): E87.6 - HYPOKALEMIA (6) Nausea & vomiting Current Visit: Yes Status: Acute Assessment & Plan: -magdalena/lipase wnl, appendicolith noted on CT, pancreas with normal findings -Anti-emetics -IVF -ADAT I spent 35 minutes [id number] with the patient on the day of discharge performing discharge exam, discussing hospital stay and discharge instructions with patient and caregivers, preparation of discharge records, prescriptions & referral forms and addressing any questions/concerns the patient had as documented above. - Vitals & Intake/Output Vital Signs: Vital Signs Temperature 98.0 F 05/06/23 23:45 Pulse Rate 75 05/06/23 23:45 Respiratory Rate 16 05/06/23 23:45 Blood Pressure 117/61 05/06/23 23:45 O2 Sat by Pulse Oximetry 97 05/06/23 23:45 Intake & Output: Intake & Output 05/04/23 05/05/23 05/06/23 05/07/23 11:59 11:59 11:59 11:59 Intake Total 0 1425 Output Total 200 700 Balance -200 725 Weight 74.843 kg 74.843 kg - Lab Result Diagrams: 05/07/23 04:15 05/07/23 04:15 Lab Results-Last 24 Hrs: Lab Results-Last 24 Hours 05/06/23 05/06/23 05/06/23 Range/Units 06:27 06:27 06:27 WBC 6.1 (4.0-10.5) x10^3/uL RBC 3.62 L (4.1-5.4) x10^6/uL Hgb 11.9 L (12.0-16.0) g/dL Hct 36.5 (35-47) % MCV 100.8 H (78-100) fL MCH 32.9 H (26-32) pg MCHC 32.6 (32-36) g/dL RDW 13.2 (11.5-14.0) % Plt Count 268 (150-450) x10^3/uL MPV 9.8 (7.5-11.0) fL Gran % 58.0 (36.0-66.0) % Immature Gran % (Auto) 0.2 (0.00-0.4) % Nucleat RBC Rel Count 0.0 (0.00-0.1) % Eos # (Auto) 0.13 (0-0.5) x10^3/uL Immature Gran # (Auto) 0.01 (0.00-0.03) x10^3u/L Absolute Lymphs (auto) 1.94 (1.0-4.6) x10^3/uL Absolute Monos (auto) 0.46 (0.0-1.3) x10^3/uL Absolute Nucleated RBC 0.00 (0.00-0.01) x10^3u/L Lymphocytes % 31.7 (24.0-44.0) % Monocytes % 7.5 (0.0-12.0) % Eosinophils % 2.1 (0.00-5.0) % Basophils % 0.5 (0.0-0.4) % Absolute Granulocytes 3.55 (1.4-6.9) x10^3/uL Basophils # 0.03 (0-0.4) x10^3/uL Sodium 141 (137-145) mmol/L Potassium 3.2 L (3.5-5.1) mmol/L Chloride 110 H (98-107) mmol/L Carbon Dioxide 28 (22-30) mmol/L Anion Gap 6.2 (5-15) MEQ/L BUN 11 (7-17) mg/dL Creatinine 0.78 (0.52-1.04) mg/dL Estimated GFR 89.6 ML/MIN Glucose 80 (74-106) mg/dL Calcium 8.3 L (8.4-10.2) mg/dL Magnesium 2.1 (1.6-2.3) mg/dL Total Bilirubin 0.80 (0.2-1.3) mg/dL AST 308 H (14-36) U/L ALT 145 H (0-35) U/L Alkaline Phosphatase 90 (38-126) U/L Serum Total Protein 6.0 L (6.3-8.2) g/dL Albumin 3.5 (3.5-5.0) g/dL Amylase (30-110) U/L Lipase (23-300) U/L 02/08/24 02/08/24 02/08/24 Range/Units 08:20 11:00 12:10 WBC (4.0-10.5) x10^3/uL RBC (4.1-5.4) x10^6/uL Hgb (12.0-16.0) g/dL Hct (35-47) % MCV (78-100) fL MCH (26-32) pg MCHC (32-36) g/dL RDW (11.5-14.0) % Plt Count (150-450) x10^3/uL MPV (7.5-11.0) fL Gran % (36.0-66.0) % Immature Gran % (Auto) (0.00-0.4) % Nucleat RBC Rel Count (0.00-0.1) % Eos # (Auto) (0-0.5) x10^3/uL Immature Gran # (Auto) (0.00-0.03) x10^3u/L Absolute Lymphs (auto) (1.0-4.6) x10^3/uL Absolute Monos (auto) (0.0-1.3) x10^3/uL Absolute Nucleated RBC (0.00-0.01) x10^3u/L Lymphocytes % (24.0-44.0) % Monocytes % (0.0-12.0) % Eosinophils % (0.00-5.0) % Basophils % (0.0-0.4) % Absolute Granulocytes (1.4-6.9) x10^3/uL Basophils # (0-0.4) x10^3/uL Sodium (137-145) mmol/L Potassium 3.7 4.1 4.2 (3.5-5.1) mmol/L Chloride (98-107) mmol/L Carbon Dioxide (22-30) mmol/L Anion Gap (5-15) MEQ/L BUN (7-17) mg/dL Creatinine (0.52-1.04) mg/dL Estimated GFR ML/MIN Glucose (74-106) mg/dL Calcium (8.4-10.2) mg/dL Magnesium (1.6-2.3) mg/dL Total Bilirubin (0.2-1.3) mg/dL AST (14-36) U/L ALT (0-35) U/L Alkaline Phosphatase (38-126) U/L Serum Total Protein (6.3-8.2) g/dL Albumin (3.5-5.0) g/dL Amylase 63 (30-110) U/L Lipase 38 (23-300) U/L 05/06/23 05/06/23 05/07/23 Range/Units 13:55 16:00 04:15 WBC 7.0 (4.0-10.5) x10^3/uL RBC 3.77 L (4.1-5.4) x10^6/uL Hgb 12.2 (12.0-16.0) g/dL Hct 38.5 (35-47) % MCV 102.1 H (78-100) fL MCH 32.4 H (26-32) pg MCHC 31.7 L (32-36) g/dL RDW 12.7 (11.5-14.0) % Plt Count 286 (150-450) x10^3/uL MPV 9.7 (7.5-11.0) fL Gran % 87.5 H (36.0-66.0) % Immature Gran % (Auto) 0.3 (0.00-0.4) % Nucleat RBC Rel Count 0.0 (0.00-0.1) % Eos # (Auto) 0 (0-0.5) x10^3/uL Immature Gran # (Auto) 0.02 (0.00-0.03) x10^3u/L Absolute Lymphs (auto) 0.80 L (1.0-4.6) x10^3/uL Absolute Monos (auto) 0.05 (0.0-1.3) x10^3/uL Absolute Nucleated RBC 0.00 (0.00-0.01) x10^3u/L Lymphocytes % 11.4 L (24.0-44.0) % Monocytes % 0.7 (0.0-12.0) % Eosinophils % 0.0 (0.00-5.0) % Basophils % 0.1 (0.0-0.4) % Absolute Granulocytes 6.11 (1.4-6.9) x10^3/uL Basophils # 0.01 (0-0.4) x10^3/uL Sodium (137-145) mmol/L Potassium 4.2 4.7 (3.5-5.1) mmol/L Chloride (98-107) mmol/L Carbon Dioxide (22-30) mmol/L Anion Gap (5-15) MEQ/L BUN (7-17) mg/dL Creatinine (0.52-1.04) mg/dL Estimated GFR ML/MIN Glucose (74-106) mg/dL Calcium (8.4-10.2) mg/dL Magnesium (1.6-2.3) mg/dL Total Bilirubin (0.2-1.3) mg/dL AST (14-36) U/L ALT (0-35) U/L Alkaline Phosphatase (38-126) U/L Serum Total Protein (6.3-8.2) g/dL Albumin (3.5-5.0) g/dL Amylase (30-110) U/L Lipase (23-300) U/L 05/07/23 05/07/23 Range/Units 04:15 04:15 WBC (4.0-10.5) x10^3/uL RBC (4.1-5.4) x10^6/uL Hgb (12.0-16.0) g/dL Hct (35-47) % MCV (78-100) fL MCH (26-32) pg MCHC (32-36) g/dL RDW (11.5-14.0) % Plt Count (150-450) x10^3/uL MPV (7.5-11.0) fL Gran % (36.0-66.0) % Immature Gran % (Auto) (0.00-0.4) % Nucleat RBC Rel Count (0.00-0.1) % Eos # (Auto) (0-0.5) x10^3/uL Immature Gran # (Auto) (0.00-0.03) x10^3u/L Absolute Lymphs (auto) (1.0-4.6) x10^3/uL Absolute Monos (auto) (0.0-1.3) x10^3/uL Absolute Nucleated RBC (0.00-0.01) x10^3u/L Lymphocytes % (24.0-44.0) % Monocytes % (0.0-12.0) % Eosinophils % (0.00-5.0) % Basophils % (0.0-0.4) % Absolute Granulocytes (1.4-6.9) x10^3/uL Basophils # (0-0.4) x10^3/uL Sodium 136 L (137-145) mmol/L Potassium 4.9 (3.5-5.1) mmol/L Chloride 110 H (98-107) mmol/L Carbon Dioxide 18 L (22-30) mmol/L Anion Gap 13.4 (5-15) MEQ/L BUN 11 (7-17) mg/dL Creatinine 0.70 (0.52-1.04) mg/dL Estimated GFR 102.1 ML/MIN Glucose 110 H (74-106) mg/dL Calcium 8.9 (8.4-10.2) mg/dL Magnesium 2.0 (1.6-2.3) mg/dL Total Bilirubin 0.70 (0.2-1.3) mg/dL AST 125 H (14-36) U/L ALT 117 H (0-35) U/L Alkaline Phosphatase 98 (38-126) U/L Serum Total Protein 6.5 (6.3-8.2) g/dL Albumin 3.8 (3.5-5.0) g/dL Amylase (30-110) U/L Lipase (23-300) U/L - Radiology Exams Ordered Rad Exams-Entire Visit: Radiology Procedures Category Date Time Status ABDOMEN AND PELVIS W/0 CONTRAS [CT] Stat Exams 05/05/23 19:15 Completed <RAMA SANDERS - Last Filed: 05/07/23 14:56> - Vitals & Intake/Output Vital Signs: Vital Signs Temperature 98.5 F 05/07/23 12:00 Pulse Rate 83 05/07/23 12:00 Respiratory Rate 16 05/07/23 12:00 Blood Pressure 127/72 05/07/23 12:00 O2 Sat by Pulse Oximetry 96 05/07/23 12:00 Intake & Output: Intake & Output 05/05/23 05/06/23 05/07/23 05/08/23 11:59 11:59 11:59 11:59 Intake Total 0 1465 120 Output Total 200 1300 800 Balance -200 165 -680 Weight 74.843 kg 74.843 kg - Lab Result Diagrams: 05/07/23 04:15 05/07/23 04:15 Lab Results-Last 24 Hrs: Lab Results-Last 24 Hours 05/07/23 05/07/23 05/07/23 Range/Units 04:15 04:15 04:15 WBC 7.0 (4.0-10.5) x10^3/uL RBC 3.77 L (4.1-5.4) x10^6/uL Hgb 12.2 (12.0-16.0) g/dL Hct 38.5 (35-47) % MCV 102.1 H (78-100) fL MCH 32.4 H (26-32) pg MCHC 31.7 L (32-36) g/dL RDW 12.7 (11.5-14.0) % Plt Count 286 (150-450) x10^3/uL MPV 9.7 (7.5-11.0) fL Gran % 87.5 H (36.0-66.0) % Immature Gran % (Auto) 0.3 (0.00-0.4) % Nucleat RBC Rel Count 0.0 (0.00-0.1) % Eos # (Auto) 0 (0-0.5) x10^3/uL Immature Gran # (Auto) 0.02 (0.00-0.03) x10^3u/L Absolute Lymphs (auto) 0.80 L (1.0-4.6) x10^3/uL Absolute Monos (auto) 0.05 (0.0-1.3) x10^3/uL Absolute Nucleated RBC 0.00 (0.00-0.01) x10^3u/L Lymphocytes % 11.4 L (24.0-44.0) % Monocytes % 0.7 (0.0-12.0) % Eosinophils % 0.0 (0.00-5.0) % Basophils % 0.1 (0.0-0.4) % Absolute Granulocytes 6.11 (1.4-6.9) x10^3/uL Basophils # 0.01 (0-0.4) x10^3/uL Sodium 136 L (137-145) mmol/L Potassium 4.9 (3.5-5.1) mmol/L Chloride 110 H (98-107) mmol/L Carbon Dioxide 18 L (22-30) mmol/L Anion Gap 13.4 (5-15) MEQ/L BUN 11 (7-17) mg/dL Creatinine 0.70 (0.52-1.04) mg/dL Estimated GFR 102.1 ML/MIN Glucose 110 H (74-106) mg/dL Calcium 8.9 (8.4-10.2) mg/dL Magnesium 2.0 (1.6-2.3) mg/dL Total Bilirubin 0.70 (0.2-1.3) mg/dL AST 125 H (14-36) U/L ALT 117 H (0-35) U/L Alkaline Phosphatase 98 (38-126) U/L Serum Total Protein 6.5 (6.3-8.2) g/dL Albumin 3.8 (3.5-5.0) g/dL <LOTUS CASPER - Last Filed: 05/07/23 23:24> Discharge Exam General Appearance: no apparent distress Neurologic Exam: alert, oriented x 3, cooperative Eye Exam: PERRL Ears, Nose, Throat Exam: normal ENT inspection Neck Exam: normal inspection Respiratory Exam: normal breath sounds, lungs clear Cardiovascular Exam: regular rate/rhythm, normal heart sounds Gastrointestinal/Abdomen Exam: soft, normal bowel sounds Pelvic Exam: deferred Rectal Exam: deferred Back Exam: normal inspection Extremity Exam: normal inspection Skin Exam: other (3 surgical puncture sites covered in gauze/tegaderm, CDI, miminal shadow drainage at the umbilicus) <RAMA SANDERS - Last Filed: 05/07/23 14:56> Final Diagnosis/Problem List - Final Discharge Diagnosis/Problem (1) Appendicolith Status: Acute Code(s): K38.9 - DISEASE OF APPENDIX, UNSPECIFIED (2) Hyperlipidemia Status: Chronic Code(s): E78.5 - HYPERLIPIDEMIA, UNSPECIFIED (3) Hypertension Status: Chronic Code(s): I10 - ESSENTIAL (PRIMARY) HYPERTENSION (4) Hypothyroidism Status: Chronic Code(s): E03.9 - HYPOTHYROIDISM, UNSPECIFIED (5) Hypokalemia Status: Acute Code(s): E87.6 - HYPOKALEMIA (6) Nausea & vomiting Status: Acute Code(s): R11.2 - NAUSEA WITH VOMITING, UNSPECIFIED <RAMA SANDERS - Last Filed: 05/07/23 14:56> <RAMA SANDERS - Last Filed: 05/07/23 14:56> <NELIDAYUMIKOLOTUS Shirley - Last Filed: 05/07/23 23:24> - Discharge Disposition: Home, Self-Care Condition: Stable Prescriptions: New Hydrocodone/Acetaminophen [Hydrocodone-Acetamin 5-325 mg] 1 tab PO Q4HPRN PRN 3 Days #18 tablet MDD 6 PRN Reason: Pain Continue PANTOPRAZOLE 40 mg Tablet [Protonix 40MG Tablet] 40 mg PO QAM Montelukast Sodium 10 mg [Singulair 10 MG] 10 mg PO HS Levothyroxine Sodium 75 Mcg [Synthroid 75 Mcg] 75 mcg PO DAILY Fluticasone Propionate [Flonase Allergy Relief] 2 puffs IH DAILY Cetirizine HCl [Zyrtec] 10 mg PO DAILY Atorvastatin Calcium 40 mg PO HS Gabapentin [Neurontin ] 900 mg PO QHS Tizanidine HCl 4 mg [Zanaflex 4 MG] 8 mg PO BID Gabapentin [Neurontin ] 300 mg PO DAILY Mirtazapine 30 mg [Remeron 30 mg] 45 mg PO HS Sertraline HCl 50 mg [Zoloft 50 mg Tablet] 100 mg PO DAILY Losartan/Hydrochlorothiazide [Losartan-Hctz 50-12.5 mg Tab] 1 each PO DAILY Ondansetron ODT 4 MG [Zofran Odt 4 mg] 4 mg PO Q6H PRN PRN #10 tablet PRN Reason: Nausea Potassium Chloride Tab* [Klor Con] 10 meq PO BID #4 tab Instructions: Appendectomy, Laparoscopic Surgery (DC) Follow up with: DONTAE ROWLEY MD [ACTIVE STAFF] - 05/17/23 1:00 pm [facility] [Primary Care Provider] - LILLIE Encounter - LILLIE Encounter Attestation LILLIE Encounter Attestation: "IhavepersonallyseenandexaminedFCHLOÉ BANDA andhavediscussed pertinent aspects of their care with Rama Alvarez agree with the history, physical exam (any modifications based on my personal exam will be noted below), assessment, and plan as outlined in original note. Please see immediately below for my summary of findings and additional assessment and plan along with any meaningful corrections/explanations to the Subjective/Objective portions of the LILLIE note will be noted." My portion of the encounter took place via telemedicine. <LOTUS CASPER - Last Filed: 05/07/23 23:24>
--- NOTE | 2023-05-07 09:46 | CONS ---
CONSULT DATE: 05/06/2023 CHIEF COMPLAINT: Right lower quadrant pain. REFERRAL SOURCE: Hospitalist. REASON FOR CONSULTATION: Rule out appendicitis. HISTORY OF PRESENT ILLNESS: This patient presents with a day and a half of right lower quadrant pain that started all of a sudden and has progressively worsened. It started the night before last and yesterday it worsened throughout the day. Then, she came in to the Emergency Department. Hurts to move around. The pain is a little bit better with the IV pain medicine, but then comes back and it has been significantly worse today. She has had some nausea with it. No prior episodes. She does state she had some kidney stones, but that was a little higher, more posterior pain. Those passed on their own. She has had her gallbladder out with my partner, Dr. Rodney Hidalgo, several years ago as well as 3 C-Sections, a cardiac ablation, and several soft tissue surgeries. PAST MEDICAL HISTORY: Hyperlipidemia, hypertension, hypothyroid, anxiety, and depression. PAST SURGICAL HISTORY: HOME MEDICATIONS: Reviewed. See MAR. ALLERGIES: REVIEWED. FAMILY HISTORY: No IBD. SOCIAL HISTORY: Positive for vaping and prior tobacco. REVIEW OF SYSTEMS: No chest pain or shortness of breath. PHYSICAL EXAMINATION: GENERAL: No acute distress. HEENT: Sclerae nonicteric. Extraocular movements intact. NECK: Supple. No JVD. CHEST: Nonlabored breathing. ABDOMEN: Soft. Nondistended. Focally tender in the right lower quadrant with guarding. NEURO: Awake and alert. PSYCH: Appropriate mood and affect. EXTREMITIES: No peripheral edema. ASSESSMENT AND PLAN: 1. SUSPECTED ACUTE APPENDICITIS. Reviewed CT scan images and there is a slightly dilated appendix with appendicolith without really any significant stranding which is imaging equivocal for acute appendicitis. Reviewed CBC, BMP, admission H&P. I have inherited the care of this patient from my partner, Dr. Alcocer, who was on-call last night. Upon evaluating the patient and reviewing the CT scan images and laboratory studies, I do think the patient most likely has acute appendicitis. I discussed this at depth with the patient including the potential that she may not have appendicitis. We discussed alternatives to surgery such as observation or antibiotic therapy and observation with potential for nonresolution, recurrent appendicitis, perforation, or other potential complications. We discussed the risks of surgery including, bleeding; infection; bowel or other organ injury; other potential complications. I think we have probably at least a 75% chance this is acute appendicitis and discussed this with the patient. The patient would like to proceed with surgery. Plan for laparoscopic, possible open appendectomy.
--- NOTE | 2023-05-07 10:01 | OP ---
SURGERY DATE: 05/06/2023 SURGERY TIME: 1915 PREOPERATIVE DIAGNOSIS: 1. ACUTE APPENDICITIS. POSTOPERATIVE DIAGNOSIS: 1. ACUTE APPENDICITIS. PROCEDURE: 1. Laparoscopic appendectomy. SURGEON: Dr. Joey Hidalgo ANESTHESIA: General. ESTIMATED BLOOD LOSS: 5 cc. COMPLICATIONS: None. SPECIMEN: Appendix. FINDINGS: Acute uncomplicated appendicitis. PRESENTATION: Patient presents with signs and symptoms concerning for acute appendicitis. Imaging is equivocal. After discussing risks and benefits of procedure, the patient wished to proceed. DESCRIPTION OF PROCEDURE: The patient brought to the OR. Placed supine on the operative table. Placed under general anesthesia. The left arm tucked. Abdomen prepped and draped in sterile fashion. Incision made at the umbilicus. Blunt dissection performed down to the fascia. Fascia lifted up with the clamp. Veress needle inserted. Pneumoperitoneum obtained. 5 mm optical trocar inserted. Under direct visualization, the abdomen was entered. The area was inspected and there did not appear to be any inadvertent injury. Additional 12 mm placed in left lower quadrant. There were adhesions to the suprapubic area from her prior C-Sections. The omentum was stuck down here. This was taken down with the LigaSure first. Then, we placed a 5 mm suprapubic trocar. The appendix was then lifted up. The distal half is dilated and firm and some very mild inflammation of it and it appears to be early acute uncomplicated appendicitis. The mesoappendix was transected with the [place] LigaSure. The appendix was transected from its juncture with the cecum with a 45 wedge EndoGIA stapler. The appendix removed with a bag. The 12 port was closed with 0 Vicryl suture with a suture passer. The remaining trocars were removed under direct visualization. The abdomen was desufflated. Wounds injected with 0.25% Marcaine. Wounds closed with 4-0 Vicryl sutures. Steri-strips and dressings were applied. The patient was recovered and taken to PACU in stable condition.
--- NOTE | 2023-05-07 11:32 | PCM.NOTE ---
Date and Time: 05/07/23 1128 Subjective Assessment: is a 53 year old female with pmhx of HLD, HTN, hypothyroid, GERD, and pancreatitis presented 05/05/23 with acute 1 day of progressive right lower quadrant pain, with tenderness there as well. Associated with nausea, no vomiting, no fevers. CT shows a new appendicolith at the location of patient's pain. General surgery consulted with lap appendectomy performed. Advised follow up with surgery/pcp on discharge as directed. 05/07/23 Met with patient bedside. Endorsing increased pain at surgical site, does not feel ready for discharge. Advised patient to ambulate, will also increase norco. Will Hold discharge. <RAMA SANDERS - Last Filed: 05/07/23 11:28> Date and Time: 05/07/23 2321 <LOTUS CASPER - Last Filed: 05/07/23 23:22> - Review of Systems Constitutional: No Symptoms Eyes: No Symptoms Ears, Nose, & Throat: No Symptoms Respiratory: No Symptoms Cardiac: No Symptoms Abdominal/Gastrointestinal: Abdominal Pain (at surgical incision /10), Other Genitourinary Symptoms: No Symptoms Musculoskeletal: No Symptoms Skin: No Symptoms Neurological: No Symptoms Psychological: No Symptoms Endocrine: No Symptoms Hematologic/Lymphatic: No Symptoms Immunological/Allergic: No Symptoms <RAMA SANDERS - Last Filed: 05/07/23 11:28> Objective Exam General Appearance: no apparent distress Neurologic Exam: alert, oriented x 3, cooperative Skin Exam: normal color Wound Assessment: Skin/Wound Assessment Wound/Incision Assessment Start: 05/07/23 06:53 Text: Status: Active Freq: Q4H Protocol: Document 05/07/23 08:00 AW (Rec: 05/07/23 08:46 AW [id number]) Wound/Incision Assessment Abdomen Wound Assessment Shift Assessment Wound Type Puncture Wound Stage Non Pressure Wound Dressing Status Drainage circled Drainage Amount Minimal Secondary Dressing Gauze Pads Comment 3 puncture sites drainage noted on site at umbilicus, marked. Wound Photo Photo Taken No Eye Exam: PERRL Ears, Nose, Throat Exam: normal ENT inspection Neck Exam: normal inspection Respiratory Exam: normal breath sounds, lungs clear Cardiovascular Exam: regular rate/rhythm, normal heart sounds Gastrointestinal/Abdomen Exam: tenderness, other (three puncture sites CDI) Extremity Exam: normal inspection Back Exam: normal inspection Pelvic Exam: deferred <RAMA SANDERS - Last Filed: 05/07/23 11:28> OBJECTIVE DATA Vital Signs: Vital Signs - 24 hr Temp Pulse Resp BP Pulse Ox 05/07/23 07:01 98.7 F 75 16 129/59 95 05/07/23 06:56 95 05/06/23 23:45 98.0 F 75 16 117/61 97 05/06/23 22:45 57 L 17 115/56 96 05/06/23 22:15 97.8 F 63 18 97/69 95 05/06/23 21:45 97.8 F 77 19 124/59 94 L 05/06/23 21:30 98.0 F 71 18 144/65 95 05/06/23 17:09 98.2 F 77 16 134/66 95 05/06/23 16:00 98.2 F 77 16 134/66 95 Pain Assessment - Last Documented Pain Intensity 5 Pain Scale Used 0-10 Pain Scale Intake and Output: Intake & Output 05/04/23 05/05/23 05/06/23 05/07/23 11:59 11:59 11:59 11:59 Intake Total 0 1465 Output Total 200 1300 Balance -200 165 Weight 74.843 kg 74.843 kg Lab Results: Lab Results-Last 24 Hours 05/06/23 05/06/23 05/06/23 Range/Units 06:27 11:00 12:10 WBC (4.0-10.5) x10^3/uL RBC (4.1-5.4) x10^6/uL Hgb (12.0-16.0) g/dL Hct (35-47) % MCV (78-100) fL MCH (26-32) pg MCHC (32-36) g/dL RDW (11.5-14.0) % Plt Count (150-450) x10^3/uL MPV (7.5-11.0) fL Gran % (36.0-66.0) % Immature Gran % (Auto) (0.00-0.4) % Nucleat RBC Rel Count (0.00-0.1) % Eos # (Auto) (0-0.5) x10^3/uL Immature Gran # (Auto) (0.00-0.03) x10^3u/L Absolute Lymphs (auto) (1.0-4.6) x10^3/uL Absolute Monos (auto) (0.0-1.3) x10^3/uL Absolute Nucleated RBC (0.00-0.01) x10^3u/L Lymphocytes % (24.0-44.0) % Monocytes % (0.0-12.0) % Eosinophils % (0.00-5.0) % Basophils % (0.0-0.4) % Absolute Granulocytes (1.4-6.9) x10^3/uL Basophils # (0-0.4) x10^3/uL Sodium (137-145) mmol/L Potassium 4.1 4.2 (3.5-5.1) mmol/L Chloride (98-107) mmol/L Carbon Dioxide (22-30) mmol/L Anion Gap (5-15) MEQ/L BUN (7-17) mg/dL Creatinine (0.52-1.04) mg/dL Estimated GFR ML/MIN Glucose (74-106) mg/dL Calcium (8.4-10.2) mg/dL Magnesium 2.1 (1.6-2.3) mg/dL Total Bilirubin (0.2-1.3) mg/dL AST (14-36) U/L ALT (0-35) U/L Alkaline Phosphatase (38-126) U/L Serum Total Protein (6.3-8.2) g/dL Albumin (3.5-5.0) g/dL 05/06/23 05/06/23 05/07/23 Range/Units 13:55 16:00 04:15 WBC 7.0 (4.0-10.5) x10^3/uL RBC 3.77 L (4.1-5.4) x10^6/uL Hgb 12.2 (12.0-16.0) g/dL Hct 38.5 (35-47) % MCV 102.1 H (78-100) fL MCH 32.4 H (26-32) pg MCHC 31.7 L (32-36) g/dL RDW 12.7 (11.5-14.0) % Plt Count 286 (150-450) x10^3/uL MPV 9.7 (7.5-11.0) fL Gran % 87.5 H (36.0-66.0) % Immature Gran % (Auto) 0.3 (0.00-0.4) % Nucleat RBC Rel Count 0.0 (0.00-0.1) % Eos # (Auto) 0 (0-0.5) x10^3/uL Immature Gran # (Auto) 0.02 (0.00-0.03) x10^3u/L Absolute Lymphs (auto) 0.80 L (1.0-4.6) x10^3/uL Absolute Monos (auto) 0.05 (0.0-1.3) x10^3/uL Absolute Nucleated RBC 0.00 (0.00-0.01) x10^3u/L Lymphocytes % 11.4 L (24.0-44.0) % Monocytes % 0.7 (0.0-12.0) % Eosinophils % 0.0 (0.00-5.0) % Basophils % 0.1 (0.0-0.4) % Absolute Granulocytes 6.11 (1.4-6.9) x10^3/uL Basophils # 0.01 (0-0.4) x10^3/uL Sodium (137-145) mmol/L Potassium 4.2 4.7 (3.5-5.1) mmol/L Chloride (98-107) mmol/L Carbon Dioxide (22-30) mmol/L Anion Gap (5-15) MEQ/L BUN (7-17) mg/dL Creatinine (0.52-1.04) mg/dL Estimated GFR ML/MIN Glucose (74-106) mg/dL Calcium (8.4-10.2) mg/dL Magnesium (1.6-2.3) mg/dL Total Bilirubin (0.2-1.3) mg/dL AST (14-36) U/L ALT (0-35) U/L Alkaline Phosphatase (38-126) U/L Serum Total Protein (6.3-8.2) g/dL Albumin (3.5-5.0) g/dL 05/07/23 05/07/23 Range/Units 04:15 04:15 WBC (4.0-10.5) x10^3/uL RBC (4.1-5.4) x10^6/uL Hgb (12.0-16.0) g/dL Hct (35-47) % MCV (78-100) fL MCH (26-32) pg MCHC (32-36) g/dL RDW (11.5-14.0) % Plt Count (150-450) x10^3/uL MPV (7.5-11.0) fL Gran % (36.0-66.0) % Immature Gran % (Auto) (0.00-0.4) % Nucleat RBC Rel Count (0.00-0.1) % Eos # (Auto) (0-0.5) x10^3/uL Immature Gran # (Auto) (0.00-0.03) x10^3u/L Absolute Lymphs (auto) (1.0-4.6) x10^3/uL Absolute Monos (auto) (0.0-1.3) x10^3/uL Absolute Nucleated RBC (0.00-0.01) x10^3u/L Lymphocytes % (24.0-44.0) % Monocytes % (0.0-12.0) % Eosinophils % (0.00-5.0) % Basophils % (0.0-0.4) % Absolute Granulocytes (1.4-6.9) x10^3/uL Basophils # (0-0.4) x10^3/uL Sodium 136 L (137-145) mmol/L Potassium 4.9 (3.5-5.1) mmol/L Chloride 110 H (98-107) mmol/L Carbon Dioxide 18 L (22-30) mmol/L Anion Gap 13.4 (5-15) MEQ/L BUN 11 (7-17) mg/dL Creatinine 0.70 (0.52-1.04) mg/dL Estimated GFR 102.1 ML/MIN Glucose 110 H (74-106) mg/dL Calcium 8.9 (8.4-10.2) mg/dL Magnesium 2.0 (1.6-2.3) mg/dL Total Bilirubin 0.70 (0.2-1.3) mg/dL AST 125 H (14-36) U/L ALT 117 H (0-35) U/L Alkaline Phosphatase 98 (38-126) U/L Serum Total Protein 6.5 (6.3-8.2) g/dL Albumin 3.8 (3.5-5.0) g/dL Radiology Exams: Radiology Procedures Category Date Time Status ABDOMEN AND PELVIS W/0 CONTRAS [CT] Stat Exams 05/05/23 19:15 Completed <RAMA SANDERS - Last Filed: 05/07/23 11:28> Vital Signs: Vital Signs - 24 hr Temp Pulse Resp BP Pulse Ox 05/07/23 12:00 98.5 F 83 16 127/72 96 05/07/23 07:01 98.7 F 75 16 129/59 95 05/07/23 06:56 95 05/06/23 23:45 98.0 F 75 16 117/61 97 Pain Assessment - Last Documented Pain Intensity 4 Pain Scale Used 0-10 Pain Scale Intake and Output: Intake & Output 05/05/23 05/06/23 05/07/23 05/08/23 11:59 11:59 11:59 11:59 Intake Total 0 1465 120 Output Total 200 1300 800 Balance -200 165 -680 Weight 74.843 kg 74.843 kg Lab Results: Lab Results-Last 24 Hours 05/07/23 05/07/23 05/07/23 Range/Units 04:15 04:15 04:15 WBC 7.0 (4.0-10.5) x10^3/uL RBC 3.77 L (4.1-5.4) x10^6/uL Hgb 12.2 (12.0-16.0) g/dL Hct 38.5 (35-47) % MCV 102.1 H (78-100) fL MCH 32.4 H (26-32) pg MCHC 31.7 L (32-36) g/dL RDW 12.7 (11.5-14.0) % Plt Count 286 (150-450) x10^3/uL MPV 9.7 (7.5-11.0) fL Gran % 87.5 H (36.0-66.0) % Immature Gran % (Auto) 0.3 (0.00-0.4) % Nucleat RBC Rel Count 0.0 (0.00-0.1) % Eos # (Auto) 0 (0-0.5) x10^3/uL Immature Gran # (Auto) 0.02 (0.00-0.03) x10^3u/L Absolute Lymphs (auto) 0.80 L (1.0-4.6) x10^3/uL Absolute Monos (auto) 0.05 (0.0-1.3) x10^3/uL Absolute Nucleated RBC 0.00 (0.00-0.01) x10^3u/L Lymphocytes % 11.4 L (24.0-44.0) % Monocytes % 0.7 (0.0-12.0) % Eosinophils % 0.0 (0.00-5.0) % Basophils % 0.1 (0.0-0.4) % Absolute Granulocytes 6.11 (1.4-6.9) x10^3/uL Basophils # 0.01 (0-0.4) x10^3/uL Sodium 136 L (137-145) mmol/L Potassium 4.9 (3.5-5.1) mmol/L Chloride 110 H (98-107) mmol/L Carbon Dioxide 18 L (22-30) mmol/L Anion Gap 13.4 (5-15) MEQ/L BUN 11 (7-17) mg/dL Creatinine 0.70 (0.52-1.04) mg/dL Estimated GFR 102.1 ML/MIN Glucose 110 H (74-106) mg/dL Calcium 8.9 (8.4-10.2) mg/dL Magnesium 2.0 (1.6-2.3) mg/dL Total Bilirubin 0.70 (0.2-1.3) mg/dL AST 125 H (14-36) U/L ALT 117 H (0-35) U/L Alkaline Phosphatase 98 (38-126) U/L Serum Total Protein 6.5 (6.3-8.2) g/dL Albumin 3.8 (3.5-5.0) g/dL <LOTUS CASPER - Last Filed: 05/07/23 23:22> Assessment/Plan (1) Appendicolith Status: Acute Assessment & Plan: (1) Appendicolith Current Visit: Yes Status: Acute Assessment & Plan: -Surgery consulted, appreciate recs -Pain control/anti-emetics -Zosyn 05/07/23: -PODS#1 lap appy, patient still with increased pain -Increase norco -Advised ambulation -ADAT Code(s): K38.9 - DISEASE OF APPENDIX, UNSPECIFIED (2) Hyperlipidemia Current Visit: No Status: Chronic Assessment & Plan: -Continue meds when able to resume diet Code(s): E78.5 - HYPERLIPIDEMIA, UNSPECIFIED (3) Hypertension Current Visit: No Status: Chronic Assessment & Plan: -continue meds when able to resume diet Code(s): I10 - ESSENTIAL (PRIMARY) HYPERTENSION (4) Hypothyroidism Current Visit: No Status: Chronic Assessment & Plan: -Continue home meds when able to resume diet Code(s): E03.9 - HYPOTHYROIDISM, UNSPECIFIED (5) Hypokalemia Current Visit: Yes Status: Acute Assessment & Plan: -Labs reviewed with potassium at 3.2, will replenish per protocol 05/07: -Resolved Code(s): E87.6 - HYPOKALEMIA (6) Nausea & vomiting Current Visit: Yes Status: Acute Assessment & Plan: -magdalena/lipase wnl, appendicolith noted on CT, pancreas with normal findings -Anti-emetics -IVF -ADAT 05/07: -Resolved Code(s): K38.9 - DISEASE OF APPENDIX, UNSPECIFIED (2) Hyperlipidemia Status: Chronic Code(s): E78.5 - HYPERLIPIDEMIA, UNSPECIFIED (3) Hypertension Status: Chronic Code(s): I10 - ESSENTIAL (PRIMARY) HYPERTENSION (4) Hypothyroidism Status: Chronic Code(s): E03.9 - HYPOTHYROIDISM, UNSPECIFIED (5) Hypokalemia Status: Acute Code(s): E87.6 - HYPOKALEMIA (6) Nausea & vomiting Status: Acute Code(s): R11.2 - NAUSEA WITH VOMITING, UNSPECIFIED <RAMA SANDERS - Last Filed: 05/07/23 11:28> LILLIE Encounter - LILLIE Encounter Attestation LILLIE Encounter Attestation: "LillieenandCHLOÉ [place] andhavediscussed pertinent aspects of their care with Rama Alvarez agree with the history, physical exam (any modifications based on my personal exam will be noted below), assessment, and plan as outlined in original note. Please see immediately below for my summary of findings and additional assessment and plan along with any meaningful corrections/explanations to the Subjective/Objective portions of the LILLIE note will be noted." My portion of the encounter took place via telemedicine. <LOTUS CASPER - Last Filed: 05/07/23 23:22>
[2023-05-07 13:54] VITALS: BP 127/72; PULSE 83; TEMP 98.5; O2SAT 96
[2023-05-07] MEDS ORDERED: REMERON 30 MG PO SCH (22:00)
[2023-05-07] MEDS ORDERED: NON-FORMULARY ITEM (Atorvastatin Calcium [Atorvastatin Calcium] 10 MG Tablet) PO SCH (22:00)
[2023-05-07] MEDS ORDERED: ZOCOR 20MG PO SCH (22:00)
[2023-05-07] MEDS ORDERED: Klor Con PO SCH (22:00)
[2023-05-07] MEDS ORDERED: Singulair 10 MG PO SCH (22:00)
[2023-05-08] MEDS ORDERED: hydroDIURIL 25 MG PO SCH (10:00)
[2023-05-08] MEDS ORDERED: NON-FORMULARY ITEM (Losartan/Hydrochlorothiazide [Losartan-Hctz 50-12.5 Mg Tab] 1 EACH Tab PO SCH (10:00)
[2023-05-08] MEDS ORDERED: ZOLOFT 50 MG TABLET PO SCH (10:00)
[2023-05-08] MEDS ORDERED: Protonix 40MG Tablet PO SCH (10:00)
[2023-05-08] MEDS ORDERED: SYNTHROID 75 MCG PO SCH (10:00)
[2023-05-08] MEDS ORDERED: Cozaar 50 MG PO SCH (10:00)
[2023-05-08] MEDS ORDERED: NON-FORMULARY ITEM (Cetirizine Hcl [Zyrtec] 10 MG Tablet) PO SCH (10:00)
[2023-05-08] MEDS ORDERED: Neurontin PO SCH (10:00)
[2023-05-08] MEDS ORDERED: CLARITIN 10 MG PO SCH (10:00)
== END 2023-05-07 14:37 | disposition home or self-care (01) ==
LOC: ED 17:29 → MED SURG 23:11
PROVIDERS: ADMIT Student in an Organized Health Care Education/Training Program; ATTEND Student in an Organized Health Care Education/Training Program
DX: K38.1 Appendicular concretions (principal); K35.80 Unspecified acute appendicitis; E78.5 Hyperlipidemia, unspecified; I10 Essential (primary) hypertension; E03.9 Hypothyroidism, unspecified; E87.6 Hypokalemia; R11.2 Nausea with vomiting, unspecified; Z79.899 Other long term (current) drug therapy; Z20.828 Contact with and (suspected) exposure to other viral communicable diseases
CPT/HCPCS: 36000; 36415; 44970; 74176; 80053; 81001; 82150; 83690; 83735; 84132; 84484; 85025; 93041; 93268; 94760; 94762; 96374; 96375; 96376; 99284; G0378; Q3014; 99140; J0694; J1100; J1170; J1200; J1885; J2060; J2250; J2270; J2405; J2704; J3010; A9270-GY

== ENCOUNTER 2023-07-07 11:43 | Day surgery (SDC) | payer OTHER ==
[2023-07-07] MEDS ORDERED: Sodium Chloride 0.9(Preservative Free) 10 ML IJ ONE (11:44)
[2023-07-07] MEDS ORDERED: Depo-Medrol 40 MG/ML IM ONE (11:44)
[2023-07-07] MEDS ORDERED: BUPIVACAINE 0.5% VIAL IJ ONE (11:44)
[2023-07-07] MEDS ORDERED: Pepcid 20 MG VIAL IV ONE (12:34)
[2023-07-07] MEDS ORDERED: DIPRIVAN 200 MG/20 ML IV ONE (13:21)
[2023-07-07] MEDS ORDERED: Lactated Ringers 1,000 ML IV ONE (14:17)
--- NOTE | 2023-07-07 14:58 | XRAY ---
Indication: Right SI joint, right hip, and right greater trochanter bursa injections Intraoperative fluoroscopy provided for 34 seconds. 5 digital spot image submitted for interpretation demonstrates posterior needle tip projecting over right SI joint. Additional needle tips lateral to right femur neck and right greater trochanter. Small amount of contrast injected for all needle tip placement. Correlate with intraoperative findings/report.
--- NOTE | 2023-07-07 15:17 | XRAY ---
34 seconds of fluoroscopy was used in surgery for a right intra-articular hip, right greater trochanteric bursa, and right sacroiliac joint injection.
== END 2023-07-07 13:55 | disposition home or self-care (01) ==
LOC: SDC-PAIN 11:43
PROVIDERS: ATTEND Psychiatry & Neurology Pain Medicine
DX: M16.11 Unilateral primary osteoarthritis, right hip (principal)
CPT/HCPCS: 20610; 27096; 73502; 77002; G0260; J1010; J2704; Q9966; J1030

== ENCOUNTER 2023-08-03 07:23 | Emergency (ER) | payer OTHER ==
[2023-08-03 07:48] VITALS: TEMP 98.7
--- NOTE | 2023-08-03 08:11 | ERPHSYRPT ---
- History of Present Illness Time Seen by Provider: 08/03/23 07:40 Historian: patient Exam Limitations: no limitations Patient Subjective Stated Complaint: Flank pain and chest pain Triage Nursing Assessment: +++ Physician History: 53-year-old female presents to emergency department for evaluation of right- sided flank pain and epigastric/lower chest pain. Symptoms started this morning at approximately 2 AM. Patient took a Motrin this morning at 6 AM. No significant improvement. Patient feels her symptoms are progressive. Flank pain is localized no radiation. Chest pain is in the epigastrium and lower chest region. No trauma no fever. No nausea vomiting or diaphoresis. Symptoms are mild to moderate in intensity. No specific worsening or improving factors. Patient states she is also experiencing a small amount of shortness of breath. Patient denies a history of the same. Patient states she is otherwise healthy. She is a non-smoker she voices no other complaints or concerns at this time. Portions of this note were created with voice recognition technology. There may be grammatical, spelling, punctuation or sound alike errors Timing/Duration: today Activities at Onset: none Quality: aching Abdominal Pain Onset Location: flank (Right flank) Pain Radiation: no radiation Severity of Pain-Max: moderate Severity of Pain-Current: mild Modifying Factors: Improves With: nothing Associated Symptoms: chest pain Previous symptoms: no prior history Allergies/Adverse Reactions: No Known Drug Allergies Allergy (Verified 08/03/23 07:43) Home Medications: Atorvastatin Calcium 40 mg PO HS 06/18/21 [History] Cetirizine HCl [Zyrtec] 10 mg PO DAILY 06/18/21 [History] Fluticasone Propionate [Flonase Allergy Relief] 2 puffs IH DAILY 06/18/21 [History] Levothyroxine Sodium 75 Mcg [Synthroid 75 Mcg] 75 mcg PO DAILY 06/18/21 [History] Montelukast Sodium 10 mg [Singulair 10 MG] 10 mg PO HS 06/18/21 [History] PANTOPRAZOLE 40 mg Tablet [Protonix 40MG Tablet] 40 mg PO QAM 06/18/21 [History] Gabapentin [Neurontin ] 900 mg PO QHS 06/19/21 [History] Tizanidine HCl 4 mg [Zanaflex 4 MG] 8 mg PO BID 06/19/21 [History] Gabapentin [Neurontin ] 300 mg PO DAILY 03/12/22 [History] Mirtazapine 30 mg [Remeron 30 mg] 45 mg PO HS 03/12/22 [History] Losartan/Hydrochlorothiazide [Losartan-Hctz 50-12.5 mg Tab] 1 each PO DAILY 04/01/22 [History] Sertraline HCl 50 mg [Zoloft 50 mg Tablet] 100 mg PO DAILY 04/01/22 [History] Hx Tetanus, Diphtheria Vaccination/Date Given: No Hx Influenza Vaccination/Date Given: No Hx Pneumococcal Vaccination/Date Given: No Travel Risk - International Travel Have you traveled outside of the country in past 3 weeks: No - Emerging Infectious Disease Are you exhibiting symptoms associated with any current EIDs: No - Review of Systems Constitutional: No Symptoms, No Fever, No Chills Eyes: No Symptoms Ears, Nose, & Throat: No Symptoms Respiratory: No Symptoms, No Cough, No Dyspnea Cardiac: No Symptoms, No Chest Pain, No Edema, No Syncope Abdominal/Gastrointestinal: No Symptoms, No Abdominal Pain, No Nausea, No Vomiting, No Diarrhea Genitourinary Symptoms: No Symptoms, No Dysuria Musculoskeletal: No Symptoms, No Back Pain, No Neck Pain Skin: No Symptoms, No Rash Neurological: No Symptoms, No Dizziness, No Focal Weakness, No Sensory Changes Psychological: No Symptoms Endocrine: No Symptoms Hematologic/Lymphatic: No Symptoms Immunological/Allergic: No Symptoms All Other Systems: Reviewed and Negative - Past Medical History Pertinent Past Medical History: Yes Neurological History: No Pertinent History ENT History: No Pertinent History Cardiac History: High Cholesterol, Hypertension, Other Respiratory History: Bronchitis Endocrine Medical History: Hypothyroidism Musculoskeletal History: No Pertinent History GI Medical History: GERD, Pancreatitis History: Other Psycho-Social History: Anxiety, Depression Female Reproductive Disorders: No Pertinent History Other Medical History: SVT, chronic UTIs - Past Surgical History Past Surgical History: Yes Neuro Surgical History: No Pertinent History Cardiac: Cardiac Catheterization, Other Respiratory: No Pertinent History Gastrointestinal: Appendectomy, Cholecystectomy Genitourinary: No Pertinent History Musculoskeletal: Other Female Surgical History: Dilation & Curettage, Section, Other Other Surgical History: breast reduction, spinal cord stimulator put in and removed, cardiac ablation for SVT, endometrial ablation, 4 back surgeries Significant Family History: heart disease - Social History Smoking Status: Never smoker How long have you smoked: 30 years Exposure to second hand smoke: No Drug Use: other Patient Lives Alone: No - Nursing Vital Signs Nursing Vital Signs: Initial Vital Signs Temperature 98.7 F 08/03/23 07:24 Pulse Rate 73 08/03/23 07:24 Respiratory Rate 20 08/03/23 07:24 Blood Pressure 142/86 08/03/23 07:24 O2 Sat by Pulse Oximetry 98 08/03/23 07:24 Pain Scale Pain Intensity 0 - Physical Exam General Appearance: no apparent distress, alert Eye Exam: PERRL/EOMI, eyes nml inspection Ears, Nose, Throat Exam: normal ENT inspection, pharynx normal, moist mucous membranes Neck Exam: normal inspection, non-tender, supple, full range of motion Respiratory Exam: normal breath sounds, lungs clear, No respiratory distress Cardiovascular Exam: regular rate/rhythm, normal heart sounds Gastrointestinal/Abdomen Exam: soft, No tenderness, No mass Back Exam: normal inspection, normal range of motion, No CVA tenderness, No vertebral tenderness Extremity Exam: normal inspection, normal range of motion, pelvis stable Neurologic Exam: alert, oriented x 3, cooperative, normal mood/affect, sensation nml, No motor deficits Skin Exam: normal color, warm, dry Lymphatic Exam: No adenopathy SpO2 Interpretation: normal SpO2: 97 O2 Delivery: Room Air - Course Nursing assessment & vital signs reviewed: Yes EKG Interpreted by Me: RATE (69), Sinus Rhythm, NORMAL AXIS, NORMAL INTERVALS - Radiology Exams Chest X-ray Interpretation: Teleradiologist Report (No new or acute finding) - CT Exams Abdomen/Pelvis CT Interpretation: Tele-radiologist Report (Right nephrolithiasis diverticulosis arthrosclerotic disease) Ordered Tests: Active Orders 24 hr Category Date Time Status Custom Designer STAT Care 08/03/23 07:58 Active EKG-ER Only STAT Care 08/03/23 07:57 Active IV Insertion STAT Care 08/03/23 07:57 Active Pulse Oximetry (ED) STAT Care 08/03/23 07:57 Active ABDOMEN AND PELVIS W/0 CONTRAS [CT] Stat Exams 08/03/23 09:58 Completed CHEST 1 VIEW (PORTABLE) Stat Exams 08/03/23 09:59 Completed CBC W DIFF Stat Lab 08/03/23 07:58 Completed CMP Stat Lab 08/03/23 07:58 Completed D-DIMER QUANTITATIVE Stat Lab 08/03/23 07:58 Completed LIPASE Stat Lab 08/03/23 07:58 Completed NT PRO BNPII Stat Lab 08/03/23 07:58 Completed TROPONIN Q4H Lab 08/03/23 07:58 Completed TROPONIN Q4H Lab 08/03/23 12:05 Completed TROPONIN Q4H Lab 08/03/23 16:00 Ordered UA W/RFX UR CULTURE Stat Lab 08/03/23 07:58 Completed Medication Summary Discontinued Medications Generic Name Dose Route Start Last Admin Trade Name Freq PRN Reason Stop Dose Admin Hydromorphone HCl 0.5 mg 08/03/23 11:28 08/03/23 11:33 Hydromorphone 1 Mg/1ml Inj IV 08/03/23 11:29 0.5 mg STAT ONE Administration Hydromorphone HCl Confirm 08/03/23 11:31 Hydromorphone 1 Mg/1ml Inj Administered 08/03/23 11:32 Dose 1 mg .ROUTE .STK-MED ONE Ceftriaxone Sodium 1 gm in 100 mls @ 200 mls/hr 08/03/23 09:58 08/03/23 10:47 Rocephin 1 Gm / 100 Ml Nacl IV 08/03/23 10:27 Infused STAT ONE Infusion Ceftriaxone Sodium Confirm 08/03/23 10:06 Rocephin 1 Gm / 100 Ml Nacl Administered 08/03/23 10:07 Dose 1 gm in 100 mls @ ud IV .STK-MED ONE Morphine Sulfate 2 mg 08/03/23 08:26 08/03/23 08:33 Morphine Sulfate 2 Mg/Ml Inj IV 08/03/23 08:27 2 mg STAT ONE Administration Morphine Sulfate Confirm 08/03/23 08:29 Morphine Sulfate 2 Mg/Ml Inj Administered 08/03/23 08:30 Dose 2 mg .ROUTE .STK-MED ONE Morphine Sulfate 2 mg 08/03/23 09:57 08/03/23 10:01 Morphine Sulfate 2 Mg/Ml Inj IV 08/03/23 09:58 2 mg STAT ONE Administration Morphine Sulfate Confirm 08/03/23 09:59 Morphine Sulfate 2 Mg/Ml Inj Administered 08/03/23 10:00 Dose 2 mg .ROUTE .STK-MED ONE Ondansetron HCl 4 mg 08/03/23 08:26 08/03/23 08:33 Ondansetron Hcl 4 Mg/2 Ml Vial IV 08/03/23 08:27 4 mg STAT ONE Administration Ondansetron HCl Confirm 08/03/23 08:29 Ondansetron Hcl 4 Mg/2 Ml Vial Administered 08/03/23 08:30 Dose 4 mg .ROUTE .[facility] ONE Lab/Rad Data: Laboratory Result Diagrams 08/03/23 07:58 08/03/23 07:58 Laboratory Results 08/03/23 08/03/23 08/03/23 Range/Units 12:05 07:58 07:58 WBC (4.0-10.5) x10^3/uL RBC (4.1-5.4) x10^6/uL Hgb (12.0-16.0) g/dL Hct (35-47) % MCV (78-100) fL MCH (26-32) pg MCHC (32-36) g/dL RDW (11.5-14.0) % Plt Count (150-450) x10^3/uL MPV (7.5-11.0) fL Gran % (36.0-66.0) % Immature Gran % (Auto) (0.00-0.4) % Nucleat RBC Rel Count (0.00-0.1) % Eos # (Auto) (0-0.5) x10^3/uL Immature Gran # (Auto) (0.00-0.03) x10^3u/L Absolute Lymphs (auto) (1.0-4.6) x10^3/uL Absolute Monos (auto) (0.0-1.3) x10^3/uL Absolute Nucleated RBC (0.00-0.01) x10^3u/L Lymphocytes % (24.0-44.0) % Monocytes % (0.0-12.0) % Eosinophils % (0.00-5.0) % Basophils % (0.0-0.4) % Absolute Granulocytes (1.4-6.9) x10^3/uL Basophils # (0-0.4) x10^3/uL D-Dimer (0.0-0.50) mg/L Sodium (135-145) mmol/L Potassium (3.5-5.1) mmol/L Chloride (98-107) mmol/L Carbon Dioxide (22-30) mmol/L Anion Gap (5-15) MEQ/L BUN (7-17) mg/dL Creatinine (0.52-1.04) mg/dL Estimated GFR ML/MIN Glucose (74-106) mg/dL Calcium (8.4-10.2) mg/dL Total Bilirubin (0.2-1.3) mg/dL AST (14-36) U/L ALT (0-35) U/L Alkaline Phosphatase (38-126) U/L Troponin I < 0.012 < 0.012 (0.000-0.033) ng/mL NT-Pro-B Natriuret Pep (<300) pg/mL Serum Total Protein (6.3-8.2) g/dL Albumin (3.5-5.0) g/dL Lipase (23-300) U/L Urine Color Yellow (Yellow) Urine Appearance Cloudy A (Clear) Urine pH 8.0 (4.6-8.0) Ur Specific [place] 1.010 (1.005-1.030) Urine Protein Negative (Negative) Urine Glucose (UA) Negative (Negative) mg/dL Urine Ketones Negative (Negative) Urine Blood Negative (Negative) Urine Nitrite Negative (Negative) Urine Bilirubin Negative (Negative) Urine Urobilinogen 0.2 (0.2) mg/dL Ur Leukocyte Esterase Small A (Negative) U Hyaline Cast (Auto) NONE SEEN (0-2) /LPF Urine Microscopic RBC 0-2 (0-5) /HPF Urine Microscopic WBC 6-10 A (0-5) /HPF Ur Epithelial Cells Moderate A (None Seen) /HPF Urine Bacteria None Seen (None Seen) /HPF Urine Culture Reflexed NO (NO) 08/03/23 08/03/23 08/03/23 Range/Units 07:58 07:58 07:58 WBC 5.7 (4.0-10.5) x10^3/uL RBC 4.09 L (4.1-5.4) x10^6/uL Hgb 13.5 (12.0-16.0) g/dL Hct 39.3 (35-47) % MCV 96.1 (78-100) fL MCH 33.0 H (26-32) pg MCHC 34.4 (32-36) g/dL RDW 12.2 (11.5-14.0) % Plt Count 314 (150-450) x10^3/uL MPV 9.7 (7.5-11.0) fL Gran % 49.7 (36.0-66.0) % Immature Gran % (Auto) 0.2 (0.00-0.4) % Nucleat RBC Rel Count 0.0 (0.00-0.1) % Eos # (Auto) 0.21 (0-0.5) x10^3/uL Immature Gran # (Auto) 0.01 (0.00-0.03) x10^3u/L Absolute Lymphs (auto) 2.21 (1.0-4.6) x10^3/uL Absolute Monos (auto) 0.37 (0.0-1.3) x10^3/uL Absolute Nucleated RBC 0.00 (0.00-0.01) x10^3u/L Lymphocytes % 39.0 (24.0-44.0) % Monocytes % 6.5 (0.0-12.0) % Eosinophils % 3.7 (0.00-5.0) % Basophils % 0.9 (0.0-0.4) % Absolute Granulocytes 2.82 (1.4-6.9) x10^3/uL Basophils # 0.05 (0-0.4) x10^3/uL D-Dimer < 0.19 (0.0-0.50) mg/L Sodium 139 (135-145) mmol/L Potassium 4.0 (3.5-5.1) mmol/L Chloride 111 H (98-107) mmol/L Carbon Dioxide 20 L (22-30) mmol/L Anion Gap 12.5 (5-15) MEQ/L BUN 9 (7-17) mg/dL Creatinine 0.79 (0.52-1.04) mg/dL Estimated GFR 88.3 ML/MIN Glucose 99 (74-106) mg/dL Calcium 9.4 (8.4-10.2) mg/dL Total Bilirubin 0.50 (0.2-1.3) mg/dL AST 32 (14-36) U/L ALT 29 (0-35) U/L Alkaline Phosphatase 93 (38-126) U/L Troponin I (0.000-0.033) ng/mL NT-Pro-B Natriuret Pep 67.8 (<300) pg/mL Serum Total Protein 6.9 (6.3-8.2) g/dL Albumin 4.1 (3.5-5.0) g/dL Lipase 46 (23-300) U/L Urine Color (Yellow) Urine Appearance (Clear) Urine pH (4.6-8.0) Ur Specific [place] (1.005-1.030) Urine Protein (Negative) Urine Glucose (UA) (Negative) mg/dL Urine Ketones (Negative) Urine Blood (Negative) Urine Nitrite (Negative) Urine Bilirubin (Negative) Urine Urobilinogen (0.2) mg/dL Ur Leukocyte Esterase (Negative) U Hyaline Cast (Auto) (0-2) /LPF Urine Microscopic RBC (0-5) /HPF Urine Microscopic WBC (0-5) /HPF Ur Epithelial Cells (None Seen) /HPF Urine Bacteria (None Seen) /HPF Urine Culture Reflexed (NO) - Progress Progress: improved Progress Note: 53-year-old female presents to our ED for evaluation of right-sided flank pain. Laboratory workup essentially unremarkable. Slight urinary tract infection observed on UA. Patient received a dose of Rocephin and Macrobid for home. CT abdomen pelvis negative for acute intra-abdominal pathology. D-dimer negative. Troponin negative x 2. Chest x-ray negative for acute pathology. Patient reassessed pain improved. Patient is ready for discharge. Will discharge home with Macrobid and Toradol. Patient agrees to follow-up with her primary care doctor the [place] within 48 hours for reevaluation. Patient was still having some discomfort. We discussed the possibility of admission. Patient declined states that she would prefer to go home and follow- up with her primary care doctor. Portions of this note were created with voice recognition technology. There may be grammatical, spelling, punctuation or sound alike errors Complexity problem addressed is moderate acute complicated no critical care time Complex of data reviewed and analyzed is moderate. Test ordered test reviewed results analyzed and correlated clinically with history and physical exam. Risk of complication and or risk morbidity/mortality patient management is high. Patient received IV Dilaudid for pain control. Macrobid and Toradol forwarded to patient's pharmacy. Vital stable. Time spent to discharge patient is approximately 20 minutes. Plan of care established for shared decision making. No social determinants of health present impede follow-up. 08/03/23 13:06 Counseled pt/family regarding: lab results, diagnosis, need for follow-up, rad results - Departure Departure Disposition: Home (Right nephrolithiasis diverticulosis arthrosclerotic disease. No acute findings) Clinical Impression: UTI (urinary tract infection), Right nephrolithiasis, Diverticulosis, Atherosclerotic heart disease Condition: Stable Critical Care Time: No Referrals: HOSPITAL,'S [Primary Care Provider] - Follow up/PCP as directed Instructions: Urinary Tract Infection, Adult ED Prescriptions: Nitrofurantoin Macro 100 mg [Macrobid 100MG Capsule] 100 mg PO BID 7 Days #14 cap Ketorolac Trometh 10 mg Tab [TORAdol 10 MG TABLET] 10 mg PO TID 5 Days #15 tablet
[2023-08-03 08:16] LABS: Absolute Neutrophil Ct (ANC) 2.82 x10^3/uL (1.4-6.9); BASOPHIL % 0.9 % (0.0-0.4); Basophil (Absolute #) 0.05 x10^3/uL (0-0.4); Eosinophil % 3.7 % (0.00-5.0); Eosinophil (Absolute #) 0.21 x10^3/uL (0-0.5); Hematocrit 39.3 % (35-47); Hemoglobin 13.5 g/dL (12.0-16.0); IMMATURE GRAN # 0.01 x10^3u/L (0.00-0.03); IMMATURE GRAN % 0.2 % (0.00-0.4); Lymphocyte (Absolute #) 2.21 x10^3/uL (1.0-4.6); Mean Cell Volume 96.1 fL (78-100); Mean Corpuscular Hgb Concent. 34.4 g/dL (32-36); Mean Platelet Volume 9.7 fL (7.5-11.0); Monocyte (Absolute #) 0.37 x10^3/uL (0.0-1.3); Monocytes % 6.5 % (0.0-12.0); Neutrophil % 49.7 % (36.0-66.0); Platelet Count 314 x10^3/uL (150-450); Red Blood Count 4.09 x10^6/uL (4.1-5.4); Red Cell Distribution Width 12.2 % (11.5-14.0); White Blood Count 5.7 x10^3/uL (4.0-10.5)
[2023-08-03 08:21] LABS: Appearance Cloudy (Clear); Bacteria None Seen /HPF (None Seen); Bilirubin Negative (Negative); Blood Negative (Negative); Epithelial Cells Moderate /HPF (None Seen); Glucose, Urine Negative (Negative); Hyaline Casts NONE SEEN /LPF (0-2); Ketones Negative (Negative); Leukocyte Esterase Small (Negative); Nitrite Negative (Negative); Protein,Urine Dip Negative (Negative); RBC 0-2 /HPF (0-5); Urobilinogen 0.2 mg/dL (0.2)
[2023-08-03 08:26] LABS: ADD URINE CULTURE? NO (NO)
[2023-08-03] MEDS ORDERED: Zofran 4 MG/2 ML VIAL ONE (08:29)
[2023-08-03] MEDS ORDERED: MORPHINE SULFATE 2 MG INJ ONE ×2 (08:29→09:59)
[2023-08-03] MEDS: Zofran 4 MG/2 ML VIAL IV ONE (08:33)
[2023-08-03] MEDS: MORPHINE SULFATE 2 MG INJ IV ONE ×2 (08:33→10:01)
[2023-08-03 08:42] LABS: ALBUMIN 4.1 g/dL (3.5-5.0); ANION GAP 12.5 MEQ/L (5-15); BILIRUBIN,TOTAL 0.5 mg/dL (0.2-1.3); Calcium 9.4 mg/dL (8.4-10.2); Creatinine 1 0.79 mg/dL (0.52-1.04); EST GLOMERULAR FILTRATION RATE 88.3 ML/MIN; NT PRO BNPII 67.8 pg/mL (<300); Total Protein 6.9 g/dL (6.3-8.2)
[2023-08-03] MEDS ORDERED: ROCEPHIN 1 GM / 100 ML NaCl 1 GM/100 ML IVPB IV ONE (10:06)
[2023-08-03] MEDS: ROCEPHIN 1 GM / 100 ML NaCl 1 GM/100 ML IVPB IV ONE (10:08)
--- NOTE | 2023-08-03 10:40 | XRAY ---
Indication: Pain. Comparison: January 27, 2022 Portable chest again demonstrates normal heart and lungs. Bony thorax intact with minimal degenerative changes. No new/acute findings.
[2023-08-03] MEDS ORDERED: Hydromorphone 1 mg/ml Injection ONE (11:31)
[2023-08-03] MEDS: Hydromorphone 1 mg/ml Injection IV ONE (11:33)
--- NOTE | 2023-08-03 11:40 | XRAY ---
Indication: Right flank pain. Multiple contiguous axial images obtained through the abdomen and pelvis without contrast using renal stone protocol. Comparison: May 05, 2023 Lung bases demonstrates dependent atelectasis. Heart not enlarged. Previous hiatal hernia not seen presumed sliding-type. Stable nonobstructing right renal punctate calculus. No new renal calculus or evidence for obstructive uropathy in either system. Noncontrasted stomach and bowel loops appear nonobstructed. Interval appendectomy. There remains scattered descending/sigmoid diverticulosis and cholecystectomy. No free fluid/air. Remaining liver, pancreas, spleen, adrenal glands, kidneys, ureters, bladder, and uterus are unremarkable for noncontrast exam. Stable mild aortoiliac calcifications without AAA. Osseous structures intact again with minimal degenerative changes throughout spine, minimal levoscoliosis, and benign left femur head bone island. Impression: 1. Stable nonobstructing right renal punctate calculus, colonic diverticulosis, arteriosclerotic disease, and chronic bony findings. 2. Status post appendectomy without complications. 3. Remaining CT abdomen/pelvis without contrast exam is negative.
[2023-08-03 12:39] VITALS: BP 124/73; PULSE 66; RESP 17
[2023-08-03 12:56] VITALS: O2SAT 97
== END 2023-08-03 13:14 | disposition home or self-care (01) ==
LOC: ED 07:23
DX: N39.0 Urinary tract infection, site not specified (principal); N20.0 Calculus of kidney; K57.90 Diverticulosis of intestine, part unspecified, without perforation or abscess without bleeding; I25.10 Atherosclerotic heart disease of native coronary artery without angina pectoris; R10.9 Unspecified abdominal pain; R10.13 Epigastric pain; R07.9 Chest pain, unspecified; R06.02 Shortness of breath; E78.5 Hyperlipidemia, unspecified; I10 Essential (primary) hypertension; Z79.899 Other long term (current) drug therapy
CPT/HCPCS: 36000; 36415; 71045; 74176; 80053; 81001; 83690; 83880; 84484; 85025; 85379; 93005; 93041; 94760; 96365; 96374; 96375; 96376; 99284; J0696; J1170; J2270; J2405

== ENCOUNTER 2023-09-02 14:56 | Emergency (ER) | payer OTHER ==
[2023-09-02 15:28] VITALS: TEMP 99.1
[2023-09-02 15:57] LABS: Absolute Neutrophil Ct (ANC) 3.41 x10^3/uL (1.56-6.13); BASOPHIL % 1.1 % (0.1-1.2); Basophil (Absolute #) 0.08 x10^3/uL (0.01-0.08); Eosinophil (Absolute #) 0.28 x10^3/uL (0.04-0.36); Hematocrit 37.3 % (34.1-44.9); Hemoglobin 12.8 g/dL (11.2-15.7); IMMATURE GRAN # 0.02 x10^3u/L (0.001-0.031); IMMATURE GRAN % 0.3 % (0.001-0.429); Lymphocyte (Absolute #) 2.81 x10^3/uL (1.18-3.74); Lymphocytes % 39.7 % (19.3-51.7); Mean Cell Volume 94.9 fL (79.4-94.8); Mean Corpuscular Hemoglobin 32.6 pg (25.6-32.2); Mean Corpuscular Hgb Concent. 34.3 g/dL (32.2-35.5); Mean Platelet Volume 9.5 fL (9.4-12.3); Monocyte (Absolute #) 0.47 x10^3/uL (0.24-0.86); Monocytes % 6.6 % (4.7-12.5); Neutrophil % 48.3 % (34.0-71.1); Platelet Count 285 x10^3/uL (182-369); Red Blood Count 3.93 x10^6/uL (3.93-5.22); Red Cell Distribution Width 12.2 % (11.7-14.4); White Blood Count 7.1 x10^3/uL (3.98-10.04)
[2023-09-02] MEDS ORDERED: Zofran 4 MG/2 ML VIAL ONE (15:58)
[2023-09-02] MEDS ORDERED: Sodium Chloride 0.9% 1000 ML 1,000 ML ONE (15:59)
[2023-09-02] MEDS ORDERED: SUBLIMAZE 100 MCG/2 ML ONE (15:59)
[2023-09-02] MEDS: Sodium Chloride 0.9% 1000 ML 1,000 ML IV STA (16:01)
--- NOTE | 2023-09-02 16:01 | ERPHSYRPT ---
- History of Present Illness Time Seen by Provider: 09/02/23 14:59 Historian: patient Exam Limitations: no limitations Patient Subjective Stated Complaint: C/O right sided abdominal pain that is radiating into her right groin. States it is a burning sensation "like being s tabbed with a hot pocker." Triage Nursing Assessment: Patient ambulated back to ER. She is alert and oriented. Urine specimen obtained. NO SOB. Skin tone normal. KVNG WNL. Denies any vomiting since 08/27/23 but is nauseated. Physician History: 53-year-old female with history of appendectomy, kidney stones presented in the ER with complaint of right flank pain for the last 3 days with progressive worsening, moderate to severe sharp shooting with radiation to right groin, associated with nausea and few episodes of nonprojectile, nonbilious vomiting without hematemesis. Patient denies any increased frequency or urgency of urine. No hematuria or dysuria reported. No fever or chills reported. Allergies/Adverse Reactions: No Known Drug Allergies Allergy (Verified 09/02/23 15:14) Home Medications: Atorvastatin Calcium 40 mg PO HS 06/18/21 [History] Cetirizine HCl [Zyrtec] 10 mg PO DAILY 06/18/21 [History] Fluticasone Propionate [Flonase Allergy Relief] 2 puffs IH DAILY 06/18/21 [History] Levothyroxine Sodium 75 Mcg [Synthroid 75 Mcg] 75 mcg PO DAILY 06/18/21 [History] Montelukast Sodium 10 mg [Singulair 10 MG] 10 mg PO HS 06/18/21 [History] PANTOPRAZOLE 40 mg Tablet [Protonix 40MG Tablet] 40 mg PO QAM 06/18/21 [History] Gabapentin [Neurontin ] 900 mg PO QHS 06/19/21 [History] Tizanidine HCl 4 mg [Zanaflex 4 MG] 8 mg PO BID 06/19/21 [History] Gabapentin [Neurontin ] 300 mg PO DAILY 03/12/22 [History] Mirtazapine 30 mg [Remeron 30 mg] 45 mg PO HS 03/12/22 [History] Losartan/Hydrochlorothiazide [Losartan-Hctz 50-12.5 mg Tab] 1 each PO DAILY 04/01/22 [History] Sertraline HCl 50 mg [Zoloft 50 mg Tablet] 100 mg PO DAILY 04/01/22 [History] Hx Tetanus, Diphtheria Vaccination/Date Given: Yes Hx Influenza Vaccination/Date Given: No Hx Pneumococcal Vaccination/Date Given: No Immunizations Up to Date: Yes Travel Risk - International Travel Have you traveled outside of the country in past 3 weeks: No - Emerging Infectious Disease Are you exhibiting symptoms associated with any current EIDs: Yes Symptoms: Abdominal Pain - Review of Systems Constitutional: No Symptoms Ears, Nose, & Throat: No Symptoms Respiratory: No Symptoms Cardiac: No Symptoms Abdominal/Gastrointestinal: Abdominal Pain, Nausea, Vomiting Genitourinary Symptoms: No Symptoms Musculoskeletal: No Symptoms Skin: No Symptoms Neurological: No Symptoms Endocrine: No Symptoms Hematologic/Lymphatic: No Symptoms Immunological/Allergic: No Symptoms - Past Medical History Pertinent Past Medical History: Yes Neurological History: No Pertinent History ENT History: No Pertinent History Cardiac History: High Cholesterol, Hypertension, Other Respiratory History: Bronchitis Endocrine Medical History: Hypothyroidism Musculoskeletal History: No Pertinent History GI Medical History: GERD, Pancreatitis History: Other Psycho-Social History: Anxiety, Depression Female Reproductive Disorders: No Pertinent History Other Medical History: SVT, chronic UTIs - Past Surgical History Past Surgical History: Yes Neuro Surgical History: No Pertinent History Cardiac: Cardiac Catheterization, Other Respiratory: No Pertinent History Gastrointestinal: Appendectomy, Cholecystectomy Genitourinary: No Pertinent History Musculoskeletal: Other Female Surgical History: Dilation & Curettage, Section, Other Other Surgical History: breast reduction, spinal cord stimulator put in and removed, cardiac ablation for SVT, endometrial ablation, 4 back surgeries Significant Family History: heart disease - Social History Smoking Status: Never smoker How long have you smoked: 30 years Exposure to second hand smoke: No Drug Use: other Patient Lives Alone: No - Social Determinants of Health Will the patient participate in the screening: Declined to provide - Nursing Vital Signs Nursing Vital Signs: Initial Vital Signs Temperature 99.1 F 09/02/23 14:56 Pulse Rate 65 09/02/23 14:56 Respiratory Rate 14 09/02/23 14:56 Blood Pressure 107/79 09/02/23 14:56 O2 Sat by Pulse Oximetry 97 09/02/23 14:56 Pain Scale Pain Intensity 0 - Physical Exam General Appearance: no apparent distress, alert Eye Exam: PERRL/EOMI Ears, Nose, Throat Exam: pharynx normal Neck Exam: normal inspection, full range of motion Respiratory Exam: normal breath sounds, lungs clear Cardiovascular Exam: regular rate/rhythm, normal heart sounds Gastrointestinal/Abdomen Exam: soft, normal bowel sounds, tenderness (Right flank/right lower quadrant with no guarding or rebound tenderness) Back Exam: normal inspection, normal range of motion Extremity Exam: normal inspection, normal range of motion Neurologic Exam: alert, oriented x 3, cooperative Skin Exam: normal color SpO2 Interpretation: normal SpO2: 98 O2 Delivery: Room Air Ordered Tests: Active Orders 24 hr Category Date Time Status IV Insertion STAT Care 09/02/23 15:42 Active NPO (ED) STAT Care 09/02/23 15:42 Active ABDOMEN AND PELVIS W/0 CONTRAS [CT] Stat Exams 09/02/23 15:42 Taken CBC W DIFF Stat Lab 09/02/23 15:54 Completed CMP Stat Lab 09/02/23 15:54 Completed CULTURE,URINE Stat Lab 09/02/23 15:45 Received LIPASE Stat Lab 09/02/23 15:54 Completed UA W/RFX UR CULTURE Stat Lab 09/02/23 15:45 Completed Medication Summary Discontinued Medications Generic Name Dose Route Start Last Admin Trade Name Yesika PRN Reason Stop Dose Admin Fentanyl Citrate 50 mcg 09/02/23 15:42 09/02/23 16:05 Fentanyl Citrate 100 Mcg/2 Ml* Vial IV 09/02/23 15:43 50 mcg STAT ONE Administration Fentanyl Citrate Confirm 09/02/23 15:59 Fentanyl Citrate 100 Mcg/2 Ml* Vial Administered 09/02/23 16:00 Dose 100 mcg .ROUTE .STK-MED ONE Sodium Chloride 1,000 mls @ 999 mls/hr 09/02/23 15:42 09/02/23 17:17 Sodium Chloride 0.9% 1000 Ml IV 09/02/23 16:42 Infused .Q1H1M STA Infusion Sodium Chloride Confirm 09/02/23 15:59 Sodium Chloride 0.9% 1000 Ml Administered 09/02/23 16:00 Dose 1,000 mls @ ud .ROUTE .STK-MED ONE Morphine Sulfate 4 mg 09/02/23 17:40 09/02/23 18:02 Morphine Sulfate 4 Mg/Ml Injection IV 09/02/23 17:41 4 mg STAT ONE Administration Morphine Sulfate Confirm 09/02/23 18:01 Morphine Sulfate 4 Mg/Ml Injection Administered 09/02/23 18:02 Dose 4 mg .ROUTE .STK-MED ONE Ondansetron HCl 4 mg 09/02/23 15:42 09/02/23 16:03 Ondansetron Hcl 4 Mg/2 Ml Vial IV 09/02/23 15:43 4 mg STAT ONE Administration Ondansetron HCl Confirm 09/02/23 15:58 Ondansetron Hcl 4 Mg/2 Ml Vial Administered 09/02/23 15:59 Dose 4 mg .ROUTE .STK-MED ONE Lab/Rad Data: Laboratory Result Diagrams 09/02/23 15:54 09/02/23 15:54 Laboratory Results 09/02/23 09/02/23 09/02/23 Range/Units 15:54 15:54 15:45 WBC 7.1 (3.98-10.04) x10^3/uL RBC 3.93 (3.93-5.22) x10^6/uL Hgb 12.8 (11.2-15.7) g/dL Hct 37.3 (34.1-44.9) % MCV 94.9 H (79.4-94.8) fL MCH 32.6 H (25.6-32.2) pg MCHC 34.3 (32.2-35.5) g/dL RDW 12.2 (11.7-14.4) % Plt Count 285 (182-369) x10^3/uL MPV 9.5 (9.4-12.3) fL Gran % 48.3 (34.0-71.1) % Immature Gran % (Auto) 0.3 (0.001-0.429) % Nucleat RBC Rel Count 0.0 (0.00-0.2) % Eos # (Auto) 0.28 (0.04-0.36) x10^3/uL Immature Gran # (Auto) 0.02 (0.001-0.031) x10^3u/L Absolute Lymphs (auto) 2.81 (1.18-3.74) x10^3/uL Absolute Monos (auto) 0.47 (0.24-0.86) x10^3/uL Absolute Nucleated RBC 0.00 (0.00-0.012) x10^3u/L Lymphocytes % 39.7 (19.3-51.7) % Monocytes % 6.6 (4.7-12.5) % Eosinophils % 4.0 (0.7-5.8) % Basophils % 1.1 (0.1-1.2) % Absolute Granulocytes 3.41 (1.56-6.13) x10^3/uL Basophils # 0.08 (0.01-0.08) x10^3/uL Sodium 138 (135-145) mmol/L Potassium 3.4 L (3.5-5.1) mmol/L Chloride 106 (98-107) mmol/L Carbon Dioxide 24 (22-30) mmol/L Anion Gap 11.6 (5-15) MEQ/L BUN 13 (7-17) mg/dL Creatinine 0.98 (0.52-1.04) mg/dL Estimated GFR 68.2 ML/MIN Glucose 96 (74-106) mg/dL Calcium 9.4 (8.4-10.2) mg/dL Total Bilirubin 0.70 (0.2-1.3) mg/dL AST 29 (14-36) U/L ALT 24 (0-35) U/L Alkaline Phosphatase 90 (38-126) U/L Serum Total Protein 7.0 (6.3-8.2) g/dL Albumin 4.2 (3.5-5.0) g/dL Lipase 42 (23-300) U/L Urine Color Dark Yellow A (Yellow) Urine Appearance Clear (Clear) Urine pH 6.0 (4.6-8.0) Ur Specific [place] 1.015 (1.005-1.030) Urine Protein Negative (Negative) Urine Glucose (UA) Negative (Negative) mg/dL Urine Ketones Trace A (Negative) Urine Blood Negative (Negative) Urine Nitrite Negative (Negative) Urine Bilirubin Negative (Negative) Urine Urobilinogen 0.2 (0.2) mg/dL Ur Leukocyte Esterase Large A (Negative) U Hyaline Cast (Auto) 6-10 A (0-2) /LPF Urine Microscopic RBC 0-2 (0-5) /HPF Urine Microscopic WBC 21-50 A (0-5) /HPF Ur Epithelial Cells Moderate A (None Seen) /HPF Urine Bacteria Moderate A (None Seen) /HPF Urine Culture Reflexed YES (NO) - Progress Progress: improved Progress Note: 09/02/23 19:16 53-year-old is evaluated for right flank pain for the last 3 days with radiation to the groin and associated nausea and vomiting. Patient is afebrile, given symptomatic treatment along with fluids, on reevaluation pain is much improved. Workup showed normal white count, chemistries fairly unremarkable. Does have UTI and given a dose of Rocephin. CT abdomen pelvis per preliminary reports showed new moderate size hiatal hernia, patient is taking Protonix. Also showed nonobstructive stone with no acute findings of pyelonephritis or obstructive uropathy. With pain in the flank and UTI, I will still treat her as a pyelonephritis. Will give her outpatient cefpodoxime to go home. Recommended increase hydration and outpatient follow-up. Discussed signs symptoms of worsening needing return to ER which she seems understanding. Stable for discharge. 09/02/23 19:17 Counseled pt/family regarding: lab results, diagnosis, need for follow-up, rad results Medical Desision Making - Diagnostic Testing Diagnostic test were ordered, analyzed, and reviewed by me: Yes Radiological Interpretation: Reviewed by me, Teleradiologist Report - Risk of complications The pt has a mod risk of morbidity or mortality based on: Need for prescription drug management - Departure Departure Disposition: Home Clinical Impression: Acute UTI (urinary tract infection), Right flank pain, Hiatal hernia Condition: Stable Critical Care Time: No Referrals: [facility]OS[facility],'[facility] [Primary Care Provider] - Follow up with PCP 1 day Instructions: Severe Abdominal Pain, Adult (DC), Urinary tract infections in adults Additional Instructions: Take Tylenol/ibuprofen as needed. Follow-up with primary care for reevaluation. Return to ER for intractable pain/vomiting, difficulty urination or if develop fever chills etc. Prescriptions: Cefpodoxime Proxetil 200 mg [Vantin 200 mg] 200 mg PO BID 7 Days #14 tablet
[2023-09-02] MEDS: Zofran 4 MG/2 ML VIAL IV ONE (16:03)
[2023-09-02] MEDS: SUBLIMAZE 100 MCG/2 ML IV ONE (16:05)
[2023-09-02 16:15] LABS: ALBUMIN 4.2 g/dL (3.5-5.0); ANION GAP 11.6 MEQ/L (5-15); BILIRUBIN,TOTAL 0.7 mg/dL (0.2-1.3); Calcium 9.4 mg/dL (8.4-10.2); Creatinine 1 0.98 mg/dL (0.52-1.04); EST GLOMERULAR FILTRATION RATE 68.2 ML/MIN; Potassium 3.4 mmol/L (3.5-5.1)
[2023-09-02 17:53] LABS: Appearance Clear (Clear); Bacteria Moderate /HPF (None Seen); Bilirubin Negative (Negative); Blood Negative (Negative); Epithelial Cells Moderate /HPF (None Seen); Glucose, Urine Negative (Negative); Ketones Trace (Negative); Leukocyte Esterase Large (Negative); Nitrite Negative (Negative); Protein,Urine Dip Negative (Negative); RBC 0-2 /HPF (0-5); Specific Gravity 1.015 (1.005-1.030); Urobilinogen 0.2 mg/dL (0.2); WBC 21-50 /HPF (0-5)
[2023-09-02 17:54] LABS: ADD URINE CULTURE? YES (NO)
[2023-09-02] MEDS ORDERED: MORPHINE SULFATE 4 MG INJ ONE (18:01)
[2023-09-02] MEDS: MORPHINE SULFATE 4 MG INJ IV ONE (18:02)
[2023-09-02] MEDS ORDERED: ROCEPHIN 2 GM/100 ML NACL 2 GM/100 ML IVPB IV ONE (19:22)
[2023-09-02] MEDS: ROCEPHIN 2 GM/100 ML NACL 2 GM/100 ML IVPB IV ONE (19:28)
[2023-09-02 20:09] VITALS: BP 123/75; PULSE 61; RESP 20; O2SAT 95
--- NOTE | 2023-09-03 08:18 | XRAY ---
Indication: Right flank pain. Multiple contiguous axial images obtained through the abdomen and pelvis without contrast. Comparison: August 03, 2023 Lung bases again demonstrates mild pulmonary emphysema. No infiltrate or effusion. Heart not enlarged. New moderate size hiatal hernia with partial intrathoracic stomach. Noncontrasted stomach and bowel loops appear nonobstructed. Again minimal scattered colonic diverticulosis without diverticulitis, nonobstructing right renal punctate calculus, appendectomy, cholecystectomy. No free fluid/air. Remaining liver, pancreas, spleen, adrenal glands, kidneys, ureters, bladder, and uterus are unremarkable for noncontrast exam. There remains mild scattered aortoiliac calcifications without AAA. Osseous structures intact again with minimal generative changes throughout the spine, minimal levoscoliosis, and benign left femur head bone island. Impression: 1. New hiatal hernia. 2. Again chronic findings including pulmonary emphysema, nonobstructing right renal punctate calculus, colonic diverticulosis, arteriosclerotic disease, and chronic bony findings. 3. Remaining CT abdomen/pelvis without contrast exam is negative.
== END 2023-09-02 20:15 | disposition home or self-care (01) ==
LOC: ED 14:56
DX: N39.0 Urinary tract infection, site not specified (principal); R10.9 Unspecified abdominal pain; K44.9 Diaphragmatic hernia without obstruction or gangrene; R11.2 Nausea with vomiting, unspecified; E78.5 Hyperlipidemia, unspecified; I10 Essential (primary) hypertension; Z79.899 Other long term (current) drug therapy
CPT/HCPCS: 36000; 36415; 74176; 80053; 81001; 83690; 85025; 87086; 96374; 96375; 99284; J0696; J2270; J2405; J3010

== ENCOUNTER 2023-10-11 12:46 | Emergency (ER) | payer BC, OTHER ==
[2023-10-11 13:01] VITALS: TEMP 99
[2023-10-11 13:21] LABS: Absolute Neutrophil Ct (ANC) 4.61 x10^3/uL (1.56-6.13); BASOPHIL % 1.1 % (0.1-1.2); Eosinophil % 1.7 % (0.7-5.8); Eosinophil (Absolute #) 0.15 x10^3/uL (0.04-0.36); Hematocrit 40.6 % (34.1-44.9); Hemoglobin 13.7 g/dL (11.2-15.7); IMMATURE GRAN # 0.03 x10^3u/L (0.001-0.031); IMMATURE GRAN % 0.3 % (0.001-0.429); Lymphocyte (Absolute #) 3.51 x10^3/uL (1.18-3.74); Lymphocytes % 39.1 % (19.3-51.7); Mean Cell Volume 97.6 fL (79.4-94.8); Mean Corpuscular Hemoglobin 32.9 pg (25.6-32.2); Mean Corpuscular Hgb Concent. 33.7 g/dL (32.2-35.5); Mean Platelet Volume 9.6 fL (9.4-12.3); Monocyte (Absolute #) 0.58 x10^3/uL (0.24-0.86); Monocytes % 6.5 % (4.7-12.5); Neutrophil % 51.3 % (34.0-71.1); Platelet Count 352 x10^3/uL (182-369); Red Blood Count 4.16 x10^6/uL (3.93-5.22); Red Cell Distribution Width 12.5 % (11.7-14.4)
[2023-10-11 13:29] LABS: Appearance Clear (Clear); Bacteria None Seen /HPF (None Seen); Bilirubin Negative (Negative); Blood Negative (Negative); Epithelial Cells Rare /HPF (None Seen); Glucose, Urine Negative (Negative); Hyaline Casts NONE SEEN /LPF (0-2); Ketones Negative (Negative); Leukocyte Esterase Moderate (Negative); Nitrite Negative (Negative); Protein,Urine Dip Negative (Negative); RBC 0-2 /HPF (0-5); Urobilinogen 0.2 mg/dL (0.2)
[2023-10-11 13:30] LABS: ADD URINE CULTURE? YES (NO)
[2023-10-11 13:32] LABS: HCG SERUM TEST NEGATIVE (NEGATIVE)
[2023-10-11 13:35] LABS: INR 0.94 (0.8-3.0); PROTIME 10.3 SECONDS (9.4-12.5)
[2023-10-11] MEDS ORDERED: Sodium Chloride 0.9% 1000 ML 1,000 ML ONE (13:35)
[2023-10-11] MEDS ORDERED: Pepcid 20 MG VIAL IV ONE (13:35)
[2023-10-11 13:39] LABS: ALBUMIN 4.6 g/dL (3.5-5.0); BILIRUBIN,TOTAL 0.5 mg/dL (0.2-1.3); Calcium 9.8 mg/dL (8.4-10.2); Creatinine 1 0.88 mg/dL (0.52-1.04); EST GLOMERULAR FILTRATION RATE 77.6 ML/MIN; Potassium 3.9 mmol/L (3.5-5.1); Total Protein 7.6 g/dL (6.3-8.2)
[2023-10-11] MEDS: Sodium Chloride 0.9% 1000 ML 1,000 ML IV STA (13:46)
[2023-10-11] MEDS: Pepcid 20 MG VIAL IV ONE (13:46)
[2023-10-11] MEDS ORDERED: ROCEPHIN 2 GM/100 ML NACL 2 GM/100 ML IVPB IV ONE (14:04)
[2023-10-11] MEDS ORDERED: MORPHINE SULFATE 2 MG INJ ONE (14:04)
[2023-10-11] MEDS: ROCEPHIN 2 GM/100 ML NACL 2 GM/100 ML IVPB IV ONE (14:11)
[2023-10-11] MEDS: MORPHINE SULFATE 2 MG INJ IV ONE (14:12)
--- NOTE | 2023-10-11 16:30 | XRAY ---
Indication: Abdomen pain. Multiple contiguous axial images obtained through the abdomen and pelvis using 80 cc Isovue 370 contrast. Comparison: September 02, 2023 Lung bases again demonstrates pulmonary emphysema without infiltrate or effusion. Heart not enlarged. Stable moderate-sized hiatal hernia. Noncontrasted stomach and bowel loops nonobstructed. There is now mild diffuse scatter colonic fecal debris throughout. Again minimal colonic diverticulosis without diverticulitis. Stable nonobstructing right renal punctate calculus, appendectomy, and cholecystectomy. No free fluid/air. Remaining liver, pancreas, spleen, adrenal glands, kidneys, ureters, and bladder are unremarkable. Stable minimal aortoiliac calcifications. No AAA or pathologic retroperitoneal lymphadenopathy. Osseous structures intact again with minimal degenerative changes throughout the spine and minimal levoscoliosis. Impression: 1. Since ER CT last month, new finding mild diffuse fecal stasis. 2. Stable hiatal hernia, pulmonary emphysema, nonobstructing renal punctate calculus, colonic diverticulosis, arteriosclerotic disease, and chronic bony findings.
[2023-10-11 16:37] VITALS: BP 167/84; PULSE 68; RESP 17
[2023-10-11 16:40] VITALS: O2SAT 100
--- NOTE | 2023-10-11 16:40 | ERPHSYRPT ---
- History of Present Illness Time Seen by Provider: 10/11/23 13:30 Historian: patient Exam Limitations: no limitations Patient Subjective Stated Complaint: C/O intermittent abdominal apin that started around 0800 today. Nausea without vomiting. Pain location is upper cente r abdomen. Triage Nursing Assessment: Patient ambulated back to ER. She is alert and oriented but anxious. No SOB. S/S of pain present; grimacing and holding abdomen. Face is flushed. KVNG PAZ. Physician History: The patient presents with right-sided abdominal pain and epigastric discomfort that began around 8 AM on the day of the consultation. The pain has been progressively worsening throughout the day. The patient was preparing for work when the pain started. The patient reports that the right-sided pain is a constant issue, but the epigastric pain is a new symptom. The patient attempted to manage the pain with Motrin, which did not alleviate the discomfort but also did not exacerbate it. The patient has not tried eating due to the pain. The patient reports a history of diarrhea the day before the consultation, which has since transitioned to constipation. The patient describes the stool as small, hard lumps wrapped in mucus. The patient denies noticing any blood in their urine but reports an increased frequency of urination. There is no associated dysuria. The patient denies experiencing any fever or chills. On deep inspiration, the patient experiences pain in the right upper quadrant of the abdomen. The patient denies any chest pain or difficulty breathing. The patient is concerned about the possibility of another urinary tract infection. Timing/Duration: today Activities at Onset: rest Quality: cramping, sharpness, stabbing Abdominal Pain Onset Location: RUQ, epigastric Pain Radiation: no radiation Severity of Pain-Max: severe Severity of Pain-Current: severe Modifying Factors: Worsens With: analgesics, eating, movement, palpation, vomiting Associated Symptoms: loss of appetite, nausea, vomiting, other (constipation), No chest pain, No diaphoresis, No diarrhea, No fever/chills, No heartburn, No neck pain, No shortness of breath Previous symptoms: same symptoms as today Allergies/Adverse Reactions: No Known Drug Allergies Allergy (Verified 10/11/23 12:52) Home Medications: Atorvastatin Calcium 40 mg PO HS 06/18/21 [History] Cetirizine HCl [Zyrtec] 10 mg PO DAILY 06/18/21 [History] Fluticasone Propionate [Flonase Allergy Relief] 2 puffs IH DAILY 06/18/21 [History] Levothyroxine Sodium 75 Mcg [Synthroid 75 Mcg] 75 mcg PO DAILY 06/18/21 [History] Montelukast Sodium 10 mg [Singulair 10 MG] 10 mg PO HS 06/18/21 [History] PANTOPRAZOLE 40 mg Tablet [Protonix 40MG Tablet] 40 mg PO QAM 06/18/21 [History] Gabapentin [Neurontin ] 900 mg PO QHS 06/19/21 [History] Tizanidine HCl 4 mg [Zanaflex 4 MG] 8 mg PO BID 06/19/21 [History] Gabapentin [Neurontin ] 300 mg PO DAILY 03/12/22 [History] Mirtazapine 30 mg [Remeron 30 mg] 45 mg PO HS 03/12/22 [History] Losartan/Hydrochlorothiazide [Losartan-Hctz 50-12.5 mg Tab] 1 each PO DAILY 04/01/22 [History] Sertraline HCl 50 mg [Zoloft 50 mg Tablet] 100 mg PO DAILY 04/01/22 [History] Hx Tetanus, Diphtheria Vaccination/Date Given: Yes Hx Influenza Vaccination/Date Given: No Hx Pneumococcal Vaccination/Date Given: No Immunizations Up to Date: Yes Travel Risk - International Travel Have you traveled outside of the country in past 3 weeks: No - Emerging Infectious Disease Are you exhibiting symptoms associated with any current EIDs: Yes Symptoms: Abdominal Pain - Review of Systems All Other Systems: Reviewed and Negative - Past Medical History Pertinent Past Medical History: Yes Neurological History: No Pertinent History ENT History: No Pertinent History Cardiac History: High Cholesterol, Hypertension, Other Respiratory History: Bronchitis Endocrine Medical History: Hypothyroidism Musculoskeletal History: No Pertinent History GI Medical History: GERD, Pancreatitis History: Other Psycho-Social History: Anxiety, Depression Female Reproductive Disorders: No Pertinent History Other Medical History: SVT, chronic UTIs - Past Surgical History Past Surgical History: Yes Neuro Surgical History: No Pertinent History Cardiac: Cardiac Catheterization, Other Respiratory: No Pertinent History Gastrointestinal: Appendectomy, Cholecystectomy Genitourinary: No Pertinent History Musculoskeletal: Other Female Surgical History: Dilation & Curettage, Section, Other Other Surgical History: breast reduction, spinal cord stimulator put in and removed, cardiac ablation for SVT, endometrial ablation, 4 back surgeries Significant Family History: heart disease - Social History Smoking Status: Former smoker How long have you smoked: 30 years Exposure to second hand smoke: No Drug Use: other Patient Lives Alone: No - Social Determinants of Health Will the patient participate in the screening: Yes Do you worry about a steady place to live?: No Do you have any problems with any of the following?: No known problems In the past 12 months,have you had to go without utilities?: No Transportation Issues: No Has anyone in your support network made you feel unsafe?: No Have you or anyone in your house had to go without enough: No - Nursing Vital Signs Nursing Vital Signs: Initial Vital Signs Temperature 99 F 10/11/23 12:56 Pulse Rate 88 10/11/23 12:56 Respiratory Rate 18 10/11/23 12:56 Blood Pressure 169/107 10/11/23 12:56 O2 Sat by Pulse Oximetry 99 10/11/23 12:56 Pain Scale Pain Intensity 6 - Physical Exam General Appearance: mild distress Eye Exam: eyes nml inspection Ears, Nose, Throat Exam: normal ENT inspection Neck Exam: normal inspection, non-tender, full range of motion Respiratory Exam: normal breath sounds, lungs clear, airway intact, No chest tenderness, No respiratory distress Cardiovascular Exam: regular rate/rhythm, normal heart sounds, capillary refill <2 sec, edema Gastrointestinal/Abdomen Exam: soft, normal bowel sounds, tenderness (RUQ, epigastric), guarding, No distention, No mass, No rebound Back Exam: normal inspection, No CVA tenderness Extremity Exam: normal inspection, No swelling, No tenderness Neurologic Exam: alert, oriented x 3, cooperative Skin Exam: normal color, warm, dry SpO2 Interpretation: normal SpO2: 100 O2 Delivery: Room Air - Course Nursing assessment & vital signs reviewed: Yes Ordered Tests: Medication Summary Discontinued Medications Generic Name Dose Route Start Last Admin Trade Name Freq PRN Reason Stop Dose Admin Droperidol 1.25 mg 10/11/23 13:11 10/11/23 13:47 Droperidol 5 Mg/2 Ml Vial IV 10/11/23 13:12 1.25 mg STAT ONE Administration Droperidol Confirm 10/11/23 13:35 Droperidol 5 Mg/2 Ml Vial Administered 10/11/23 13:36 Dose 5 mg .ROUTE .STK-MED ONE Famotidine 20 mg 10/11/23 13:11 10/11/23 13:46 Famotidine 20 Mg/1 Vial IV 10/11/23 13:12 20 mg STAT ONE Administration Famotidine Confirm 10/11/23 13:35 Famotidine 20 Mg/1 Vial Administered 10/11/23 13:36 Dose 20 mg IV .STK-MED ONE Sodium Chloride 1,000 mls @ 999 mls/hr 10/11/23 13:11 10/11/23 14:54 Sodium Chloride 0.9% 1000 Ml IV 10/11/23 14:11 Infused .Q1H1M STA Infusion Sodium Chloride Confirm 10/11/23 13:35 Sodium Chloride 0.9% 1000 Ml Administered 10/11/23 13:36 Dose 1,000 mls @ ud .ROUTE .STK-MED ONE Ceftriaxone Sodium 2 gm in 100 mls @ 200 mls/hr 10/11/23 13:58 10/11/23 14:54 Rocephin 2 Gm/100 Ml Nacl IV 10/11/23 14:27 Infused STAT ONE Infusion Ceftriaxone Sodium Confirm 10/11/23 14:04 Rocephin 2 Gm/100 Ml Nacl Administered 10/11/23 14:05 Dose 2 gm in 100 mls @ ud IV .STK-MED ONE Morphine Sulfate 2 mg 10/11/23 14:00 10/11/23 14:12 Morphine Sulfate 2 Mg/Ml Inj IV 10/11/23 14:01 2 mg STAT ONE Administration Morphine Sulfate Confirm 10/11/23 14:04 Morphine Sulfate 2 Mg/Ml Inj Administered 10/11/23 14:05 Dose 2 mg .ROUTE .STK-MED ONE Lab/Rad Data: Laboratory Result Diagrams 10/11/23 13:20 10/11/23 13:20 Laboratory Results 10/11/23 10/11/23 10/11/23 Range/Units 13:20 13:20 13:20 WBC (3.98-10.04) x10^3/uL RBC (3.93-5.22) x10^6/uL Hgb (11.2-15.7) g/dL Hct (34.1-44.9) % MCV (79.4-94.8) fL MCH (25.6-32.2) pg MCHC (32.2-35.5) g/dL RDW (11.7-14.4) % Plt Count (182-369) x10^3/uL MPV (9.4-12.3) fL Gran % (34.0-71.1) % Immature Gran % (Auto) (0.001-0.429) % Nucleat RBC Rel Count (0.00-0.2) % Eos # (Auto) (0.04-0.36) x10^3/uL Immature Gran # (Auto) (0.001-0.031) x10^3u/L Absolute Lymphs (auto) (1.18-3.74) x10^3/uL Absolute Monos (auto) (0.24-0.86) x10^3/uL Absolute Nucleated RBC (0.00-0.012) x10^3u/L Lymphocytes % (19.3-51.7) % Monocytes % (4.7-12.5) % Eosinophils % (0.7-5.8) % Basophils % (0.1-1.2) % Absolute Granulocytes (1.56-6.13) x10^3/uL Basophils # (0.01-0.08) x10^3/uL PT 10.3 (9.4-12.5) SECONDS INR 0.94 (0.8-3.0) Sodium (135-145) mmol/L Potassium (3.5-5.1) mmol/L Chloride (98-107) mmol/L Carbon Dioxide (22-30) mmol/L Anion Gap (5-15) MEQ/L BUN (7-17) mg/dL Creatinine (0.52-1.04) mg/dL Estimated GFR ML/MIN Glucose (74-106) mg/dL Lactic Acid (0.4-2.0) Calcium (8.4-10.2) mg/dL Total Bilirubin (0.2-1.3) mg/dL AST (14-36) U/L ALT (0-35) U/L Alkaline Phosphatase (38-126) U/L Troponin I < 0.012 (0.000-0.033) ng/mL Serum Total Protein (6.3-8.2) g/dL Albumin (3.5-5.0) g/dL Lipase (23-300) U/L Serum HCG, Qual NEGATIVE (NEGATIVE) Urine Color (Yellow) Urine Appearance (Clear) Urine pH (4.6-8.0) Ur Specific [place] (1.005-1.030) Urine Protein (Negative) Urine Glucose (UA) (Negative) mg/dL Urine Ketones (Negative) Urine Blood (Negative) Urine Nitrite (Negative) Urine Bilirubin (Negative) Urine Urobilinogen (0.2) mg/dL Ur Leukocyte Esterase (Negative) U Hyaline Cast (Auto) (0-2) /LPF Urine Microscopic RBC (0-5) /HPF Urine Microscopic WBC (0-5) /HPF Ur Epithelial Cells (None Seen) /HPF Urine Bacteria (None Seen) /HPF Urine Culture Reflexed (NO) Stl Occult Blood (IFOB) Cancelled 10/11/23 10/11/23 10/11/23 Range/Units 13:20 13:20 13:20 WBC 9.0 (3.98-10.04) x10^3/uL RBC 4.16 (3.93-5.22) x10^6/uL Hgb 13.7 (11.2-15.7) g/dL Hct 40.6 (34.1-44.9) % MCV 97.6 H (79.4-94.8) fL MCH 32.9 H (25.6-32.2) pg MCHC 33.7 (32.2-35.5) g/dL RDW 12.5 (11.7-14.4) % Plt Count 352 (182-369) x10^3/uL MPV 9.6 (9.4-12.3) fL Gran % 51.3 (34.0-71.1) % Immature Gran % (Auto) 0.3 (0.001-0.429) % Nucleat RBC Rel Count 0.0 (0.00-0.2) % Eos # (Auto) 0.15 (0.04-0.36) x10^3/uL Immature Gran # (Auto) 0.03 (0.001-0.031) x10^3u/L Absolute Lymphs (auto) 3.51 (1.18-3.74) x10^3/uL Absolute Monos (auto) 0.58 (0.24-0.86) x10^3/uL Absolute Nucleated RBC 0.00 (0.00-0.012) x10^3u/L Lymphocytes % 39.1 (19.3-51.7) % Monocytes % 6.5 (4.7-12.5) % Eosinophils % 1.7 (0.7-5.8) % Basophils % 1.1 (0.1-1.2) % Absolute Granulocytes 4.61 (1.56-6.13) x10^3/uL Basophils # 0.10 H (0.01-0.08) x10^3/uL PT (9.4-12.5) SECONDS INR (0.8-3.0) Sodium 142 (135-145) mmol/L Potassium 3.9 (3.5-5.1) mmol/L Chloride 106 (98-107) mmol/L Carbon Dioxide 24 (22-30) mmol/L Anion Gap 16.0 H (5-15) MEQ/L BUN 7 (7-17) mg/dL Creatinine 0.88 (0.52-1.04) mg/dL Estimated GFR 77.6 ML/MIN Glucose 96 (74-106) mg/dL Lactic Acid (0.4-2.0) Calcium 9.8 (8.4-10.2) mg/dL Total Bilirubin 0.50 (0.2-1.3) mg/dL AST 27 (14-36) U/L ALT 31 (0-35) U/L Alkaline Phosphatase 106 (38-126) U/L Troponin I (0.000-0.033) ng/mL Serum Total Protein 7.6 (6.3-8.2) g/dL Albumin 4.6 (3.5-5.0) g/dL Lipase 125 (23-300) U/L Serum HCG, Qual (NEGATIVE) Urine Color Yellow (Yellow) Urine Appearance Clear (Clear) Urine pH 7.0 (4.6-8.0) Ur Specific [place] 1.010 (1.005-1.030) Urine Protein Negative (Negative) Urine Glucose (UA) Negative (Negative) mg/dL Urine Ketones Negative (Negative) Urine Blood Negative (Negative) Urine Nitrite Negative (Negative) Urine Bilirubin Negative (Negative) Urine Urobilinogen 0.2 (0.2) mg/dL Ur Leukocyte Esterase Moderate A (Negative) U Hyaline Cast (Auto) NONE SEEN (0-2) /LPF Urine Microscopic RBC 0-2 (0-5) /HPF Urine Microscopic WBC 11-20 A (0-5) /HPF Ur Epithelial Cells Rare (None Seen) /HPF Urine Bacteria None Seen (None Seen) /HPF Urine Culture Reflexed YES (NO) Stl Occult Blood (IFOB) 10/11/23 Range/Units 13:18 WBC (3.98-10.04) x10^3/uL RBC (3.93-5.22) x10^6/uL Hgb (11.2-15.7) g/dL Hct (34.1-44.9) % MCV (79.4-94.8) fL MCH (25.6-32.2) pg MCHC (32.2-35.5) g/dL RDW (11.7-14.4) % Plt Count (182-369) x10^3/uL MPV (9.4-12.3) fL Gran % (34.0-71.1) % Immature Gran % (Auto) (0.001-0.429) % Nucleat RBC Rel Count (0.00-0.2) % Eos # (Auto) (0.04-0.36) x10^3/uL Immature Gran # (Auto) (0.001-0.031) x10^3u/L Absolute Lymphs (auto) (1.18-3.74) x10^3/uL Absolute Monos (auto) (0.24-0.86) x10^3/uL Absolute Nucleated RBC (0.00-0.012) x10^3u/L Lymphocytes % (19.3-51.7) % Monocytes % (4.7-12.5) % Eosinophils % (0.7-5.8) % Basophils % (0.1-1.2) % Absolute Granulocytes (1.56-6.13) x10^3/uL Basophils # (0.01-0.08) x10^3/uL PT (9.4-12.5) SECONDS INR (0.8-3.0) Sodium (135-145) mmol/L Potassium (3.5-5.1) mmol/L Chloride (98-107) mmol/L Carbon Dioxide (22-30) mmol/L Anion Gap (5-15) MEQ/L BUN (7-17) mg/dL Creatinine (0.52-1.04) mg/dL Estimated GFR ML/MIN Glucose (74-106) mg/dL Lactic Acid 1.6 (0.4-2.0) Calcium (8.4-10.2) mg/dL Total Bilirubin (0.2-1.3) mg/dL AST (14-36) U/L ALT (0-35) U/L Alkaline Phosphatase (38-126) U/L Troponin I (0.000-0.033) ng/mL Serum Total Protein (6.3-8.2) g/dL Albumin (3.5-5.0) g/dL Lipase (23-300) U/L Serum HCG, Qual (NEGATIVE) Urine Color (Yellow) Urine Appearance (Clear) Urine pH (4.6-8.0) Ur Specific [place] (1.005-1.030) Urine Protein (Negative) Urine Glucose (UA) (Negative) mg/dL Urine Ketones (Negative) Urine Blood (Negative) Urine Nitrite (Negative) Urine Bilirubin (Negative) Urine Urobilinogen (0.2) mg/dL Ur Leukocyte Esterase (Negative) U Hyaline Cast (Auto) (0-2) /LPF Urine Microscopic RBC (0-5) /HPF Urine Microscopic WBC (0-5) /HPF Ur Epithelial Cells (None Seen) /HPF Urine Bacteria (None Seen) /HPF Urine Culture Reflexed (NO) Stl Occult Blood (IFOB) - Progress Progress: improved Progress Note: UA showed moderate LE, 10-20 WBC. CBC, CMP, lipase and troponin unremarkable. treat for UTI with Ceftriaxone. responded well to nausea meds and Morphine for pain. CT abd/pelvis neg for acute findings. Will dc home on abx and give zofran for as needed nausea meds. Counseled pt/family regarding: lab results, diagnosis, need for follow-up, rad results Medical Desision Making - Diagnostic Testing Diagnostic test were ordered, analyzed, and reviewed by me: Yes Radiological Interpretation: Interpreted by me, Reviewed by me, Teleradiologist Report - Risk of complications The pt has a mod risk of morbidity or mortality based on: Need for prescription drug management - Departure Departure Disposition: Home Clinical Impression: UTI (urinary tract infection), Constipation, Diverticulosis of colon, Generalized abdominal pain, Nausea and vomiting, Nephrolithiasis Condition: Good Critical Care Time: No Referrals: HOSPITAL,'S [Primary Care Provider] - Follow up/PCP as directed Instructions: Abdominal pain, Urinary Tract Infection, Adult ED Prescriptions: Hydrocodone/Acetaminophen [Hydrocodone-Acetamin 5-325 mg] 1 tab PO Q6HPRN PRN 3 Days #12 tablet MDD 4 PRN Reason: Pain Cephalexin Mh 500 mg [Keflex 500 mg] 500 mg PO TID 7 Days #21 cap ondansetron HCL [Zofran] 8 mg PO TID PRN 5 Days #15 tablet PRN Reason: Nausea/Vomiting
== END 2023-10-11 16:56 | disposition home or self-care (01) ==
LOC: ED 12:46
DX: N39.0 Urinary tract infection, site not specified (principal); K59.00 Constipation, unspecified; K57.30 Diverticulosis of large intestine without perforation or abscess without bleeding; R10.84 Generalized abdominal pain; R11.2 Nausea with vomiting, unspecified; N20.0 Calculus of kidney; E78.5 Hyperlipidemia, unspecified; I10 Essential (primary) hypertension; Z79.899 Other long term (current) drug therapy
CPT/HCPCS: 36000; 36415; 74177; 80053; 81001; 83605; 83690; 84484; 84703; 85025; 85610; 87086; 93005; 96365; 96374; 96375; 99284; J0696; J2270

== ENCOUNTER 2024-01-05 12:59 | Emergency (ER) | payer OTHER ==
[2024-01-05 14:04] VITALS: RESP 16; O2SAT 97
[2024-01-05 14:07] LABS: INFLUENZA A NEGATIVE (NEGATIVE); INFLUENZA B NEGATIVE (NEGATIVE); RESPIRATORY SYNCTIAL VIRUS NEGATIVE (NEGATIVE); SARS-CoV-2 Xpert Express NEGATIVE (NEGATIVE)
[2024-01-05] MEDS ORDERED: ZOFRAN ODT 4 MG ONE (14:21)
[2024-01-05] MEDS ORDERED: TYLENOL 325 MG ONE (14:22)
[2024-01-05] MEDS: TYLENOL 325 MG PO STA (14:22)
[2024-01-05] MEDS: ZOFRAN ODT 4 MG PO ONE (14:22)
--- NOTE | 2024-01-05 14:39 | ERPHSYRPT ---
- History of Present Illness Time Seen by Provider: 01/05/24 13:18 Source: patient Exam Limitations: no limitations Patient Subjective Stated Complaint: C/O cough that started yesterday with a headache today Triage Nursing Assessment: Patient ambulated back to ER without difficulties. She is alert and oriented. No SOB. Dry, non-productive cough is present. Skin tone normal. Lights dimmed in room. Physician History: 53-year-old female presented in the ER with complains of sinus/nasal congestion and nonproductive cough since yesterday. Patient reports aches and pains all over. No fever or chills reported. Reports some nausea but no vomiting. No abdominal pain. No known sick contact. Allergies/Adverse Reactions: No Known Drug Allergies Allergy (Verified 01/05/24 13:23) Home Medications: Atorvastatin Calcium 40 mg PO HS 06/18/21 [History] Cetirizine HCl [Zyrtec] 10 mg PO DAILY 06/18/21 [History] Fluticasone Propionate [Flonase Allergy Relief] 2 puffs IH DAILY 06/18/21 [History] Levothyroxine Sodium 75 Mcg [Synthroid 75 Mcg] 75 mcg PO DAILY 06/18/21 [History] Montelukast Sodium 10 mg [Singulair 10 MG] 10 mg PO HS 06/18/21 [History] PANTOPRAZOLE 40 mg Tablet [Protonix 40MG Tablet] 40 mg PO QAM 06/18/21 [History] Gabapentin [Neurontin ] 900 mg PO QHS 06/19/21 [History] Tizanidine HCl 4 mg [Zanaflex 4 MG] 8 mg PO BID 06/19/21 [History] Gabapentin [Neurontin ] 300 mg PO DAILY 03/12/22 [History] Mirtazapine 30 mg [Remeron 30 mg] 45 mg PO HS 03/12/22 [History] Losartan/Hydrochlorothiazide [Losartan-Hctz 50-12.5 mg Tab] 1 each PO DAILY 04/01/22 [History] Sertraline HCl 50 mg [Zoloft 50 mg Tablet] 100 mg PO DAILY 04/01/22 [History] Hx Tetanus, Diphtheria Vaccination/Date Given: Yes Hx Influenza Vaccination/Date Given: No Hx Pneumococcal Vaccination/Date Given: No Immunizations Up to Date: Yes Travel Risk - International Travel Have you traveled outside of the country in past 3 weeks: No - Emerging Infectious Disease Are you exhibiting symptoms associated with any current EIDs: Yes Symptoms: Cough: New Onset, Headaches/Body Aches/ - Review of Systems Constitutional: Fatigue, Weakness Eyes: No Symptoms Ears, Nose, & Throat: Nose Congestion, Throat Pain Respiratory: Cough Cardiac: No Symptoms Abdominal/Gastrointestinal: Nausea Genitourinary Symptoms: No Symptoms Musculoskeletal: Myalgias Skin: No Symptoms Neurological: Headache Endocrine: No Symptoms Hematologic/Lymphatic: No Symptoms - Past Medical History Pertinent Past Medical History: Yes Neurological History: No Pertinent History ENT History: No Pertinent History Cardiac History: High Cholesterol, Hypertension, Other Respiratory History: Bronchitis Endocrine Medical History: Hypothyroidism Musculoskeletal History: No Pertinent History GI Medical History: GERD, Gallbladder Disease, Pancreatitis History: Other Psycho-Social History: Anxiety, Depression Female Reproductive Disorders: No Pertinent History Other Medical History: SVT, chronic UTIs - Past Surgical History Past Surgical History: Yes Neuro Surgical History: No Pertinent History Cardiac: Cardiac Catheterization, Other Respiratory: No Pertinent History Gastrointestinal: Appendectomy, Cholecystectomy Genitourinary: No Pertinent History Musculoskeletal: Other Female Surgical History: Dilation & Curettage, Section, Other Other Surgical History: breast reduction, spinal cord stimulator put in and removed, cardiac ablation for SVT, endometrial ablation, 4 back surgeries Significant Family History: heart disease - Social History Smoking Status: Former smoker How long have you smoked: 30 years Exposure to second hand smoke: No Drug Use: none, other Patient Lives Alone: No - Social Determinants of Health Will the patient participate in the screening: Yes Do you worry about a steady place to live?: No Do you have any problems with any of the following?: No known problems In the past 12 months,have you had to go without utilities?: No Transportation Issues: No Has anyone in your support network made you feel unsafe?: No Have you or anyone in your house had to go without enough: No - Nursing Vital Signs Nursing Vital Signs: Initial Vital Signs Pulse Rate 65 01/05/24 13:10 Respiratory Rate 19 01/05/24 13:10 Blood Pressure 130/80 01/05/24 13:10 O2 Sat by Pulse Oximetry 98 01/05/24 13:10 Pain Scale Pain Intensity 8 - Physical Exam General Appearance: no apparent distress, alert Eye Exam: PERRL/EOMI Ears, Nose, Throat Exam: moist mucous membranes, pharyngeal erythema Neck Exam: normal inspection, non-tender, supple Respiratory Exam: normal breath sounds, lungs clear Cardiovascular Exam: regular rate/rhythm, normal heart sounds Gastrointestinal/Abdomen Exam: soft, normal bowel sounds, No tenderness Back Exam: normal inspection, normal range of motion Neurologic Exam: alert, oriented x 3, cooperative, 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 nml as tested, nml station & gait, sensation nml, No normal mood/affect, No motor deficits Skin Exam: normal color SpO2 Interpretation: normal SpO2: 97 O2 Delivery: Room Air Ordered Tests: Active Orders 24 hr Category Date Time Status CHEST 1 VIEW (PORTABLE) Stat Exams 01/05/24 14:03 Taken CULTURE,URINE Stat Lab 01/05/24 13:50 Received UA W/RFX UR CULTURE Stat Lab 01/05/24 13:50 Completed Medication Summary Discontinued Medications Generic Name Dose Route Start Last Admin Trade Name Yesika PRN Reason Stop Dose Admin Acetaminophen 975 mg 01/05/24 14:16 01/05/24 14:22 Acetaminophen 325 Mg Tablet PO 01/05/24 14:17 975 mg STAT STA Administration Acetaminophen Confirm 01/05/24 14:22 Acetaminophen 325 Mg Tablet Administered 01/05/24 14:23 Dose 975 mg .ROUTE .STK-MED ONE Ondansetron HCl 4 mg 01/05/24 14:16 01/05/24 14:22 Zofran 4 Mg/Udtablet Orally Disintegrating PO 01/05/24 14:17 4 mg STAT ONE Administration Ondansetron HCl Confirm 01/05/24 14:21 Zofran 4 Mg/Udtablet Orally Disintegrating Administered 01/05/24 14:22 Dose 4 mg .ROUTE .STK-MED ONE Lab/Rad Data: Laboratory Results 01/05/24 01/05/24 Range/Units 13:50 13:25 Urine Color Yellow (Yellow) Urine Appearance Clear (Clear) Urine pH 7.5 (4.6-8.0) Ur Specific [place] <=1.005 (1.005-1.030) Urine Protein Negative (Negative) Urine Glucose (UA) Negative (Negative) mg/dL Urine Ketones Negative (Negative) Urine Blood Negative (Negative) Urine Nitrite Negative (Negative) Urine Bilirubin Negative (Negative) Urine Urobilinogen 0.2 (0.2) mg/dL Ur Leukocyte Esterase Moderate A (Negative) U Hyaline Cast (Auto) NONE SEEN (0-2) /LPF Urine Microscopic RBC 0-2 (0-5) /HPF Urine Microscopic WBC 21-50 A (0-5) /HPF Ur Epithelial Cells Few (None Seen) /HPF Urine Bacteria None Seen (None Seen) /HPF Urine Culture Reflexed YES (NO) Influenza Type A Ag NEGATIVE (NEGATIVE) Influenza Type B Ag NEGATIVE (NEGATIVE) RSV (PCR) NEGATIVE (NEGATIVE) SARS-CoV-2 (PCR) NEGATIVE (NEGATIVE) - Progress Progress: improved Air Movement: good Progress Note: 01/05/24 14:49 53-year-old is evaluated in the ER for flulike symptoms. Patient is not in any distress, lungs clear to auscultation. Has negative flu COVID and RSV. Chest x-ray negative. She is given Tylenol and Zofran for symptomatic relief. I believe patient has viral etiologies symptoms, recommended supportive care. She does have UTI and started on Keflex. Discussed signs symptoms of worsening needing return to ER which she seems understanding. Stable for discharge. Blood Culture(s) Obtained: No Antibiotics given: Yes Counseled pt/family regarding: lab results, diagnosis, need for follow-up, rad results Medical Desision Making - Diagnostic Testing Diagnostic test were ordered, analyzed, and reviewed by me: Yes Radiological Interpretation: Reviewed by me - Risk of complications The pt has a mod risk of morbidity or mortality based on: Need for prescription drug management - Departure Departure Disposition: Home Clinical Impression: Viral syndrome, UTI (urinary tract infection) Condition: Stable Critical Care Time: No Referrals: [facility]OSP[facility],'S [Primary Care Provider] - Follow up with PCP 1 day Instructions: Cough, Adult (DC) Additional Instructions: Take Tylenol/Zofran as needed. Follow-up with primary care for reevaluation. Return to ER for worsening cough or if having difficulty breathing, fever chills etc. Prescriptions: Cephalexin Mh 500 mg [Keflex 500 mg] 500 mg PO TID #21 cap Ondansetron ODT 4 MG [Zofran Odt 4 mg] 1 ea PO QIDPRN PRN #7 tablet PRN Reason: n/v
[2024-01-05 14:43] LABS: Appearance Clear (Clear); Bacteria None Seen /HPF (None Seen); Bilirubin Negative (Negative); Blood Negative (Negative); Epithelial Cells Few /HPF (None Seen); Glucose, Urine Negative (Negative); Hyaline Casts NONE SEEN /LPF (0-2); Ketones Negative (Negative); Leukocyte Esterase Moderate (Negative); Nitrite Negative (Negative); Ph 7.5 (4.6-8.0); Protein,Urine Dip Negative (Negative); RBC 0-2 /HPF (0-5); Specific Gravity <=1.005 (1.005-1.030); Urobilinogen 0.2 mg/dL (0.2); WBC 21-50 /HPF (0-5)
[2024-01-05] MEDS: KEFLEX 500 MG PO ONE (15:05)
--- NOTE | 2024-01-05 15:09 | XRAY ---
Indication: Cough. Comparison: August 03, 2023 Portable chest again demonstrates normal heart and lungs. New CT proven small hiatal hernia. Bony thorax intact.
[2024-01-05 15:12] VITALS: BP 145/81
[2024-01-05] MEDS ORDERED: KEFLEX 500 MG ONE (15:12)
[2024-01-05 15:21] VITALS: PULSE 68
== END 2024-01-05 15:21 | disposition home or self-care (01) ==
LOC: ED 12:59
DX: B34.9 Viral infection, unspecified (principal); N39.0 Urinary tract infection, site not specified; R05.1 Acute cough; R09.81 Nasal congestion; R11.0 Nausea; E78.5 Hyperlipidemia, unspecified; I10 Essential (primary) hypertension; Z79.899 Other long term (current) drug therapy
CPT/HCPCS: 0241U; 71045; 81001; 87086; 99283; Q0162; A9270-GY

== ENCOUNTER 2024-03-01 11:20 | Emergency (ER) | payer OTHER ==
[2024-03-01 12:36] VITALS: TEMP 97.1; O2SAT 100
[2024-03-01] MEDS ORDERED: Zofran 4 MG/2 ML VIAL ONE (13:11)
[2024-03-01] MEDS ORDERED: MORPHINE SULFATE 4 MG INJ ONE (13:11)
[2024-03-01 13:12] LABS: Absolute Neutrophil Ct (ANC) 3.43 x10^3/uL (1.56-6.13); Basophil (Absolute #) 0.08 x10^3/uL (0.01-0.08); Eosinophil % 1.9 % (0.7-5.8); Eosinophil (Absolute #) 0.15 x10^3/uL (0.04-0.36); Hematocrit 41.6 % (34.1-44.9); IMMATURE GRAN # 0.02 x10^3u/L (0.001-0.031); IMMATURE GRAN % 0.3 % (0.001-0.429); Lymphocyte (Absolute #) 3.62 x10^3/uL (1.18-3.74); Lymphocytes % 46.3 % (19.3-51.7); Mean Cell Volume 97.9 fL (79.4-94.8); Mean Corpuscular Hemoglobin 32.9 pg (25.6-32.2); Mean Corpuscular Hgb Concent. 33.7 g/dL (32.2-35.5); Mean Platelet Volume 10.3 fL (9.4-12.3); Monocyte (Absolute #) 0.52 x10^3/uL (0.24-0.86); Monocytes % 6.6 % (4.7-12.5); Neutrophil % 43.9 % (34.0-71.1); Platelet Count 354 x10^3/uL (182-369); Red Blood Count 4.25 x10^6/uL (3.93-5.22); Red Cell Distribution Width 12.9 % (11.7-14.4); White Blood Count 7.8 x10^3/uL (3.98-10.04)
[2024-03-01] MEDS: Zofran 4 MG/2 ML VIAL IV ONE (13:14)
[2024-03-01 13:15] LABS: ALBUMIN 4.7 g/dL (3.5-5.0); ANION GAP 13.2 MEQ/L (5-15); BILIRUBIN,TOTAL 0.6 mg/dL (0.2-1.3); Calcium 9.6 mg/dL (8.4-10.2); Creatinine 1 0.92 mg/dL (0.52-1.04); EST GLOMERULAR FILTRATION RATE 73.1 ML/MIN; Potassium 3.8 mmol/L (3.5-5.1); Total Protein 7.7 g/dL (6.3-8.2)
[2024-03-01] MEDS: MORPHINE SULFATE 4 MG INJ IV ONE (13:15)
[2024-03-01 13:24] LABS: Appearance Cloudy (Clear); Bacteria None Seen /HPF (None Seen); Bilirubin Negative (Negative); Blood Negative (Negative); Epithelial Cells Few /HPF (None Seen); Glucose, Urine Negative (Negative); Hyaline Casts NONE SEEN /LPF (0-2); Ketones Negative (Negative); Leukocyte Esterase Negative (Negative); Nitrite Negative (Negative); Ph 7.5 (4.6-8.0); Protein,Urine Dip Negative (Negative); RBC 0-2 /HPF (0-5); Urobilinogen 0.2 mg/dL (0.2); WBC 0-2 /HPF (0-5)
--- NOTE | 2024-03-01 13:35 | ERPHSYRPT ---
- History of Present Illness Time Seen by Provider: 03/01/24 12:20 Historian: patient Exam Limitations: no limitations Patient Subjective Stated Complaint: "I've been having really bad abdominal pain that woke me up in my sleep last night and has just got worse. I had some diarrhea and really bad nausea. I have tried a heating pad and motrin but it doesn't seem to help". Triage Nursing Assessment: Pt presents to ER with complaints of severe RLQ abominal pains that woke her up during her sleep around 2230 last night, states pain continuing to worsen since approx 0400. Pt describes pain as shap and stabbing. States pain radiates to mid chest and through her back. Has attempted to use heating pad and motrin OTC at home without relief. Pt complains of nausea and diarrhea. Denies vomiting. States it does hurt some when she attempts to urinate. Skin is pink, warm, and dry. Pt appears anxious and in pain. Physician History: 54 years old female with history of appendectomy, cholecystectomy, kidney stones presented in the ER with complaint of right flank/periumbilical area pain with some radiation to the back, moderate to severe sharp waking her up from sleep last night with associated nausea and dry heaving without vomiting. Denies any complains of urinary frequency or urgency but does have some dysuria at times. Patient has seen urology outpatient with negative workup so far. Patient having similar symptoms multiple times in the past. Does report having some loose stool as well. No fever or chills reported. Has been taking [id number] pain medications with no significant relief. Allergies/Adverse Reactions: No Known Drug Allergies Allergy (Verified 03/01/24 12:39) Home Medications: Atorvastatin Calcium 40 mg PO HS 06/18/21 [History] Cetirizine HCl [Zyrtec] 10 mg PO HS 06/18/21 [History] Fluticasone Propionate [Flonase Allergy Relief] 2 puffs IH DAILY 06/18/21 [History] Levothyroxine Sodium 75 Mcg [Synthroid 75 Mcg] 75 mcg PO DAILY 06/18/21 [History] Montelukast Sodium 10 mg [Singulair 10 MG] 10 mg PO HS 06/18/21 [History] PANTOPRAZOLE 40 mg Tablet [Protonix 40MG Tablet] 40 mg PO QAM 06/18/21 [History] Gabapentin [Neurontin ] 900 mg PO QHS 06/19/21 [History] Tizanidine HCl 4 mg [Zanaflex 4 MG] 8 mg PO BID 06/19/21 [History] Gabapentin [Neurontin ] 300 mg PO DAILY 03/12/22 [History] Losartan/Hydrochlorothiazide [Losartan-Hctz 50-12.5 mg Tab] 1 each PO DAILY 04/01/22 [History] Sertraline HCl 50 mg [Zoloft 50 mg Tablet] 150 mg PO DAILY 04/01/22 [History] Hx Tetanus, Diphtheria Vaccination/Date Given: Yes Hx Influenza Vaccination/Date Given: No Hx Pneumococcal Vaccination/Date Given: No Immunizations Up to Date: No Travel Risk - International Travel Have you traveled outside of the country in past 3 weeks: No - Emerging Infectious Disease Are you exhibiting symptoms associated with any current EIDs: Yes Symptoms: Abdominal Pain - Review of Systems Constitutional: No Symptoms Ears, Nose, & Throat: No Symptoms Respiratory: No Symptoms Cardiac: No Symptoms Abdominal/Gastrointestinal: Abdominal Pain, Nausea Genitourinary Symptoms: Dysuria, Flank Pain Musculoskeletal: No Symptoms Skin: No Symptoms Neurological: No Symptoms Endocrine: No Symptoms Hematologic/Lymphatic: No Symptoms - Past Medical History Pertinent Past Medical History: Yes Neurological History: No Pertinent History ENT History: No Pertinent History Cardiac History: High Cholesterol, Hypertension, Other Respiratory History: Bronchitis Endocrine Medical History: Hypothyroidism Musculoskeletal History: No Pertinent History GI Medical History: GERD, Gallbladder Disease, Pancreatitis History: Other Psycho-Social History: Anxiety, Depression Female Reproductive Disorders: No Pertinent History Other Medical History: SVT, chronic UTIs - Past Surgical History Past Surgical History: Yes Neuro Surgical History: No Pertinent History Cardiac: Cardiac Catheterization, Other Respiratory: No Pertinent History Gastrointestinal: Appendectomy, Cholecystectomy Genitourinary: No Pertinent History Musculoskeletal: Other Female Surgical History: Dilation & Curettage, Section, Other Other Surgical History: breast reduction, spinal cord stimulator put in and removed, cardiac ablation for SVT, endometrial ablation, 4 back surgeries Significant Family History: heart disease - Social History Smoking Status: Never smoker How long have you smoked: 30 years Exposure to second hand smoke: No Drug Use: marijuana, other Patient Lives Alone: No - Social Determinants of Health Will the patient participate in the screening: Yes Do you worry about a steady place to live?: No Do you have any problems with any of the following?: No known problems In the past 12 months,have you had to go without utilities?: No Transportation Issues: No Has anyone in your support network made you feel unsafe?: No Have you or anyone in your house had to go without enough: No - Nursing Vital Signs Nursing Vital Signs: Initial Vital Signs Temperature 97.1 F 03/01/24 12:25 Pulse Rate 75 03/01/24 12:25 Respiratory Rate 22 03/01/24 12:25 Blood Pressure 142/93 03/01/24 12:25 O2 Sat by Pulse Oximetry 100 03/01/24 12:25 Pain Scale Pain Intensity 8 - Physical Exam General Appearance: no apparent distress, anxiety Eye Exam: PERRL/EOMI Ears, Nose, Throat Exam: normal ENT inspection Neck Exam: normal inspection, full range of motion Respiratory Exam: normal breath sounds, lungs clear Cardiovascular Exam: regular rate/rhythm, normal heart sounds Gastrointestinal/Abdomen Exam: soft, normal bowel sounds, tenderness (Right flank, right lower quadrant/periumbilical area) Extremity Exam: normal inspection, normal range of motion Neurologic Exam: alert, oriented x 3, cooperative Skin Exam: normal color SpO2 Interpretation: normal SpO2: 100 O2 Delivery: Room Air Ordered Tests: Active Orders 24 hr Category Date Time Status IV Insertion STAT Care 03/01/24 13:02 Active ABDOMEN AND PELVIS W/0 CONTRAS [CT] Stat Exams 03/01/24 13:03 Completed CBC W DIFF Stat Lab 03/01/24 13:02 Completed CMP Stat Lab 03/01/24 13:02 Completed LIPASE Stat Lab 03/01/24 13:02 Completed UA W/RFX UR CULTURE Stat Lab 03/01/24 13:09 Completed Medication Summary Discontinued Medications Generic Name Dose Route Start Last Admin Trade Name Freq PRN Reason Stop Dose Admin Morphine Sulfate 4 mg 03/01/24 13:02 03/01/24 13:15 Morphine Sulfate 4 Mg/Ml Injection IV 03/01/24 13:03 4 mg STAT ONE Administration Morphine Sulfate Confirm 03/01/24 13:11 Morphine Sulfate 4 Mg/Ml Injection Administered 03/01/24 13:12 Dose 4 mg .ROUTE .STK-MED ONE Ondansetron HCl 4 mg 03/01/24 13:02 03/01/24 13:14 Ondansetron Hcl 4 Mg/2 Ml Vial IV 03/01/24 13:03 4 mg STAT ONE Administration Ondansetron HCl Confirm 03/01/24 13:11 Ondansetron Hcl 4 Mg/2 Ml Vial Administered 03/01/24 13:12 Dose 4 mg .ROUTE .STK-MED ONE Lab/Rad Data: Laboratory Result Diagrams 03/01/24 13:02 03/01/24 13:02 Laboratory Results 03/01/24 03/01/24 03/01/24 Range/Units 13:09 13:02 13:02 WBC 7.8 (3.98-10.04) x10^3/uL RBC 4.25 (3.93-5.22) x10^6/uL Hgb 14.0 (11.2-15.7) g/dL Hct 41.6 (34.1-44.9) % MCV 97.9 H (79.4-94.8) fL MCH 32.9 H (25.6-32.2) pg MCHC 33.7 (32.2-35.5) g/dL RDW 12.9 (11.7-14.4) % Plt Count 354 (182-369) x10^3/uL MPV 10.3 (9.4-12.3) fL Gran % 43.9 (34.0-71.1) % Immature Gran % (Auto) 0.3 (0.001-0.429) % Nucleat RBC Rel Count 0.0 (0.00-0.2) % Eos # (Auto) 0.15 (0.04-0.36) x10^3/uL Immature Gran # (Auto) 0.02 (0.001-0.031) x10^3u/L Absolute Lymphs (auto) 3.62 (1.18-3.74) x10^3/uL Absolute Monos (auto) 0.52 (0.24-0.86) x10^3/uL Absolute Nucleated RBC 0.00 (0.00-0.012) x10^3u/L Lymphocytes % 46.3 (19.3-51.7) % Monocytes % 6.6 (4.7-12.5) % Eosinophils % 1.9 (0.7-5.8) % Basophils % 1.0 (0.1-1.2) % Absolute Granulocytes 3.43 (1.56-6.13) x10^3/uL Basophils # 0.08 (0.01-0.08) x10^3/uL Sodium 141 (135-145) mmol/L Potassium 3.8 (3.5-5.1) mmol/L Chloride 108 H (98-107) mmol/L Carbon Dioxide 24 (22-30) mmol/L Anion Gap 13.2 (5-15) MEQ/L BUN 15 (7-17) mg/dL Creatinine 0.92 (0.52-1.04) mg/dL Estimated GFR 73.1 ML/MIN Glucose 95 (74-106) mg/dL Calcium 9.6 (8.4-10.2) mg/dL Total Bilirubin 0.60 (0.2-1.3) mg/dL AST 40 H (14-36) U/L ALT 30 (0-35) U/L Alkaline Phosphatase 95 (38-126) U/L Serum Total Protein 7.7 (6.3-8.2) g/dL Albumin 4.7 (3.5-5.0) g/dL Lipase 85 (23-300) U/L Urine Color Yellow (Yellow) Urine Appearance Cloudy A (Clear) Urine pH 7.5 (4.6-8.0) Ur Specific [place] 1.020 (1.005-1.030) Urine Protein Negative (Negative) Urine Glucose (UA) Negative (Negative) mg/dL Urine Ketones Negative (Negative) Urine Blood Negative (Negative) Urine Nitrite Negative (Negative) Urine Bilirubin Negative (Negative) Urine Urobilinogen 0.2 (0.2) mg/dL Ur Leukocyte Esterase Negative (Negative) U Hyaline Cast (Auto) NONE SEEN (0-2) /LPF Urine Microscopic RBC 0-2 (0-5) /HPF Urine Microscopic WBC 0-2 (0-5) /HPF Ur Epithelial Cells Few (None Seen) /HPF Urine Bacteria None Seen (None Seen) /HPF Urine Culture Reflexed NO (NO) - Progress Progress: improved Progress Note: 03/01/24 15:06 54 years old is evaluated in the ER for right flank pain and periumbilical area pain. Patient has similar symptoms multiple times in the past as well. She has some tenderness on initial evaluation, she is given symptomatic treatment, on reevaluation feeling better but pain has not completely resolved.. No guarding or rebound tenderness on repeated eval. Workup showed normal white count, chemistries fairly unremarkable and no UTI. CT abdomen pelvis showed large hiatal hernia which patient does have before and also some nonobstructive kidney stones, diverticulosis without diverticulitis. No new acute intra-abdominal pelvic findings. I believe patient's symptoms could be secondary to adhesions, recommended symptomatic treatment and outpatient follow-up. Discussed signs symptoms of worsening needing return to ER which she seems understanding. Stable for discharge. Counseled pt/family regarding: lab results, diagnosis, need for follow-up, rad results Medical Desision Making - Diagnostic Testing Diagnostic test were ordered, analyzed, and reviewed by me: Yes Radiological Interpretation: Reviewed by me, Teleradiologist Report - Risk of complications The pt has a mod risk of morbidity or mortality based on: Need for prescription drug management - Departure Departure Disposition: Home Clinical Impression: Hiatal hernia, Right flank pain Condition: Stable Critical Care Time: No Referrals: [facility]OSPITAL,'S [Primary Care Provider] - Follow up with PCP 1 day Instructions: Severe Abdominal Pain, Adult (DC) Additional Instructions: Take Tylenol/ibuprofen as needed. Follow-up with urology/ pcp for reevaluation. Return to ER for any worsening.
[2024-03-01 13:49] VITALS: BP 151/74; PULSE 77; RESP 16
--- NOTE | 2024-03-01 14:59 | XRAY ---
CLINICAL HISTORY: flankpain COMPARISON: CT dated 11/30/2022. TECHNIQUE: CT scan of abdomen and pelvis without contrast submitted. coronal and sagittal reformats were also obtained. No intravenous contrast was administered. One of the following dose reduction techniques was utilized for this exam.Automated exposure control, adjustment of the mA and/or kV according to patient size, and use of iterative reconstruction. FINDINGS: Both kidneys are normal in size and shape. Redemonstration of a tiny 2.5 mm calcific focus within the right renal upper pole cortex along with redemonstration of tiny 2 mm nonobstructing calculus at the lower pole of right kidney. No other definite calculus, cyst, mass or hydronephrosis is noted. Bilateral ureters appear unremarkable. Urinary bladder is partially distended without definite intraluminal calculus. Uterus and bilateral adnexa are clear. Liver is at the upper limits of normal in size demonstrating normal shape and smooth margins. No definite focal lesion or intrahepatic biliary dilatation is noted within the constraints of noncontrast examination. Surgical kobe are noted in the gallbladder fossa, postcholecystectomy status. Spleen is normal in size and shape. Few tiny splenules are noted along the posterior aspect of splenic parenchyma. No definite focal lesion is noted. Pancreas appear grossly unremarkable. No definite peripancreatic stranding or collection is noted. Bilateral adrenal glands appear grossly unremarkable. Moderate sized hiatal hernia is noted. Small and large bowel loops demonstrate no abnormal dilatation. Multiple diverticuli are noted along the descending and sigmoid colon without definite evidence of diverticulitis. Low-lying cecum is noted. Appendix is not optimally visualized and requires clinical correlation. Ileocecal junction is intact. No definite ascites or abdominal lymphadenopathy is noted. On appropriate lung window settings, centrilobular emphysematous changes are identified. Cardiothoracic ratio is within normal limits. On appropriate bone and soft tissue in the settings, mild levoscoliosis is identified along with degenerative changes in the visualized thoracolumbar spine. A sclerotic focus with spiculated margins is noted in the left femoral head, likely representing a bone island. Rest of the visualized regional osseous structures and surrounding soft tissues are grossly intact. IMPRESSION: 1. Redemonstration of grossly unchanged the tiny nonobstructing right renal lower pole nonobstructing calculus and upper pole cortical calcific focus. 2. Moderate-sized hiatal hernia noted. 3. Redemonstration of descending and sigmoid colonic diverticulosis without definite evidence of diverticulitis. 4. Details as above. Electronically Signed by: Sonny Nathan MD. (03/01/2024 14:56:02 EST)
== END 2024-03-01 15:32 | disposition home or self-care (01) ==
LOC: ED 11:20
DX: K44.9 Diaphragmatic hernia without obstruction or gangrene (principal); R10.31 Right lower quadrant pain; R19.7 Diarrhea, unspecified; R11.0 Nausea; N20.0 Calculus of kidney; K57.30 Diverticulosis of large intestine without perforation or abscess without bleeding
CPT/HCPCS: 36415; 74176; 80053; 81001; 83690; 85025; 96374; 96375; 99284; J2270; J2405

== ENCOUNTER 2024-07-04 07:58 | Observation (INO) | payer OTHER ==
[2024-07-04] MEDS ORDERED: Zofran 4 MG/2 ML VIAL ONE (08:17)
[2024-07-04] MEDS ORDERED: MORPHINE SULFATE 2 MG INJ ONE (08:17)
[2024-07-04] MEDS: MORPHINE SULFATE 2 MG INJ IV ONE (08:18)
[2024-07-04] MEDS: Zofran 4 MG/2 ML VIAL IV ONE (08:18)
[2024-07-04 08:28] LABS: Absolute Neutrophil Ct (ANC) 2.78 x10^3/uL (1.56-6.13); Basophil (Absolute #) 0.06 x10^3/uL (0.01-0.08); Eosinophil % 1.3 % (0.7-5.8); Eosinophil (Absolute #) 0.08 x10^3/uL (0.04-0.36); Hematocrit 38.7 % (34.1-44.9); Hemoglobin 13.1 g/dL (11.2-15.7); IMMATURE GRAN # 0.01 x10^3u/L (0.001-0.031); IMMATURE GRAN % 0.2 % (0.001-0.429); Lymphocyte (Absolute #) 2.54 x10^3/uL (1.18-3.74); Lymphocytes % 42.8 % (19.3-51.7); Mean Cell Volume 97.5 fL (79.4-94.8); Mean Corpuscular Hgb Concent. 33.9 g/dL (32.2-35.5); Monocyte (Absolute #) 0.47 x10^3/uL (0.24-0.86); Monocytes % 7.9 % (4.7-12.5); Neutrophil % 46.8 % (34.0-71.1); Platelet Count 278 x10^3/uL (182-369); Red Blood Count 3.97 x10^6/uL (3.93-5.22); Red Cell Distribution Width 12.5 % (11.7-14.4); White Blood Count 5.9 x10^3/uL (3.98-10.04)
[2024-07-04 08:46] LABS: Appearance Clear (Clear); Bacteria None Seen /HPF (None Seen); Bilirubin Negative (Negative); Blood Negative (Negative); Epithelial Cells Rare /HPF (None Seen); Glucose, Urine Negative (Negative); Hyaline Casts NONE SEEN /LPF (0-2); Ketones Negative (Negative); Leukocyte Esterase Trace (Negative); Nitrite Negative (Negative); Protein,Urine Dip Negative (Negative); RBC 0-2 /HPF (0-5); Urobilinogen 0.2 mg/dL (0.2); WBC 0-2 /HPF (0-5)
[2024-07-04 08:49] LABS: ALBUMIN 4.2 g/dL (3.5-5.0); ANION GAP 14.9 MEQ/L (5-15); BILIRUBIN,TOTAL 0.6 mg/dL (0.2-1.3); Calcium 9.3 mg/dL (8.4-10.2); Creatinine 1 0.84 mg/dL (0.52-1.04); EST GLOMERULAR FILTRATION RATE 81.5 ML/MIN; Potassium 3.9 mmol/L (3.5-5.1); Total Protein 6.4 g/dL (6.3-8.2)
--- NOTE | 2024-07-04 09:02 | ERPHSYRPT ---
- History of Present Illness Time Seen by Provider: 07/04/24 08:56 Source: patient Exam Limitations: no limitations Patient Subjective Stated Complaint: Pt reports she started experiencing chest pain yesterday that goes into her back between her shoulder blades. Reports it got worse this morning at approx 0300 and goes into left shoulder. Triage Nursing Assessment: Pt alert and oriented x3. Respirations easy/nonlabored. Ambulated to ED cot without difficulty. Skin w/p/d. Abdomen soft/nontender. S1 and S2 auscultated. Lungs clear throughout. Accompanied by daughter. Physician History: Patient is a 54-year-old female history of hypertension hypercholesterolemia presents to our emergency department for evaluation of chest pain that started yesterday. Patient states the pain worsened earlier this morning at approx imately 3 AM. Pain described as an ache that radiates into her neck area back and left shoulder. Patient had similar symptoms in the past but states that she was not diagnosed with anything specific. No associated nausea vomiting or diaphoresis. Symptoms are moderate in intensity. No specific worsening or improving factors. No trauma. No fever. No numbness tingling or weakness. Patient voices no other complaints or concerns at this time. Portions of this note were created with voice recognition technology. There may be grammatical, spelling, punctuation or sound alike errors Timing/Duration: yesterday Severity: moderate Modifying Factors: Improves With: nothing Associated Symptoms: denies symptoms Allergies/Adverse Reactions: No Known Drug Allergies Allergy (Verified 07/04/24 08:07) Home Medications: Atorvastatin Calcium 40 mg PO HS 06/18/21 [History] Cetirizine HCl [Zyrtec] 10 mg PO HS 06/18/21 [History] Fluticasone Propionate [Flonase Allergy Relief] 2 puffs IH DAILY 06/18/21 [History] Levothyroxine Sodium 75 Mcg [Synthroid 75 Mcg] 75 mcg PO DAILY 06/18/21 [History] Montelukast Sodium 10 mg [Singulair 10 MG] 10 mg PO HS 06/18/21 [History] PANTOPRAZOLE 40 mg Tablet [Protonix 40MG Tablet] 40 mg PO QAM 06/18/21 [History] Gabapentin [Neurontin ] 900 mg PO QHS 06/19/21 [History] Tizanidine HCl 4 mg [Zanaflex 4 MG] 8 mg PO BID 06/19/21 [History] Gabapentin [Neurontin ] 300 mg PO DAILY 03/12/22 [History] Losartan/Hydrochlorothiazide [Losartan-Hctz 50-12.5 mg Tab] 1 each PO DAILY 04/01/22 [History] Sertraline HCl 50 mg [Zoloft 50 mg Tablet] 150 mg PO DAILY 04/01/22 [H istory] Hx Tetanus, Diphtheria Vaccination/Date Given: Yes Hx Influenza Vaccination/Date Given: No Hx Pneumococcal Vaccination/Date Given: Yes Travel Risk - International Travel Have you traveled outside of the country in past 3 weeks: No - Emerging Infectious Disease Are you exhibiting symptoms associated with any current EIDs: No Symptoms: Abdominal Pain - Review of Systems Constitutional: No Symptoms, No Fever, No Chills Eyes: No Symptoms Ears, Nose, & Throat: No Symptoms Respiratory: No Symptoms, No Cough, No Dyspnea Cardiac: No Symptoms, No Chest Pain, No Edema, No Syncope Abdominal/Gastrointestinal: No Symptoms, No Abdominal Pain, No Nausea, No Vomiting, No Diarrhea Genitourinary Symptoms: No Symptoms, No Dysuria Musculoskeletal: No Symptoms, No Back Pain, No Neck Pain Skin: No Symptoms, No Rash Neurological: No Symptoms, No Dizziness, No Focal Weakness, No Sensory Changes Psychological: No Symptoms Endocrine: No Symptoms Hematologic/Lymphatic: No Symptoms Immunological/Allergic: No Symptoms All Other Systems: Reviewed and Negative - Past Medical History Pertinent Past Medical History: Yes Neurological History: No Pertinent History ENT History: No Pertinent History Cardiac History: High Cholesterol, Hypertension, Other Respiratory History: Bronchitis Endocrine Medical History: Hypothyroidism Musculoskeletal History: No Pertinent History GI Medical History: GERD, Gallbladder Disease, Pancreatitis History: Other Psycho-Social History: Anxiety, Depression Female Reproductive Disorders: No Pertinent History Other Medical History: SVT, chronic UTIs - Past Surgical History Past Surgical History: Yes Neuro Surgical History: No Pertinent History Cardiac: Cardiac Catheterization, Other Respiratory: No Pertinent History Gastrointestinal: Appendectomy, Cholecystectomy Genitourinary: No Pertinent History Musculoskeletal: Other Female Surgical History: Dilation & Curettage, Section, Other Other Surgical History: breast reduction, spinal cord stimulator put in and removed, cardiac ablation for SVT, endometrial ablation, 4 back surgeries Significant Family History: heart disease - Social History Smoking Status: Never smoker Exposure to second hand smoke: No Drug Use: marijuana - Social Determinants of Health Will the patient participate in the screening: Declined to provide - Nursing Vital Signs Nursing Vital Signs: Initial Vital Signs Temperature 97.8 F 07/04/24 07:59 Pulse Rate 58 L 07/04/24 07:59 Respiratory Rate 20 07/04/24 07:59 Blood Pressure 105/73 07/04/24 07:59 O2 Sat by Pulse Oximetry 96 07/04/24 07:59 Pain Scale Pain Intensity 4 - Physical Exam General Appearance: no apparent distress, alert Eye Exam: PERRL/EOMI, eyes nml inspection Ears, Nose, Throat Exam: normal ENT inspection, TMs normal, pharynx normal, mo ist mucous membranes Neck Exam: normal inspection, non-tender, supple, full range of motion Respiratory Exam: normal breath sounds, lungs clear, airway intact, No respiratory distress Cardiovascular Exam: regular rate/rhythm, normal heart sounds, normal peripheral pulses Gastrointestinal/Abdomen Exam: soft, normal bowel sounds, No tenderness, No mass Back Exam: normal inspection, normal range of motion, No CVA tenderness, No vertebral tenderness Extremity Exam: normal inspection, normal range of motion, pelvis stable Neurologic Exam: alert, oriented x 3, cooperative, normal mood/affect, sensation nml, No motor deficits Skin Exam: normal color, warm, dry, No rash Lymphatic Exam: No adenopathy SpO2 Interpretation: normal SpO2: 96 O2 Delivery: Room Air - Course Nursing assessment & vital signs reviewed: Yes EKG Interpreted by Me: RATE (58), NORMAL AXIS, NORMAL INTERVALS, NORMAL QRS - Radiology Exams Chest X-ray Interpretation: Teleradiologist Report (No new or acute findings) Ordered Tests: Active Orders 24 hr Category Date Time 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 Adjustable 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 STAT Care 07/04/24 08:12 Active EKG-ER Only STAT Care 07/04/24 08:12 Active IV Insertion STAT Care 07/04/24 08:12 Active Pulse Oximetry (ED) STAT Care 07/04/24 08:12 Active ABDOMEN AND PELVIS W/0 CONTRAS [CT] Stat Exams 07/04/24 10:44 Completed CHEST 1 VIEW (PORTABLE) Stat Exams 07/04/24 08:56 Completed CBC W DIFF Stat Lab 07/04/24 08:20 Completed CMP Stat Lab 07/04/24 08:20 Completed D-DIMER QUANTITATIVE Stat Lab 07/04/24 08:20 Completed LIPASE Stat Lab 07/04/24 08:20 Completed NT PRO BNPII Stat Lab 07/04/24 08:20 Completed TROPONIN Q4H Lab 07/04/24 08:20 Completed TROPONIN Q4H Lab 07/04/24 11:14 Completed TROPONIN Q4H Lab 07/04/24 16:15 Ordered UA W/RFX UR CULTURE Stat Lab 07/04/24 08:35 Completed Transfer Order Routine Transfer 07/04/24 Ordered Medication Summary Generic Name Dose Route Start Last Admin Trade Name Freq PRN Reason Stop Dose Admin Sodium Chloride 500 mls @ 500 mls/hr 07/04/24 13:46 07/04/24 13:49 Sodium Chloride 0.9% 500 Ml IV 07/04/24 14:45 500 mls/hr .Q1H ONE Administration Discontinued Medications Generic Name Dose Route Start Last Admin Trade Name Freq PRN Reason Stop Dose Admin Al Hydrox/Mg Hydrox/Simethicone Confirm 07/04/24 09:12 Mag Hydrox/Al Hydrox/Simeth 30 Ml Udcup Administered 07/04/24 09:13 Dose 30 ml .ROUTE .STK-MED ONE Aspirin 324 mg 07/04/24 12:52 07/04/24 13:09 Aspirin 81 Mg Tab.Chew PO 07/04/24 12:53 324 mg STAT ONE Administration Aspirin Confirm 07/04/24 13:07 Aspirin 81 Mg Tab.Chew Administered 07/04/24 13:08 Dose 324 mg .ROUTE .STK-MED ONE Sodium Chloride Confirm 07/04/24 13:47 Sodium Chloride 0.9% 500 Ml Administered 07/04/24 13:48 Dose 500 mls @ ud IV .STK-MED ONE Lidocaine HCl Confirm 07/04/24 09:12 Lidocaine Hcl 2% Viscous 15 Ml Udcup Administered 07/04/24 09:13 Dose 15 ml .ROUTE .STK-MED ONE Magnesium Hydroxide 45 ml 07/04/24 09:06 07/04/24 09:14 Mag Hydrx/Alum Hyd/Simeth/Lido 45 Ml Bottle PO 07/04/24 09:07 45 ml STAT ONE Administration Morphine Sulfate 2 mg 07/04/24 08:13 07/04/24 08:18 Morphine Sulfate 2 Mg/Ml Inj IV 07/04/24 08:14 2 mg STAT ONE Administration Morphine Sulfate Confirm 07/04/24 08:17 Morphine Sulfate 2 Mg/Ml Inj Administered 07/04/24 08:18 Dose 2 mg .ROUTE .STK-MED ONE Morphine Sulfate 4 mg 07/04/24 10:26 07/04/24 10:32 Morphine Sulfate 4 Mg/Ml Injection IV 07/04/24 10:27 4 mg STAT ONE Administration Morphine Sulfate Confirm 07/04/24 10:31 Morphine Sulfate 4 Mg/Ml Injection Administered 07/04/24 10:32 Dose 4 mg .ROUTE .STK-MED ONE Nitroglycerin 1 gm 07/04/24 12:52 07/04/24 13:10 Nitroglycerin 1 Gm Packet TOP 07/04/24 12:53 1 gm STAT ONE Administration Nitroglycerin Confirm 07/04/24 13:07 Nitroglycerin 1 Gm Packet Administered 07/04/24 13:08 Dose 1 gm .ROUTE .STK-MED ONE Ondansetron HCl 4 mg 07/04/24 08:13 07/04/24 08:18 Ondansetron Hcl 4 Mg/2 Ml Vial IV 07/04/24 08:14 4 mg STAT ONE Administration Ondansetron HCl Confirm 07/04/24 08:17 Ondansetron Hcl 4 Mg/2 Ml Vial Administered 07/04/24 08:18 Dose 4 mg .ROUTE .STK-MED ONE Lab/Rad Data: Laboratory Result Diagrams 07/04/24 08:20 07/04/24 08:20 Laboratory Results 07/04/24 07/04/24 07/04/24 Range/Units 11:14 08:35 08:20 WBC (3.98-10.04) x10^3/uL RBC (3.93-5.22) x10^6/uL Hgb (11.2-15.7) g/dL Hct (34.1-44.9) % MCV (79.4-94.8) fL MCH (25.6-32.2) pg MCHC (32.2-35.5) g/dL RDW (11.7-14.4) % Plt Count (182-369) x10^3/uL MPV (9.4-12.3) fL Gran % (34.0-71.1) % Immature Gran % (Auto) (0.001-0.429) % Nucleat RBC Rel Count (0.00-0.2) % Eos # (Auto) (0.04-0.36) x10^3/uL Immature Gran # (Auto) (0.001-0.031) x10^3u/L Absolute Lymphs (auto) (1.18-3.74) x10^3/uL Absolute Monos (auto) (0.24-0.86) x10^3/uL Absolute Nucleated RBC (0.00-0.012) x10^3u/L Lymphocytes % (19.3-51.7) % Monocytes % (4.7-12.5) % Eosinophils % (0.7-5.8) % Basophils % (0.1-1.2) % Absolute Granulocytes (1.56-6.13) x10^3/uL Basophils # (0.01-0.08) x10^3/uL D-Dimer (0.0-0.50) mg/L Sodium 141 (135-145) mmol/L Potassium 3.9 (3.5-5.1) mmol/L Chloride 107 (98-107) mmol/L Carbon Dioxide 23 (22-30) mmol/L Anion Gap 14.9 (5-15) MEQ/L BUN 8 (7-17) mg/dL Creatinine 0.84 (0.52-1.04) mg/dL Estimated GFR 81.5 ML/MIN Glucose 91 (74-106) mg/dL Calcium 9.3 (8.4-10.2) mg/dL Total Bilirubin 0.60 (0.2-1.3) mg/dL AST 37 H (14-36) U/L ALT 29 (0-35) U/L Alkaline Phosphatase 81 (38-126) U/L Troponin I < 0.012 (0.000-0.033) ng/mL NT-Pro-B Natriuret Pep 283 (<300) pg/mL Serum Total Protein 6.4 (6.3-8.2) g/dL Albumin 4.2 (3.5-5.0) g/dL Lipase 62 (23-300) U/L Urine Color Yellow (Yellow) Urine Appearance Clear (Clear) Urine pH 8.0 (4.6-8.0) Ur Specific [place] 1.010 (1.005-1.030) Urine Protein Negative (Negative) Urine Glucose (UA) Negative (Negative) mg/dL Urine Ketones Negative (Negative) Urine Blood Negative (Negative) Urine Nitrite Negative (Negative) Urine Bilirubin Negative (Negative) Urine Urobilinogen 0.2 (0.2) mg/dL Ur Leukocyte Esterase Trace A (Negative) U Hyaline Cast (Auto) NONE SEEN (0-2) /LPF Urine Microscopic RBC 0-2 (0-5) /HPF Urine Microscopic WBC 0-2 (0-5) /HPF Ur Epithelial Cells Rare (None Seen) /HPF Urine Bacteria None Seen (None Seen) /HPF Urine Culture Reflexed NO (NO) 07/04/24 07/04/24 07/04/24 Range/Units 08:20 08:20 08:20 WBC 5.9 (3.98-10.04) x10^3/uL RBC 3.97 (3.93-5.22) x10^6/uL Hgb 13.1 (11.2-15.7) g/dL Hct 38.7 (34.1-44.9) % MCV 97.5 H (79.4-94.8) fL MCH 33.0 H (25.6-32.2) pg MCHC 33.9 (32.2-35.5) g/dL RDW 12.5 (11.7-14.4) % Plt Count 278 (182-369) x10^3/uL MPV 10.0 (9.4-12.3) fL Gran % 46.8 (34.0-71.1) % Immature Gran % (Auto) 0.2 (0.001-0.429) % Nucleat RBC Rel Count 0.0 (0.00-0.2) % Eos # (Auto) 0.08 (0.04-0.36) x10^3/uL Immature Gran # (Auto) 0.01 (0.001-0.031) x10^3u/L Absolute Lymphs (auto) 2.54 (1.18-3.74) x10^3/uL Absolute Monos (auto) 0.47 (0.24-0.86) x10^3/uL Absolute Nucleated RBC 0.00 (0.00-0.012) x10^3u/L Lymphocytes % 42.8 (19.3-51.7) % Monocytes % 7.9 (4.7-12.5) % Eosinophils % 1.3 (0.7-5.8) % Basophils % 1.0 (0.1-1.2) % Absolute Granulocytes 2.78 (1.56-6.13) x10^3/uL Basophils # 0.06 (0.01-0.08) x10^3/uL D-Dimer < 0.19 (0.0-0.50) mg/L Sodium (135-145) mmol/L Potassium (3.5-5.1) mmol/L Chloride (98-107) mmol/L Carbon Dioxide (22-30) mmol/L Anion Gap (5-15) MEQ/L BUN (7-17) mg/dL Creatinine (0.52-1.04) mg/dL Estimated GFR ML/MIN Glucose (74-106) mg/dL Calcium (8.4-10.2) mg/dL Total Bilirubin (0.2-1.3) mg/dL AST (14-36) U/L ALT (0-35) U/L Alkaline Phosphatase (38-126) U/L Troponin I < 0.012 (0.000-0.033) ng/mL NT-Pro-B Natriuret Pep (<300) pg/mL Serum Total Protein (6.3-8.2) g/dL Albumin (3.5-5.0) g/dL Lipase (23-300) U/L Urine Color (Yellow) Urine Appearance (Clear) Urine pH (4.6-8.0) Ur Specific [place] (1.005-1.030) Urine Protein (Negative) Urine Glucose (UA) (Negative) mg/dL Urine Ketones (Negative) Urine Blood (Negative) Urine Nitrite (Negative) Urine Bilirubin (Negative) Urine Urobilinogen (0.2) mg/dL Ur Leukocyte Esterase (Negative) U Hyaline Cast (Auto) (0-2) /LPF Urine Microscopic RBC (0-5) /HPF Urine Microscopic WBC (0-5) /HPF Ur Epithelial Cells (None Seen) /HPF Urine Bacteria (None Seen) /HPF Urine Culture Reflexed (NO) - Progress Progress: improved Progress Note: 54-year-old female presents to our ED for evaluation of chest pain. Physical exam essentially nonremarkable. Troponin negative x 2. D-dimer negative. CT chest negative for acute pathology. Patient later complained that her epigastrium and her right upper quadrant hurt. CT abdomen pelvis negative for acute intra-abdominal pathology. Lipase negative. Patient received morphine for pain control. Patient also received a GI cocktail. Patient states both helped her pain. Patient will be admitted for further evaluation and treatment. Case discussed with Dr. Shirley who accepts admission to observation at 12:30 PM. Portions of this note were created with voice recognition technology. There may be grammatical, spelling, punctuation or sound alike errors Complexity of problem addressed is moderate acute complicated. No critical care time. Complexity of data reviewed and analyzed is extensive. Test ordered chest reviewed results analyzed and correlated clinically with history and physical exam. Management discussed with hospitalist who accepts admission to observation. Risk of complication and or risk of morbidity/mortality of patient management is high. Patient requires hospitalization for further evaluation and treatment. Vital stable. Time spent to admit patient is approximately 15 minutes. Plan of care established for shared decision making. No social determinants of health present to impede follow-up. Portions of this note were created with voice recognition technology. There may be grammatical, spelling, punctuation or sound alike errors 07/04/24 12:53 07/04/24 13:54 Counseled pt/family regarding: lab results, diagnosis, rad results - Departure Departure Disposition: Observation Clinical Impression: Chest pain, ACS (acute coronary syndrome) Condition: Stable Critical Care Time: No Referrals: [facility]OSPITAL,'S [Primary Care Provider] - Follow up/PCP as directed Instructions: How to use a walker
[2024-07-04] MEDS ORDERED: XYLOCAINE VISCOUS 2% 15 ML CUP ONE (09:12)
[2024-07-04] MEDS ORDERED: MAALOX ES 30 ML UNIT DOSE ONE (09:12)
[2024-07-04] MEDS: GI COCKTAIL 45 ML (Maalox/Lidocaine) PO ONE (09:14)
--- NOTE | 2024-07-04 09:18 | XRAY ---
Indication: Pain. Comparison: January 05, 2024 Portable chest again demonstrates normal heart and lungs. Previous small hiatal hernia not seen presumed sliding-type. Bony thorax intact. No new/acute findings.
[2024-07-04] MEDS ORDERED: MORPHINE SULFATE 4 MG INJ ONE (10:31)
[2024-07-04] MEDS: MORPHINE SULFATE 4 MG INJ IV ONE (10:32)
--- NOTE | 2024-07-04 12:22 | XRAY ---
Indication: Pain and nausea. Multiple contiguous axial images obtained through the abdomen and pelvis without contrast. Comparison: March 01, 2024 Lung bases again demonstrate pulmonary emphysema without infiltrate or effusion. Heart not enlarged. Previous hiatal hernia not seen favoring sliding-type. Noncontrasted stomach and bowel loops nonobstructed again with appendectomy. There remains mild scattered descending and sigmoid diverticulosis without diverticulitis. Again nonobstructing right renal micro-calculi and previous cholecystectomy. No free fluid/air. Remaining liver, pancreas, spleen, adrenal glands, kidneys, ureters, bladder, and uterus are unremarkable for noncontrast exam. Stable mild aortoiliac calcifications without AAA. Osseous structures intact again with osteopenia, minimal degenerative changes throughout spine, and minimal levoscoliosis centered at L3. Impression: Stable chronic findings including pulmonary emphysema, colonic diverticulosis, nonobstructing right renal micro-calculi, arteriosclerotic disease, and chronic bony findings. No new/acute findings on this noncontrast exam.
[2024-07-04] MEDS ORDERED: NITRO-BID 2% UD PACKETS ONE (13:07)
[2024-07-04] MEDS ORDERED: BABY ASPIRIN 81 MG CHEW ONE (13:07)
[2024-07-04] MEDS: BABY ASPIRIN 81 MG CHEW PO ONE (13:09)
[2024-07-04] MEDS: NITRO-BID 2% UD PACKETS TOP ONE (13:10)
[2024-07-04] MEDS ORDERED: Sodium Chloride 0.9% 500 ML 500 ML IV ONE (13:47)
[2024-07-04] MEDS: Sodium Chloride 0.9% 500 ML 500 ML IV ONE (13:49)
[2024-07-04 14:30] VITALS: BP 131/73; TEMP 97.2
[2024-07-04] MEDS ORDERED: ZOFRAN ODT 4 MG PO PRN (15:06)
--- NOTE | 2024-07-04 15:09 | PCM.SSS ---
History of Present Illness - Chief Complaint Chief Complaint: ACS Date: 07/04/24 History of Present Illness: is a 54 year old female with history of hypertension, hypercholesterolemia, hypothyroidism, anxiety, depression, and chronic back pain. She presented to our emergency department for evaluation of chest pain that started yesterday mid day. Patient states the pain worsened earlier this morning at approximately 3 AM. Pain described as an ache that radiates into her neck area back and left shoulder. Patient had similar symptoms in the past but states that she was not diagnosed with anything specific. No associated nausea vomiting or diaphoresis. Symptoms are moderate in intensity. No specific worsening or improving factors. No trauma. No fever. No numbness tingling or weakness. Since admission pt states she has no CP but now has LUQ pain that radiates to back. CT abd/pelvis negative for acute concern. She does not have an appendix or gallbladder. She reports chronic thoracic back pain and no longer goes to pain management. She denies any fall or injury. Will order thoracic back XR. PLan is to d/c if Trops are all negative. She can f/u OP with cardiology for further workup. - Review of Systems Constitutional: No Fever, No Chills Eyes: No Symptoms Ears, Nose, & Throat: No Symptoms Respiratory: No Cough, No Short Of Breath Cardiac: No Chest Pain, No Edema, No Syncope Abdominal/Gastrointestinal: Abdominal Pain (RUQ pain), No Nausea, No Vomiting, No Diarrhea Genitourinary Symptoms: No Dysuria Musculoskeletal: Back Pain, No Neck Pain Skin: No Rash Neurological: No Dizziness, No Focal Weakness, No Sensory Changes Psychological: No Symptoms Endocrine: No Symptoms Hematologic/Lymphatic: No Symptoms Immunological/Allergic: No Symptoms Medications & Allergies Home Medications: Home Medication List Atorvastatin Calcium 40 mg PO HS 06/18/21 [History Confirmed 07/04/24] Cetirizine HCl [Zyrtec] 10 mg PO HS 06/18/21 [History Confirmed 07/04/24] Fluticasone Propionate [Flonase Allergy Relief] 2 puffs IH DAILY 06/18/21 [History Confirmed 07/04/24] Levothyroxine Sodium 75 Mcg [Synthroid 75 Mcg] 75 mcg PO DAILY 06/18/21 [History Confirmed 07/04/24] Montelukast Sodium 10 mg [Singulair 10 MG] 10 mg PO HS 06/18/21 [History Confirmed 07/04/24] PANTOPRAZOLE 40 mg Tablet [Protonix 40MG Tablet] 40 mg PO QAM 06/18/21 [History Confirmed 07/04/24] Gabapentin [Neurontin ] 900 mg PO QHS 06/19/21 [History Confirmed 07/04/24] Tizanidine HCl 4 mg [Zanaflex 4 MG] 8 mg PO BID 06/19/21 [History Confirmed 07/04/24] Gabapentin [Neurontin ] 300 mg PO DAILY 03/12/22 [History Confirmed 07/04/24] Losartan/Hydrochlorothiazide [Losartan-Hctz 50-12.5 mg Tab] 1 each PO DAILY 04/01/22 [History Confirmed 07/04/24] Sertraline HCl 50 mg [Zoloft 50 mg Tablet] 150 mg PO DAILY 04/01/22 [History Confirmed 07/04/24] Ondansetron ODT 4 MG [Zofran Odt 4 mg] 4 mg PO Q6H PRN PRN #10 tablet 12/01/22 [Rx Confirmed 07/04/24] Allergies/Adverse Reactions: Allergies Allergy/AdvReac Type Severity Reaction Status Date / Time No Known Drug Allergies Allergy Verified 07/04/24 08:07 - Past Medical History Past Medical History: Yes Neurological History: No Pertinent History ENT History: No Pertinent History Cardiac History: High Cholesterol, Hypertension, Other Respiratory History: Bronchitis Endocrine Medical History: Hypothyroidism Musculoskelatal History: No Pertinent History GI Medical History: GERD, Gallbladder Disease, Pancreatitis History: Other Pyscho-Social History: Anxiety, Depression Reproductive Disorders: No Pertinent History Comment: SVT, chronic UTIs - Past Surgical History Past Surgical History: Yes Neuro Surgical History: No Pertinent History Cardiac History: Cardiac Catheterization, Other Respiratory Surgery: No Pertinent History GI Surgical History: Appendectomy, Cholecystectomy Genitourinary Surgical Hx: No Pertinent History Musculskeletal Surgical Hx: Other Female Surgical History: Dilation & Curettage, Section, Other Other Surgical History: breast reduction, spinal cord stimulator put in and removed, cardiac ablation for SVT, endometrial ablation, 4 back surgeries Significant Family History: heart disease - Social History Smoking Status: Never smoker How long have you smoked: 30 years Exposure to second hand smoke: No Alcohol: Rarely Drug Use: marijuana - Social Determinants of Health Will the patient participate in the screening: Declined to provide Do you worry about a steady place to live?: No In the past 12 months,have you had to go without utilities?: No Have you or anyone in your house had to go without enough: No Transportation Issues: No Has anyone in your support network made you feel unsafe?: No Does the patient want assistance with any of the above?: No - Physical Exam Vital Signs: Vital Signs - 24 hr Temp Pulse Resp BP BP Pulse Ox 07/04/24 14:29 97.2 F 54 L 17 131/73 100 07/04/24 14:00 97/57 07/04/24 13:58 50 L 17 78/54 99 07/04/24 13:57 96 07/04/24 13:45 52 L 17 80/41 95 07/04/24 13:32 56 L 25 H 90/60 98 07/04/24 13:31 52 L 21 81/48 98 07/04/24 13:16 52 L 23 102/47 95 07/04/24 13:02 52 L 12 127/60 99 07/04/24 12:45 51 L 14 99/52 97 07/04/24 12:30 56 L 19 103/64 94 L 07/04/24 12:15 58 L 16 102/50 95 07/04/24 12:07 52 L 21 97/41 92 L 07/04/24 10:46 52 L 17 115/49 94 L 07/04/24 10:30 51 L 17 102/63 95 07/04/24 10:24 49 L 13 115/48 99 07/04/24 10:22 70 18 95 07/04/24 10:10 50 L 16 100 07/04/24 10:01 51 L 14 99 07/04/24 09:45 52 L 18 107/66 99 07/04/24 09:43 52 L 14 119/67 95 07/04/24 09:30 55 L 18 88/69 93 L 07/04/24 09:21 16 114/47 98 07/04/24 09:20 53 L 20 99 07/04/24 09:10 16 100 07/04/24 09:02 49 L 14 100 04/08/25 08:35 53 L 16 98/37 100 07/04/24 08:32 60 17 86 L 07/04/24 08:03 105/73 07/04/24 08:02 81 L 07/04/24 08:01 91 L 07/04/24 07:59 97.8 F 58 L 20 105/73 96 General Appearance: no apparent distress, alert Neurologic Exam: alert, oriented x 3, cooperative, normal mood/affect, nml cerebellar function, nml station & gait, sensation nml, No motor deficits Eye Exam: PERRL/EOMI, eyes nml inspection Ears, Nose, Throat Exam: normal ENT inspection, TMs normal, pharynx normal, moist mucous membranes Neck Exam: normal inspection, non-tender, supple, full range of motion Respiratory Exam: normal breath sounds, lungs clear, No respiratory distress Cardiovascular Exam: regular rate/rhythm, normal heart sounds, normal peripheral pulses Gastrointestinal/Abdomen Exam: soft, normal bowel sounds, tenderness (RUQ), No mass Back Exam: normal inspection, normal range of motion, No CVA tenderness, No vertebral tenderness Extremity Exam: normal inspection, normal range of motion, pelvis stable Skin Exam: normal color, warm, dry, No rash Lymphatic Exam: No adenopathy Results - Labs Lab/Micro Results: Lab Results-Last 24 Hours 07/04/24 07/04/24 07/04/24 Range/Units 08:20 08:20 08:20 WBC 5.9 (3.98-10.04) x10^3/uL RBC 3.97 (3.93-5.22) x10^6/uL Hgb 13.1 (11.2-15.7) g/dL Hct 38.7 (34.1-44.9) % MCV 97.5 H (79.4-94.8) fL MCH 33.0 H (25.6-32.2) pg MCHC 33.9 (32.2-35.5) g/dL RDW 12.5 (11.7-14.4) % Plt Count 278 (182-369) x10^3/uL MPV 10.0 (9.4-12.3) fL Gran % 46.8 (34.0-71.1) % Immature Gran % (Auto) 0.2 (0.001-0.429) % Nucleat RBC Rel Count 0.0 (0.00-0.2) % Eos # (Auto) 0.08 (0.04-0.36) x10^3/uL Immature Gran # (Auto) 0.01 (0.001-0.031) x10^3u/L Absolute Lymphs (auto) 2.54 (1.18-3.74) x10^3/uL Absolute Monos (auto) 0.47 (0.24-0.86) x10^3/uL Absolute Nucleated RBC 0.00 (0.00-0.012) x10^3u/L Lymphocytes % 42.8 (19.3-51.7) % Monocytes % 7.9 (4.7-12.5) % Eosinophils % 1.3 (0.7-5.8) % Basophils % 1.0 (0.1-1.2) % Absolute Granulocytes 2.78 (1.56-6.13) x10^3/uL Basophils # 0.06 (0.01-0.08) x10^3/uL D-Dimer < 0.19 (0.0-0.50) mg/L Sodium (135-145) mmol/L Potassium (3.5-5.1) mmol/L Chloride (98-107) mmol/L Carbon Dioxide (22-30) mmol/L Anion Gap (5-15) MEQ/L BUN (7-17) mg/dL Creatinine (0.52-1.04) mg/dL Estimated GFR ML/MIN Glucose (74-106) mg/dL Calcium (8.4-10.2) mg/dL Total Bilirubin (0.2-1.3) mg/dL AST (14-36) U/L ALT (0-35) U/L Alkaline Phosphatase (38-126) U/L Troponin I < 0.012 (0.000-0.033) ng/mL NT-Pro-B Natriuret Pep (<300) pg/mL Serum Total Protein (6.3-8.2) g/dL Albumin (3.5-5.0) g/dL Lipase (23-300) U/L Urine Color (Yellow) Urine Appearance (Clear) Urine pH (4.6-8.0) Ur Specific [place] (1.005-1.030) Urine Protein (Negative) Urine Glucose (UA) (Negative) mg/dL Urine Ketones (Negative) Urine Blood (Negative) Urine Nitrite (Negative) Urine Bilirubin (Negative) Urine Urobilinogen (0.2) mg/dL Ur Leukocyte Esterase (Negative) U Hyaline Cast (Auto) (0-2) /LPF Urine Microscopic RBC (0-5) /HPF Urine Microscopic WBC (0-5) /HPF Ur Epithelial Cells (None Seen) /HPF Urine Bacteria (None Seen) /HPF Urine Culture Reflexed (NO) 07/04/24 07/04/24 07/04/24 Range/Units 08:20 08:35 11:14 WBC (3.98-10.04) x10^3/uL RBC (3.93-5.22) x10^6/uL Hgb (11.2-15.7) g/dL Hct (34.1-44.9) % MCV (79.4-94.8) fL MCH (25.6-32.2) pg MCHC (32.2-35.5) g/dL RDW (11.7-14.4) % Plt Count (182-369) x10^3/uL MPV (9.4-12.3) fL Gran % (34.0-71.1) % Immature Gran % (Auto) (0.001-0.429) % Nucleat RBC Rel Count (0.00-0.2) % Eos # (Auto) (0.04-0.36) x10^3/uL Immature Gran # (Auto) (0.001-0.031) x10^3u/L Absolute Lymphs (auto) (1.18-3.74) x10^3/uL Absolute Monos (auto) (0.24-0.86) x10^3/uL Absolute Nucleated RBC (0.00-0.012) x10^3u/L Lymphocytes % (19.3-51.7) % Monocytes % (4.7-12.5) % Eosinophils % (0.7-5.8) % Basophils % (0.1-1.2) % Absolute Granulocytes (1.56-6.13) x10^3/uL Basophils # (0.01-0.08) x10^3/uL D-Dimer (0.0-0.50) mg/L Sodium 141 (135-145) mmol/L Potassium 3.9 (3.5-5.1) mmol/L Chloride 107 (98-107) mmol/L Carbon Dioxide 23 (22-30) mmol/L Anion Gap 14.9 (5-15) MEQ/L BUN 8 (7-17) mg/dL Creatinine 0.84 (0.52-1.04) mg/dL Estimated GFR 81.5 ML/MIN Glucose 91 (74-106) mg/dL Calcium 9.3 (8.4-10.2) mg/dL Total Bilirubin 0.60 (0.2-1.3) mg/dL AST 37 H (14-36) U/L ALT 29 (0-35) U/L Alkaline Phosphatase 81 (38-126) U/L Troponin I < 0.012 (0.000-0.033) ng/mL NT-Pro-B Natriuret Pep 283 (<300) pg/mL Serum Total Protein 6.4 (6.3-8.2) g/dL Albumin 4.2 (3.5-5.0) g/dL Lipase 62 (23-300) U/L Urine Color Yellow (Yellow) Urine Appearance Clear (Clear) Urine pH 8.0 (4.6-8.0) Ur Specific [place] 1.010 (1.005-1.030) Urine Protein Negative (Negative) Urine Glucose (UA) Negative (Negative) mg/dL Urine Ketones Negative (Negative) Urine Blood Negative (Negative) Urine Nitrite Negative (Negative) Urine Bilirubin Negative (Negative) Urine Urobilinogen 0.2 (0.2) mg/dL Ur Leukocyte Esterase Trace A (Negative) U Hyaline Cast (Auto) NONE SEEN (0-2) /LPF Urine Microscopic RBC 0-2 (0-5) /HPF Urine Microscopic WBC 0-2 (0-5) /HPF Ur Epithelial Cells Rare (None Seen) /HPF Urine Bacteria None Seen (None Seen) /HPF Urine Culture Reflexed NO (NO) - Radiology Impressions Radiology Exams & Impressions: Radiology Procedures Category Date Time Status ABDOMEN AND PELVIS W/0 CONTRAS [CT] Stat Exams 07/04/24 10:44 Completed CHEST 1 VIEW (PORTABLE) Stat Exams 07/04/24 08:56 Completed Assessment/Plan (1) Chest pain Current Visit: Yes Status: Acute Assessment & Plan: - Trops x3 negative - Tele - EKG - CBC, CMP reviewed - CXR reviewed Portable chest again demonstrates normal heart and lungs. Previous small hiatal hernia not seen presumed sliding-type. Bony thorax intact. No new/acute findings. Code(s): R07.9 - CHEST PAIN, UNSPECIFIED (2) Abdominal pain Current Visit: Yes Status: Acute Assessment & Plan: CT abd/pelvis: Impression: Stable chronic findings including pulmonary emphysema, colonic diverticulosis, nonobstructing right renal micro-calculi, arteriosclerotic disease, and chronic bony findings. No new/acute findings on this noncontrast exam. - CBC, CMP reviewed Code(s): R10.9 - UNSPECIFIED ABDOMINAL PAIN (3) Anxiety and depression Current Visit: No Status: Chronic Assessment & Plan: - Continue home meds - denies any stressors - denies suicidal or homicidal ideation Code(s): F41.9 - ANXIETY DISORDER, UNSPECIFIED; F32.A - DEPRESSION, UNSPECIFIED (4) Hyperlipidemia Current Visit: No Status: Chronic Assessment & Plan: - Continue statin Code(s): E78.5 - HYPERLIPIDEMIA, UNSPECIFIED (5) Hypertension Current Visit: No Status: Chronic Assessment & Plan: - BP stable - Continue home meds Code(s): I10 - ESSENTIAL (PRIMARY) HYPERTENSION (6) Obesity (BMI 30.0-34.9) Current Visit: Yes Status: Chronic Assessment & Plan: - advised diet and exercise control Code(s): E66.811 - OBESITY, CLASS 1 (7) Thoracic back pain Current Visit: Yes Status: Chronic Qualifiers: Chronicity: chronic Assessment & Plan: - Thoracic back XR- pt felt pain may be associated: AP/lateral thoracic spine demonstrates 12 rib-bearing segments with osteopenia, minimal dextroscoliosis centered at T8, mild aortic calcifications, and cholecystectomy clips. No other bony, articular, or soft tissue abnormalities. Code(s): M54.6 - PAIN IN THORACIC SPINE Hospital Summary - Hospital Course Hospital Course: is a 54 year old female with history of hypertension, hypercholesterolemia, hypothyroidism, anxiety, depression, and chronic back pain. She presented to our emergency department for evaluation of chest pain that started yesterday mid day. Patient states the pain worsened earlier this morning at approximately 3 AM. Pain described as an ache that radiates into her neck area back and left shoulder. Patient had similar symptoms in the past but states that she was not diagnosed with anything specific. No associated nausea vomiting or diaphoresis. Symptoms are moderate in intensity. No specific worsening or improving factors. No trauma. No fever. No numbness tingling or weakness. Since admission pt states she has no CP but now has LUQ pain that radiates to back. CT abd/pelvis negative for acute concern. She does not have an appendix or gallbladder. She reports chronic thoracic back pain and no longer goes to pain management. She denies any fall or injury. Will order thoracic back XR. PLan is to d/c if Trops are all negative. She can f/u OP with cardiology for further workup. Trops all negative. Will need OP F/U with PCP. - Vitals & Intake/Output Vital Signs: Vital Signs Temperature 97.2 F 07/04/24 14:29 Pulse Rate 54 L 07/04/24 14:29 Respiratory Rate 17 07/04/24 14:29 Blood Pressure 131/73 07/04/24 14:29 O2 Sat by Pulse Oximetry 100 07/04/24 14:29 Intake & Output: Intake & Output 07/02/24 07/03/24 07/04/24 07/05/24 11:59 11:59 11:59 11:59 Weight 74.389 kg - Lab Result Diagrams: 07/04/24 08:20 07/04/24 08:20 Lab Results-Last 24 Hrs: Lab Results-Last 24 Hours 07/04/24 07/04/24 07/04/24 Range/Units 08:20 08:20 08:20 WBC 5.9 (3.98-10.04) x10^3/uL RBC 3.97 (3.93-5.22) x10^6/uL Hgb 13.1 (11.2-15.7) g/dL Hct 38.7 (34.1-44.9) % MCV 97.5 H (79.4-94.8) fL MCH 33.0 H (25.6-32.2) pg MCHC 33.9 (32.2-35.5) g/dL RDW 12.5 (11.7-14.4) % Plt Count 278 (182-369) x10^3/uL MPV 10.0 (9.4-12.3) fL Gran % 46.8 (34.0-71.1) % Immature Gran % (Auto) 0.2 (0.001-0.429) % Nucleat RBC Rel Count 0.0 (0.00-0.2) % Eos # (Auto) 0.08 (0.04-0.36) x10^3/uL Immature Gran # (Auto) 0.01 (0.001-0.031) x10^3u/L Absolute Lymphs (auto) 2.54 (1.18-3.74) x10^3/uL Absolute Monos (auto) 0.47 (0.24-0.86) x10^3/uL Absolute Nucleated RBC 0.00 (0.00-0.012) x10^3u/L Lymphocytes % 42.8 (19.3-51.7) % Monocytes % 7.9 (4.7-12.5) % Eosinophils % 1.3 (0.7-5.8) % Basophils % 1.0 (0.1-1.2) % Absolute Granulocytes 2.78 (1.56-6.13) x10^3/uL Basophils # 0.06 (0.01-0.08) x10^3/uL D-Dimer < 0.19 (0.0-0.50) mg/L Sodium (135-145) mmol/L Potassium (3.5-5.1) mmol/L Chloride (98-107) mmol/L Carbon Dioxide (22-30) mmol/L Anion Gap (5-15) MEQ/L BUN (7-17) mg/dL Creatinine (0.52-1.04) mg/dL Estimated GFR ML/MIN Glucose (74-106) mg/dL Calcium (8.4-10.2) mg/dL Total Bilirubin (0.2-1.3) mg/dL AST (14-36) U/L ALT (0-35) U/L Alkaline Phosphatase (38-126) U/L Troponin I < 0.012 (0.000-0.033) ng/mL NT-Pro-B Natriuret Pep (<300) pg/mL Serum Total Protein (6.3-8.2) g/dL Albumin (3.5-5.0) g/dL Lipase (23-300) U/L Urine Color (Yellow) Urine Appearance (Clear) Urine pH (4.6-8.0) Ur Specific [place] (1.005-1.030) Urine Protein (Negative) Urine Glucose (UA) (Negative) mg/dL Urine Ketones (Negative) Urine Blood (Negative) Urine Nitrite (Negative) Urine Bilirubin (Negative) Urine Urobilinogen (0.2) mg/dL Ur Leukocyte Esterase (Negative) U Hyaline Cast (Auto) (0-2) /LPF Urine Microscopic RBC (0-5) /HPF Urine Microscopic WBC (0-5) /HPF Ur Epithelial Cells (None Seen) /HPF Urine Bacteria (None Seen) /HPF Urine Culture Reflexed (NO) 07/04/24 07/04/24 07/04/24 Range/Units 08:20 08:35 11:14 WBC (3.98-10.04) x10^3/uL RBC (3.93-5.22) x10^6/uL Hgb (11.2-15.7) g/dL Hct (34.1-44.9) % MCV (79.4-94.8) fL MCH (25.6-32.2) pg MCHC (32.2-35.5) g/dL RDW (11.7-14.4) % Plt Count (182-369) x10^3/uL MPV (9.4-12.3) fL Gran % (34.0-71.1) % Immature Gran % (Auto) (0.001-0.429) % Nucleat RBC Rel Count (0.00-0.2) % Eos # (Auto) (0.04-0.36) x10^3/uL Immature Gran # (Auto) (0.001-0.031) x10^3u/L Absolute Lymphs (auto) (1.18-3.74) x10^3/uL Absolute Monos (auto) (0.24-0.86) x10^3/uL Absolute Nucleated RBC (0.00-0.012) x10^3u/L Lymphocytes % (19.3-51.7) % Monocytes % (4.7-12.5) % Eosinophils % (0.7-5.8) % Basophils % (0.1-1.2) % Absolute Granulocytes (1.56-6.13) x10^3/uL Basophils # (0.01-0.08) x10^3/uL D-Dimer (0.0-0.50) mg/L Sodium 141 (135-145) mmol/L Potassium 3.9 (3.5-5.1) mmol/L Chloride 107 (98-107) mmol/L Carbon Dioxide 23 (22-30) mmol/L Anion Gap 14.9 (5-15) MEQ/L BUN 8 (7-17) mg/dL Creatinine 0.84 (0.52-1.04) mg/dL Estimated GFR 81.5 ML/MIN Glucose 91 (74-106) mg/dL Calcium 9.3 (8.4-10.2) mg/dL Total Bilirubin 0.60 (0.2-1.3) mg/dL AST 37 H (14-36) U/L ALT 29 (0-35) U/L Alkaline Phosphatase 81 (38-126) U/L Troponin I < 0.012 (0.000-0.033) ng/mL NT-Pro-B Natriuret Pep 283 (<300) pg/mL Serum Total Protein 6.4 (6.3-8.2) g/dL Albumin 4.2 (3.5-5.0) g/dL Lipase 62 (23-300) U/L Urine Color Yellow (Yellow) Urine Appearance Clear (Clear) Urine pH 8.0 (4.6-8.0) Ur Specific [place] 1.010 (1.005-1.030) Urine Protein Negative (Negative) Urine Glucose (UA) Negative (Negative) mg/dL Urine Ketones Negative (Negative) Urine Blood Negative (Negative) Urine Nitrite Negative (Negative) Urine Bilirubin Negative (Negative) Urine Urobilinogen 0.2 (0.2) mg/dL Ur Leukocyte Esterase Trace A (Negative) U Hyaline Cast (Auto) NONE SEEN (0-2) /LPF Urine Microscopic RBC 0-2 (0-5) /HPF Urine Microscopic WBC 0-2 (0-5) /HPF Ur Epithelial Cells Rare (None Seen) /HPF Urine Bacteria None Seen (None Seen) /HPF Urine Culture Reflexed NO (NO) - Radiology Exams Ordered Rad Exams-Entire Visit: Radiology Procedures Category Date Time Status ABDOMEN AND PELVIS W/0 CONTRAS [CT] Stat Exams 07/04/24 10:44 Completed CHEST 1 VIEW (PORTABLE) Stat Exams 07/04/24 08:56 Completed Telemedicine Encounter - Telemedicine Encounter Telemedicine Encounter: "The entirety of this encounter was performed via Telemedicine" This visit was performed using real-time audio and video connection between my location and thepatients locationwith the assistance of a surrogateat the patients location. Written or verbal consent was obtained from the patient/guardian to perform this visit usingePub Direct technology. Any patient questions regarding the telemedicine interaction were answered. - Discharge Discharge Date: 07/04/24 Disposition: Home, Self-Care Condition: Stable Prescriptions: Continue PANTOPRAZOLE 40 mg Tablet [Protonix 40MG Tablet] 40 mg PO QAM Montelukast Sodium 10 mg [Singulair 10 MG] 10 mg PO HS Levothyroxine Sodium 75 Mcg [Synthroid 75 Mcg] 75 mcg PO DAILY Fluticasone Propionate [Flonase Allergy Relief] 2 puffs IH DAILY Cetirizine HCl [Zyrtec] 10 mg PO HS Atorvastatin Calcium 40 mg PO HS Gabapentin [Neurontin ] 900 mg PO QHS Tizanidine HCl 4 mg [Zanaflex 4 MG] 8 mg PO BID Gabapentin [Neurontin ] 300 mg PO DAILY Sertraline HCl 50 mg [Zoloft 50 mg Tablet] 150 mg PO DAILY Losartan/Hydrochlorothiazide [Losartan-Hctz 50-12.5 mg Tab] 1 each PO DAILY Ondansetron ODT 4 MG [Zofran Odt 4 mg] 4 mg PO Q6H PRN PRN #10 tablet PRN Reason: Nausea Additional Instructions: [facility] to see [facility] and cardiology evaluation. Follow up with: [facility] [Primary Care Provider] -
--- NOTE | 2024-07-04 17:01 | XRAY ---
Indication: Thoracic pain. Comparison: None AP/lateral thoracic spine demonstrates 12 rib-bearing segments with osteopenia, minimal dextroscoliosis centered at T8, mild aortic calcifications, and cholecystectomy clips. No other bony, articular, or soft tissue abnormalities.
[2024-07-04 17:41] VITALS: PULSE 52; RESP 16; O2SAT 98
[2024-07-04] MEDS ORDERED: ZOCOR 20MG PO SCH (22:00)
[2024-07-04] MEDS ORDERED: CLARITIN 10 MG PO SCH (22:00)
[2024-07-04] MEDS ORDERED: NEURONTIN PO SCH (22:00)
[2024-07-04] MEDS ORDERED: Singulair 10 MG PO SCH (22:00)
[2024-07-04] MEDS ORDERED: Zanaflex 4 MG PO SCH (22:00)
[2024-07-05] MEDS ORDERED: Protonix 40MG Tablet PO SCH (10:00)
[2024-07-05] MEDS ORDERED: hydroDIURIL 25 MG PO SCH (10:00)
[2024-07-05] MEDS ORDERED: NON-FORMULARY ITEM (Losartan/Hydrochlorothiazide [Losartan-Hctz 50-12.5 Mg Tab] 1 EACH Tab PO SCH (10:00)
[2024-07-05] MEDS ORDERED: Cozaar 50 MG PO SCH (10:00)
[2024-07-05] MEDS ORDERED: ZOLOFT 50 MG TABLET PO SCH (10:00)
[2024-07-05] MEDS ORDERED: SYNTHROID 75 MCG PO SCH (10:00)
[2024-07-05] MEDS ORDERED: Neurontin PO SCH (10:00)
[2024-07-05] MEDS ORDERED: Flonase NASAL NS SCH (10:00)
== END 2024-07-04 17:55 | disposition home or self-care (01) ==
LOC: ED 07:58 → MED SURG 14:10
PROVIDERS: ADMIT Internal Medicine; ATTEND Internal Medicine
DX: R07.9 Chest pain, unspecified (principal); R10.9 Unspecified abdominal pain; F41.9 Anxiety disorder, unspecified; F32.A Depression, unspecified; E78.5 Hyperlipidemia, unspecified; I10 Essential (primary) hypertension; E66.811 Obesity, class 1; M54.6 Pain in thoracic spine; Z79.899 Other long term (current) drug therapy
CPT/HCPCS: 36415; 71045; 72072; 74176; 80053; 81001; 83690; 83880; 84484; 85025; 85379; 93005; 93041; 93268; 94760; 96374; 96375; 96376; 99285; J2270; J2405; Q3014; A9270-GY; G0378